=== PATIENT | male | born 1960 | race African-American/Black ===

== ENCOUNTER 2018-03-19 06:10 | Inpatient (IN) ==
[2018-03-19] MEDS ORDERED: Vancomycin Inj 1 GM/200 ML PIGGYBACK IV.SIG ONE (07:41)
[2018-03-19] MEDS ORDERED: Piperacil/Tazo 3.375 GM Premix 50 ML IV.SIG ONE (07:41)
[2018-03-19] MEDS ORDERED: Morphine Inj 4 MG/ML Vial IV.PUSH ONE (07:41)
[2018-03-19] MEDS ORDERED: Sodium Chlor 0.9% Inj 500 ML IV.SIG ONE (07:46)
[2018-03-19 08:38] LABS: Baso # (Auto) 0.1 th/mm3 (0.0-0.2); Baso % (Auto) 0.6 % (0.0-2.0); Eos # (Auto) 0.1 th/mm3 (0.0-0.4); Eos % (Auto) 0.4 % (0.0-4.0); Hematocrit 32.5 % (39.0-51.0); Hemoglobin 10.8 gm/dL (13.0-17.0); Lymph # (Auto) 1.4 th/mm3 (1.0-4.8); Lymph % (Auto) 7.5 % (9.0-44.0); Mean Corpuscular HGB Conc 33.2 % (32.0-36.0); Mean Corpuscular Hemoglobin 30.6 pg (27.0-34.0); Mean Platelet Volume 8.4 fL (7.0-11.0); Mono # (Auto) 1.5 th/mm3 (0.0-0.9); Neut # (Auto) 15.7 th/mm3 (1.8-7.7); Neut % (Auto) 83.5 % (16.0-70.0); Platelet Count 544 th/mm3 (150-450); Red Blood Count 3.53 mil/mm3 (4.50-5.90); Red Cell Distribution Width 14.3 % (11.6-17.2); White Blood Count 18.8 th/mm3 (4.0-11.0)
[2018-03-19 09:07] LABS: Calcium 9.2 mg/dL (8.5-10.1); Carbon Dioxide 29.1 meq/L (21.0-32.0); Potassium 3.4 meq/L (3.5-5.1)
[2018-03-19 09:30] LABS: Lymphocytes 7 % (9-44); Metamyelocytes 1 % (0-1); Monocytes 7 % (0-8); Myelocytes 1 % (0-0); Toxic Granulation 1+
[2018-03-19 09:31] LABS: Platelet Morphology Normal (Normal)
[2018-03-19] MEDS ORDERED: Vancomycin Inj 1,000 MG in Sodium Chlor 0.9% Inj 250 ML IV.SIG ONE (10:00)
--- NOTE | 2018-03-19 10:12 | ED ---
HPI General Chief complaint: Extremity Injury, Lower Stated complaint: Rt leg pain Time Seen by Provider: 03/19/18 07:41 History of Present Illness HPI narrative: This is a 57-year-old male with a history of polysubstance abuse , presents here today with complaint of right lower extremity increased redness and pain. Patient was seen 6 days ago for the same. At that time he had a ultrasound that showed no evidence of new DVT. He also had an x-ray that showed no evidence of osteomyelitis. White count at that time was 25,000. He was given DalVance and told to return if he developed worsening pain or any other reason. Patient reports that the pain has gotten much worse. He also reports the swelling has gotten worse. He denies any fevers, chills. He does also report there is increased drainage from the ulcer. He reports his last tetanus shot was within 5 years. Related Data Home Medications Medication Instructions Recorded Confirmed phenytoin sodium extended 300 mg PO DAILY 03/13/18 03/13/18 [Dilantin Extended] Allergies Allergy/AdvReac Type Severity Reaction Status Date / Time No Known Allergies Allergy Verified 03/13/18 16:17 Review of Systems ROS: all other systems reviewed are negative Constitutional Denies chills and Denies fever(s) Eyes Reports system reviewed and no additional complaints, except as docu ENT Reports system reviewed and no additional complaints, except as docu Cardiovascular Denies chest pain and Denies dyspnea Respiratory Denies chest congestion and Denies cough Gastrointestinal Denies diarrhea, Denies nausea and Denies vomiting Genitourinary Reports system reviewed and no additional complaints, except as docu Musculoskeletal Reports limited range of motion (Secondary to pain.) and Reports other ( Increased redness and swelling of the right lower extremity. Patient also reports drainage from his ulcer.) Integumentary/Breasts Reports non-healing lesions (Right lateral kessler.), Reports skin ulcer (Right lateral kessler that straining.) and Reports other (Increased redness and swelling. ) Neurologic Reports system reviewed and no additional complaints, except as docu Endocrine Denies polydipsia and Denies polyuria FORMERLY [facility], [facility] Medical History Medical History DVT (deep venous thrombosis) (Acute) Seizure (Acute) Surgical History Surgical History No history of previous surgery (Acute) Social History Social History Substance History: Active Abuse Second Hand Smoke Exposure: No Smoking Status: Current every day smoker Tobacco Type: Cigarettes How Often Do You Have a Drink Containing Alcohol: 2 to 4 times a month Recent Travel in [facility] within the Last 8 Weeks: No Recent Out of Country Travel within the Last 8 Weeks: No Substance Abuse Detail Marijuana: Substance Use Status: Active Route Used Substance Abuse: Inhalation Last Used: 03/19/18 Crack/Cocaine: Substance Use Status: Active Route Used Substance Abuse: Inhalation Last Used: 03/19/18 Immunization History Tetanus Immunization: <5 Years Hx Influenza Vaccine This Season: No Exam Narrative Exam Narrative: GENERAL: Well-developed well-nourished male in no acute respiratory distress. SKIN: Focused skin assessment warm/dry. HEAD: Atraumatic. Normocephalic. EYES: No scleral icterus. No injection or drainage. ENT: No nasal bleeding or discharge. Mucous membranes pink and moist. NECK: Trachea midline. Supple. CARDIOVASCULAR: Regular rate and rhythm. No murmur appreciated. RESPIRATORY: No accessory muscle use. Clear to auscultation. Breath sounds equal bilaterally. GASTROINTESTINAL: Abdomen soft, thin, non-tender, nondistended. Hepatic and splenic margins not palpable. MUSCULOSKELETAL: Right lower extremity with erythema and redness and induration up to his knee level. There is a draining ulcer on his right lateral leg. NEUROLOGICAL: Awake and alert. No obvious cranial nerve deficits. Motor grossly within normal limits. Normal speech. Course Initial Documented Vital Signs Temperature 97.5 F L 03/19/18 06:13 Pulse Rate 87 03/19/18 06:13 Respiratory Rate 18 03/19/18 06:13 Blood Pressure 123/56 L 03/19/18 06:13 Pulse Oximetry 99 03/19/18 06:13 Last Documented Vital Signs Temperature 97.5 F L 03/19/18 06:13 Pulse Rate 87 03/19/18 06:13 Respiratory Rate 15 03/19/18 09:41 Blood Pressure 123/56 L 03/19/18 06:13 Pulse Oximetry 99 03/19/18 06:13 Medical Decision Making MDM Narrative Medical decision making narrative: 57-year-old male with a history of polysubstance abuse, presents here with worsening pain, redness, drainage from his right lower extremity ulcer and cellulitis. Patient was here 6 days ago and received a dose of DalVance he presents with worsening redness drainage and pain. The patient has failed outpatient treatment and will be admitted for IV antibiotic therapy. He has been started on vancomycin and Zosyn. Patient's tetanus shot was within the last 5 years. He is Parviz had an ultrasound and x- ray of the lower extremity 6 days ago. Those were negative for acute process. White count is 18,800 which is down from previous however still elevated. Case was discussed with Dr. Roger, [facility], who agrees with the admission. He will be a full admit. Differential Diagnosis Differential Diagnosis: Cellulitis, failed outpatient antibiotics versus metabolic derangement versus polysubstance abuse versus DVT Lab Data Result diagrams: 03/19/18 08:00 03/19/18 08:00 Lab Results 03/19/18 03/19/18 Range/Units 08:00 08:00 WBC 18.8 H (4.0-11.0) th/mm3 RBC 3.53 L (4.50-5.90) mil/mm3 Hgb 10.8 L (13.0-17.0) gm/dL Hct 32.5 L (39.0-51.0) % MCV 92.0 (80.0-100.0) fL MCH 30.6 (27.0-34.0) pg MCHC 33.2 (32.0-36.0) % RDW 14.3 (11.6-17.2) % Plt Count 544 H D (150-450) th/mm3 MPV 8.4 (7.0-11.0) fL Prelim Diff (Auto) Slide review pending Neut % (Auto) 83.5 H (16.0-70.0) % Lymph % (Auto) 7.5 L (9.0-44.0) % [place] % (Auto) 8.0 (0.0-8.0) % Eos % (Auto) 0.4 (0.0-4.0) % Baso % (Auto) 0.6 (0.0-2.0) % Neut # (Auto) 15.7 H (1.8-7.7) th/mm3 Lymph # (Auto) 1.4 (1.0-4.8) th/mm3 [place] # (Auto) 1.5 H (0.0-0.9) th/mm3 Eos # (Auto) 0.1 (0.0-0.4) th/mm3 Baso # (Auto) 0.1 (0.0-0.2) th/mm3 WBC Differential Manual diff final Seg Neuts % (Manual) 77 H (16-70) % Band Neuts % (Manual) 7 H (0-6) % Lymphocytes % (Manual) 7 L (9-44) % Monocytes % (Manual) 7 (0-8) % Metamyelocytes % (Man) 1 (0-1) % Myelocytes % (Man) 1 H (0-0) % Abs Neuts (Manual) 16.2 H (1.8-7.7) th/mm3 Differential Comment . Toxic Granulation 1+ H (None) Platelet Estimate High H (Normal) Platelet Morphology Normal (Normal) Sodium 136 (136-145) meq/L Potassium 3.4 L (3.5-5.1) meq/L Chloride 99 (98-107) meq/L Carbon Dioxide 29.1 (21.0-32.0) meq/L Anion Gap 8 (5-15) meq/L BUN 13 (7-18) mg/dL Creatinine 1.19 (0.60-1.30) mg/dL Estimated GFR 77 L (>89) mL/min Random Glucose 60 L (74-106) mg/dL Calcium 9.2 (8.5-10.1) mg/dL Discharge Plan Discharge Disposition Patient Disposition: 30 Still Patient Discharge Details Diagnosis: Cellulitis of leg, right, Polysubstance (excluding opioids) dependence, Failure of outpatient treatment Physicians Team ED Provider: Salbador Chacon Primary Care Provider: UNKNOWN, Attending Provider: Mandy Roger Status ED Status: Admitted Patient
[2018-03-19] MEDS ORDERED: Naloxone Inj 0.4 MG/ML Vial IV.PUSH PRN (17:28)
[2018-03-19] MEDS ORDERED: Acetaminophen 325 MG Tablet PO PRN (17:28)
[2018-03-19] MEDS ORDERED: Vancomycin Consult Pharmacy 1 EACH OTHER SCH (17:28)
[2018-03-19] MEDS ORDERED: Ketorolac Inj 30 MG/ML (IVP) Vial IV.PUSH PRN (17:28)
[2018-03-19] MEDS ORDERED: Haloperidol Inj 5 MG/ML Ampul IV.PUSH PRN (17:29)
[2018-03-19] MEDS ORDERED: LORazepam 1 MG Tablet PO PRN (17:29)
[2018-03-19] MEDS ORDERED: Heparin - SQ 10,000 UNITS/ML Vial SQ SCH (17:30)
[2018-03-19] MEDS ORDERED: Potassium Chloride Inj 20 MEQ in Sod Chloride 0.9% Inj 1,000 ML IV.CONT SCH (17:30)
[2018-03-19] MEDS ORDERED: Bisacodyl 10 MG Supp RECTAL PRN (17:34)
--- NOTE | 2018-03-19 17:41 | P.HP ---
History of Present Illness Primary Care Physician: UNKNOWN History of Present Illness: This is a 57-year-old male with a history of remote DVT status post Coumadin, seizure disorder on Dilantin and polysubstance abuse. Family history no diabetes. He returned to the emergency department because of right lower extremity pain and swelling. Patient was seen about a week ago because of right foot/ankle pain and swelling for 2 weeks. He was diagnosed with cellulitis and was given Dalvance. X-ray of the foot with no evidence of osteomyelitis and Doppler with no DVT. Patient states a day after he was seen in the ED he developed a blister then later started having purulent drainage. He also reports of intermittent fever and chills. Denies history of MRSA. States he tried to elevate his right lower extremity. 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 In the emergency department, he received IV vancomycin and Zosyn and IV morphine. Inpatient Certification: I certify that the inpatient services were ordered in accordance with Medicare regulations governing the order. This includes certification that hospital inpatient services are reasonable and necessary and in the case of services not specified as inpatient-only under 42 CFR 419.22(n), that they are appropriately provided as inpatient services in accordance to with the 2-midnight benchmark under 43 CFR 412.3(e) Estimated Total Length of Stay (Days): 3 Plans for Post Hospital Care: Not yet determined Review of Systems All other systems reviewed negative except as stated in HPI [facility] - History History Provided By: Patient - Medical / Surgical Hx Neg / Unobtainable Surgical History: No Previous Surgery - Medical History Medical History: Medical History (Last Updated 03/19/18 @ 08:33 by Rosaline Ellsworth) DVT (deep venous thrombosis) Seizure - Surgical History Surgical History: Surgical History (Last Reviewed 03/19/18 @ 08:32 by Rosaline Ellsworth) No history of previous surgery - Tobacco History Second Hand Smoke Exposure: No Tobacco Use In Past 30 Days: Yes Smoking Status: Current every day smoker Tobacco Type: Cigarettes - Alcohol History How Often Do You Have a Drink Containing Alcohol: 2 to 4 times a month - Substance Use History Substance History: Active Abuse - Substance Use Type Marijuana Status: Active Route Used: Inhalation Last Used: 03/19/18 Crack/Cocaine Status: Active Route Used: Inhalation Last Used: 03/19/18 - Travel History Recent Travel in the [facility] Within the Last 8 Weeks: No Recent Travel Out of the Country Within the Last 8 Weeks: No - Immunization History Tetanus Immunization: <5 Years Hx Influenza Vaccine This Season: No Medications and Allergies Active Medications: Active Medications Acetaminophen (Tylenol) 650 mg PO Q6HR PRN PRN Reason: PAIN SCALE 1 TO 2 Al Hydroxide/Mg Hydroxide (Milk Of Magnesia Liq) 30 ml PO Q12H PRN PRN Reason: Mild Constipation Bisacodyl (Dulcolax Supp) 10 mg RECTAL DAILY PRN PRN Reason: SEVERE CONSITIPATION Flumazenil (Romazecon Inj) 0.2 mg IV.PUSH Q1M PRN PRN Reason: OVERSEDATION Folic Acid (Folic Acid) 1 mg PO DAILY [facility] Stop: 03/25/18 08:59 Haloperidol Lactate (Haldol Inj) 1 mg IV.PUSH Q15M PRN PRN Reason: for severe agitation Heparin Sodium (Porcine) (Heparin Inj) 5,000 units SQ Q8H [facility] Potassium Chloride 20 meq/ (Sodium Chloride) 1,010 mls @ 100 mls/hr IV.CONT .Q10H6M [facility] Pharmacy Profile Note (Vancomycin Consult Pharmacy) 0 mls @ 0 mls/hr OTHER UNSCH [facility] Piperacillin/Tazobactam/Dextrose (Zosyn 3.375 Gm Premix) 50 mls @ 100 mls/hr IV.SIG Q6H [facility] Ketorolac Tromethamine (Toradol Inj) 30 mg IV.PUSH Q6H PRN PRN Reason: PAIN 6-10;IF UNABLE TO TAKE PO Stop: 03/24/18 17:27 Ketorolac Tromethamine (Toradol Inj) 15 mg IV.PUSH Q6H PRN PRN Reason: PAIN 3-5; IF UABLE TO TAKE PO Stop: 03/24/18 17:27 Lactulose (Lactulose Liq) 30 ml PO DAILY PRN PRN Reason: SEVERE CONSITIPATION Lorazepam (Ativan) 1 mg PO Q4H PRN PRN Reason: for CIWA 8-10 Lorazepam (Ativan) 2 mg PO Q2H PRN PRN Reason: for CIWA 11-14 Lorazepam (Ativan Inj) 2 mg IV.PUSH Q2H PRN PRN Reason: for CIWA 11-14 Lorazepam (Ativan Inj) 2 mg IV.PUSH Q1H PRN PRN Reason: for CIWA 15-20 Lorazepam (Ativan Inj) 2 mg IV.PUSH Q15M PRN PRN Reason: for CIWA > 20 Lorazepam (Ativan Inj) 1 mg IV.PUSH Q4H PRN PRN Reason: for CIWA 8-10 Morphine Sulfate (Morphine Inj) 2 mg IV.PUSH Q1H PRN PRN Reason: Pain Scale 7-10 (Intractable) Multivitamins/Minerals (Theragran-M) 1 tab PO DAILY [facility] Stop: 03/25/18 08:59 Naloxone HCl (Narcan Inj) 0.4 mg IV.PUSH UNSCH PRN PRN Reason: SEE LABEL COMMENTS Ondansetron HCl (Zofran Inj) 4 mg IV.PUSH Q6H PRN PRN Reason: NAUSEA OR VOMITING Phenytoin Sodium (Dilantin) 300 mg PO HS [facility] Potassium Chloride (K-Dur) 20 meq PO ONCE ONE Stop: 03/19/18 17:30 Senna/Docusate Sodium (Pily-Colace) 1 tab PO BID [facility] Sennosides (Senokot) 17.2 mg PO Q12H PRN PRN Reason: Moderate Constipation Thiamine HCl (Vitamin B1) 100 mg PO DAILY [facility] Allergies Allergy/AdvReac Type Severity Reaction Status Date / Time No Known Allergies Allergy Verified 03/13/18 16:17 Home Medications Medication Instructions Recorded Confirmed Type phenytoin sodium extended 300 mg PO DAILY 03/13/18 03/19/18 History [Dilantin Extended] Exam Vital signs: Vital Signs 03/19/18 06:13 03/19/18 09:41 03/19/18 14:09 Temperature 97.5 F L Pulse Rate 87 78 Respiratory Rate 18 15 16 Blood Pressure 123/56 L 121/62 Pulse Oximetry 99 98 Intake & Output 03/18/18 03/19/18 03/19/18 18:59 06:59 18:59 Weight 70.76 kg Narrative: GENERAL: Well-developed, well-nourished unkempt male SKIN: Warm and dry. HEAD: Atraumatic. Normocephalic. EYES: Pupils equal and round. No scleral icterus. No injection or drainage. ENT: No nasal bleeding or discharge. Mucous membranes pink and moist. NECK: Trachea midline. No JVD. CARDIOVASCULAR: Regular rate and rhythm. RESPIRATORY: No accessory muscle use. Clear to auscultation. Breath sounds equal bilaterally. GASTROINTESTINAL: Abdomen soft, non-tender, nondistended. MUSCULOSKELETAL: Extremities without clubbing or cyanosis. Distal right leg is edematous with open wound medially measuring 0.5 cm x 1 cm. Proximal to that is a healed ulcer NEUROLOGICAL: Awake and alert. No obvious cranial nerve deficits. Motor grossly within normal limits. Five out of 5 muscle strength in the arms and legs. Normal speech. PSYCHIATRIC: Appropriate mood and affect; insight and judgment normal. Results - Labs CBC & Chem 7: 03/19/18 08:00 03/19/18 08:00 Labs: Laboratory Results - last 24 hr 03/19/18 03/19/18 08:00 08:00 WBC 18.8 H RBC 3.53 L Hgb 10.8 L Hct 32.5 L MCV 92.0 MCH 30.6 MCHC 33.2 RDW 14.3 Plt Count 544 H D MPV 8.4 Prelim Diff (Auto) Slide review pending Neut % (Auto) 83.5 H Lymph % (Auto) 7.5 L Posey % (Auto) 8.0 Eos % (Auto) 0.4 Baso % (Auto) 0.6 Neut # (Auto) 15.7 H Lymph # (Auto) 1.4 [place]y # (Auto) 1.5 H Eos # (Auto) 0.1 Baso # (Auto) 0.1 WBC Differential Manual diff final Seg Neuts % (Manual) 77 H Band Neuts % (Manual) 7 H Lymphocytes % (Manual) 7 L Monocytes % (Manual) 7 Metamyelocytes % (Man) 1 Myelocytes % (Man) 1 H Abs Neuts (Manual) 16.2 H Differential Comment . Toxic Granulation 1+ H Platelet Estimate High H Platelet Morphology Normal Sodium 136 Potassium 3.4 L Chloride 99 Carbon Dioxide 29.1 Anion Gap 8 BUN 13 Creatinine 1.19 Estimated GFR 77 L Random Glucose 60 L Calcium 9.2 Caprini VTE Risk Assessment Caprini VTE Risk Assessment: Moderate/High Risk (score >= 2) Caprini Risk Assessment Model: Point Value = 1 Point Value = 2 Point Value = 3 Point Value = 5 Age 41-60 Minor surgery BMI > 25 kg/m2 Swollen legs Varicose veins or History of unexplained or recurrent spontaneous Oral contraceptives or hormone replacement Sepsis (< 1 month) Serious lung disease, including pneumonia (< 1 month) Abnormal pulmonary function Acute myocardial infarction Congestive heart failure (< 1 month) History of inflammatory bowel disease Medical patient at bed rest Age 61-74 Arthroscopic surgery Major open surgery (> 45 min) Laparoscopic surgery (> 45 min) Malignancy Confined to bed (> 72 hours) Immobilizing plaster cast Central venous access Age >= 75 History of VTE Family history of VTE Factor V Leiden Prothrombin [id number] Lupus anticoagulant Anticardiolipin antibodies Elevated serum homocysteine Heparin-induced thrombocytopenia Other congenital or acquired thrombophilia Stroke (< 1 month) Elective arthroplasty Hip, pelvis, or leg fracture Acute spinal cord injury (< 1 month) Prophylaxis Regimen: Total Risk Factor Score Risk Level Prophylaxis Regimen 0-1 Low Early ambulation 2 Moderate Order ONE of the following: *Sequential Compression Device (SCD) *Heparin 5000 units SQ BID 3-4 Higher Order ONE of the following medications: *Heparin 5000 units SQ TID *Enoxaparin/Lovenox 40 mg SQ daily (WT < 150 kg, CrCl > 30 mL/min) *Enoxaparin/Lovenox 30 mg SQ daily (WT < 150 kg, CrCl > 10-29 mL/min) *Enoxaparin/Lovenox 30 mg SQ BID (WT < 150 kg, CrCl > 30 mL/min) AND/OR *Sequential Compression Device (SCD) 5 or more Highest Order ONE of the following medications: *Heparin 5000 units SQ TID (Preferred with Epidurals) *Enoxaparin/Lovenox 40 mg SQ daily (WT < 150 kg, CrCl > 30 mL/min) *Enoxaparin/Lovenox 30 mg SQ daily (WT < 150 kg, CrCl > 10-29 mL/min) *Enoxaparin/Lovenox 30 mg SQ BID (WT < 150 kg, CrCl > 30 mL/min) AND *Sequential Compression Device (SCD) Assessment and Plan - Plan This is a 57-year-old male with a history of remote DVT status post Coumadin, seizure disorder on Dilantin and polysubstance abuse. He returned to the emergency department because of right lower extremity pain and swelling. Patient was seen about a week ago because of right foot/ankle pain and swelling for 2 weeks. He was diagnosed with cellulitis and was given Dalvance. X-ray of the foot with no evidence of osteomyelitis and Doppler with no DVT. Patient states a day after he was seen in the ED he developed a blister then later started having purulent drainage. He also reports of intermittent fever and chills. Denies history of MRSA. Right lower extremity cellulitis rule out abscess. Failed outpatient therapy with Dalvance. Continue IV vancomycin and Zosyn and pain management with Toradol and IV morphine counseled regarding narcotics. Extremity elevation. Wound care. Consult podiatry Hypokalemia. Replace with 20 mEq potassium p.o. 1. Seizure disorder. Continue Dilantin check level in the morning. Seizure precautions alcohol abuse/PSA. [facility] protocol. Counseled. DVT prophylaxis with SCD and subcu heparin Discharge Planning: [facility]
[2018-03-19] MEDS: Phenytoin Sodium 100 MG Capsule PO SCH (21:19)
[2018-03-19] MEDS: Ketorolac Inj 30 MG/ML (IVP) Vial IV.PUSH PRN (21:22)
[2018-03-19] MEDS: Senna/Docusate Sodium 8.6/50 MG Tablet PO SCH (22:36)
[2018-03-19] MEDS: Piperacil/Tazo 3.375 GM Premix 50 ML IV.SIG SCH (23:10)
[2018-03-19] MEDS: Heparin - SQ 10,000 UNITS/ML Vial SQ SCH (23:10)
[2018-03-20] MEDS: Piperacil/Tazo 3.375 GM Premix 50 ML IV.SIG SCH ×4 (03:42→22:45)
[2018-03-20] MEDS: Vancomycin Inj 1,000 MG in Sodium Chlor 0.9% Inj 250 ML IV.SIG SCH ×2 (04:28→23:05)
[2018-03-20] MEDS: Heparin - SQ 10,000 UNITS/ML Vial SQ SCH ×3 (06:48→21:48)
[2018-03-20] MEDS: Ketorolac Inj 30 MG/ML (IVP) Vial IV.PUSH PRN (08:07)
[2018-03-20] MEDS: Folic Acid 1 MG Tablet PO SCH (08:16)
[2018-03-20] MEDS: Senna/Docusate Sodium 8.6/50 MG Tablet PO SCH ×2 (08:16→21:48)
[2018-03-20] MEDS: Multivitamin/Minerals Therapeutic Tablet PO SCH (08:16)
[2018-03-20 09:23] LABS: Baso # (Auto) 0.1 th/mm3 (0.0-0.2); Baso % (Auto) 0.4 % (0.0-2.0); Eos # (Auto) 0.1 th/mm3 (0.0-0.4); Eos % (Auto) 0.7 % (0.0-4.0); Hematocrit 31.6 % (39.0-51.0); Hemoglobin 10.4 gm/dL (13.0-17.0); Lymph # (Auto) 1.6 th/mm3 (1.0-4.8); Lymph % (Auto) 11.2 % (9.0-44.0); Mean Corpuscular HGB Conc 32.8 % (32.0-36.0); Mean Corpuscular Hemoglobin 30.6 pg (27.0-34.0); Mean Corpuscular Volume 93.3 fL (80.0-100.0); Mean Platelet Volume 7.7 fL (7.0-11.0); Mono % (Auto) 7.1 % (0.0-8.0); Neut # (Auto) 11.7 th/mm3 (1.8-7.7); Neut % (Auto) 80.6 % (16.0-70.0); Platelet Count 528 th/mm3 (150-450); Red Blood Count 3.39 mil/mm3 (4.50-5.90); Red Cell Distribution Width 14.9 % (11.6-17.2); White Blood Count 14.5 th/mm3 (4.0-11.0)
[2018-03-20 09:51] LABS: Anion Gap 7 meq/L (5-15); Blood Urea Nitrogen 11 mg/dL (7-18); Calcium 8.3 mg/dL (8.5-10.1); Carbon Dioxide 24.3 meq/L (21.0-32.0); Chloride 106 meq/L (98-107); Glomerular Filtration Rate Greater Than 89 mL/min (>89); Glucose,Random 90 mg/dL (74-106); Magnesium 1.8 mg/dL (1.5-2.5); Phenytoin (Dilantin) 2.7 mcg/mL (10.0-20.0); Phosphorus 2.8 mg/dL (2.5-4.9); Potassium 4.2 meq/L (3.5-5.1); Sodium 137 meq/L (136-145)
--- NOTE | 2018-03-20 11:45 | P.PNIM ---
Subjective Interval history: This is a 57-year-old male with a history of remote DVT status post Coumadin, seizure disorder on Dilantin and polysubstance abuse. Family history no diabetes. He returned to the emergency department because of right lower extremity pain and swelling. Patient was seen about a week ago because of right foot/ankle pain and swelling for 2 weeks. He was diagnosed with cellulitis and was given Dalvance. X-ray of the foot with no evidence of osteomyelitis and Doppler with no DVT. Patient states a day after he was seen in the ED he developed a blister then later started having purulent drainage. He also reports of intermittent fever and chills. Denies history of MRSA. States he tried to elevate his right lower extremity. 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 In the emergency department, he received IV vancomycin and Zosyn and IV morphine. 8-10 RIGHT LOWER EXTREMITY DRESSED HAS NOT SEEN PODIATRY YET DW RN AND PT AND CM AM LABS Physical Exam Vital signs: Vital Signs 03/19/18 14:09 03/19/18 18:28 03/19/18 20:00 Temperature 98.3 F Pulse Rate 78 84 Respiratory Rate 16 20 18 Blood Pressure 121/62 106/63 110/64 Pulse Oximetry 98 97 99 03/19/18 20:50 03/20/18 00:00 03/20/18 04:00 Temperature 97.7 F 97.6 F Pulse Rate 93 H 74 78 Respiratory Rate 18 17 Blood Pressure 94/58 L 100/63 Pulse Oximetry 100 99 03/20/18 08:00 Temperature 97.6 F Pulse Rate 71 Respiratory Rate 16 Blood Pressure 100/69 Pulse Oximetry 98 Intake & Output 03/19/18 03/20/18 03/20/18 18:59 06:59 18:59 Intake Total 800 / 800 350 / 350 1050 / 1050 Balance 800 / 800 350 / 350 1050 / 1050 Weight 70.307 kg Intake: IV 800 / 800 350 / 350 1050 / 1050 NS + KCl 20 mEq Inj 1,000 ML @ 1000 / 1000 100 mls/hr IV.CONT .Q10H [facility] Rx #:[id number] Zosyn 3.375 GM Premix 50 ML @ 100 / 100 50 / 50 100 mls/hr IV.SIG Q6H [facility] Rx#: [id number] NS Inj 500 ML @ Wide Open IV. 500 / 500 SIG BOLUS ONE Rx#:[id number] Vancomycin Inj 1,000 MG In NS 250 / 250 250 / 250 Inj 250 ML @ 250 mls/hr IV.SIG Q18H [facility] Rx#:[id number] Other: Weight On Admission 70.307 kg Narrative: GENERAL: Well-developed, well-nourished unkempt male SKIN: Warm and dry. HEAD: Atraumatic. Normocephalic. EYES: Pupils equal and round. No scleral icterus. No injection or drainage. ENT: No nasal bleeding or discharge. Mucous membranes pink and moist. NECK: Trachea midline. No JVD. CARDIOVASCULAR: Regular rate and rhythm. RESPIRATORY: No accessory muscle use. Clear to auscultation. Breath sounds equal bilaterally. GASTROINTESTINAL: Abdomen soft, non-tender, nondistended. MUSCULOSKELETAL: Extremities without clubbing or cyanosis. Distal right leg is edematous with open wound medially measuring 0.5 cm x 1 cm. Proximal to that is a healed ulcer NEUROLOGICAL: Awake and alert. No obvious cranial nerve deficits. Motor grossly within normal limits. Five out of 5 muscle strength in the arms and legs. Normal speech. PSYCHIATRIC: Appropriate mood and affect; insight and judgment normal. Results - Labs CBC & Chem 7: 03/20/18 09:01 03/20/18 09:01 Laboratory Results - last 24 hr 03/20/18 03/20/18 09:01 09:01 WBC 14.5 H RBC 3.39 L Hgb 10.4 L Hct 31.6 L MCV 93.3 MCH 30.6 MCHC 32.8 RDW 14.9 Plt Count 528 H MPV 7.7 Neut % (Auto) 80.6 H Lymph % (Auto) 11.2 Jackson % (Auto) 7.1 Eos % (Auto) 0.7 Baso % (Auto) 0.4 Neut # (Auto) 11.7 H Lymph # (Auto) 1.6 Jackson # (Auto) 1.0 H Eos # (Auto) 0.1 Baso # (Auto) 0.1 WBC Differential . Differential Comment Auto diff final Sodium 137 Potassium 4.2 D Chloride 106 Carbon Dioxide 24.3 Anion Gap 7 BUN 11 Creatinine 0.97 Estimated GFR Greater than 89 Random Glucose 90 Calcium 8.3 L D Phosphorus 2.8 Magnesium 1.8 Phenytoin 2.7 L Microbiology 03/19/18 08:05 Blood - Peripheral Aerobic Blood Culture - Preliminary No growth in 1 day 03/19/18 08:05 Blood - Peripheral Anaerobic Blood Culture - Preliminary No growth in 1 day 03/19/18 08:00 Blood - Peripheral Aerobic Blood Culture - Preliminary No growth in 1 day 03/19/18 08:00 Blood - Peripheral Anaerobic Blood Culture - Preliminary No growth in 1 day 03/19/18 08:00 Wound - Leg Gram Stain - Final Assessment and Plan - Plan This is a 57-year-old male with a history of remote DVT status post Coumadin, seizure disorder on Dilantin and polysubstance abuse. He returned to the emergency department because of right lower extremity pain and swelling. Patient was seen about a week ago because of right foot/ankle pain and swelling for 2 weeks. He was diagnosed with cellulitis and was given Dalvance. X-ray of the foot with no evidence of osteomyelitis and Doppler with no DVT. Patient states a day after he was seen in the ED he developed a blister then later started having purulent drainage. He also reports of intermittent fever and chills. Denies history of MRSA. Right lower extremity cellulitis rule out abscess. Failed outpatient therapy with Dalvance. Continue IV vancomycin and Zosyn and pain management with Toradol and IV morphine counseled regarding narcotics. Extremity elevation. Wound care. Consult podiatry Hypokalemia. Replace with 20 mEq potassium p.o. 1. Seizure disorder. Continue Dilantin check level in the morning. Seizure precautions alcohol abuse/PSA. CIWA protocol. Counseled. DVT prophylaxis with SCD and subcu heparin AWAIT PODIATRY CONSULT AND INPUT CONTINUE CURRENT ANTIBIOTICS WITH VANCO AND ZOSYN AM LABS Code Status: FULL CODE Discussed Condition With: RN AND CM AND PT Discharge Planning: PENDING IMPROVEMENT OF RIGHT LE
[2018-03-20] MEDS: Morphine Inj 4 MG/ML Vial IV.PUSH PRN ×3 (16:07→21:47)
[2018-03-20 18:52] LABS: Hepatitis A IgM Antibody Nonreactive (Nonreactive); Hepatitits B Surface Antigen Nonreactive (Nonreactive)
[2018-03-20] MEDS ORDERED: Gadobutrol PF 7.5 MMOL/7.5 ML Vial (for RAD) IV.SIG ONE (20:19)
--- NOTE | 2018-03-20 21:11 | MR ---
EXAM DATE: 03/20/2018 8:30 PM EDT AGE/SEX: 57 years / Male INDICATIONS: Abscess. Right ankle pain. CLINICAL DATA: This is the patient's initial encounter. Patient reports that signs and symptoms have been present for 1 week and indicates a pain score of 7/10. MEDICAL/SURGICAL HISTORY: None. . Rt wrist sx. COMPARISON: [facility], FOOT COMPLETE RIGHT 3V, 03/13/2018. . TECHNIQUE: Multiplanar, multisequence MRI examination was performed with contrast and after the intr avenous administration of 7 ml Gadavist (gadobutrol) contrast as a single exam dose. FINDINGS: Broad area of swollen, thickening and indurated skin and subcutaneous tissues seen medially of the an kle and lower leg. There is no organized or drainable fluid present. Deep soft tissues are mildly buffy matous. Ligaments and tendons are intact. Mid and distal Achilles mildly thickened. No fracture, subluxation, joint effusion or synovitis. There is no evidence of osteomyelitis. CONCLUSION: 1. Broad area of cellulitis without abscess or osteomyelitis. 2. Mild Achilles tendinosis. No tear. Electronically signed by: Danny Black MD 03/20/2018 9:10 PM EDT
--- NOTE | 2018-03-20 22:59 | MB ---
cc: William Bowles DPM DATE: 03/20/2018 REASON FOR CONSULTATION: Right lower extremity cellulitis, possible abscess. HISTORY OF PRESENT ILLNESS: This is a 57-year-old male who noticed an increase of pain and swelling his right lower extremity. He apparently developed some swelling and some pain. He was seen at the ED; however, he returned because it was increasing. The patient states about a week ago, he was diagnosed with cellulitis. X-rays confirmed no obvious osteomyelitis and Doppler showed no DVT. The blister started to have purulent drainage. I am currently seeing the patient at bedside. He denies improvement of the symptoms; however, he has not significantly worsened. PAST MEDICAL HISTORY: Positive for DVT, seizure. 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 He admits to a history of smoking. He does admit to a history of crack cocaine inhalation. He does not admit to any injections, specifically of his ankle. ALLERGIES: NO KNOWN DRUG ALLERGIES. INPATIENT MEDICATIONS: He is receiving Zosyn and mupirocin cream. Please see complete medication list in the chart. PHYSICAL EXAMINATION: VITAL SIGNS: Temperature 97.5, pulse rate 84, respiratory rate 16, blood pressure 107/55. The patient is saturating 97% on room air. GENERAL: This is an alert and oriented male seen at bedside exhibiting nonlabored respirations. EXTREMITIES: Upon examining the right lower extremity, there is noted to be an expansile mixed fibrotic and very painful irregular surface wound draining mixed serous purulent drainage expansile of the distal medial calf, ankle area with superficial bulla. It is tender to touch. There is no obvious odor. There is no exposed deep fascia, muscle or bone. Upon palpating the soft tissue periphery, there is no obvious soft tissue emphysema. There is tenderness. There is swelling noted. Distal pedal pulses appear to be palpable. Sensation intact. No crepitus upon range of motion of digits, forefoot, hindfoot or ankle. LABORATORY DATA: White blood cells 14.5, trending down from 18.8, hemoglobin and hematocrit 10 and 31, platelet counts 528. Neutrophils were noted to be 80.6. Chem-7: Sodium 137, potassium 4.2, chloride 106, CO2 of 24.3, BUN 11, creatinine 0.97, estimated GFR greater than 89. Ankle MRI recently performed, broad area of cellulitis without abscess or osteomyelitis. Mild acute Achilles tendinitis, no tear. There appears to be a broad area of swollen, thickened and indurated skin and subcutaneous tissues medially at the ankle. There is no organized or drainable fluid present. MICROBIOLOGY FINDINGS: There is yeast and staphylococcus species. ID to follow. ASSESSMENT AND PLAN: Right lower extremity cellulitis with superficial ulcer. No obvious deep abscess or osteomyelitis. My recommendation is to continue local wound care and IV antibiotics. I will evaluate the patient within 1-2 days. There may be a possibility of needing debridement. I will see how the patient does over the weekend. BASIM Arnold/severiano , 10:17 PM , 10:24 PM
[2018-03-20] MEDS ORDERED: Temazepam 15 MG Capsule PO ONE (23:35)
[2018-03-20] MEDS: Phenytoin Sodium 100 MG Capsule PO SCH (23:46)
[2018-03-21] MEDS: Piperacil/Tazo 3.375 GM Premix 50 ML IV.SIG SCH ×4 (03:30→22:02)
[2018-03-21] MEDS: Heparin - SQ 10,000 UNITS/ML Vial SQ SCH ×3 (04:59→22:02)
[2018-03-21] MEDS: Folic Acid 1 MG Tablet PO SCH (09:14)
[2018-03-21] MEDS: Multivitamin/Minerals Therapeutic Tablet PO SCH (09:14)
[2018-03-21] MEDS: Senna/Docusate Sodium 8.6/50 MG Tablet PO SCH ×2 (09:14→22:02)
--- NOTE | 2018-03-21 10:56 | P.PNIM ---
Subjective Interval history: Follow-up for left lower extremity cellulitis Pain is uncontrolled, 05/20. Afebrile. No nausea or vomiting. Discussed with podiatry, concern for sickle cell disease. Pain is limited to the left lower extremity. No chest pain, shortness of breath, or extremity pain other than the left lower extremities. Physical Exam Vital signs: Vital Signs 03/20/18 12:00 03/20/18 16:00 03/20/18 20:00 Temperature 97.4 F L 98.1 F 97.5 F L Pulse Rate 72 81 84 Respiratory Rate 16 16 16 Blood Pressure 101/60 111/67 107/55 L Pulse Oximetry 98 100 97 03/20/18 23:04 03/20/18 23:38 03/21/18 00:00 Temperature 98.5 F Pulse Rate 78 82 82 Respiratory Rate 21 Blood Pressure 102/60 Pulse Oximetry 100 03/21/18 00:30 03/21/18 02:47 03/21/18 04:00 Temperature 97.6 F Pulse Rate 76 Respiratory Rate 20 18 21 Blood Pressure 117/66 Pulse Oximetry 97 03/21/18 05:48 03/21/18 08:00 Temperature 99.6 F Pulse Rate 71 Respiratory Rate 20 24 Blood Pressure 125/79 Pulse Oximetry 98 Intake & Output 03/20/18 03/21/18 03/21/18 18:59 06:59 18:59 Intake Total 1050 / 1050 2009 Output Total 800 / 800 Balance 1050 / 1050 1210 / 1210 Weight 72.1 kg Intake: IV 1050 / 1050 1050 / 1050 NS + KCl 20 mEq Inj 1,000 ML @ 1000 / 1000 1000 / 1000 100 mls/hr IV.CONT .Q10H [facility] Rx #:[id number] Zosyn 3.375 GM Premix 50 ML @ 50 / 50 50 / 50 100 mls/hr IV.SIG Q6H [facility] Rx#: [id number] Oral 960 / 960 Output: Urine 800 / 800 Narrative: GENERAL: Well-developed, well-nourished unkempt male SKIN: Warm and dry. CARDIOVASCULAR: Regular rate and rhythm. RESPIRATORY: No accessory muscle use. Clear to auscultation. Breath sounds equal bilaterally. GASTROINTESTINAL: Abdomen soft, non-tender, nondistended. MUSCULOSKELETAL: Extremities without clubbing or cyanosis. Distal right leg is edematous with open wound medially measuring 0.5 cm x 1 cm. Proximal to that is a healed ulcer. Presently, dressings were just changed. Positive for erythema and tenderness. NEUROLOGICAL: Awake and alert, oriented 3. No obvious cranial nerve deficits. Motor grossly within normal limits. Five out of 5 muscle strength in the arms and legs. Normal speech. Results - Labs CBC & Chem 7: 03/20/18 09:01 03/20/18 09:01 Laboratory Results - last 24 hr 03/20/18 16:08 Hepatitis A IgM Ab Nonreactive Hep Bs Antigen Nonreactive Hep B Core IgM Ab Nonreactive Hep C IgG Ab Nonreactive Microbiology 03/19/18 08:00 Wound - Leg Gram Stain - Final 03/19/18 08:00 Wound - Leg Wound Culture - Preliminary Yeast - ID to follow Beta Strep not A,B or D 03/19/18 08:05 Blood - Peripheral Aerobic Blood Culture - Preliminary No growth in 1 day 03/19/18 08:05 Blood - Peripheral Anaerobic Blood Culture - Preliminary No growth in 1 day 03/19/18 08:00 Blood - Peripheral Aerobic Blood Culture - Preliminary No growth in 1 day 03/19/18 08:00 Blood - Peripheral Anaerobic Blood Culture - Preliminary No growth in 1 day - Imaging Impressions Ankle MRI 03/20/18 00:00 CONCLUSION: 1. Broad area of cellulitis without abscess or osteomyelitis. 2. Mild Achilles tendinosis. No tear. Assessment and Plan - Plan This is a 57-year-old male with a history of remote DVT status post Coumadin, seizure disorder on Dilantin and polysubstance abuse. He returned to the emergency department because of right lower extremity pain and swelling. Patient was seen about a week ago because of right foot/ankle pain and swelling for 2 weeks. He was diagnosed with cellulitis and was given Dalvance. X-ray of the foot with no evidence of osteomyelitis and Doppler with no DVT. Patient states a day after he was seen in the ED he developed a blister then later started having purulent drainage. He also reports of intermittent fever and chills. Denies history of MRSA. Right lower extremity cellulitis rule out abscess- Failed outpatient therapy with Dalvance. On IV vancomycin and Zosyn and pain management with Toradol and IV morphine, start Percocet. Continue extremity elevation. Wound care. Podiatry consulted, discussed with Dr. Bowles, for debridement tomorrow. MRI of the foot did not show any osteomyelitis but with extensive cellulitis, for debridement tomorrow. -Wound culture growing beta Streptococcus and yeast, load and start fluconazole , consult infectious disease. Rule out sickle cell disease -suspicious given history of DVT, severe pain, and left leg ulcer. No history of sickle cell disease in the family, localized pain in the left lower extremities. Patient also has anemia. However pain is significant, check LDH. Check hemoglobin electrophoresis. Start IVF. Hypokalemia-resolved Seizure disorder - Continue Dilantin, subtherapeutic level, will low Dilantin today. alcohol abuse/PSA. [facility] protocol. Counseled. DVT prophylaxis with SCD and subcu heparin
[2018-03-21] MEDS ORDERED: Acetaminophen 325 MG Tablet PO PRN (11:43)
[2018-03-21] MEDS ORDERED: Naloxone Inj 0.4 MG/ML Vial IV.PUSH PRN (11:43)
[2018-03-21] MEDS: oxyCODONE/Acetaminophen 10/325 Tablet PO PRN ×2 (12:26→19:26)
--- NOTE | 2018-03-21 12:34 | P.PNPOD ---
Subjective Interval history: Severe right ankle pain remains Physical Exam Vital signs: Vital Signs 03/20/18 16:00 03/20/18 20:00 03/20/18 23:04 Temperature 98.1 F 97.5 F L 98.5 F Pulse Rate 81 84 78 Respiratory Rate 16 16 21 Blood Pressure 111/67 107/55 L 102/60 Pulse Oximetry 100 97 100 03/20/18 23:38 03/21/18 00:00 03/21/18 00:30 Temperature Pulse Rate 82 82 Respiratory Rate 20 Blood Pressure Pulse Oximetry 03/21/18 02:47 03/21/18 04:00 03/21/18 05:48 Temperature 97.6 F Pulse Rate 76 Respiratory Rate 18 21 20 Blood Pressure 117/66 Pulse Oximetry 97 03/21/18 08:00 03/21/18 12:00 Temperature 99.6 F 98.5 F Pulse Rate 71 82 Respiratory Rate 24 23 Blood Pressure 125/79 134/67 Pulse Oximetry 98 98 Intake & Output 03/20/18 03/21/18 03/21/18 18:59 06:59 18:59 Intake Total 1050 / 1050 2009 Output Total 800 / 800 Balance 1050 / 1050 1210 / 1210 Weight 72.1 kg Intake: IV 1050 / 1050 1050 / 1050 NS + KCl 20 mEq Inj 1,000 ML @ 1000 / 1000 1000 / 1000 100 mls/hr IV.CONT .Q10H [facility] Rx #:[id number] Zosyn 3.375 GM Premix 50 ML @ 50 / 50 50 / 50 100 mls/hr IV.SIG Q6H [facility] Rx#: [id number] Oral 960 / 960 Output: Urine 800 / 800 - Constitutional no acute distress - Neurological Alert and oriented x3 - Routine Extremities Exam Comments: Expansile ulceration 10 cm 15 cm of the right medial calf fibrotic tissue pain purulent drainage sloughing of skin, posterior calf compartment appears soft no crepitus within the soft tissue, patient is capable of some range of motion of the digits pedal pulses palpable distal sensation fully intact Medications and Allergies Active Medications: Active Medications Acetaminophen (Tylenol) 650 mg PO Q6H PRN PRN Reason: PAIN SCALE 1 TO 2 Al Hydroxide/Mg Hydroxide (Milk Of Magnesia Liq) 30 ml PO Q12H PRN PRN Reason: Mild Constipation Bisacodyl (Dulcolax Supp) 10 mg RECTAL DAILY PRN PRN Reason: SEVERE CONSITIPATION Fluconazole (Diflucan) 100 mg PO DAILY [facility] Flumazenil (Romazecon Inj) 0.2 mg IV.PUSH Q1M PRN PRN Reason: OVERSEDATION Folic Acid (Folic Acid) 1 mg PO DAILY [facility] Stop: 03/25/18 08:59 Last Admin: 03/21/18 09:14 Dose: 1 mg Haloperidol Lactate (Haldol Inj) 1 mg IV.PUSH Q15M PRN PRN Reason: for severe agitation Heparin Sodium (Porcine) (Heparin Inj) 5,000 units SQ Q8H [facility] Last Admin: 03/21/18 04:59 Dose: 5,000 units Pharmacy Profile Note (Vancomycin Consult Pharmacy) 0 mls @ 0 mls/hr OTHER UNSCH [facility] Piperacillin/Tazobactam/Dextrose (Zosyn 3.375 Gm Premix) 50 mls @ 100 mls/hr IV.SIG Q6H [facility] Last Admin: 03/21/18 09:13 Dose: Not Given Vancomycin HCl 1,000 mg/ (Sodium Chloride) 250 mls @ 250 mls/hr IV.SIG Q18H [facility] Last Admin: 03/20/18 23:05 Dose: Not Given Fluconazole (Diflucan 200 Mg Premix Bag) 100 mls @ 100 mls/hr IV.SIG ONCE ONE Stop: 03/21/18 12:56 Sodium Chloride (Ns Inj) 1,000 mls @ 84 mls/hr IV.CONT .[id number] [facility] Phenytoin Sodium 700 mg/ (Sodium Chloride) 114 mls @ 240 mls/hr IV.SIG ONCE ONE Stop: 03/21/18 12:34 Ketorolac Tromethamine (Toradol Inj) 30 mg IV.PUSH Q6H PRN PRN Reason: PAIN 6-10;IF UNABLE TO TAKE PO Stop: 03/24/18 17:27 Last Admin: 03/20/18 08:07 Dose: 30 mg Ketorolac Tromethamine (Toradol Inj) 15 mg IV.PUSH Q6H PRN PRN Reason: PAIN 3-5; IF UABLE TO TAKE PO Stop: 03/24/18 17:27 Lactulose (Lactulose Liq) 30 ml PO DAILY PRN PRN Reason: SEVERE CONSITIPATION Lorazepam (Ativan) 1 mg PO Q4H PRN PRN Reason: for CIWA 8-10 Lorazepam (Ativan) 2 mg PO Q2H PRN PRN Reason: for CIWA 11-14 Lorazepam (Ativan Inj) 2 mg IV.PUSH Q2H PRN PRN Reason: for CIWA 11-14 Lorazepam (Ativan Inj) 2 mg IV.PUSH Q1H PRN PRN Reason: for CIWA 15-20 Lorazepam (Ativan Inj) 2 mg IV.PUSH Q15M PRN PRN Reason: for CIWA > 20 Lorazepam (Ativan Inj) 1 mg IV.PUSH Q4H PRN PRN Reason: for CIWA 8-10 Miscellaneous Information ([facility] Ordered Lab Info) 0 each OTHER ONCE ONE Stop: 03/21/18 15:46 Morphine Sulfate (Morphine Inj) 2 mg IV.PUSH Q1H PRN PRN Reason: Pain Scale 7-10 (Intractable) Last Admin: 03/20/18 21:47 Dose: 2 mg Multivitamins/Minerals (Theragran-M) 1 tab PO DAILY [facility] Stop: 03/25/18 08:59 Last Admin: 03/21/18 09:14 Dose: 1 tab Mupirocin (Bactroban 2% Oint) 1 applicatio TOPICAL BID [facility] Last Admin: 03/21/18 09:14 Dose: 1 applicatio Naloxone HCl (Narcan Inj) 0.4 mg IV.PUSH UNSCH PRN PRN Reason: SEE LABEL COMMENTS Ondansetron HCl (Zofran Inj) 4 mg IV.PUSH Q6H PRN PRN Reason: NAUSEA OR VOMITING Oxycodone/Acetaminophen (Percocet 10/325 Mg) 1 tab PO Q6H PRN PRN Reason: PAIN SCALE 6 TO 10 Oxycodone/Acetaminophen (Percocet 5/325 Mg) 1 tab PO Q6H PRN PRN Reason: PAIN SCALE 3 TO 5 Phenytoin Sodium (Dilantin) 300 mg PO HS [facility] Last Admin: 03/20/18 23:46 Dose: 300 mg Senna/Docusate Sodium (Pily-Colace) 1 tab PO BID [facility] Last Admin: 03/21/18 09:14 Dose: 1 tab Sennosides (Senokot) 17.2 mg PO Q12H PRN PRN Reason: Moderate Constipation Thiamine HCl (Vitamin B1) 100 mg PO DAILY [facility] Last Admin: 03/21/18 09:14 Dose: 100 mg Allergies Allergy/AdvReac Type Severity Reaction Status Date / Time No Known Allergies Allergy Verified 03/13/18 16:17 Home Medications Medication Instructions Recorded Confirmed Type phenytoin sodium extended 300 mg PO DAILY 03/13/18 03/19/18 History [Dilantin Extended] Results - Labs CBC & Chem 7: 03/20/18 09:01 03/20/18 09:01 Laboratory Results - last 24 hr 03/20/18 16:08 Hepatitis A IgM Ab Nonreactive Hep Bs Antigen Nonreactive Hep B Core IgM Ab Nonreactive Hep C IgG Ab Nonreactive Microbiology 03/19/18 08:05 Blood - Peripheral Aerobic Blood Culture - Preliminary No growth in 2 days 03/19/18 08:05 Blood - Peripheral Anaerobic Blood Culture - Preliminary No growth in 2 days 03/19/18 08:00 Blood - Peripheral Aerobic Blood Culture - Preliminary No growth in 2 days 03/19/18 08:00 Blood - Peripheral Anaerobic Blood Culture - Preliminary No growth in 2 days 03/19/18 08:00 Wound - Leg Gram Stain - Final 03/19/18 08:00 Wound - Leg Wound Culture - Preliminary Yeast - ID to follow Beta Strep not A,B or D - Imaging Impressions Ankle MRI 03/20/18 00:00 CONCLUSION: 1. Broad area of cellulitis without abscess or osteomyelitis. 2. Mild Achilles tendinosis. No tear. Assessment and Plan - Assessment (1) Chronic ulcer of right ankle with fat layer exposed Code(s): L97.312 - Non-pressure chronic ulcer of right ankle with fat layer exposed Status: Acute (2) Cellulitis of right lower extremity Code(s): L03.115 - Cellulitis of right lower limb Status: Acute - Plan Patient has not improved much recommend operative debridement with possible wound VAC tomorrow. Will obtain cultures and tissue specimen, n.p.o. after midnight surgery tomorrow morning Discussed with medicine the severity of the pain and the possibility of possible sickle cell disease clinically correlates, will leave for medicine to evaluate
[2018-03-21 13:51] LABS: Anion Gap 6 meq/L (5-15); Aspartate Aminotransferase 25 U/L (15-37); Blood Urea Nitrogen 12 mg/dL (7-18); Calcium 8.7 mg/dL (8.5-10.1); Carbon Dioxide 24.9 meq/L (21.0-32.0); Chloride 107 meq/L (98-107); Glomerular Filtration Rate 82 mL/min (>89); Glucose,Random 119 mg/dL (74-106); Magnesium 1.7 mg/dL (1.5-2.5); Potassium 4.3 meq/L (3.5-5.1); Sodium 138 meq/L (136-145)
[2018-03-21 13:52] LABS: Alanine Aminotransferase 26 U/L (12-78); Phosphorus 2.8 mg/dL (2.5-4.9)
[2018-03-21] MEDS ORDERED: SODIUM CHLOR 0.9% IV.SIG ONE (14:00)
[2018-03-21] MEDS ORDERED: PHENYTOIN IV.SIG ONE (14:00)
[2018-03-21 14:01] LABS: Alkaline Phosphatase 70 U/L (45-117); Free T4 (Free Thyroxine) 1.06 ng/dL (0.76-1.46)
[2018-03-21] MEDS: Sod Chloride 0.9% Inj 1,000 ML IV.CONT SCH (15:25)
[2018-03-21] MEDS: Morphine Inj 4 MG/ML Vial IV.PUSH PRN ×2 (15:32→18:23)
[2018-03-21] MEDS ORDERED: Pharmacy Ordered Lab Info OTHER ONE (15:45)
[2018-03-21] MEDS: Vancomycin Inj 1,250 MG in Sodium Chlor 0.9% Inj 250 ML IV.SIG SCH (18:24)
[2018-03-21 19:03] LABS: Baso # (Auto) 0.1 th/mm3 (0.0-0.2); Baso % (Auto) 0.8 % (0.0-2.0); Eos # (Auto) 0.1 th/mm3 (0.0-0.4); Hematocrit 30.6 % (39.0-51.0); Hemoglobin 10.2 gm/dL (13.0-17.0); Lymph # (Auto) 2.5 th/mm3 (1.0-4.8); Lymph % (Auto) 16.6 % (9.0-44.0); Mean Corpuscular HGB Conc 33.4 % (32.0-36.0); Mean Corpuscular Hemoglobin 30.6 pg (27.0-34.0); Mean Corpuscular Volume 91.8 fL (80.0-100.0); Mono # (Auto) 1.2 th/mm3 (0.0-0.9); Mono % (Auto) 8.1 % (0.0-8.0); Neut # (Auto) 10.9 th/mm3 (1.8-7.7); Neut % (Auto) 73.5 % (16.0-70.0); Platelet Count 557 th/mm3 (150-450); Red Blood Count 3.33 mil/mm3 (4.50-5.90); Red Cell Distribution Width 14.4 % (11.6-17.2); White Blood Count 14.8 th/mm3 (4.0-11.0)
[2018-03-21] MEDS: Phenytoin Sodium 100 MG Capsule PO SCH (22:02)
[2018-03-22] MEDS: oxyCODONE/Acetaminophen 10/325 Tablet PO PRN ×4 (02:25→19:31)
[2018-03-22] MEDS: Piperacil/Tazo 3.375 GM Premix 50 ML IV.SIG SCH ×4 (02:31→23:02)
[2018-03-22] MEDS: Sod Chloride 0.9% Inj 1,000 ML IV.CONT SCH ×2 (05:47→14:08)
[2018-03-22] MEDS: Heparin - SQ 10,000 UNITS/ML Vial SQ SCH ×3 (06:01→23:04)
[2018-03-22] MEDS ORDERED: Sugammadex Inj 200 MG/2 ML Vial IV.PUSH ONE (07:56)
[2018-03-22] MEDS ORDERED: Dexmedetomidine Inj 200 MCG/2 ML Vial ONE (07:57)
[2018-03-22 08:13] LABS: Baso # (Auto) 0.1 th/mm3 (0.0-0.2); Baso % (Auto) 1.3 % (0.0-2.0); Eos # (Auto) 0.2 th/mm3 (0.0-0.4); Eos % (Auto) 1.4 % (0.0-4.0); Hematocrit 31.9 % (39.0-51.0); Hemoglobin 10.4 gm/dL (13.0-17.0); Lymph # (Auto) 2.3 th/mm3 (1.0-4.8); Lymph % (Auto) 20.3 % (9.0-44.0); Mean Corpuscular HGB Conc 32.5 % (32.0-36.0); Mean Corpuscular Hemoglobin 30.3 pg (27.0-34.0); Mean Corpuscular Volume 93.3 fL (80.0-100.0); Mean Platelet Volume 7.4 fL (7.0-11.0); Mono % (Auto) 8.2 % (0.0-8.0); Neut % (Auto) 68.8 % (16.0-70.0); Platelet Count 555 th/mm3 (150-450); Red Blood Count 3.42 mil/mm3 (4.50-5.90); White Blood Count 11.6 th/mm3 (4.0-11.0)
[2018-03-22] MEDS: Folic Acid 1 MG Tablet PO SCH (08:14)
[2018-03-22] MEDS: Senna/Docusate Sodium 8.6/50 MG Tablet PO SCH ×2 (08:14→23:03)
[2018-03-22] MEDS: Multivitamin/Minerals Therapeutic Tablet PO SCH (08:15)
[2018-03-22 08:31] LABS: Albumin 1.9 g/dL (3.4-5.0); Anion Gap 7 meq/L (5-15); Aspartate Aminotransferase 21 U/L (15-37); Blood Urea Nitrogen 11 mg/dL (7-18); Calcium 8.4 mg/dL (8.5-10.1); Carbon Dioxide 27.5 meq/L (21.0-32.0); Chloride 106 meq/L (98-107); Glomerular Filtration Rate 77 mL/min (>89); Glucose,Random 87 mg/dL (74-106); Potassium 4.7 meq/L (3.5-5.1); Sodium 140 meq/L (136-145)
[2018-03-22 08:36] LABS: Alanine Aminotransferase 26 U/L (12-78); Alkaline Phosphatase 58 U/L (45-117); Lactate Dehydrogenase 116 U/L (87-241); Phenytoin (Dilantin) 1.7 mcg/mL (10.0-20.0); Total Protein 6.4 g/dL (6.4-8.2)
[2018-03-22] MEDS ORDERED: Fluconazole 100 MG Tablet PO SCH (09:00)
--- NOTE | 2018-03-22 09:25 | P.PNIM ---
Subjective Interval history: Pt seen and examined for RLE cellulitis. He is evaluated shortly after I&D with podiatry. Reports for the most part pain has improved since the surgery. Denies fever or chills. No CP or shortness of breath. D/w patient regarding work-up for sickle cell. Denies family history of sickle cell. Denies history of pain crises. Physical Exam Vital signs: Vital Signs 03/21/18 12:00 03/21/18 16:00 03/21/18 20:00 Temperature 98.5 F 98.5 F 98.1 F Pulse Rate 82 82 77 Respiratory Rate 23 22 18 Blood Pressure 134/67 115/61 130/61 Pulse Oximetry 98 97 96 03/21/18 23:52 03/22/18 00:00 Temperature 98.2 F Pulse Rate 78 74 Respiratory Rate 18 Blood Pressure 128/62 Pulse Oximetry 96 Intake & Output 03/21/18 03/22/18 03/22/18 18:59 06:59 18:59 Intake Total 1200 / 1200 1150 / 1150 Balance 1200 / 1200 1150 / 1150 Intake: IV 1150 / 1150 NS Inj 1,000 ML @ 84 mls/hr IV. 1000 / 1000 CONT .[id number] [facility] Rx#:[id number] Zosyn 3.375 GM Premix 50 ML @ 150 / 150 100 mls/hr IV.SIG Q6H [facility] Rx#: [id number] Oral 1200 / 1200 Other: # Voids 1,225 Date of Last Bowel Movement 03/21/18 # Bowel Movements 0 Narrative: GENERAL: WN, WD AA resting in bed in NAD. SKIN: Warm and dry. HEENT: AT/NC. Pupils equal and round. Arcus senilis bilaterally. HEART: RRR no m/r/g. LUNGS: CTAB without wheezes or crackles. ABDOMEN: +BS, soft, NT, ND. EXTREMITIES: No LE edema. RLE with wound vac and dressing. NEURO: Awake and alert. Nonfocal. PSYCH: Appropriate mood and affect. Results - Labs CBC & Chem 7: 03/22/18 07:45 03/22/18 07:45 Laboratory Results - last 24 hr 03/21/18 03/21/18 03/21/18 13:08 18:00 18:00 WBC 14.8 H RBC 3.33 L Hgb 10.2 L Hct 30.6 L MCV 91.8 MCH 30.6 MCHC 33.4 RDW 14.4 Plt Count 557 H MPV 8.0 Neut % (Auto) 73.5 H Lymph % (Auto) 16.6 Slope % (Auto) 8.1 H Eos % (Auto) 1.0 Baso % (Auto) 0.8 Neut # (Auto) 10.9 H Lymph # (Auto) 2.5 Slope # (Auto) 1.2 H Eos # (Auto) 0.1 Baso # (Auto) 0.1 WBC Differential . Differential Comment Auto diff final PT 10.0 INR 1.0 Sodium 138 Potassium 4.3 Chloride 107 Carbon Dioxide 24.9 Anion Gap 6 BUN 12 Creatinine 1.12 Estimated GFR 82 L Random Glucose 119 H Calcium 8.7 Phosphorus 2.8 Magnesium 1.7 Total Bilirubin Less than 0.1 L AST 25 ALT 26 Alkaline Phosphatase 70 Lactate Dehydrogenase Total Protein 7.0 Albumin 2.0 L TSH 3.770 H Free T4 1.06 Phenytoin 03/22/18 03/22/18 07:45 07:45 WBC 11.6 H RBC 3.42 L Hgb 10.4 L Hct 31.9 L MCV 93.3 MCH 30.3 MCHC 32.5 RDW 15.0 Plt Count 555 H MPV 7.4 Neut % (Auto) 68.8 Lymph % (Auto) 20.3 Slope % (Auto) 8.2 H Eos % (Auto) 1.4 Baso % (Auto) 1.3 Neut # (Auto) 8.0 H Lymph # (Auto) 2.3 Slope # (Auto) 1.0 H Eos # (Auto) 0.2 Baso # (Auto) 0.1 WBC Differential . Differential Comment Auto diff final PT INR Sodium 140 Potassium 4.7 Chloride 106 Carbon Dioxide 27.5 Anion Gap 7 BUN 11 Creatinine 1.18 Estimated GFR 77 L Random Glucose 87 Calcium 8.4 L Phosphorus Magnesium Total Bilirubin 0.1 L AST 21 ALT 26 Alkaline Phosphatase 58 Lactate Dehydrogenase 116 Total Protein 6.4 D Albumin 1.9 L TSH Free T4 Phenytoin 1.7 L Microbiology 03/19/18 08:00 Wound - Leg Gram Stain - Final 03/19/18 08:00 Wound - Leg Wound Culture - Final Sandy parapsilosis Beta Strep not A,B or D 03/19/18 08:05 Blood - Peripheral Aerobic Blood Culture - Preliminary No growth in 2 days 03/19/18 08:05 Blood - Peripheral Anaerobic Blood Culture - Preliminary No growth in 2 days 03/19/18 08:00 Blood - Peripheral Aerobic Blood Culture - Preliminary No growth in 2 days 03/19/18 08:00 Blood - Peripheral Anaerobic Blood Culture - Preliminary No growth in 2 days - Procedures 03/22: Right distal leg incision and drainage, debridement, and application of wound vac with podiatry Assessment and Plan - Assessment (1) Cellulitis of right lower extremity Code(s): L03.115 - Cellulitis of right lower limb Status: Acute - Plan 57 year old male with history of remote DVT, seizure disorder, and polysubstance abuse admitted 03/19 for worsening RLE cellulitis after failing outpatient treatment. He had been seen in the ER approximately a week prior and discharged with Ignacio. He states shortly after being seen in the ED he developed a blister that later began to have purulent drainage. 1. RLE cellulitis with superficial ulcer - WBC 18.8 on admission with left shift and bandemia otherwise did not meet septic criteria - MRI showing broad area of cellulitis without abscess or osteo - Podiatry consulted and given severe R ankle pain it was decided to take him to the OR today for debridement - Blood cultures negative - Wound culture growing Sandy parapsilosis and beta strep no A, B, or D - ID consulted, will await reccs - Continue IV vanc and Zosyn - Diflucan added yesterday - Given significant pain, podiatric recommends eval for sickle cell. Hb electrophoresis pending 2. Seizure disorder - Subtherapeutic level - Increase Dilantin to 400 mg 3. EtOH abuse - No signs of withdrawal - [facility] protocol - Rally pack 4. 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 Will need clearance from podiatry and ID prior to discharge
--- NOTE | 2018-03-22 10:16 | P.BOP ---
- Preoperative Diagnosis (1) Chronic ulcer of right ankle with fat layer exposed (2) Cellulitis of right lower extremity - Postoperative Diagnosis (1) Chronic ulcer of right ankle with fat layer exposed (2) Cellulitis of right lower extremity Date of procedure: 03/22/18 Procedure: Right lower extremity incision drainage expansile debridement of wound superficial abscess with application of wound VAC Anesthesia: MAGALY Surgeon: William Michel DPM Estimated blood loss (mL): 20 (mL) Tourniquet time (min): 0 Pathology: other Condition: stable Disposition: floor
--- NOTE | 2018-03-22 11:28 | MP ---
cc: William Bowles DPM DATE OF OPERATION: 03/22/2018 PREOPERATIVE DIAGNOSES: Infection ulceration, cellulitis right lower extremity. POSTOPERATIVE DIAGNOSES: Infection ulceration, cellulitis right lower extremity. PROCEDURES PERFORMED: Right distal leg incision and drainage, expansile debridement, superficial I and D with application of wound VAC. ANESTHESIA: General. DRAINS: Wound VAC. ESTIMATED BLOOD LOSS: Less than 20 mL. COMPLICATIONS: None. SPECIMENS: Skin ulcer margin for pathological analysis, tissue culture sent for microbial analysis. DISPOSITION: Returned to floor. Will need repeat incision and drainage and debridement early next week. Continue IV antibiotics. TOURNIQUET: None. INDICATIONS FOR PROCEDURE: This is a 57-year-old male with worsening infection of the right lower extremity. MRI negative for deep abscess; however, clinical improvement was minimal. Pain was quite impressive. We opted to move forward with expansile incision and drainage and debridement. PROCEDURE IN DETAIL: Under mild sedation, the patient was brought in the operating room, placed on the operating table in supine position. Following the induction of general anesthesia, the right lower extremity was scrubbed, prepped, and draped in the usual aseptic fashion. The foot was elevated and examined. There was noted to be an expansile sloughing area of the distal medial leg measuring approximately 6 x 8 cm. Upon pressure to the skin periphery, there were multiple microabscesses and significant purulent drainage with liquefaction necrosis of the adipose down to the deep fascia. The medial saphenous vein was identified and remained intact. Sharp and blunt dissections were carried down to the fascial layer of the anterior leg and the medial and mid posterior leg. The infection appeared to stay superficial to the aponeurosis of the muscle compartments of the leg. Utilizing curette and rongeur, all nonviable tissue was removed down to viable bleeding tissue. The patient actually had good perfusion. The wound was then flushed with copious amounts of normal saline. A wound VAC was then applied under adequate seal and suction. Deep cultures were taken, as well as skin was taken for pathological analysis. The patient recovered in PACU. The patient will need repeat surgery. This is likely a patient who will need prolonged wound care and multiple returns to the operating room to trade out the wound VAC, given the sensitivity of this area and likely inability to do this bedside. We will continue to follow along. BASIM Arnold , 10:15 AM , 10:20 AM
[2018-03-22] MEDS ORDERED: Phenylephrine/NS 1000 MCG/10ML Syringe IV.PUSH ONE (12:00)
[2018-03-22] MEDS ORDERED: Lidocaine PF 1% Inj 5 ML Syringe INFILTRATN ONE (12:00)
[2018-03-22] MEDS ORDERED: fentaNYL Citrate Inj 100 MCG/2 ML Ampul ONE (12:20)
[2018-03-22 12:40] LABS: Hemoglobin A1c 6.2 % (4.3-6.0)
[2018-03-22 12:51] LABS: Reticulocyte Percent 0.8 % (0.4-3.0)
--- NOTE | 2018-03-22 13:02 | P.CONID ---
History of Present Illness Service: ID Consult date: 03/22/18 Requesting Physician: William Michel Reason for Consult: RLE infection Primary Care Provider: UNKNOWN Family Provider: Gisella Colvin MD History of Present Illness: 57 yo male who denies any medical problems presents with 1 weekpain and swelling of his R lower leg that started like a bug bite Alos endorses fever On presentation afebrile, but with WBC of 18 K MRI showed area of cellulitis without abscess or osteomyelitis. Pt underwent debridement: There was noted to be an expansile sloughing area of the distal medial leg measuring approximately 6 x 8 cm. Upon pressure to the skin periphery, there were multiple microabscesses and significant purulent drainage with liquefaction necrosis of the adipose down to the deep fascia. He has VAC He continues to have pain WBC going down Op clx positive for C. parapsilosa and strep Review of Systems All other systems reviewed negative except as stated in HPI PMFSH - History History Provided By: Patient - Medical History Medical History: Medical History (Last Reviewed 03/22/18 @ 17:49 by Yvonne Rios MD) DVT (deep venous thrombosis) Seizure - Surgical History Surgical History: Surgical History (Last Reviewed 03/22/18 @ 17:49 by Yvonne Rios MD) No history of previous surgery - Family History Family History: Family History (Last Reviewed 05/20/18 @ 11:37 by Yvonne Rios MD) Other Family history of diabetes mellitus Family history of hypertension - Social History I have reviewed the patient's Social History: Yes - Tobacco History Second Hand Smoke Exposure: No Tobacco Use In Past 30 Days: Yes Smoking Status: Current every day smoker Tobacco Type: Cigarettes - Alcohol History How Often Do You Have a Drink Containing Alcohol: 2 to 4 times a month - Substance Use History Substance History: Active Abuse - Substance Use Type Marijuana Status: Active Route Used: Inhalation Last Used: 03/19/18 Reason for Use: Get High Crack/Cocaine Status: Active Route Used: Inhalation Last Used: 03/19/18 Reason for Use: Get High - Travel History Recent Travel in the [place] Within the Last 8 Weeks: No Recent Travel Out of the Country Within the Last 8 Weeks: No - Immunization History Tetanus Immunization: <5 Years Hx Influenza Vaccine This Season: No Medications and Allergies Active Medications: Active Medications Acetaminophen (Tylenol) 650 mg PO Q6H PRN PRN Reason: PAIN SCALE 1 TO 2 Al Hydroxide/Mg Hydroxide (Milk Of Magnesia Liq) 30 ml PO Q12H PRN PRN Reason: Mild Constipation Bisacodyl (Dulcolax Supp) 10 mg RECTAL DAILY PRN PRN Reason: SEVERE CONSITIPATION Fluconazole (Diflucan) 100 mg PO DAILY [facility] Last Admin: 03/22/18 08:12 Dose: 100 mg Flumazenil (Romazecon Inj) 0.2 mg IV.PUSH Q1M PRN PRN Reason: OVERSEDATION Folic Acid (Folic Acid) 1 mg PO DAILY [facility] Stop: 03/25/18 08:59 Last Admin: 03/22/18 08:14 Dose: 1 mg Haloperidol Lactate (Haldol Inj) 1 mg IV.PUSH Q15M PRN PRN Reason: for severe agitation Heparin Sodium (Porcine) (Heparin Inj) 5,000 units SQ Q8H [facility] Last Admin: 03/22/18 06:01 Dose: Not Given Pharmacy Profile Note (Vancomycin Consult Pharmacy) 0 mls @ 0 mls/hr OTHER [facility] Piperacillin/Tazobactam/Dextrose (Zosyn 3.375 Gm Premix) 50 mls @ 100 mls/hr IV.SIG Q6H [facility] Last Infusion: 03/22/18 10:49 Dose: Infused Sodium Chloride (Ns Inj) 1,000 mls @ 84 mls/hr IV.CONT .[id number] [facility] Last Infusion: 03/22/18 08:21 Dose: 100 mls/hr Vancomycin HCl 1,250 mg/ (Sodium Chloride) 250 mls @ 250 mls/hr IV.SIG Q24H [facility] Last Admin: 03/21/18 18:24 Dose: 250 mls/hr Ketorolac Tromethamine (Toradol Inj) 30 mg IV.PUSH Q6H PRN PRN Reason: PAIN 6-10;IF UNABLE TO TAKE PO Stop: 03/24/18 17:27 Last Admin: 03/20/18 08:07 Dose: 30 mg Ketorolac Tromethamine (Toradol Inj) 15 mg IV.PUSH Q6H PRN PRN Reason: PAIN 3-5; IF UABLE TO TAKE PO Stop: 03/24/18 17:27 Lactulose (Lactulose Liq) 30 ml PO DAILY PRN PRN Reason: SEVERE CONSITIPATION Lorazepam (Ativan) 1 mg PO Q4H PRN PRN Reason: for CIWA 8-10 Lorazepam (Ativan) 2 mg PO Q2H PRN PRN Reason: for CIWA 11-14 Lorazepam (Ativan Inj) 2 mg IV.PUSH Q2H PRN PRN Reason: for CIWA 11-14 Lorazepam (Ativan Inj) 2 mg IV.PUSH Q1H PRN PRN Reason: for CIWA 15-20 Lorazepam (Ativan Inj) 2 mg IV.PUSH Q15M PRN PRN Reason: for CIWA > 20 Lorazepam (Ativan Inj) 1 mg IV.PUSH Q4H PRN PRN Reason: for CIWA 8-10 Miscellaneous Information [place] [place] Info[place] 0 each OTHER ONCE ONE Stop: 03/23/18 17:46 Miscellaneous Information [place] 1 each OTHER UNSCH PRN PRN Reason: SEE LABEL COMMENTS Stop: 03/23/18 10:43 Morphine Sulfate (Morphine Inj) 2 mg IV.PUSH Q1H PRN PRN Reason: Pain Scale 7-10 (Intractable) Last Admin: 03/21/18 18:23 Dose: 2 mg Multivitamins/Minerals (Theragran-M) 1 tab PO DAILY [facility] Stop: 03/25/18 08:59 Last Admin: 03/22/18 08:15 Dose: 1 tab Mupirocin (Bactroban 2% Oint) 1 applicatio TOPICAL BID [facility] Last Admin: 03/22/18 08:16 Dose: Not Given Naloxone HCl (Narcan Inj) 0.4 mg IV.PUSH UNSCH PRN PRN Reason: SEE LABEL COMMENTS Ondansetron HCl (Zofran Inj) 4 mg IV.PUSH Q6H PRN PRN Reason: NAUSEA OR VOMITING Oxycodone/Acetaminophen (Percocet 10/325 Mg) 1 tab PO Q6H PRN PRN Reason: PAIN SCALE 6 TO 10 Last Admin: 03/22/18 08:17 Dose: 1 tab Oxycodone/Acetaminophen (Percocet 5/325 Mg) 1 tab PO Q6H PRN PRN Reason: PAIN SCALE 3 TO 5 Phenytoin Sodium (Dilantin) 300 mg PO [facility] Last Admin: 03/21/18 22:02 Dose: 300 mg Senna/Docusate Sodium (Pily-Colace) 1 tab PO BID [facility] Last Admin: 03/22/18 08:14 Dose: Not Given Sennosides (Senokot) 17.2 mg PO Q12H PRN PRN Reason: Moderate Constipation Thiamine HCl (Vitamin B1) 100 mg PO DAILY [facility] Last Admin: 03/22/18 08:12 Dose: 100 mg Allergies Allergy/AdvReac Type Severity Reaction Status Date / Time No Known Allergies Allergy Verified 03/13/18 16:17 Exam Vital signs: Vital Signs 03/21/18 16:00 03/21/18 20:00 03/21/18 23:52 Temperature 98.5 F 98.1 F Pulse Rate 82 77 78 Respiratory Rate 22 18 Blood Pressure 115/61 130/61 Pulse Oximetry 97 96 03/22/18 00:00 03/22/18 08:00 03/22/18 10:15 Temperature 98.2 F 98.5 F 98.3 F Pulse Rate 74 67 73 Respiratory Rate 18 22 20 Blood Pressure 128/62 122/78 144/101 H Pulse Oximetry 96 99 98 03/22/18 10:30 03/22/18 12:00 03/22/18 12:22 Temperature 97.1 F L 98 F Pulse Rate 72 72 61 Respiratory Rate 23 23 Blood Pressure 154/87 H 148/87 H Pulse Oximetry 98 97 Intake & Output 03/21/18 03/22/18 03/22/18 18:59 06:59 18:59 Intake Total 1200 / 1200 1150 / 1150 750 / 750 Output Total 250 / 250 Balance 1200 / 1200 1150 / 1150 500 / 500 Intake: IV 1150 / 1150 50 / 50 NS Inj 1,000 ML @ 84 mls/hr IV. 1000 / 1000 CONT .[id number] [facility] Rx#:[id number] Zosyn 3.375 GM Premix 50 ML @ 150 / 150 50 / 50 100 mls/hr IV.SIG Q6H [facility] Rx#: [id number] Oral 1200 / 1200 Anesthesia Amount 700 / 700 Output: Urine 200 / 200 Estimated Blood Loss 50 / 50 Other: Mode Setting Right Lower Kemp Continuous # Voids 1,225 Date of Last Bowel Movement 03/21/18 # Bowel Movements 0 - Constitutional no acute distress, thin - Routine HEENT Exam Head: Present: normocephalic, atraumatic Eye: Present: EOMI, PERRL ENT: Present: mucous membranes moist, oropharynx clear - Routine Neck Exam Present: supple, full ROM - Routine Respiratory Exam Present: CTA bilaterally Comments: good effort - Routine Cardiovascular Exam Present: RRR, S1, S2 Comments: no murmrus, rubs gallops - Routine Abdominal Exam Present: soft, normoactive bowel sounds Comments: not tedenr not distended, no organomegaly or masses - Routine Extremities Exam Comments: no cyanosis, clubbing or edema STATUS LOCALIS: LLE with VACin place, + induration + palpable cords - Routine Neurological Exam Present: alert, oriented X3, CN II-XII intact, moving all extremities, vision grossly intact, hearing grossly intact, normal speech - Routine Psychiatric Exam Present: normal affect, cooperative Results - Labs CBC & Chem 7: 04/15/18 07:54 04/15/18 07:54 Labs: Laboratory Results - last 24 hr 03/21/18 03/21/18 03/21/18 13:08 18:00 18:00 WBC 14.8 H RBC 3.33 L Hgb 10.2 L Hct 30.6 L MCV 91.8 MCH 30.6 MCHC 33.4 RDW 14.4 Plt Count 557 H MPV 8.0 Neut % (Auto) 73.5 H Lymph % (Auto) 16.6 [place] % (Auto) 8.1 H Eos % (Auto) 1.0 Baso % (Auto) 0.8 Neut # (Auto) 10.9 H Lymph # (Auto) 2.5 [place] # (Auto) 1.2 H Eos # (Auto) 0.1 Baso # (Auto) 0.1 WBC Differential . Differential Comment Auto diff final Retic Count Absolute Retic PT 10.0 INR 1.0 Sodium 138 Potassium 4.3 Chloride 107 Carbon Dioxide 24.9 Anion Gap 6 BUN 12 Creatinine 1.12 Estimated GFR 82 L Random Glucose 119 H Calcium 8.7 Phosphorus 2.8 Magnesium 1.7 Total Bilirubin Less than 0.1 L AST 25 ALT 26 Alkaline Phosphatase 70 Lactate Dehydrogenase Total Protein 7.0 Albumin 2.0 L TSH 3.770 H Free T4 1.06 Phenytoin 03/22/18 03/22/18 03/22/18 07:45 07:45 12:05 WBC 11.6 H RBC 3.42 L Hgb 10.4 L Hct 31.9 L MCV 93.3 MCH 30.3 MCHC 32.5 RDW 15.0 Plt Count 555 H MPV 7.4 Neut % (Auto) 68.8 Lymph % (Auto) 20.3 [place] % (Auto) 8.2 H Eos % (Auto) 1.4 Baso % (Auto) 1.3 Neut # (Auto) 8.0 H Lymph # (Auto) 2.3 [place] # (Auto) 1.0 H Eos # (Auto) 0.2 Baso # (Auto) 0.1 WBC Differential . Differential Comment Auto diff final Retic Count 0.8 Absolute Retic 30.3 PT INR Sodium 140 Potassium 4.7 Chloride 106 Carbon Dioxide 27.5 Anion Gap 7 BUN 11 Creatinine 1.18 Estimated GFR 77 L Random Glucose 87 Calcium 8.4 L Phosphorus Magnesium Total Bilirubin 0.1 L AST 21 ALT 26 Alkaline Phosphatase 58 Lactate Dehydrogenase 116 Total Protein 6.4 D Albumin 1.9 L TSH Free T4 Phenytoin 1.7 L - Imaging Ankle MRI 03/20/18 00:00 CONCLUSION: 1. Broad area of cellulitis without abscess or osteomyelitis. 2. Mild Achilles tendinosis. No tear. Assessment and Plan - Plan Necrotizing infection, SSTI (skin and soft tissue infection) of RLE, lower leg cellulitis RLE Microabscess C.parapsilosa and strep cont zosyn and vancomycin for now Increase fluconazol dose to 400 IV US
[2018-03-22 13:03] LABS: % Iron Saturation 34.2 % (20-50); Iron 77 mcg/dL (65-175); Total Iron Binding Capacity 225 mcg/dL (250-450)
[2018-03-22 13:30] LABS: Ferritin 405 ng/mL (26-388); Vitamin B12 390 pg/mL (193-986)
--- NOTE | 2018-03-22 13:45 | ECG ---
Date Performed: 03/22/2018 Time Performed: 09:09:55 PTAGE: 57 years EKG: SINUS BRADYCARDIA BORDERLINE ECG PREVIOUS TRACING : 02/16/2016 11.53 DOCTOR: Raoul Hughes Interpretating Date/Time 03/22/2018 13:43:18
[2018-03-22] MEDS: Vancomycin Inj 1,250 MG in Sodium Chlor 0.9% Inj 250 ML IV.SIG SCH (18:40)
[2018-03-22] MEDS ORDERED: Morphine Inj 4 MG/ML Vial ONE (20:07)
--- NOTE | 2018-03-22 20:13 | US ---
EXAM DATE: 03/22/2018 7:49 PM EDT AGE/SEX: 57 years / Male INDICATIONS: Palpable area above recent port incision. CLINICAL DATA: This is the patient's initial encounter. Patient reports that signs and symptoms have been present for 1 day and indicates a pain score of 10/10. MEDICAL/SURGICAL HISTORY: Seizures. Right leg DVT. Cellulitis. . Right leg incision and drain age VAC. COMPARISON: [facility] [place], US VENOUS DOPPLER LEG RIGHT, 03/13/2018. . FINDINGS: In the area of clinical soft tissue swelling, in the distal lower leg, there is prominent superficial soft tissue edema. No organized fluid collections. CONCLUSION: Ill-defined superficial soft tissue edema of the right lower leg. Electronically signed by: Koko Rodriguez MD 03/22/2018 8:12 PM EDT
[2018-03-22] MEDS: Phenytoin Sodium 100 MG Capsule PO SCH (23:01)
[2018-03-23] MEDS: Sod Chloride 0.9% Inj 1,000 ML IV.CONT SCH ×2 (00:25→17:05)
[2018-03-23] MEDS: oxyCODONE/Acetaminophen 10/325 Tablet PO PRN ×4 (01:42→23:22)
[2018-03-23] MEDS: Piperacil/Tazo 3.375 GM Premix 50 ML IV.SIG SCH ×4 (01:48→23:22)
[2018-03-23] MEDS: Heparin - SQ 10,000 UNITS/ML Vial SQ SCH ×3 (05:18→21:18)
[2018-03-23] MEDS: Folic Acid 1 MG Tablet PO SCH (08:09)
[2018-03-23] MEDS: Senna/Docusate Sodium 8.6/50 MG Tablet PO SCH ×2 (08:09→21:18)
[2018-03-23] MEDS: Multivitamin/Minerals Therapeutic Tablet PO SCH (08:09)
--- NOTE | 2018-03-23 11:40 | P.PNIM ---
Subjective Interval history: Pt seen and examined for f/u RLE necrotizing cellulitis s/p debridement POD1. Pain is much improved since prior to surgery. Controlled with pain meds. No other symptoms. Denies CP or SOB. Physical Exam Vital signs: Vital Signs 03/22/18 12:00 03/22/18 12:22 03/22/18 16:00 Temperature 98 F 97.8 F Pulse Rate 72 61 70 Respiratory Rate 23 22 Blood Pressure 148/87 H 130/85 Pulse Oximetry 97 97 03/22/18 20:00 03/23/18 00:00 03/23/18 04:00 Temperature 98.8 F 97.4 F L 97.3 F L Pulse Rate 73 98 H 62 Respiratory Rate 18 18 18 Blood Pressure 116/55 L 104/56 L 116/57 L Pulse Oximetry 95 97 97 03/23/18 08:00 Temperature 97.2 F L Pulse Rate 80 Respiratory Rate 21 Blood Pressure 112/64 Pulse Oximetry 95 Intake & Output 03/22/18 03/23/18 03/23/18 18:59 06:59 18:59 Intake Total 2070 / 2070 1710 / 1710 500 / 500 Output Total 250 / 250 950 / 950 Balance 1820 / 1820 760 / 760 500 / 500 Intake: IV 350 / 350 1350 / 1350 500 / 500 NS Inj 1,000 ML @ 84 mls/hr IV. 1000 / 1000 500 / 500 CONT .[id number] [facility] Rx#:[id number] Zosyn 3.375 GM Premix 50 ML @ 100 / 100 100 / 100 100 mls/hr IV.SIG Q6H [facility] Rx#: [id number] Vancomycin Inj 1,250 MG In NS 250 / 250 250 / 250 Inj 250 ML @ 250 mls/hr IV.SIG Q24H [facility] Rx#:[id number] Oral 1020 / 1020 360 / 360 Anesthesia Amount 700 / 700 Output: Urine 200 / 200 950 / 950 Estimated Blood Loss 50 / 50 Other: Mode Setting Right Lower [place] Continuous # Voids 700 # Bowel Movements 0 Narrative: GENERAL: WN, WD AA resting in bed in NAD. SKIN: Warm and dry. HEENT: AT/NC. Pupils equal and round. Arcus senilis bilaterally. HEART: RRR no m/r/g. LUNGS: CTAB without wheezes or crackles. ABDOMEN: +BS, soft, NT, ND. EXTREMITIES: No LE edema. RLE with wound vac and dressing. NEURO: Awake and alert. Nonfocal. PSYCH: Appropriate mood and affect. Results - Labs CBC & Chem 7: 03/22/18 07:45 03/22/18 07:45 Laboratory Results - last 24 hr 03/21/18 03/22/18 03/22/18 18:00 12:05 12:05 Retic Count 0.8 Absolute Retic 30.3 Hemoglobin A1c 6.2 H Iron 77 TIBC 225 L % Saturation 34.2 Ferritin 405 H Vitamin B12 390 Folate Greater than 20.0 H Microbiology 03/19/18 08:05 Blood - Peripheral Aerobic Blood Culture - Preliminary No growth in 4 days 03/19/18 08:05 Blood - Peripheral Anaerobic Blood Culture - Preliminary No growth in 4 days 03/19/18 08:00 Blood - Peripheral Aerobic Blood Culture - Preliminary No growth in 4 days 03/19/18 08:00 Blood - Peripheral Anaerobic Blood Culture - Preliminary No growth in 4 days 03/22/18 09:46 Tissue - Ankle Fungal Smear - Final No fungal elements seen 03/22/18 09:46 Tissue - Ankle Gram Stain - Final - Imaging Impressions Lower Extremity Ultrasound 03/22/18 00:00 CONCLUSION: Ill-defined superficial soft tissue edema of the right lower leg. - Procedures 03/22: Right distal leg incision and drainage, debridement, and application of wound vac with podiatry Assessment and Plan - Assessment (1) Cellulitis of right lower extremity Code(s): L03.115 - Cellulitis of right lower limb Status: Acute - Plan 57 year old male with history of remote DVT, seizure disorder, and polysubstance abuse admitted 03/19 for worsening RLE cellulitis after failing outpatient treatment. He had been seen in the ER approximately a week prior and discharged with Ignacio. He states shortly after being seen in the ED he developed a blister that later began to have purulent drainage. 1. RLE cellulitis with superficial ulcer - WBC 18.8 on admission with left shift and bandemia otherwise did not meet septic criteria - MRI showing broad area of cellulitis without abscess or osteo - Podiatry consulted and given severe R ankle pain it was decided to take him to the OR for debridement (03/22) - Blood cultures negative - Wound culture growing Sandy parapsilosis and beta strep no A, B, or D - ID consulted, continue IV vanco and Zosyn. Increased Diflucan 2. Seizure disorder - Subtherapeutic level on presentation - Increased Dilantin to 400 mg - Check level tomorrow 3. EtOH abuse - No signs of withdrawal - [facility] protocol - Rally pack 4. Anemia - In February 2016, Hb around 12-13 range - Hb around 10 this admission, likely secondary to acute infection - Normocytic - Because of director of radiology's concern for sickle cell given extreme ankle pain, Hb electrophoresis ordered and pending - LDH, retic count, B12, and folate WNL - Iron studies suggestive of acute inflammatory process with normal iron and elevated ferritin DVT prophylaxis: resume Heparin this evening Discussed Condition With: Patient Discharge Planning: Wound vac applied today. Will need clearance from podiatry and ID prior to discharge
[2018-03-23] MEDS ORDERED: Pharmacy Ordered Lab Info OTHER ONE (17:45)
[2018-03-23] MEDS: Vancomycin Inj 1,250 MG in Sodium Chlor 0.9% Inj 250 ML IV.SIG SCH (17:59)
--- NOTE | 2018-03-23 20:20 | P.PNPOD ---
Subjective Interval history: s/p right leg I&D with wound VAC placement by on 03/22. Pt states the pain has decreased since pre op, but he continues to have discomfort. He denies any n/v/f/h/c/sob. Physical Exam Vital signs: Vital Signs 03/23/18 00:00 03/23/18 04:00 03/23/18 08:00 Temperature 97.4 F L 97.3 F L 97.2 F L Pulse Rate 98 H 62 80 Respiratory Rate 18 18 21 Blood Pressure 104/56 L 116/57 L 112/64 Pulse Oximetry 97 97 95 03/23/18 11:50 03/23/18 16:06 Temperature 97.3 F L Pulse Rate 66 56 L Respiratory Rate 21 Blood Pressure 115/61 Pulse Oximetry 96 Intake & Output 03/23/18 03/23/18 03/24/18 06:59 18:59 06:59 Intake Total 1710 / 1710 1050 / 1050 Output Total 950 / 950 Balance 760 / 760 1050 / 1050 Intake: IV 1350 / 1350 1050 / 1050 NS Inj 1,000 ML @ 84 mls/hr IV. 1000 / 1000 1000 / 1000 CONT .[id number] [facility] Rx#:[id number] Zosyn 3.375 GM Premix 50 ML @ 100 / 100 50 / 50 100 mls/hr IV.SIG Q6H [facility] Rx#: [id number] Vancomycin Inj 1,250 MG In NS 250 / 250 Inj 250 ML @ 250 mls/hr IV.SIG Q24H [facility] Rx#:[id number] Oral 360 / 360 Output: Urine 950 / 950 Other: Mode Setting Right Lower [place] Continuous # Voids 3 Narrative: Wound VAC remains intact to RLE with ~20mL of sanginous drainage, CFT < 3 secs, gross sensation intact, calf is supple and non tender to compression Medications and Allergies Active Medications: Active Medications Acetaminophen (Tylenol) 650 mg PO Q6H PRN PRN Reason: PAIN SCALE 1 TO 2 Al Hydroxide/Mg Hydroxide (Milk Of Magnesia Liq) 30 ml PO Q12H PRN PRN Reason: Mild Constipation Bisacodyl (Dulcolax Supp) 10 mg RECTAL DAILY PRN PRN Reason: SEVERE CONSITIPATION Flumazenil (Romazecon Inj) 0.2 mg IV.PUSH Q1M PRN PRN Reason: OVERSEDATION Folic Acid (Folic Acid) 1 mg PO DAILY [facility] Stop: 03/25/18 08:59 Last Admin: 03/23/18 08:09 Dose: 1 mg Haloperidol Lactate (Haldol Inj) 1 mg IV.PUSH Q15M PRN PRN Reason: for severe agitation Heparin Sodium (Porcine) (Heparin Inj) 5,000 units SQ Q8H [facility] Last Admin: 03/23/18 17:06 Dose: Not Given Pharmacy Profile Note (Vancomycin Consult Pharmacy) 0 mls @ 0 mls/hr OTHER UNSCH [facility] Piperacillin/Tazobactam/Dextrose (Zosyn 3.375 Gm Premix) 50 mls @ 100 mls/hr IV.SIG Q6H [facility] Last Infusion: 03/23/18 18:37 Dose: 100 mls/hr Sodium Chloride (Ns Inj) 1,000 mls @ 84 mls/hr IV.CONT .[id number] [facility] Last Admin: 03/23/18 17:05 Dose: 100 mls/hr Vancomycin HCl 1,250 mg/ (Sodium Chloride) 250 mls @ 250 mls/hr IV.SIG Q24H [facility] Last Admin: 03/23/18 17:59 Dose: 250 mls/hr Fluconazole (Diflucan 400 Mg Premix Bag) 200 mls @ 100 mls/hr IV.SIG Q24H [facility] Last Infusion: 03/23/18 18:32 Dose: 0 mls/hr Ketorolac Tromethamine (Toradol Inj) 30 mg IV.PUSH Q6H PRN PRN Reason: PAIN 6-10;IF UNABLE TO TAKE PO Stop: 03/24/18 17:27 Last Admin: 03/20/18 08:07 Dose: 30 mg Ketorolac Tromethamine (Toradol Inj) 15 mg IV.PUSH Q6H PRN PRN Reason: PAIN 3-5; IF UABLE TO TAKE PO Stop: 03/24/18 17:27 Lactulose (Lactulose Liq) 30 ml PO DAILY PRN PRN Reason: SEVERE CONSITIPATION Lorazepam (Ativan) 1 mg PO Q4H PRN PRN Reason: for CIWA 8-10 Lorazepam (Ativan) 2 mg PO Q2H PRN PRN Reason: for CIWA 11-14 Lorazepam (Ativan Inj) 2 mg IV.PUSH Q2H PRN PRN Reason: for CIWA 11-14 Lorazepam (Ativan Inj) 2 mg IV.PUSH Q1H PRN PRN Reason: for CIWA 15-20 Lorazepam (Ativan Inj) 2 mg IV.PUSH Q15M PRN PRN Reason: for CIWA > 20 Lorazepam (Ativan Inj) 1 mg IV.PUSH Q4H PRN PRN Reason: for CIWA 8-10 Morphine Sulfate (Morphine Inj) 2 mg IV.PUSH Q1H PRN PRN Reason: Pain Scale 7-10 (Intractable) Last Admin: 03/21/18 18:23 Dose: 2 mg Multivitamins/Minerals (Theragran-M) 1 tab PO DAILY [facility] Stop: 03/25/18 08:59 Last Admin: 03/23/18 08:09 Dose: 1 tab Mupirocin (Bactroban 2% Oint) 1 applicatio TOPICAL BID [facility] Last Admin: 03/23/18 08:14 Dose: Not Given Naloxone HCl (Narcan Inj) 0.4 mg IV.PUSH UNSCH PRN PRN Reason: SEE LABEL COMMENTS Ondansetron HCl (Zofran Inj) 4 mg IV.PUSH Q6H PRN PRN Reason: NAUSEA OR VOMITING Oxycodone/Acetaminophen (Percocet 10/325 Mg) 1 tab PO Q6H PRN PRN Reason: PAIN SCALE 6 TO 10 Last Admin: 03/23/18 17:11 Dose: 1 tab Oxycodone/Acetaminophen (Percocet 5/325 Mg) 1 tab PO Q6H PRN PRN Reason: PAIN SCALE 3 TO 5 Phenytoin Sodium (Dilantin) 400 mg PO [facility] Last Admin: 03/22/18 23:01 Dose: 400 mg Senna/Docusate Sodium (Pily-Colace) 1 tab PO BID [facility] Last Admin: 03/23/18 08:09 Dose: 1 tab Sennosides (Senokot) 17.2 mg PO Q12H PRN PRN Reason: Moderate Constipation Thiamine HCl (Vitamin B1) 100 mg PO DAILY [facility] Last Admin: 03/23/18 08:09 Dose: 100 mg Allergies Allergy/AdvReac Type Severity Reaction Status Date / Time No Known Allergies Allergy Verified 03/13/18 16:17 Home Medications Medication Instructions Recorded Confirmed Type phenytoin sodium extended 300 mg PO DAILY 03/13/18 03/19/18 History [Dilantin Extended] Results - Labs CBC & Chem 7: 03/22/18 07:45 03/22/18 07:45 Microbiology 03/22/18 09:46 Tissue - Ankle Gram Stain - Final 03/22/18 09:46 Tissue - Ankle Wound Culture - Preliminary No growth in 24 hours 03/19/18 08:05 Blood - Peripheral Aerobic Blood Culture - Preliminary No growth in 4 days 03/19/18 08:05 Blood - Peripheral Anaerobic Blood Culture - Preliminary No growth in 4 days 03/19/18 08:00 Blood - Peripheral Aerobic Blood Culture - Preliminary No growth in 4 days 03/19/18 08:00 Blood - Peripheral Anaerobic Blood Culture - Preliminary No growth in 4 days 03/22/18 09:46 Tissue - Ankle Fungal Smear - Final No fungal elements seen - Imaging Impressions Lower Extremity Ultrasound 03/22/18 00:00 CONCLUSION: Ill-defined superficial soft tissue edema of the right lower leg. 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
[2018-03-23] MEDS: Phenytoin Sodium 100 MG Capsule PO SCH (21:17)
[2018-03-24] MEDS: Sod Chloride 0.9% Inj 1,000 ML IV.CONT SCH (03:13)
[2018-03-24] MEDS: Piperacil/Tazo 3.375 GM Premix 50 ML IV.SIG SCH ×4 (03:13→19:53)
[2018-03-24] MEDS: oxyCODONE/Acetaminophen 10/325 Tablet PO PRN ×2 (05:25→12:33)
[2018-03-24] MEDS: Heparin - SQ 10,000 UNITS/ML Vial SQ SCH ×2 (05:26→13:30)
[2018-03-24 07:37] LABS: Hematocrit 31.8 % (39.0-51.0); Hemoglobin 10.5 gm/dL (13.0-17.0); Mean Corpuscular HGB Conc 33.1 % (32.0-36.0); Mean Corpuscular Volume 93.6 fL (80.0-100.0); Mean Platelet Volume 7.7 fL (7.0-11.0); Platelet Count 603 th/mm3 (150-450); Red Blood Count 3.39 mil/mm3 (4.50-5.90); Red Cell Distribution Width 14.8 % (11.6-17.2); White Blood Count 7.8 th/mm3 (4.0-11.0)
[2018-03-24 08:05] LABS: Calcium 9.1 mg/dL (8.5-10.1); Carbon Dioxide 30.8 meq/L (21.0-32.0); Potassium 4.6 meq/L (3.5-5.1)
[2018-03-24 08:06] LABS: Phenytoin (Dilantin) 8.5 mcg/mL (10.0-20.0); Vancomycin,Random 5.8 Comment
[2018-03-24] MEDS: Multivitamin/Minerals Therapeutic Tablet PO SCH (09:25)
[2018-03-24] MEDS: Folic Acid 1 MG Tablet PO SCH (09:25)
[2018-03-24] MEDS: Senna/Docusate Sodium 8.6/50 MG Tablet PO SCH ×2 (09:25→20:00)
--- NOTE | 2018-03-24 09:30 | P.PNIM ---
Subjective Interval history: Ready for surgery with no complaints. Reports that he wished the procedure was earlier in the morning as he feels hungry at this time. He understands the importance of being NPO. Physical Exam Vital signs: Vital Signs 03/23/18 11:50 03/23/18 16:06 03/23/18 20:00 Temperature 97.3 F L 97.8 F Pulse Rate 66 56 L 67 Respiratory Rate 21 18 Blood Pressure 115/61 112/69 Pulse Oximetry 96 98 03/23/18 23:29 03/23/18 23:52 03/24/18 03:22 Temperature 97.5 F L 97.6 F Pulse Rate 66 59 L 59 L Respiratory Rate 16 18 Blood Pressure 126/70 114/71 Pulse Oximetry 96 96 Intake & Output 03/23/18 03/24/18 03/24/18 18:59 06:59 18:59 Intake Total 1050 / 1050 1250 / 1250 Output Total 1800 / 1800 Balance 1050 / 1050 -550 / -550 Weight 69.9 kg Intake: IV 1050 / 1050 1250 / 1250 NS Inj 1,000 ML @ 84 mls/hr IV. 1000 / 1000 1000 / 1000 CONT .[id number] [facility] Rx#:[id number] Diflucan 400 mg Premix Bag 200 200 / 200 ML @ 100 mls/hr IV.SIG Q24H [facility] Rx#:[id number] Zosyn 3.375 GM Premix 50 ML @ 50 / 50 50 / 50 100 mls/hr IV.SIG Q6H [facility] Rx#: [id number] Output: Urine 1800 / 1800 Other: Mode Setting Right Lower [place] Continuous Continuous # Voids 3 Narrative: GENERAL: WN, WD AA M resting in bed in NAD. SKIN: Warm and dry. HEART: RRR no m/r/g. LUNGS: CTAB without wheezes or crackles. ABDOMEN: +BS, soft, NT, ND. EXTREMITIES: No LE edema. RLE with wound vac and dressing. NEURO: Awake and alert. Nonfocal. PSYCH: Appropriate mood and affect. Results - Labs CBC & Chem 7: 03/24/18 06:17 03/24/18 06:17 Laboratory Results - last 24 hr 03/24/18 03/24/18 06:17 06:17 WBC 7.8 RBC 3.39 L Hgb 10.5 L Hct 31.8 L MCV 93.6 MCH 31.0 MCHC 33.1 RDW 14.8 Plt Count 603 H MPV 7.7 Sodium 141 Potassium 4.6 Chloride 105 Carbon Dioxide 30.8 Anion Gap 5 BUN 16 Creatinine 1.14 Estimated GFR 81 L Random Glucose 81 Calcium 9.1 Random Vancomycin 5.8 Phenytoin 8.5 L Microbiology 03/22/18 09:46 Tissue - Ankle Gram Stain - Final 03/22/18 09:46 Tissue - Ankle Wound Culture - Preliminary No growth in 24 hours 03/19/18 08:05 Blood - Peripheral Aerobic Blood Culture - Preliminary No growth in 4 days 03/19/18 08:05 Blood - Peripheral Anaerobic Blood Culture - Preliminary No growth in 4 days 03/19/18 08:00 Blood - Peripheral Aerobic Blood Culture - Preliminary No growth in 4 days 03/19/18 08:00 Blood - Peripheral Anaerobic Blood Culture - Preliminary No growth in 4 days 03/22/18 09:46 Tissue - Ankle Fungal Smear - Final No fungal elements seen - Procedures 03/22: Right distal leg incision and drainage, debridement, and application of wound vac with podiatry Assessment and Plan - Assessment (1) Cellulitis of right lower extremity Code(s): L03.115 - Cellulitis of right lower limb Status: Acute - Plan 57 year old male with history of remote DVT, seizure disorder, and polysubstance abuse admitted 03/19 for worsening RLE cellulitis after failing outpatient treatment. He had been seen in the ER approximately a week prior and discharged with [facility]. He states shortly after being seen in the ED he developed a blister that later began to have purulent drainage. 1. RLE cellulitis with superficial ulcer - WBC 18.8 on admission with left shift and bandemia otherwise did not meet septic criteria - MRI showing broad area of cellulitis without abscess or osteo - Podiatry consulted and given severe R ankle pain it was decided to take him to the OR for debridement (03/22) - Blood cultures negative - Wound culture growing Sandy parapsilosis and beta strep no A, B, or D - ID consulted, continue IV vanco and Zosyn. Increased Diflucan Wound vac applied. For further surgical debridement today with Podiatry, Dr. Capellan. 2. Seizure disorder - Subtherapeutic level on presentation - Increased Dilantin to 400 mg , level at 8.5 today/ 3. EtOH abuse - No signs of withdrawal - [place] protocol - Rally pack 4. Anemia - In February 2016, Hb around 12-13 range - Hb around 10 this admission, likely secondary to acute infection - Normocytic - Because of fountain pen turner's concern for sickle cell given extreme ankle pain, Hb electrophoresis ordered and pending - LDH, retic count, B12, and folate WNL - Iron studies suggestive of acute inflammatory process with normal iron and elevated ferritin DVT prophylaxis: resume Heparin this evening Discharge Planning: Will need clearance from podiatry and ID prior to discharge
[2018-03-24] MEDS ORDERED: Metoprolol Tartrate 25 MG Tablet PO SCH (11:00)
[2018-03-24] MEDS ORDERED: Chlorhexidine Gluconate 2% 1 Pack (2 Cloths) TOPICAL SCH (11:00)
[2018-03-24] MEDS ORDERED: Sodium Chlor 0.9% Inj 500 ML IV.SIG SCH (11:00)
[2018-03-24] MEDS ORDERED: Lidocaine PF 1% Inj 5 ML Syringe INFILTRATN ONE (12:00)
[2018-03-24] MEDS: Vancomycin Inj 1,250 MG in Sodium Chlor 0.9% Inj 250 ML IV.SIG SCH (12:37)
[2018-03-24] MEDS ORDERED: Bupivacaine PF 0.25% Inj 30 ML Vial ONE (17:21)
[2018-03-24] MEDS ORDERED: Neomycin/Polymyxin G.U. Irrigant 1 ML Ampul ONE (17:26)
[2018-03-24] MEDS ORDERED: fentaNYL Citrate Inj 100 MCG/2 ML Ampul ONE (19:16)
[2018-03-24] MEDS ORDERED: *morphine SULFATE 4 MG/ML PERIprocedure ONLY ONE (19:16)
[2018-03-24] MEDS: Phenytoin Sodium 100 MG Capsule PO SCH (20:00)
--- NOTE | 2018-03-24 20:59 | MP ---
cc: Elyse Capellan DPM DATE OF OPERATION: 03/24/2018 SURGEON: Elyse Capellan MD PLANT UTILITY PERSON: None. PREOPERATIVE DIAGNOSIS: Right ankle ulceration. POSTOPERATIVE DIAGNOSIS: Right ankle ulceration. PROCEDURE PERFORMED: 1. Right ankle ulceration debridement. 2. Right wound VAC application. PATHOLOGY SENT: None. ANESTHESIA: General. HEMOSTASIS: Anatomical dissection. ESTIMATED BLOOD LOSS: 10 mL MATERIALS USED: Include a KCI black wound VAC. INJECTABLES: None. COMPLICATIONS: None. INDICATIONS: Mr. Rodriguez is a 57-year-old male patient well known to my group. He is status post incision and drainage with wound debridement and wound VAC application by Dr. Bowles. Dr. Bowles felt that there was residual necrotic tissue within the wound that needed to be further debrided and therefore the patient was scheduled today for this. The consent was signed. The procedure was explained. No guarantees were given. PROCEDURE: Under mild sedation, the patient was brought to the operating room, placed on the operating table in supine position. Following IV sedation, the wound VAC was removed and pneumatic ankle tourniquet was applied to the right ankle. The foot was then scrubbed, prepped and draped in the usual aseptic manner. Attention was directed to the right lateral ankle ulceration which measured approximately 8 x 7 x 0.5 cm at its deepest area. There was a mix of fibroglandular and necrotic wound tissue and VersaJet was used to plane smooth and remove as much fibrotic tissue as possible. There was a small amount of what appeared to be tendon that had come very close to the tibial bone and therefore was left intact. Otherwise, all tissue was granular. The wound bed was healthy and bleeding well. There were no signs of purulence or infection. The area was cleaned extremely well and the wound VAC was replaced at 125 mmHg. The patient tolerated the procedure and the anesthesia well. He will recover in the PACU for a period of time before being discharged home with written and oral postoperative instructions. BASIM Sanchez/ct/ll , 07:20 PM , 07:26 PM
[2018-03-25] MEDS: Piperacil/Tazo 3.375 GM Premix 50 ML IV.SIG SCH ×4 (02:05→22:00)
[2018-03-25] MEDS: oxyCODONE/Acetaminophen 10/325 Tablet PO PRN ×4 (02:05→22:01)
[2018-03-25] MEDS: Heparin - SQ 10,000 UNITS/ML Vial SQ SCH ×3 (02:50→13:49)
[2018-03-25] MEDS: Vancomycin Inj 1,250 MG in Sodium Chlor 0.9% Inj 250 ML IV.SIG SCH ×2 (04:36→12:06)
[2018-03-25] MEDS: Senna/Docusate Sodium 8.6/50 MG Tablet PO SCH ×2 (08:37→22:01)
--- NOTE | 2018-03-25 10:10 | P.PNIM ---
Subjective Interval history: No complaints overnight. Doing okay. Waiting for breakfast. Physical Exam Vital signs: Vital Signs 03/24/18 12:00 03/24/18 12:47 03/24/18 16:00 Temperature 97.3 F L 97.4 F L Pulse Rate 60 63 57 L Respiratory Rate 16 16 Blood Pressure 120/66 114/73 Pulse Oximetry 97 99 03/24/18 18:55 03/24/18 19:08 03/24/18 19:15 Temperature 97.3 F L Pulse Rate 54 L 65 67 Respiratory Rate 16 17 Blood Pressure 139/70 169/79 H Pulse Oximetry 97 96 03/24/18 19:30 03/24/18 20:00 03/25/18 00:00 Temperature 97.3 F L 97.8 F Pulse Rate 65 56 L 81 Respiratory Rate 18 18 15 Blood Pressure 149/78 H 141/89 H 109/66 Pulse Oximetry 95 98 95 03/25/18 04:00 03/25/18 08:00 Temperature 97.5 F L 97.5 F L Pulse Rate 71 59 L Respiratory Rate 16 18 Blood Pressure 113/65 120/59 L Pulse Oximetry 95 97 Intake & Output 03/24/18 03/25/18 03/25/18 18:59 06:59 18:59 Intake Total 1562.5 / 1562.5 2592.5 / 2592.5 50 / 50 Output Total 825 / 825 3160 / 3160 600 / 600 Balance 737.5 / 737.5 -567.5 / -567.5 -550 / -550 Intake: IV 1562.5 / 1562.5 812.5 / 812.5 50 / 50 NS Inj 1,000 ML @ 84 mls/hr IV. 1000 / 1000 CONT .[id number] [facility] Rx#:[id number] Diflucan 400 mg Premix Bag 200 200 / 200 200 / 200 ML @ 100 mls/hr IV.SIG Q24H [facility] Rx#:[id number] Zosyn 3.375 GM Premix 50 ML @ 100 / 100 100 / 100 50 / 50 100 mls/hr IV.SIG Q6H [facility] Rx#: [id number] Vancomycin Inj 1,250 MG In NS 262.5 / 262.5 262.5 / 262.5 Inj 250 ML @ 250 mls/hr IV.SIG Q12H [facility] Rx#:[id number] Oral 1080 / 1080 Anesthesia Amount 700 / 700 Output: Urine 825 / 825 3150 / 3150 600 / 600 Estimated Blood Loss Other: Mode Setting Right Lower [place] Continuous Continuous Continuous # Voids 1 # Bowel Movements 0 Narrative: GENERAL: WN, WD AA M resting in bed in NAD. SKIN: Warm and dry. HEART: Regular rate and rhythm LUNGS: CTAB without wheezes or crackles. ABDOMEN: +BS, soft, NT, ND. EXTREMITIES: No LE edema. RLE with wound vac and dressing. NEURO: Awake and alert. Nonfocal. PSYCH: Appropriate mood and affect. Results - Labs CBC & Chem 7: 03/24/18 06:17 03/24/18 06:17 Microbiology 03/22/18 09:46 Tissue - Ankle Gram Stain - Final 03/22/18 09:46 Tissue - Ankle Wound Culture - Preliminary Yeast - ID to follow 03/22/18 09:46 Tissue - Ankle Acid Fast Bacilli Smear - Final No acid fast bacilli seen 03/19/18 08:05 Blood - Peripheral Aerobic Blood Culture - Final No growth in 5 days 03/19/18 08:05 Blood - Peripheral Anaerobic Blood Culture - Final No growth in 5 days 03/19/18 08:00 Blood - Peripheral Aerobic Blood Culture - Final No growth in 5 days 03/19/18 08:00 Blood - Peripheral Anaerobic Blood Culture - Final No growth in 5 days - Procedures 03/22: Right distal leg incision and drainage, debridement, and application of wound vac with podiatry Assessment and Plan - Assessment (1) Cellulitis of right lower extremity Code(s): L03.115 - Cellulitis of right lower limb Status: Acute - Plan 57 year old male with history of remote DVT, seizure disorder, and polysubstance abuse admitted 03/19 for worsening RLE cellulitis after failing outpatient treatment. He had been seen in the ER approximately a week prior and discharged with [facility]. He states shortly after being seen in the ED he developed a blister that later began to have purulent drainage. 1. RLE cellulitis with superficial ulcer - WBC 18.8 on admission with left shift and bandemia otherwise did not meet septic criteria - MRI showing broad area of cellulitis without abscess or osteo - Podiatry consulted and given severe R ankle pain it was decided to take him to the OR for debridement (03/22) - Blood cultures negative - Wound culture growing Sandy parapsilosis and beta strep no A, B, or D - ID consulted, continue IV vanco and Zosyn. Increased Diflucan Wound vac applied. Status post further surgical debridement today with Podiatry , Dr. Capellan yesterday (03/24). 2. Seizure disorder - Subtherapeutic level on presentation - Increased Dilantin to 400 mg , level at 8.5 yesterday, repeat in 1-2 days 3. EtOH abuse - No signs of withdrawal - [facility] protocol - Rally pack 4. Anemia - In February 2016, Hb around 12-13 range - Hb around 10 this admission, likely secondary to acute infection - Normocytic - Because of industrial hygiene engineer's concern for sickle cell given extreme ankle pain, Hb electrophoresis ordered and pending - LDH, retic count, B12, and folate WNL - Iron studies suggestive of acute inflammatory process with normal iron and elevated ferritin DVT prophylaxis: resume Heparin Discharge Planning: Will need clearance from podiatry and ID prior to discharge
--- NOTE | 2018-03-25 20:56 | P.PNPOD ---
Subjective Interval history: s/p right ankle wound debridement x 2. Pt states the right ankle pain has decreased since his last sx. He denies any n/v/f/h/c/sob. Physical Exam Vital signs: Vital Signs 03/25/18 00:00 03/25/18 04:00 03/25/18 08:00 Temperature 97.8 F 97.5 F L 97.5 F L Pulse Rate 81 71 59 L Respiratory Rate 15 16 18 Blood Pressure 109/66 113/65 120/59 L Pulse Oximetry 95 95 97 03/25/18 12:00 03/25/18 16:00 03/25/18 20:00 Temperature 97.3 F L 97.7 F 97.6 F Pulse Rate 62 60 60 Respiratory Rate 18 18 Blood Pressure 106/60 94/59 L 136/75 Pulse Oximetry 97 99 98 Intake & Output 03/25/18 03/25/18 03/26/18 06:59 18:59 06:59 Intake Total 2592.5 / 2592.5 362.5 / 362.5 1500 / 1500 Output Total 3160 / 3160 1700 / 1700 Balance -567.5 / -567.5 -1337.5 / -1337.5 1500 / 1500 Intake: IV 812.5 / 812.5 362.5 / 362.5 Diflucan 400 mg Premix Bag 200 200 / 200 ML @ 100 mls/hr IV.SIG Q24H [facility] Rx#:[id number] Zosyn 3.375 GM Premix 50 ML @ 100 / 100 100 / 100 100 mls/hr IV.SIG Q6H [facility] Rx#: [id number] Vancomycin Inj 1,250 MG In NS 262.5 / 262.5 262.5 / 262.5 Inj 250 ML @ 250 mls/hr IV.SIG Q12H [facility] Rx#:[id number] Oral 1080 / 1080 1500 / 1500 Anesthesia Amount 700 / 700 Output: Urine 3150 / 3150 1700 / 1700 Estimated Blood Loss 10 / 10 Other: Mode Setting Right Lower [place] Continuous Continuous # Voids 1 # Bowel Movements 0 0 Narrative: Wound VAC intact with minimal sanginous drainage. CFT < 3 secs, gross sensation intact, AROM to digits WNL, calf is supple and non tender to compression. Medications and Allergies Active Medications: Active Medications Acetaminophen (Tylenol) 650 mg PO Q6H PRN PRN Reason: PAIN SCALE 1 TO 2 Al Hydroxide/Mg Hydroxide (Milk Of Magnesia Liq) 30 ml PO Q12H PRN PRN Reason: Mild Constipation Last Admin: 03/25/18 08:37 Dose: 30 ml Bisacodyl (Dulcolax Supp) 10 mg RECTAL DAILY PRN PRN Reason: SEVERE CONSITIPATION Chlorhexidine Gluconate (Chlorhexidine 2% Cloth) 3 pack [employer] [facility] Stop: 03/27/18 10:50 Flumazenil (Romazecon Inj) 0.2 mg IV.PUSH Q1M PRN PRN Reason: OVERSEDATION Haloperidol Lactate (Haldol Inj) 1 mg IV.PUSH Q15M PRN PRN Reason: for severe agitation Heparin Sodium (Porcine) (Heparin Inj) 5,000 units SQ Q8H [facility] Last Admin: 03/25/18 13:49 Dose: Not Given Pharmacy Profile Note (Vancomycin Consult Pharmacy) 0 mls @ 0 mls/hr OTHER UNSCH [facility] Piperacillin/Tazobactam/Dextrose (Zosyn 3.375 Gm Premix) 50 mls @ 100 mls/hr IV.SIG Q6H [facility] Last Infusion: 03/25/18 16:16 Dose: Infused Fluconazole (Diflucan 400 Mg Premix Bag) 200 mls @ 100 mls/hr IV.SIG Q24H [facility] Last Infusion: 03/25/18 05:51 Dose: Infused Vancomycin HCl 1,250 mg/ (Sodium Chloride) 262.5 mls @ 250 mls/hr IV.SIG Q12H [facility] Last Infusion: 03/25/18 13:54 Dose: Infused Lactated Ringer's (Lr 1000 Ml Inj) 1,000 mls @ 30 mls/hr IV.SIG .Q24H [facility] Stop: 03/27/18 10:50 Last Admin: 03/25/18 10:46 Dose: Not Given Sodium Chloride (Ns Inj) 500 mls @ 30 mls/hr IV.SIG .Q10H [facility] Stop: 03/27/18 10:50 Lactulose (Lactulose Liq) 30 ml PO DAILY PRN PRN Reason: SEVERE CONSITIPATION Lorazepam (Ativan) 1 mg PO Q4H PRN PRN Reason: for CIWA 8-10 Lorazepam (Ativan) 2 mg PO Q2H PRN PRN Reason: for CIWA 11-14 Lorazepam (Ativan Inj) 2 mg IV.PUSH Q2H PRN PRN Reason: for CIWA 11-14 Lorazepam (Ativan Inj) 2 mg IV.PUSH Q1H PRN PRN Reason: for CIWA 15-20 Lorazepam (Ativan Inj) 2 mg IV.PUSH Q15M PRN PRN Reason: for CIWA > 20 Lorazepam (Ativan Inj) 1 mg IV.PUSH Q4H PRN PRN Reason: for CIWA 8-10 Metoprolol Tartrate (Lopressor) 25 mg PO [employer] [facility] Stop: 03/27/18 10:50 Miscellaneous Information ([facility] Ordered Lab Info) 0 each OTHER ONCE ONE Stop: 03/26/18 11:46 Morphine Sulfate (Morphine Inj) 2 mg IV.PUSH Q1H PRN PRN Reason: Pain Scale 7-10 (Intractable) Last Admin: 03/21/18 18:23 Dose: 2 mg Mupirocin (Bactroban 2% Oint) 1 applicatio TOPICAL BID [facility] Last Admin: 03/25/18 08:38 Dose: 1 applicatio Naloxone HCl (Narcan Inj) 0.4 mg IV.PUSH UNSCH PRN PRN Reason: SEE LABEL COMMENTS Ondansetron HCl (Zofran Inj) 4 mg IV.PUSH Q6H PRN PRN Reason: NAUSEA OR VOMITING Oxycodone/Acetaminophen (Percocet 10/325 Mg) 1 tab PO Q6H PRN PRN Reason: PAIN SCALE 6 TO 10 Last Admin: 03/25/18 15:55 Dose: 1 tab Oxycodone/Acetaminophen (Percocet 5/325 Mg) 1 tab PO Q6H PRN PRN Reason: PAIN SCALE 3 TO 5 Phenytoin Sodium (Dilantin) 400 mg PO [facility] Last Admin: 03/24/18 20:00 Dose: 400 mg Povidone Iodine (Betadine 5% Antisepsis Kit) 1 applicatio EACH [employer] REGULATOR INSPECTOR [facility] Stop: 03/27/18 10:50 Senna/Docusate Sodium (Pily-Colace) 1 tab PO BID [facility] Last Admin: 03/25/18 08:37 Dose: 1 tab Sennosides (Senokot) 17.2 mg PO Q12H PRN PRN Reason: Moderate Constipation Thiamine HCl (Vitamin B1) 100 mg PO DAILY [facility] Last Admin: 03/25/18 08:37 Dose: 100 mg Allergies Allergy/AdvReac Type Severity Reaction Status Date / Time No Known Allergies Allergy Verified 03/13/18 16:17 Home Medications Medication Instructions Recorded Confirmed Type phenytoin sodium extended 300 mg PO DAILY 03/13/18 03/19/18 History [Dilantin Extended] Results - Labs CBC & Chem 7: 03/24/18 06:17 03/24/18 06:17 Laboratory Results - last 24 hr 03/21/18 18:00 Hgb ELP Interp Adult normal hgb Microbiology 03/22/18 09:46 Tissue - Ankle Gram Stain - Final 03/22/18 09:46 Tissue - Ankle Wound Culture - Final Sandy parapsilosis - Procedures 03/22: Right distal leg incision and drainage, debridement, and application of wound vac with podiatry Assessment and Plan - Assessment (1) Chronic ulcer of right ankle with fat layer exposed Code(s): L97.312 - Non-pressure chronic ulcer of right ankle with fat layer exposed Status: Acute (2) Cellulitis of right lower extremity Code(s): L03.115 - Cellulitis of right lower limb Status: Acute - Plan - to OR tomorrow for repeat wound graft application with - NPO after midnight - cont iv abx - will likely d/c Friday or Friday without wound VAC
[2018-03-25] MEDS: Phenytoin Sodium 100 MG Capsule PO SCH (22:00)
[2018-03-26] MEDS: Heparin - SQ 10,000 UNITS/ML Vial SQ SCH ×5 (00:04→21:54)
[2018-03-26] MEDS: Vancomycin Inj 1,250 MG in Sodium Chlor 0.9% Inj 250 ML IV.SIG SCH ×2 (02:25→12:31)
[2018-03-26] MEDS: Piperacil/Tazo 3.375 GM Premix 50 ML IV.SIG SCH ×4 (04:09→22:44)
[2018-03-26] MEDS: oxyCODONE/Acetaminophen 10/325 Tablet PO PRN ×3 (06:15→18:22)
[2018-03-26] MEDS: Senna/Docusate Sodium 8.6/50 MG Tablet PO SCH ×2 (09:15→21:28)
--- NOTE | 2018-03-26 10:38 | P.PNIM ---
Subjective Interval history: Reports pain controlled. ready for surgery, would like to take to a social staff worker. Physical Exam Vital signs: Vital Signs 03/25/18 12:00 03/25/18 16:00 03/25/18 20:00 Temperature 97.3 F L 97.7 F 97.6 F Pulse Rate 62 60 60 Respiratory Rate 18 18 18 Blood Pressure 106/60 94/59 L 136/75 Pulse Oximetry 97 99 98 03/26/18 00:00 03/26/18 04:00 03/26/18 08:00 Temperature 97.7 F 97.4 F L 97.4 F L Pulse Rate 65 61 60 Respiratory Rate 18 18 20 Blood Pressure 109/66 122/70 124/65 Pulse Oximetry 96 98 97 03/26/18 09:10 Temperature Pulse Rate Respiratory Rate 20 Blood Pressure Pulse Oximetry Intake & Output 03/25/18 03/26/18 03/26/18 18:59 06:59 18:59 Intake Total 362.5 / 362.5 2112.5 / 2112.5 Output Total 1700 / 1700 2049 Balance -1337.5 / -1337.5 62.5 / 62.5 Weight 65.8 kg Intake: IV 362.5 / 362.5 612.5 / 612.5 Diflucan 400 mg Premix Bag 200 200 / 200 ML @ 100 mls/hr IV.SIG Q24H [facility] Rx#:[id number] Zosyn 3.375 GM Premix 50 ML @ 100 / 100 150 / 150 100 mls/hr IV.SIG Q6H [facility] Rx#: [id number] Vancomycin Inj 1,250 MG In NS 262.5 / 262.5 262.5 / 262.5 Inj 250 ML @ 250 mls/hr IV.SIG Q12H [facility] Rx#:[id number] Oral 1500 / 1500 Output: Urine 1700 / 1700 2049 Other: Mode Setting Right Lower Kemp Continuous Continuous Continuous Date of Last Bowel Movement 03/21/18 # Bowel Movements 0 Narrative: GENERAL: WN, WD AA M resting in bed in NAD. SKIN: Warm and dry. HEART: Regular rate and rhythm LUNGS: CTAB without wheezes or crackles. EXTREMITIES: No LE edema. RLE with wound vac and dressing. NEURO: Awake and alert. Nonfocal. PSYCH: Appropriate mood and affect. Results - Labs CBC & Chem 7: 03/24/18 06:17 03/26/18 05:31 Laboratory Results - last 24 hr 03/26/18 05:31 Creatinine 1.14 Estimated GFR 81 L Microbiology 03/22/18 09:46 Tissue - Ankle Gram Stain - Final 03/22/18 09:46 Tissue - Ankle Wound Culture - Final Sandy parapsilosis - Procedures 03/22: Right distal leg incision and drainage, debridement, and application of wound vac with podiatry Assessment and Plan - Assessment (1) Cellulitis of right lower extremity Code(s): L03.115 - Cellulitis of right lower limb Status: Acute - Plan 57 year old male with history of remote DVT, seizure disorder, and polysubstance abuse admitted 03/19 for worsening RLE cellulitis after failing outpatient treatment. He had been seen in the ER approximately a week prior and discharged with Ignacio. He states shortly after being seen in the ED he developed a blister that later began to have purulent drainage. 1. RLE cellulitis with superficial ulcer - WBC 18.8 on admission with left shift and bandemia otherwise did not meet septic criteria - MRI showing broad area of cellulitis without abscess or osteo - Podiatry consulted and given severe R ankle pain it was decided to take him to the OR for debridement (03/22) - Blood cultures negative - Wound culture growing Sandy parapsilosis and beta strep no A, B, or D - ID consulted, continue IV vanco and Zosyn. Diflucan Wound vac applied. Status post further surgical debridement with Podiatry, Dr. Capellan (03/24). for skin graft application today with Podiatry today. 2. Seizure disorder - Subtherapeutic level on presentation - Increased Dilantin to 400 mg , level at 8.5 yesterday, repeat in am 3. EtOH abuse - No signs of withdrawal - CIWA protocol - Rally pack 4. Anemia - In February 2016, Hb around 12-13 range - Hb around 10 this admission, likely secondary to acute infection - Normocytic - Because of health service worker's concern for sickle cell given extreme ankle pain, Hb electrophoresis ordered and shows normal Hb. - LDH, retic count, B12, and folate WNL - Iron studies suggestive of acute inflammatory process with normal iron and elevated ferritin DVT prophylaxis: resume Heparin Discharge Planning: Will need clearance from podiatry and ID prior to discharge
[2018-03-26] MEDS ORDERED: Pharmacy Ordered Lab Info OTHER ONE (11:45)
[2018-03-26] MEDS ORDERED: Phenylephrine/NS 1000 MCG/10ML Syringe IV.PUSH ONE (12:00)
[2018-03-26] MEDS ORDERED: Glycopyrrolate Inj 1 MG/5 ML Syringe IV.PUSH ONE (12:00)
[2018-03-26] MEDS ORDERED: Lidocaine PF 1% Inj 5 ML Syringe INFILTRATN ONE (12:00)
--- NOTE | 2018-03-26 13:34 | P.PNPOD ---
Subjective Interval history: Patient seen bedside in preop. States he does not know how this ulcer occurred on his medial ankle. Patient denies any nausea vomiting fevers or chills. Physical Exam Vital signs: Vital Signs 03/25/18 16:00 03/25/18 20:00 03/26/18 00:00 Temperature 97.7 F 97.6 F 97.7 F Pulse Rate 60 60 65 Respiratory Rate 18 18 18 Blood Pressure 94/59 L 136/75 109/66 Pulse Oximetry 99 98 96 03/26/18 04:00 03/26/18 08:00 03/26/18 09:10 Temperature 97.4 F L 97.4 F L Pulse Rate 61 60 Respiratory Rate 18 20 20 Blood Pressure 122/70 124/65 Pulse Oximetry 98 97 Intake & Output 03/25/18 03/26/18 03/26/18 18:59 06:59 18:59 Intake Total 362.5 / 362.5 3112.5 / 3112.5 Output Total 1700 / 1700 2049 Balance -1337.5 / -1337.5 1062.5 / 1062.5 Weight 65.8 kg Intake: IV 362.5 / 362.5 1612.5 / 1612.5 Diflucan 400 mg Premix Bag 200 200 / 200 ML @ 100 mls/hr IV.SIG Q24H [facility] Rx#:[id number] LR 1000 mL Inj 1,000 ML @ 30 1000 / 1000 mls/hr IV.SIG .Q24H [facility] Rx#: [id number] Zosyn 3.375 GM Premix 50 ML @ 100 / 100 150 / 150 100 mls/hr IV.SIG Q6H [facility] Rx#: [id number] Vancomycin Inj 1,250 MG In NS 262.5 / 262.5 262.5 / 262.5 Inj 250 ML @ 250 mls/hr IV.SIG Q12H [facility] Rx#:[id number] Oral 1500 / 1500 Output: Urine 1700 / 1700 2049 Other: Mode Setting Right Lower Kemp Continuous Continuous Continuous Date of Last Bowel Movement 03/21/18 # Bowel Movements 0 Narrative: Right lower extremity with dressing intact and wound VAC functioning at 125 mm per mercury. Capillary refill time intact to digits 1 through 5 right lower extremity. Medications and Allergies Active Medications: Active Medications Acetaminophen (Tylenol) 650 mg PO Q6H PRN PRN Reason: PAIN SCALE 1 TO 2 Al Hydroxide/Mg Hydroxide (Milk Of Magnesia Liq) 30 ml PO Q12H PRN PRN Reason: Mild Constipation Last Admin: 03/25/18 08:37 Dose: 30 ml Bisacodyl (Dulcolax Supp) 10 mg RECTAL DAILY PRN PRN Reason: SEVERE CONSITIPATION Chlorhexidine Gluconate (Chlorhexidine 2% Cloth) 3 pack [employer] [facility] Stop: 03/27/18 10:50 Flumazenil (Romazecon Inj) 0.2 mg IV.PUSH Q1M PRN PRN Reason: OVERSEDATION Haloperidol Lactate (Haldol Inj) 1 mg IV.PUSH Q15M PRN PRN Reason: for severe agitation Heparin Sodium (Porcine) (Heparin Inj) 5,000 units SQ Q8H [facility] Last Admin: 03/26/18 13:04 Dose: Not Given Pharmacy Profile Note (Vancomycin Consult Pharmacy) 0 mls @ 0 mls/hr OTHER UNSCH [facility] Piperacillin/Tazobactam/Dextrose (Zosyn 3.375 Gm Premix) 50 mls @ 100 mls/hr IV.SIG Q6H [facility] Last Admin: 03/26/18 09:16 Dose: 100 mls/hr Fluconazole (Diflucan 400 Mg Premix Bag) 200 mls @ 100 mls/hr IV.SIG Q24H [facility] Last Infusion: 03/26/18 04:06 Dose: Infused Vancomycin HCl 1,250 mg/ (Sodium Chloride) 262.5 mls @ 250 mls/hr IV.SIG Q12H [facility] Last Admin: 03/26/18 12:31 Dose: 150 mls/hr Lactated Ringer's (Lr 1000 Ml Inj) 1,000 mls @ 30 mls/hr IV.SIG .Q24H [facility] Stop: 03/27/18 10:50 Last Admin: 03/26/18 12:19 Dose: 30 mls/hr Sodium Chloride (Ns Inj) 500 mls @ 30 mls/hr IV.SIG .Q10H [facility] Stop: 03/27/18 10:50 Lactulose (Lactulose Liq) 30 ml PO DAILY PRN PRN Reason: SEVERE CONSITIPATION Lorazepam (Ativan) 1 mg PO Q4H PRN PRN Reason: for CIWA 8-10 Lorazepam (Ativan) 2 mg PO Q2H PRN PRN Reason: for CIWA 11-14 Lorazepam (Ativan Inj) 2 mg IV.PUSH Q2H PRN PRN Reason: for CIWA 11-14 Lorazepam (Ativan Inj) 2 mg IV.PUSH Q1H PRN PRN Reason: for CIWA 15-20 Lorazepam (Ativan Inj) 2 mg IV.PUSH Q15M PRN PRN Reason: for CIWA > 20 Lorazepam (Ativan Inj) 1 mg IV.PUSH Q4H PRN PRN Reason: for CIWA 8-10 Metoprolol Tartrate (Lopressor) 25 mg PO [employer] [facility] Stop: 03/27/18 10:50 Morphine Sulfate (Morphine Inj) 2 mg IV.PUSH Q1H PRN PRN Reason: Pain Scale 7-10 (Intractable) Last Admin: 03/21/18 18:23 Dose: 2 mg Mupirocin (Bactroban 2% Oint) 1 applicatio TOPICAL BID [facility] Last Admin: 03/26/18 09:17 Dose: Not Given Naloxone HCl (Narcan Inj) 0.4 mg IV.PUSH UNSCH PRN PRN Reason: SEE LABEL COMMENTS Ondansetron HCl (Zofran Inj) 4 mg IV.PUSH Q6H PRN PRN Reason: NAUSEA OR VOMITING Oxycodone/Acetaminophen (Percocet 10/325 Mg) 1 tab PO Q6H PRN PRN Reason: PAIN SCALE 6 TO 10 Last Admin: 03/26/18 12:18 Dose: 1 tab Oxycodone/Acetaminophen (Percocet 5/325 Mg) 1 tab PO Q6H PRN PRN Reason: PAIN SCALE 3 TO 5 Phenytoin Sodium (Dilantin) 400 mg PO [facility] Last Admin: 03/25/18 22:00 Dose: 400 mg Povidone Iodine (Betadine 5% Antisepsis Kit) 1 applicatio EACH [employer] [facility] Stop: 03/27/18 10:50 Senna/Docusate Sodium (Pily-Colace) 1 tab PO BID [facility] Last Admin: 03/26/18 09:15 Dose: 1 tab Sennosides (Senokot) 17.2 mg PO Q12H PRN PRN Reason: Moderate Constipation Thiamine HCl (Vitamin B1) 100 mg PO DAILY [facility] Last Admin: 03/26/18 09:16 Dose: 100 mg Allergies Allergy/AdvReac Type Severity Reaction Status Date / Time No Known Allergies Allergy Verified 03/13/18 16:17 Home Medications Medication Instructions Recorded Confirmed Type phenytoin sodium extended 300 mg PO DAILY 03/13/18 03/19/18 History [Dilantin Extended] Results - Labs CBC & Chem 7: 03/24/18 06:17 03/26/18 05:31 Laboratory Results - last 24 hr 03/26/18 03/26/18 05:31 11:50 Creatinine 1.14 Estimated GFR 81 L Vancomycin Trough 21.0 H Microbiology 03/22/18 09:46 Tissue - Ankle Gram Stain - Final 03/22/18 09:46 Tissue - Ankle Wound Culture - Final Sandy parapsilosis - Procedures 03/22: Right distal leg incision and drainage, debridement, and application of wound vac with podiatry Assessment and Plan - Assessment (1) Chronic ulcer of right ankle with fat layer exposed Code(s): L97.312 - Non-pressure chronic ulcer of right ankle with fat layer exposed Status: Acute (2) Cellulitis of right lower extremity Code(s): L03.115 - Cellulitis of right lower limb Status: Acute - Plan 57-year-old male with right medial ankle ulceration Patient to OR today for right ankle ulceration graft placement with debridement and irrigation and possible wound VAC placement Patient agrees with procedure understands all risks, benefits, complications, and alternatives associated Consent signed and obtained Right lower extremity marked Patient has limited resources as he is homeless therefore graft will aid in healing however would recommend possible rehab for patient as anticipate use of wound VAC the next 4-6 weeks
[2018-03-26] MEDS: Bupivacaine PF 0.25% Inj 30 ML Vial ONE ×2 (15:11→15:53)
[2018-03-26] MEDS ORDERED: Misc Info for Pharmacy OTHER STA (15:40)
--- NOTE | 2018-03-26 15:40 | P.PCN ---
Date of procedure: 03/26/18 Pre-op diagnosis: Right medial ankle ulcer Post-op diagnosis: same Procedure: Right medial ankle ulceration with graft placement, debridement and irrigation with wound vac placement Anesthesia: MAGALY Surgeon: Nereyda Dasilva Estimated blood loss (mL): 2 Pathology: none sent Condition: stable Disposition: PACU (To PACU with VSS and NVS intact)
[2018-03-26] MEDS ORDERED: fentaNYL Citrate Inj 100 MCG/2 ML Ampul ONE (15:49)
--- NOTE | 2018-03-26 15:58 | P.PNID ---
Subjective Remarks: cont to experience LLE pain no fever undergoing debridements and VAC changes in OR Antibiotics: vanco Zosyn fluconazol Allergies/Adverse Reactions: Allergies No Known Allergies Allergy (Verified 03/13/18 16:17) Objective Vital Signs 03/25/18 16:00 03/25/18 20:00 03/26/18 00:00 Temperature 97.7 F 97.6 F 97.7 F Pulse Rate 60 60 65 Respiratory Rate 18 18 18 Blood Pressure 94/59 L 136/75 109/66 Pulse Oximetry 99 98 96 03/26/18 04:00 03/26/18 08:00 03/26/18 09:10 Temperature 97.4 F L 97.4 F L Pulse Rate 61 60 Respiratory Rate 18 20 20 Blood Pressure 122/70 124/65 Pulse Oximetry 98 97 03/26/18 12:00 Temperature 97.5 F L Pulse Rate 63 Respiratory Rate 20 Blood Pressure 129/82 Pulse Oximetry 98 Intake & Output 03/25/18 03/26/18 03/26/18 18:59 06:59 18:59 Intake Total 362.5 / 362.5 3112.5 / 3112.5 Output Total 1700 / 1700 2049 / 2049 225 / 225 Balance -1337.5 / -1337.5 1062.5 / 1062.5 -225 / -225 Weight 65.8 kg Intake: IV 362.5 / 362.5 1612.5 / 1612.5 Diflucan 400 mg Premix Bag 200 200 / 200 ML @ 100 mls/hr IV.SIG Q24H [facility] Rx#:[id number] LR 1000 mL Inj 1,000 ML @ 30 1000 / 1000 mls/hr IV.SIG .Q24H [facility] Rx#: [id number] Zosyn 3.375 GM Premix 50 ML @ 100 / 100 150 / 150 100 mls/hr IV.SIG Q6H [facility] Rx#: [id number] Vancomycin Inj 1,250 MG In NS 262.5 / 262.5 262.5 / 262.5 Inj 250 ML @ 250 mls/hr IV.SIG Q12H [facility] Rx#:[id number] Oral 1500 / 1500 Output: Urine 1700 / 1700 2049 / 2049 225 / 225 Other: Mode Setting Right Lower Kemp Continuous Continuous Continuous # Voids 1 Date of Last Bowel Movement 03/21/18 # Bowel Movements 0 03/22/18 09:46 Tissue - Ankle Gram Stain - Final 03/22/18 09:46 Tissue - Ankle Wound Culture - Final Sandy parapsilosis 03/22/18 09:46 Tissue - Ankle Acid Fast Bacilli Smear - Final No acid fast bacilli seen 03/22/18 09:46 Tissue - Ankle Mycobacterial Culture - Pending 03/19/18 08:05 Blood - Peripheral Aerobic Blood Culture - Final No growth in 5 days 03/19/18 08:05 Blood - Peripheral Anaerobic Blood Culture - Final No growth in 5 days 03/19/18 08:00 Blood - Peripheral Aerobic Blood Culture - Final No growth in 5 days 03/19/18 08:00 Blood - Peripheral Anaerobic Blood Culture - Final No growth in 5 days Lab - Hematology Results 03/21/18 18:00 Hgb ELP Interp Adult normal hgb Lab - Chemistry Results 03/26/18 05:31 Creatinine 1.14 Estimated GFR 81 L Imaging: ITS Impressions Ankle MRI 03/20/18 00:00 CONCLUSION: 1. Broad area of cellulitis without abscess or osteomyelitis. 2. Mild Achilles tendinosis. No tear. Lower Extremity Ultrasound 03/22/18 00:00 CONCLUSION: Ill-defined superficial soft tissue edema of the right lower leg. Physical Exam: GENERAL: NAD SKIN: Warm and dry. CARDIOVASCULAR: Regular rate and rhythm. RESPIRATORY: No accessory muscle use. Clear to auscultation. Breath sounds equal bilaterally. GASTROINTESTINAL: Abdomen soft, non-tender, nondistended. Hepatic and splenic margins not palpable. MUSCULOSKELETAL: Extremities without clubbing, cyanosis, or edema. No obvious deformities. STATUS LOCALIS: VAC in place with serosang dc tender induration proximally to the VAC NEUROLOGICAL: Awake and alert. PSYCHIATRIC: calm , cooperatiev Assessment and Plan - Plan Necrotizing infection of RLE, lower leg Microabscess C.parapsilosa and strep cont zosyn and dc vancomycin cont fluconazol 400 IV
--- NOTE | 2018-03-26 16:57 | MR ---
cc: Nereyda Dasilva DPM DATE: 03/26/2018 SURGEON: Nereyda Dasilva DPM [employer]KER: None. PREOPERATIVE DIAGNOSIS: Right medial ankle/leg ulceration. POSTOPERATIVE DIAGNOSIS: Right medial ankle/leg ulceration. PROCEDURE PERFORMED: Right medial ankle ulceration debridement and irrigation with graft placement and wound VAC placement. ANESTHESIA: General with local infiltrate of 0.5% Marcaine plain infiltrated about the wound in V block fashion, 10 mL total. HEMOSTASIS: None. ESTIMATED BLOOD LOSS: 10 mL MATERIALS: 3-0 chromic gut 6 x 3 Neox Cord graft. INJECTABLES: 0.5% Marcaine plain, infiltrated about the wound in V block fashion, 10 mL total. COMPLICATIONS: None. INDICATIONS: The patient is a 57-year-old male who presented to the ED with right lower extremity pain and swelling x 2 weeks. Patient noted to have a blister which had purulent drainage. He was taken to the OR by Dr. Bowles on 03/21/2018 for debridement and irrigation with wound VAC placement. Repeat debridement and irrigation was performed by Dr. Elyse Capellan on 03/23/2018 with wound VAC placement. The patient was taken back to the OR today for graft placement to assist in granulation and epithelization. The patient understands the risks and benefits, complications associated with the procedure, and like to move forward with surgical intervention. DESCRIPTION OF PROCEDURE: The patient was brought to the operating room and remained on bed General anesthesia was then induced. The right lower extremity was prepped and draped in the usual sterile fashion. Attention was directed to the right medial ankle/leg ankle ulceration measuring 6.0 cm x 6.0 cm with 0.4 cm depth. At this time 10 cc of 1% Marcaine plain was infiltrated about the ulcer in V block fashion. Ulcer was debrided, utilizing a Versajet as well as sharp debridement with 15 blade. Bleeding borders were noted. All necrotic fibrotic tissue was excised. Full-thickness excisional debridement was performed to subcutaneous tissue and muscle. Following debridement, Neox Cord 6 x 3 graft was fenestrated and applied to site utilizing 3-0 chromic gut. Wound VAC was then placed to the right medial ankle/leg. The patient was then dressed with cast padding, 4 x 4's, Adaptic, and MARIBEL. Wound VAC was noted to be functioning at 125 mmHg on continuos suction. The patient tolerated procedure and anesthesia well. He will be transferred from the OR to PACU with vital signs stable and neurovascular status intact. He will remain in house and we will manage the wound with wound vac until appropriate discharge can we arranged as patient is homeless and is at high risk for limb loss. BASIM Delgado , 03:47 PM , 03:57 PM SOL
[2018-03-26] MEDS: Phenytoin Sodium 100 MG Capsule PO SCH (21:27)
[2018-03-27] MEDS: oxyCODONE/Acetaminophen 10/325 Tablet PO PRN ×4 (00:31→18:03)
[2018-03-27] MEDS: Piperacil/Tazo 3.375 GM Premix 50 ML IV.SIG SCH ×4 (01:12→20:00)
[2018-03-27] MEDS: Heparin - SQ 10,000 UNITS/ML Vial SQ SCH ×3 (05:12→22:30)
[2018-03-27] MEDS ORDERED: Vancomycin Inj 1,250 MG in Sodium Chlor 0.9% Inj 250 ML IV.SIG SCH (08:00)
[2018-03-27] MEDS: Senna/Docusate Sodium 8.6/50 MG Tablet PO SCH ×2 (09:37→23:16)
--- NOTE | 2018-03-27 12:09 | P.PNIM ---
Subjective Interval history: Doing okay Physical Exam Vital signs: Vital Signs 03/26/18 15:42 03/26/18 16:00 03/26/18 16:15 Temperature 98.0 F 97.3 F L 98.0 F Pulse Rate 76 55 L 69 Respiratory Rate 17 18 18 Blood Pressure 105/60 129/82 126/69 Pulse Oximetry 100 97 99 03/26/18 20:00 03/26/18 23:37 03/26/18 23:39 Temperature 97.7 F 98.5 F 98.5 F Pulse Rate 65 66 66 Respiratory Rate 18 20 20 Blood Pressure 101/61 108/56 L 108/56 L Pulse Oximetry 96 95 03/27/18 02:50 03/27/18 04:30 03/27/18 07:11 Temperature 98.3 F Pulse Rate 65 Respiratory Rate 18 20 20 Blood Pressure 120/69 Pulse Oximetry 95 03/27/18 08:00 Temperature 97.5 F L Pulse Rate 58 L Respiratory Rate 18 Blood Pressure 109/66 Pulse Oximetry 96 Intake & Output 03/26/18 03/27/18 03/27/18 18:59 06:59 18:59 Intake Total 680 / 680 512.5 / 512.5 Output Total 1375 / 1375 2900 / 2900 Balance -695 / -695 -2387.5 / -2387.5 Weight 68.3 kg Intake: IV 100 / 100 512.5 / 512.5 Diflucan 400 mg Premix Bag 200 200 / 200 ML @ 100 mls/hr IV.SIG Q24H [facility] Rx#:[id number] Zosyn 3.375 GM Premix 50 ML @ 100 / 100 50 / 50 100 mls/hr IV.SIG Q6H [facility] Rx#: [id number] Vancomycin Inj 1,250 MG In NS 262.5 / 262.5 Inj 250 ML @ 250 mls/hr IV.SIG Q12H [facility] Rx#:[id number] Oral 280 / 280 Anesthesia Amount 300 / 300 Output: Urine 1325 / 1325 2900 / 2900 Estimated Blood Loss 50 / 50 Other: Mode Setting Right Lower Kemp Continuous Continuous Continuous # Voids 1 Date of Last Bowel Movement 03/21/18 03/21/18 03/21/18 # Bowel Movements 0 0 Narrative: GENERAL: WN, WD AA M resting in bed in NAD. SKIN: Warm and dry. HEART: Regular rate and rhythm LUNGS: CTAB without wheezes or crackles. EXTREMITIES: No LE edema. RLE with wound vac and dressing. NEURO: Awake and alert. Nonfocal. PSYCH: Appropriate mood and affect. Results - Labs CBC & Chem 7: 03/24/18 06:17 03/26/18 05:31 Laboratory Results - last 24 hr 03/26/18 11:50 Vancomycin Trough 21.0 H - Procedures 03/22: Right distal leg incision and drainage, debridement, and application of wound vac with podiatry Assessment and Plan - Assessment (1) Cellulitis of right lower extremity Code(s): L03.115 - Cellulitis of right lower limb Status: Acute - Plan 57 year old male with history of remote DVT, seizure disorder, and polysubstance abuse admitted 03/19 for worsening RLE cellulitis after failing outpatient treatment. He had been seen in the ER approximately a week prior and discharged with Ignacio. He states shortly after being seen in the ED he developed a blister that later began to have purulent drainage. 1. RLE cellulitis with superficial ulcer - WBC 18.8 on admission with left shift and bandemia otherwise did not meet septic criteria - MRI showing broad area of cellulitis without abscess or osteo - Podiatry consulted and given severe R ankle pain it was decided to take him to the OR for debridement (03/22) - Blood cultures negative - Wound culture growing Sandy parapsilosis and beta strep no A, B, or D - ID consulted, continue IV Zosyn. Janeth, Dr. Rios discontinued vancomycin on 03/26 Wound vac applied. Status post further surgical debridement with Podiatry, Dr. Capellan (03/24). Status post skin graft application 03/26continue postoperative care. 2. Seizure disorder - Subtherapeutic level on presentation - Increased Dilantin to 400 mg , level at 8.5 previously, repeat in am 3. EtOH abuse - No signs of withdrawal - CIWA protocol - Rally pack 4. Anemia - In February 2016, Hb around 12-13 range - Hb around 10 this admission, likely secondary to acute infection - Normocytic - Because of life skills consultant's concern for sickle cell given extreme ankle pain, Hb electrophoresis ordered and shows normal Hb. - LDH, retic count, B12, and folate WNL - Iron studies suggestive of acute inflammatory process with normal iron and elevated ferritin DVT prophylaxis: resume Heparin Discharge Planning: Will need clearance from podiatry and ID prior to discharge
--- NOTE | 2018-03-27 19:19 | P.PNPOD ---
Subjective Interval history: Patient seen bedside. Denies any N,V,F,Ch. Denies calf pain. States he no longer has to leave the hospital secondary to an appointment as he is willing to move his appointment. Physical Exam Vital signs: Vital Signs 03/26/18 20:00 03/26/18 23:37 03/26/18 23:39 Temperature 97.7 F 98.5 F 98.5 F Pulse Rate 65 66 66 Respiratory Rate 18 20 20 Blood Pressure 101/61 108/56 L 108/56 L Pulse Oximetry 96 95 03/27/18 02:50 03/27/18 04:30 03/27/18 07:11 Temperature 98.3 F Pulse Rate 65 Respiratory Rate 18 20 20 Blood Pressure 120/69 Pulse Oximetry 95 03/27/18 08:00 03/27/18 12:00 03/27/18 16:00 Temperature 97.5 F L 98.6 F 97.5 F L Pulse Rate 58 L 91 H 74 Respiratory Rate 18 16 15 Blood Pressure 109/66 114/59 L 107/63 Pulse Oximetry 96 97 97 Intake & Output 03/27/18 03/27/18 03/28/18 06:59 18:59 06:59 Intake Total 512.5 / 512.5 50 / 50 Output Total 2900 / 2900 Balance -2387.5 / -2387.5 50 / 50 Weight 68.3 kg Intake: IV 512.5 / 512.5 50 / 50 Diflucan 400 mg Premix Bag 200 200 / 200 ML @ 100 mls/hr IV.SIG Q24H [facility] Rx#:[id number] Zosyn 3.375 GM Premix 50 ML @ 50 / 50 50 / 50 100 mls/hr IV.SIG Q6H [facility] Rx#: [id number] Vancomycin Inj 1,250 MG In NS 262.5 / 262.5 Inj 250 ML @ 250 mls/hr IV.SIG Q12H [facility] Rx#:[id number] Output: Urine 2900 / 2900 Other: Mode Setting Right Lower [place] Continuous Continuous Date of Last Bowel Movement 03/21/18 03/21/18 # Bowel Movements 0 Narrative: Dressing intact to right LE. Wound vac functioning at 125mmHg. SCREENING UNIT REGISTERED NURSE under 5 secs to digits x5. No pain in calf to right LE. Medications and Allergies Active Medications: Active Medications Acetaminophen (Tylenol) 650 mg PO Q6H PRN PRN Reason: PAIN SCALE 1 TO 2 Al Hydroxide/Mg Hydroxide (Milk Of Magnesia Liq) 30 ml PO Q12H PRN PRN Reason: Mild Constipation Last Admin: 03/27/18 09:37 Dose: 30 ml Bisacodyl (Dulcolax Supp) 10 mg RECTAL DAILY PRN PRN Reason: SEVERE CONSITIPATION Flumazenil (Romazecon Inj) 0.2 mg IV.PUSH Q1M PRN PRN Reason: OVERSEDATION Haloperidol Lactate (Haldol Inj) 1 mg IV.PUSH Q15M PRN PRN Reason: for severe agitation Heparin Sodium (Porcine) (Heparin Inj) 5,000 units SQ Q8H [facility] Last Admin: 03/27/18 14:56 Dose: Not Given Piperacillin/Tazobactam/Dextrose (Zosyn 3.375 Gm Premix) 50 mls @ 100 mls/hr IV.SIG Q6H [facility] Last Admin: 03/27/18 14:56 Dose: 100 mls/hr Fluconazole (Diflucan 400 Mg Premix Bag) 200 mls @ 100 mls/hr IV.SIG Q24H [facility] Last Infusion: 03/26/18 23:30 Dose: Infused Lactulose (Lactulose Liq) 30 ml PO DAILY PRN PRN Reason: SEVERE CONSITIPATION Last Admin: 03/27/18 06:19 Dose: 30 ml Lorazepam (Ativan) 1 mg PO Q4H PRN PRN Reason: for CIWA 8-10 Lorazepam (Ativan) 2 mg PO Q2H PRN PRN Reason: for CIWA 11-14 Lorazepam (Ativan Inj) 2 mg IV.PUSH Q2H PRN PRN Reason: for CIWA 11-14 Lorazepam (Ativan Inj) 2 mg IV.PUSH Q1H PRN PRN Reason: for CIWA 15-20 Lorazepam (Ativan Inj) 2 mg IV.PUSH Q15M PRN PRN Reason: for CIWA > 20 Lorazepam (Ativan Inj) 1 mg IV.PUSH Q4H PRN PRN Reason: for CIWA 8-10 Morphine Sulfate (Morphine Inj) 2 mg IV.PUSH Q1H PRN PRN Reason: Pain Scale 7-10 (Intractable) Last Admin: 03/21/18 18:23 Dose: 2 mg Mupirocin (Bactroban 2% Oint) 1 applicatio TOPICAL BID [facility] Last Admin: 03/27/18 09:37 Dose: Not Given Naloxone HCl (Narcan Inj) 0.4 mg IV.PUSH UNSCH PRN PRN Reason: SEE LABEL COMMENTS Ondansetron HCl (Zofran Inj) 4 mg IV.PUSH Q6H PRN PRN Reason: NAUSEA OR VOMITING Oxycodone/Acetaminophen (Percocet 10/325 Mg) 1 tab PO Q6H PRN PRN Reason: PAIN SCALE 6 TO 10 Last Admin: 03/27/18 18:03 Dose: 1 tab Oxycodone/Acetaminophen (Percocet 5/325 Mg) 1 tab PO Q6H PRN PRN Reason: PAIN SCALE 3 TO 5 Phenytoin Sodium (Dilantin) 400 mg PO HS [facility] Last Admin: 03/26/18 21:27 Dose: 400 mg Senna/Docusate Sodium (Pily-Colace) 1 tab PO BID [facility] Last Admin: 03/27/18 09:37 Dose: 1 tab Sennosides (Senokot) 17.2 mg PO Q12H PRN PRN Reason: Moderate Constipation Thiamine HCl (Vitamin B1) 100 mg PO DAILY [facility] Last Admin: 03/27/18 09:37 Dose: 100 mg Allergies Allergy/AdvReac Type Severity Reaction Status Date / Time No Known Allergies Allergy Verified 03/13/18 16:17 Home Medications Medication Instructions Recorded Confirmed Type phenytoin sodium extended 300 mg PO DAILY 03/13/18 03/19/18 History [Dilantin Extended] Results - Labs CBC & Chem 7: 03/24/18 06:17 03/26/18 05:31 Laboratory Results - last 24 hr 03/27/18 13:22 Phenytoin 12.2 - Procedures 03/22: Right distal leg incision and drainage, debridement, and application of wound vac with podiatry Assessment and Plan - Assessment (1) Chronic ulcer of right ankle with fat layer exposed Code(s): L97.312 - Non-pressure chronic ulcer of right ankle with fat layer exposed Status: Acute (2) Cellulitis of right lower extremity Code(s): L03.115 - Cellulitis of right lower limb Status: Acute - Plan 57-year-old male with right medial ankle ulceration Will evaluate wound on Friday and take down wound vac Please have wound vac supplies bedside with suture removal kit Patient has limited resources as he is homeless therefore graft will aid in healing however would recommend possible rehab for patient as anticipate use of wound VAC the next 4-6 weeks
[2018-03-27] MEDS: Phenytoin Sodium 100 MG Capsule PO SCH (23:17)
[2018-03-28] MEDS: oxyCODONE/Acetaminophen 10/325 Tablet PO PRN ×4 (00:25→22:33)
[2018-03-28] MEDS: Piperacil/Tazo 3.375 GM Premix 50 ML IV.SIG SCH ×4 (03:52→20:00)
[2018-03-28] MEDS: Heparin - SQ 10,000 UNITS/ML Vial SQ SCH ×3 (05:34→22:33)
[2018-03-28] MEDS: Senna/Docusate Sodium 8.6/50 MG Tablet PO SCH (08:29)
--- NOTE | 2018-03-28 09:20 | P.PNIM ---
Subjective Interval history: Still worry about rescheduling his appointment next week. Otherwise no other complaints at this time. Physical Exam Vital signs: Vital Signs 03/27/18 12:00 03/27/18 16:00 03/27/18 20:00 Temperature 98.6 F 97.5 F L 97.7 F Pulse Rate 91 H 74 79 Respiratory Rate 16 15 18 Blood Pressure 114/59 L 107/63 120/72 Pulse Oximetry 97 97 96 03/28/18 00:00 03/28/18 04:00 Temperature 97.9 F 97.9 F Pulse Rate 78 67 Respiratory Rate 18 18 Blood Pressure 105/59 L 101/66 Pulse Oximetry 95 96 Intake & Output 03/27/18 03/28/18 03/28/18 18:59 06:59 18:59 Intake Total 100 / 100 1780 / 1780 Output Total 3150 / 3150 Balance 100 / 100 -1370 / -1370 Weight 68.3 kg Intake: IV 100 / 100 1300 / 1300 Diflucan 400 mg Premix Bag 200 200 / 200 ML @ 100 mls/hr IV.SIG Q24H [facility] Rx#:[id number] Zosyn 3.375 GM Premix 50 ML @ 100 / 100 100 / 100 100 mls/hr IV.SIG Q6H [facility] Rx#: [id number] Oral 480 / 480 Output: Urine 3150 / 3150 Other: Mode Setting Right Lower [place] Continuous Continuous Continuous Date of Last Bowel Movement 03/21/18 03/27/18 # Bowel Movements 1 Narrative: GENERAL: WN, WD AA M resting in bed in NAD. SKIN: Warm and dry. HEART: Regular rate and rhythm LUNGS: CTAB without wheezes or crackles. EXTREMITIES: No LE edema. RLE with wound vac and dressing. NEURO: Awake and alert. Nonfocal. PSYCH: Appropriate mood and affect. Results - Labs CBC & Chem 7: 03/24/18 06:17 03/26/18 05:31 Laboratory Results - last 24 hr 03/27/18 13:22 Phenytoin 12.2 - Procedures 03/22: Right distal leg incision and drainage, debridement, and application of wound vac with podiatry Assessment and Plan - Assessment (1) Cellulitis of right lower extremity Code(s): L03.115 - Cellulitis of right lower limb Status: Acute - Plan 57 year old male with history of remote DVT, seizure disorder, and polysubstance abuse admitted 03/19 for worsening RLE cellulitis after failing outpatient treatment. He had been seen in the ER approximately a week prior and discharged with [facility]. He states shortly after being seen in the ED he developed a blister that later began to have purulent drainage. 1. RLE cellulitis with superficial ulcer - WBC 18.8 on admission with left shift and bandemia otherwise did not meet septic criteria - MRI showing broad area of cellulitis without abscess or osteo - Podiatry consulted and given severe R ankle pain it was decided to take him to the OR for debridement (03/22) - Blood cultures negative - Wound culture growing Sandy parapsilosis and beta strep no A, B, or D - ID consulted, continue IV Zosyn. Janeth, Dr. Rios discontinued vancomycin on 03/26 Wound vac applied. Status post further surgical debridement with Podiatry, Dr. Capellan (03/24). Status post skin graft application 03/[address] Dawson postoperative care. Wound will be reevaluated on Friday. Likely will need 4 to 6 week of wound vac. 2. Seizure disorder - Subtherapeutic level on presentation - Increased Dilantin to 400 mg , level at 8.5 previously, repeat level 12.2 3. EtOH abuse - No signs of withdrawal - [facility] protocol - Rally pack 4. Anemia - In February 2016, Hb around 12-13 range - Hb around 10 this admission, likely secondary to acute infection - Normocytic - Because of business intelligence reporting analyst's concern for sickle cell given extreme ankle pain, Hb electrophoresis ordered and shows normal Hb. - LDH, retic count, B12, and folate WNL - Iron studies suggestive of acute inflammatory process with normal iron and elevated ferritin DVT prophylaxis: resume Heparin Discharge Planning: Will need clearance from podiatry and ID prior to discharge
[2018-03-28] MEDS ORDERED: Pharmacy Ordered Lab Info OTHER ONE (19:45)
[2018-03-28] MEDS: Phenytoin Sodium 100 MG Capsule PO SCH (22:33)
[2018-03-29] MEDS: Senna/Docusate Sodium 8.6/50 MG Tablet PO SCH ×3 (02:23→22:18)
[2018-03-29] MEDS: Piperacil/Tazo 3.375 GM Premix 50 ML IV.SIG SCH ×2 (02:24→09:18)
[2018-03-29] MEDS: oxyCODONE/Acetaminophen 10/325 Tablet PO PRN ×3 (04:35→18:42)
[2018-03-29] MEDS: Heparin - SQ 10,000 UNITS/ML Vial SQ SCH ×3 (05:55→22:17)
--- NOTE | 2018-03-29 10:42 | P.PNIM ---
Subjective Interval history: Does not want any further IV sticks. Peripheral IV fell out yesterday and declined in midline. Unhappy he has to be here for 4 more weeks for the wound VAC. Physical Exam Vital signs: Vital Signs 03/28/18 12:00 03/28/18 16:00 03/28/18 20:00 Temperature 97.8 F 97.7 F 97.7 F Pulse Rate 81 77 84 Respiratory Rate 20 20 18 Blood Pressure 107/58 L 114/67 109/62 Pulse Oximetry 96 95 97 03/29/18 00:00 03/29/18 04:00 03/29/18 08:00 Temperature 97.6 F 97.9 F 97.8 F Pulse Rate 78 70 70 Respiratory Rate 18 18 16 Blood Pressure 108/60 107/68 113/77 Pulse Oximetry 98 97 97 Intake & Output 03/28/18 03/29/18 03/29/18 18:59 06:59 18:59 Intake Total 45 / 45 Output Total 1200 / 1200 1999 Balance -1155 / -1155 -1999 Weight 62.7 kg Intake: IV 45 / 45 Zosyn 3.375 GM Premix 50 ML @ 45 / 45 100 mls/hr IV.SIG Q6H [facility] Rx#: [id number] Output: Urine 1200 / 1200 1999 Other: Mode Setting Right Lower [place] Continuous Continuous Continuous Date of Last Bowel Movement 03/27/18 Narrative: GENERAL: WN, WD AA M resting in bed in NAD. SKIN: Warm and dry. HEART: Regular rate and rhythm LUNGS: CTAB without wheezes or crackles. EXTREMITIES: No LE edema. RLE with wound vac and dressing. NEURO: Awake and alert. Nonfocal. PSYCH: Appropriate mood and affect. Results - Labs CBC & Chem 7: 03/24/18 06:17 03/28/18 13:09 Laboratory Results - last 24 hr 03/28/18 13:09 Creatinine 1.20 Estimated GFR 76 L - Procedures 03/22: Right distal leg incision and drainage, debridement, and application of wound vac with podiatry Assessment and Plan - Assessment (1) Cellulitis of right lower extremity Code(s): L03.115 - Cellulitis of right lower limb Status: Acute - Plan 57 year old male with history of remote DVT, seizure disorder, and polysubstance abuse admitted 03/19 for worsening RLE cellulitis after failing outpatient treatment. He had been seen in the ER approximately a week prior and discharged with Ignacio. He states shortly after being seen in the ED he developed a blister that later began to have purulent drainage. 1. RLE cellulitis with superficial ulcer - WBC 18.8 on admission with left shift and bandemia otherwise did not meet septic criteria - MRI showing broad area of cellulitis without abscess or osteo - Podiatry consulted and given severe R ankle pain it was decided to take him to the OR for debridement (03/22) - Blood cultures negative - Wound culture growing Sandy parapsilosis and beta strep no A, B, or D - ID consulted, was on IV Zosyn and will switch to p.o. Augmentin due to patient not wanting a IV peripheral site. Switch to oral Diflucan, Dr. Rios discontinued vancomycin on 03/26 Wound vac applied. Status post further surgical debridement with Podiatry, Dr. Capellan (03/24). Status post skin graft application 03/[address] Dawson postoperative care. Wound will be reevaluated on today Friday. Likely will need 4 to 6 week of wound vac. Await final recommendations per podiatry 2. Seizure disorder - Subtherapeutic level on presentation - Increased Dilantin to 400 mg , level at 8.5 previously, repeat level 12.2 3. EtOH abuse - No signs of withdrawal - [facility] protocol - Rally pack 4. 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 - LDH, retic count, B12, and folate WNL - Iron studies suggestive of acute inflammatory process with normal iron and elevated ferritin DVT prophylaxis: resume Heparin Discharge Planning: Will need clearance from podiatry and ID prior to discharge, likely will need 4 weeks of wound VAC and await final recommendations from podiatry. Patient lives out of his car and has no payor source.
[2018-03-29] MEDS: Amoxicillin/Clavulanate 875/125 MG Tablet PO SCH ×2 (13:30→22:17)
--- NOTE | 2018-03-29 19:09 | P.PNPOD ---
Subjective Interval history: Patient seen bedside. No concerns or complaints at this time. States right lower extremity is painful. Does relate pain control with Percocet. Physical Exam Vital signs: Vital Signs 03/28/18 20:00 03/29/18 00:00 03/29/18 04:00 Temperature 97.7 F 97.6 F 97.9 F Pulse Rate 84 78 70 Respiratory Rate 18 18 18 Blood Pressure 109/62 108/60 107/68 Pulse Oximetry 97 98 97 03/29/18 08:00 03/29/18 12:00 03/29/18 16:00 Temperature 97.8 F 97.5 F L 97.6 F Pulse Rate 70 88 86 Respiratory Rate 16 16 16 Blood Pressure 113/77 110/70 108/81 Pulse Oximetry 97 97 Intake & Output 03/29/18 03/29/18 03/30/18 06:59 18:59 06:59 Intake Total 720 / 720 Output Total 2000 / 1999 1100 / 1100 Balance -2000 / -2000 -380 / -380 Weight 62.7 kg Intake: Oral 720 / 720 Output: Urine 1999 1100 / 1100 Other: Mode Setting Right Lower [place] Continuous Continuous Date of Last Bowel Movement 03/27/18 # Bowel Movements 0 Narrative: Upon removal of wound VAC ulceration noted measuring approximately 6 cm x 6 cm by 0.3 cm depth with graft present to wound site. Granular base noted with rolled epithelialized borders. 15 cc of drainage noted to wound VAC canister. Wound VAC was on and functioning at 125 mm per mercury continuously prior to removal. Medications and Allergies Active Medications: Active Medications Acetaminophen (Tylenol) 650 mg PO Q6H PRN PRN Reason: PAIN SCALE 1 TO 2 Al Hydroxide/Mg Hydroxide (Milk Of Magnaayush Liq) 30 ml PO Q12H PRN PRN Reason: Mild Constipation Last Admin: 03/27/18 09:37 Dose: 30 ml Amoxicillin/Clavulanate Potassium (Augmentin 875/125 Mg) 1 tab PO Q12HR [facility] Stop: 04/04/18 09:00 Last Admin: 03/29/18 13:30 Dose: 1 tab Bisacodyl (Dulcolax Supp) 10 mg RECTAL DAILY PRN PRN Reason: SEVERE CONSITIPATION Fluconazole (Diflucan) 200 mg PO DAILY [facility] Stop: 04/04/18 08:00 Last Admin: 03/29/18 13:30 Dose: 200 mg Flumazenil (Romazecon Inj) 0.2 mg IV.PUSH Q1M PRN PRN Reason: OVERSEDATION Haloperidol Lactate (Haldol Inj) 1 mg IV.PUSH Q15M PRN PRN Reason: for severe agitation Heparin Sodium (Porcine) (Heparin Inj) 5,000 units SQ Q8H [facility] Last Admin: 03/29/18 13:31 Dose: Not Given Lactulose (Lactulose Liq) 30 ml PO DAILY PRN PRN Reason: SEVERE CONSITIPATION Last Admin: 03/27/18 06:19 Dose: 30 ml Lorazepam (Ativan) 1 mg PO Q4H PRN PRN Reason: for CIWA 8-10 Lorazepam (Ativan) 2 mg PO Q2H PRN PRN Reason: for CIWA 11-14 Lorazepam (Ativan Inj) 2 mg IV.PUSH Q2H PRN PRN Reason: for CIWA 11-14 Lorazepam (Ativan Inj) 2 mg IV.PUSH Q1H PRN PRN Reason: for CIWA 15-20 Lorazepam (Ativan Inj) 2 mg IV.PUSH Q15M PRN PRN Reason: for CIWA > 20 Lorazepam (Ativan Inj) 1 mg IV.PUSH Q4H PRN PRN Reason: for CIWA 8-10 Morphine Sulfate (Morphine Inj) 2 mg IV.PUSH Q1H PRN PRN Reason: Pain Scale 7-10 (Intractable) Last Admin: 03/21/18 18:23 Dose: 2 mg Mupirocin (Bactroban 2% Oint) 1 applicatio TOPICAL BID [facility] Last Admin: 03/29/18 09:18 Dose: Not Given Naloxone HCl (Narcan Inj) 0.4 mg IV.PUSH UNSCH PRN PRN Reason: SEE LABEL COMMENTS Ondansetron HCl (Zofran Inj) 4 mg IV.PUSH Q6H PRN PRN Reason: NAUSEA OR VOMITING Oxycodone/Acetaminophen (Percocet 10/325 Mg) 1 tab PO Q6H PRN PRN Reason: PAIN SCALE 6 TO 10 Last Admin: 03/29/18 18:42 Dose: 1 tab Oxycodone/Acetaminophen (Percocet 5/325 Mg) 1 tab PO Q6H PRN PRN Reason: PAIN SCALE 3 TO 5 Phenytoin Sodium (Dilantin) 400 mg PO HS [facility] Last Admin: 03/28/18 22:33 Dose: 400 mg Senna/Docusate Sodium (Pily-Colace) 1 tab PO BID [facility] Last Admin: 03/29/18 09:18 Dose: Not Given Sennosides (Senokot) 17.2 mg PO Q12H PRN PRN Reason: Moderate Constipation Thiamine HCl (Vitamin B1) 100 mg PO DAILY [facility] Last Admin: 03/29/18 09:19 Dose: 100 mg Allergies Allergy/AdvReac Type Severity Reaction Status Date / Time No Known Allergies Allergy Verified 03/13/18 16:17 Home Medications Medication Instructions Recorded Confirmed Type phenytoin sodium extended 300 mg PO DAILY 03/13/18 03/19/18 History [Dilantin Extended] Results - Labs CBC & Chem 7: 03/24/18 06:17 03/28/18 13:09 Microbiology 03/22/18 09:46 Tissue - Ankle Acid Fast Bacilli Smear - Final No acid fast bacilli seen 03/22/18 09:46 Tissue - Ankle Mycobacterial Culture - Preliminary No growth in 1 week 03/22/18 09:46 Tissue - Ankle Fungal Smear - Final No fungal elements seen 03/22/18 09:46 Tissue - Ankle Fungal Culture - Preliminary No growth in 1 week - Procedures 03/22: Right distal leg incision and drainage, debridement, and application of wound vac with podiatry Assessment and Plan - Assessment (1) Chronic ulcer of right ankle with fat layer exposed Code(s): L97.312 - Non-pressure chronic ulcer of right ankle with fat layer exposed Status: Acute (2) Cellulitis of right lower extremity Code(s): L03.115 - Cellulitis of right lower limb Status: Acute - Plan 57-year-old male with right medial ankle ulceration Wound VAC removed to right lower extremity and replaced with Adaptic black foam Wound care nurses to apply wound VAC and change every 48 hours Patient has limited resources as he is homeless therefore graft will aid in healing however would recommend possible rehab for patient as anticipate use of wound VAC the next 4-6 weeks Appreciate hospitalist note the patient is not happy about staying in house secondary to wound however patient would benefit from continued wound VAC use as there is depth noted Will reevaluate wound in 3-5 days We will continue to follow patient while in-house and monitor progress OR pathology reviewed -no abnormal findings to ulcer biopsy
[2018-03-29] MEDS: Phenytoin Sodium 100 MG Capsule PO SCH (22:17)
[2018-03-30] MEDS: Heparin - SQ 10,000 UNITS/ML Vial SQ SCH ×3 (05:14→21:27)
[2018-03-30] MEDS: oxyCODONE/Acetaminophen 10/325 Tablet PO PRN ×4 (05:14→23:21)
[2018-03-30] MEDS: Senna/Docusate Sodium 8.6/50 MG Tablet PO SCH ×2 (10:28→21:25)
[2018-03-30] MEDS: Amoxicillin/Clavulanate 875/125 MG Tablet PO SCH ×2 (10:31→21:25)
--- NOTE | 2018-03-30 11:44 | P.PNIM ---
Subjective Interval history: PATIENT CURRENTLY HAS NO IV ACCESS ID STATES CAN GO TO ORAL ANTIBIOTICS WILL SEE WHAT THEY COME UP WITH DW RN AND PT AND CM Physical Exam Vital signs: Vital Signs 03/29/18 12:00 03/29/18 16:00 03/29/18 20:00 Temperature 97.5 F L 97.6 F 97.8 F Pulse Rate 88 86 91 H Respiratory Rate 16 16 18 Blood Pressure 110/70 108/81 121/61 Pulse Oximetry 97 95 03/30/18 00:00 03/30/18 04:00 03/30/18 08:00 Temperature 97.6 F 97.8 F 97.5 F L Pulse Rate 82 80 75 Respiratory Rate 17 18 16 Blood Pressure 96/54 L 114/64 111/68 Pulse Oximetry 96 97 96 Intake & Output 03/29/18 03/30/18 03/30/18 18:59 06:59 18:59 Intake Total 720 / 720 Output Total 1100 / 1100 300 / 300 Balance -380 / -380 -300 / -300 Weight 63.9 kg Intake: Oral 720 / 720 Output: Urine 1100 / 1100 300 / 300 Other: Mode Setting Right Lower [place] Continuous Continuous Continuous # Bowel Movements 0 Narrative: GENERAL: WN, WD AA M resting in bed in NAD. SKIN: Warm and dry. HEART: Regular rate and rhythm LUNGS: CTAB without wheezes or crackles. EXTREMITIES: No LE edema. RLE with wound vac and dressing. WOUND VAC ON RIGHT LE NEURO: Awake and alert. Nonfocal. PSYCH: Appropriate mood and affect. INSIGHT AND JUDGEMENT ARE LIMITED Results - Labs CBC & Chem 7: 03/24/18 06:17 03/30/18 05:19 Laboratory Results - last 24 hr 03/30/18 05:19 Creatinine 1.27 Estimated GFR 71 L Microbiology 03/22/18 09:46 Tissue - Ankle Acid Fast Bacilli Smear - Final No acid fast bacilli seen 03/22/18 09:46 Tissue - Ankle Mycobacterial Culture - Preliminary No growth in 1 week 03/22/18 09:46 Tissue - Ankle Fungal Smear - Final No fungal elements seen 03/22/18 09:46 Tissue - Ankle Fungal Culture - Preliminary No growth in 1 week - Imaging Ankle MRI 03/20/18 00:00 CONCLUSION: 1. Broad area of cellulitis without abscess or osteomyelitis. 2. Mild Achilles tendinosis. No tear. Lower Extremity Ultrasound 03/22/18 00:00 CONCLUSION: Ill-defined superficial soft tissue edema of the right lower leg. - Procedures 03/22: Right distal leg incision and drainage, debridement, and application of wound vac with podiatry Assessment and Plan - Assessment (1) Cellulitis of right lower extremity Code(s): L03.115 - Cellulitis of right lower limb Status: Acute - Plan 57 year old male with history of remote DVT, seizure disorder, and polysubstance abuse admitted 03/19 for worsening RLE cellulitis after failing outpatient treatment. He had been seen in the ER approximately a week prior and discharged with Ignacio. He states shortly after being seen in the ED he developed a blister that later began to have purulent drainage. 1. RLE cellulitis with superficial ulcer - WBC 18.8 on admission with left shift and bandemia otherwise did not meet septic criteria - MRI showing broad area of cellulitis without abscess or osteo - Podiatry consulted and given severe R ankle pain it was decided to take him to the OR for debridement (03/22) - Blood cultures negative - Wound culture growing Sandy parapsilosis and beta strep no A, B, or D - ID consulted, continue IV Zosyn. Janeth, Dr. Rios discontinued vancomycin on 03/26 Wound vac applied. Status post further surgical debridement with Podiatry, Dr. Capellan (03/24). Status post skin graft application 03/26continue postoperative care. WILL NEED WOUND VAC AND ANTIBIOTICS 2. Seizure disorder - Subtherapeutic level on presentation - Increased Dilantin to 400 mg , level at 8.5 previously, repeat in am 3. EtOH abuse - No signs of withdrawal - [facility] protocol - Rally pack 4. 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 - LDH, retic count, B12, and folate WNL - Iron studies suggestive of acute inflammatory process with normal iron and elevated ferritin DVT prophylaxis: resume Heparin Discharge Planning: Will need clearance from podiatry and ID prior to discharge Code Status: FULL CODE Discussed Condition With: RN AND PT AND CM Discharge Planning: PENDING IMPROVEMENT OF RIGHT LE
--- NOTE | 2018-03-30 16:01 | P.PNID ---
Subjective Remarks: cont to experience LLE pain no fever pt apparently was refusing IV line and there fore switched to oral abx Antibiotics: am/clav fluconazol Allergies/Adverse Reactions: Allergies No Known Allergies Allergy (Verified 03/13/18 16:17) Objective Vital Signs 03/29/18 20:00 03/30/18 00:00 03/30/18 04:00 Temperature 97.8 F 97.6 F 97.8 F Pulse Rate 91 H 82 80 Respiratory Rate 18 17 18 Blood Pressure 121/61 96/54 L 114/64 Pulse Oximetry 95 96 97 03/30/18 08:00 03/30/18 12:00 Temperature 97.5 F L 98 F Pulse Rate 75 84 Respiratory Rate 16 16 Blood Pressure 111/68 96/60 L Pulse Oximetry 96 96 Intake & Output 03/29/18 03/30/18 03/30/18 18:59 06:59 18:59 Intake Total 720 / 720 Output Total 1100 / 1100 300 / 300 Balance -380 / -380 -300 / -300 Weight 63.9 kg Intake: Oral 720 / 720 Output: Urine 1100 / 1100 300 / 300 Other: Mode Setting Right Lower Kemp Continuous Continuous Continuous # Bowel Movements 0 03/22/18 09:46 Tissue - Ankle Acid Fast Bacilli Smear - Final No acid fast bacilli seen 03/22/18 09:46 Tissue - Ankle Mycobacterial Culture - Preliminary No growth in 1 week 03/22/18 09:46 Tissue - Ankle Fungal Smear - Final No fungal elements seen 03/22/18 09:46 Tissue - Ankle Fungal Culture - Preliminary No growth in 1 week Lab - Chemistry Results 03/30/18 05:19 Creatinine 1.27 Estimated GFR 71 L Imaging: ITS Impressions Ankle MRI 03/20/18 00:00 CONCLUSION: 1. Broad area of cellulitis without abscess or osteomyelitis. 2. Mild Achilles tendinosis. No tear. Lower Extremity Ultrasound 03/22/18 00:00 CONCLUSION: Ill-defined superficial soft tissue edema of the right lower leg. Physical Exam: GENERAL: NAD SKIN: Warm and dry. CARDIOVASCULAR: Regular rate and rhythm. RESPIRATORY: No accessory muscle use. Clear to auscultation. Breath sounds equal bilaterally. GASTROINTESTINAL: Abdomen soft, non-tender, nondistended. Hepatic and splenic margins not palpable. MUSCULOSKELETAL: Extremities without clubbing, cyanosis, or edema. No obvious deformities. STATUS LOCALIS: VAC in place with serosang dc tender induration proximally to the VAC, seems less prominent NEUROLOGICAL: Awake and alert. PSYCHIATRIC: calm , cooperatiev Assessment and Plan - Plan Necrotizing infection of RLE, lower leg Microabscess C.parapsilosa and strep If agreable to IV line will switch bnack to Amp/s cont fluconazol 400 po janeth RN
[2018-03-30] MEDS: Phenytoin Sodium 100 MG Capsule PO SCH (21:25)
[2018-03-31] MEDS: Heparin - SQ 10,000 UNITS/ML Vial SQ SCH ×3 (05:29→22:35)
[2018-03-31] MEDS: oxyCODONE/Acetaminophen 10/325 Tablet PO PRN ×4 (05:29→22:32)
[2018-03-31] MEDS: Amoxicillin/Clavulanate 875/125 MG Tablet PO SCH ×2 (10:59→22:31)
[2018-03-31] MEDS: Senna/Docusate Sodium 8.6/50 MG Tablet PO SCH ×2 (10:59→22:31)
--- NOTE | 2018-03-31 16:17 | P.PNIM ---
Subjective Interval history: PATIENT CURRENTLY HAS NO IV ACCESS ID STATES CAN GO TO ORAL ANTIBIOTICS WILL SEE WHAT THEY COME UP WITH MEIR RN AND PT AND CM ON AUGMENTIN AND DIFLUCAN PER ID AT THIS TIME 03-31 CONTINUE WOUND CARE AND ANTIBIOTICS PER ID REFUSING IV MEDICATIONS AT THIS TIME THEREFORE CONTINUE ORAL EXPLAINED THAT IV WOULD BE BETTER HE SAID "NO" AM LABS Physical Exam Vital signs: Vital Signs 03/30/18 18:09 03/30/18 20:00 03/31/18 07:26 Temperature 98.0 F 97.4 F L Pulse Rate 88 80 Respiratory Rate 18 18 Blood Pressure 121/71 112/67 Pulse Oximetry 97 03/31/18 08:00 03/31/18 12:00 Temperature 97.9 F 97.5 F L Pulse Rate 72 86 Respiratory Rate 16 12 Blood Pressure 119/58 L 113/72 Pulse Oximetry 96 97 Intake & Output 03/30/18 03/31/18 03/31/18 18:59 06:59 18:59 Intake Total 1000 / 1000 Output Total 1330 / 1330 1300 / 1300 Balance -1330 / -1330 -300 / -300 Intake: Oral 1000 / 1000 Output: Urine 1330 / 1330 1300 / 1300 Other: Mode Setting Right Lower Kemp Continuous Continuous Continuous # Voids 1 Date of Last Bowel Movement 03/30/18 03/30/18 # Bowel Movements 1 Narrative: GENERAL: WN, WD AA M resting in bed in NAD. SKIN: Warm and dry. HEART: Regular rate and rhythm LUNGS: CTAB without wheezes or crackles. EXTREMITIES: No LE edema. RLE with wound vac and dressing. WOUND VAC ON RIGHT LE NEURO: Awake and alert. Nonfocal. PSYCH: Appropriate mood and affect. INSIGHT AND JUDGEMENT ARE LIMITED Results - Labs CBC & Chem 7: 03/24/18 06:17 03/30/18 05:19 - Procedures 03/22: Right distal leg incision and drainage, debridement, and application of wound vac with podiatry Assessment and Plan - Assessment (1) Cellulitis of right lower extremity Code(s): L03.115 - Cellulitis of right lower limb Status: Acute - Plan 57 year old male with history of remote DVT, seizure disorder, and polysubstance abuse admitted 03/19 for worsening RLE cellulitis after failing outpatient treatment. He had been seen in the ER approximately a week prior and discharged with Ignacio. He states shortly after being seen in the ED he developed a blister that later began to have purulent drainage. 1. RLE cellulitis with superficial ulcer - WBC 18.8 on admission with left shift and bandemia otherwise did not meet septic criteria - MRI showing broad area of cellulitis without abscess or osteo - Podiatry consulted and given severe R ankle pain it was decided to take him to the OR for debridement (03/22) - Blood cultures negative - Wound culture growing Sandy parapsilosis and beta strep no A, B, or D - ID consulted, continue IV Zosyn. Janeth, Dr. Rios discontinued vancomycin on 03/26 Wound vac applied. Status post further surgical debridement with Podiatry, Dr. Capellan (03/24). Status post skin graft application 03/26continue postoperative care. WILL NEED WOUND VAC AND ANTIBIOTICS ON PO ANTIBIOTICS - REFUSING TO HAVE AN IV AND THEREFORE IV ANTIBIOTICS 2. Seizure disorder - Subtherapeutic level on presentation - Increased Dilantin to 400 mg , level at 8.5 previously, repeat in am 3. EtOH abuse - No signs of withdrawal - CIWA protocol - Rally pack 4. 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 - LDH, retic count, B12, and folate WNL - Iron studies suggestive of acute inflammatory process with normal iron and elevated ferritin DVT prophylaxis: resume Heparin Discharge Planning: Will need clearance from podiatry and ID prior to discharge Code Status: FULL CODE Discussed Condition With: RN AND PT AND CM Discharge Planning: PENDING IMPROVEMENT OF RIGHT LE
--- NOTE | 2018-03-31 18:25 | P.PNWCN ---
Wound Care Nurse Consult Description: Received consult from Doctor Dasilva for R medial ankle/ leg graft wound VAC management. Communicated with: Doctor Dasilva and RN Suni tenafly Recommendation: Please change wound VAC dressing every 48 hours covering graft in wound bed with adaptic (oil emulsion gauze) before applying black granufoam. VAC setting should be 125 mm/Hg low continuous suction. Wound/Pressure Injury - Wound R lower leg Wound Assessment: Ongoing Wound Type: Abscess (No open surgical wound with graft) Is This a Chronic Wound: No Requested from Provider a Wound Care Consult: Yes (Wound care saw patinet today) Length: 9.6 (cm) Width: 6 (cm) Depth: 0.5 (~0.5cm) Wound Bed Appearance: Red, White Surrounding Tissue Temperature: Cool Drainage Description: Serosanguinous Drainage Amount: Minimal Drainage Odor: No Odor Dressing Status: Changed Cleansing Solution: Saline Primary Dressing: oil emulsion gauze and then negative pressure wound dressing Cover Dressing: rolled gauze and MARIBEL wrap Tape Type: Paper Wound Dressing Change Date: 03/31/18 Wound Margin Description: Open and steep Wound Vac - Wound Vac R lower leg Pressure Setting (mmHg): 125 Mode Setting: Continuous Drainage Description: Serosanguinous Foam type: Black - Additional Information Patient seen on for wound VAC dressing change to R medial ankle. Patient was laying in bed for wound VAC dressing change. Removed dressing in place including one piece of granufoam, and oil emulsion gauze. Wound was cleansed with normal saline and patted dry. Applied oil emulsion gauze to wound bed covering graft. Wound was then window paned with VAC drape. Applied one piece of black granufoam over oil emulsion gauze and secured with VAC drape. Cut half dollar sized hole in VAC drape and applied Sensi trac pad in place. Wound VAC is suctioning without leaks at 125 mm/Hg low continuous suction. Patient tolerated procedure well.
[2018-03-31] MEDS: Phenytoin Sodium 100 MG Capsule PO SCH (22:31)
[2018-04-01] MEDS: oxyCODONE/Acetaminophen 10/325 Tablet PO PRN ×3 (05:10→20:58)
[2018-04-01] MEDS: Heparin - SQ 10,000 UNITS/ML Vial SQ SCH ×3 (05:10→20:59)
[2018-04-01 06:06] LABS: Baso # (Auto) 0.1 th/mm3 (0.0-0.2); Baso % (Auto) 1.2 % (0.0-2.0); Eos # (Auto) 0.2 th/mm3 (0.0-0.4); Eos % (Auto) 4.1 % (0.0-4.0); Hematocrit 36.7 % (39.0-51.0); Hemoglobin 12.3 gm/dL (13.0-17.0); Lymph % (Auto) 35.5 % (9.0-44.0); Mean Corpuscular HGB Conc 33.5 % (32.0-36.0); Mean Corpuscular Hemoglobin 30.9 pg (27.0-34.0); Mean Corpuscular Volume 92.1 fL (80.0-100.0); Mean Platelet Volume 7.6 fL (7.0-11.0); Mono # (Auto) 0.7 th/mm3 (0.0-0.9); Mono % (Auto) 12.1 % (0.0-8.0); Neut # (Auto) 2.7 th/mm3 (1.8-7.7); Neut % (Auto) 47.1 % (16.0-70.0); Platelet Count 449 th/mm3 (150-450); Red Blood Count 3.98 mil/mm3 (4.50-5.90); Red Cell Distribution Width 15.1 % (11.6-17.2); White Blood Count 5.8 th/mm3 (4.0-11.0)
[2018-04-01 06:28] LABS: Anion Gap 10 meq/L (5-15); Aspartate Aminotransferase 56 U/L (15-37); Blood Urea Nitrogen 28 mg/dL (7-18); Calcium 9.6 mg/dL (8.5-10.1); Carbon Dioxide 27.2 meq/L (21.0-32.0); Chloride 99 meq/L (98-107); Glomerular Filtration Rate 69 mL/min (>89); Glucose,Random 94 mg/dL (74-106); Magnesium 1.8 mg/dL (1.5-2.5); Potassium 5.1 meq/L (3.5-5.1); Sodium 136 meq/L (136-145)
[2018-04-01 06:30] LABS: Alanine Aminotransferase 115 U/L (12-78); Phosphorus 5.4 mg/dL (2.5-4.9)
[2018-04-01 06:32] LABS: Alkaline Phosphatase 85 U/L (45-117); Total Protein 8.2 g/dL (6.4-8.2)
[2018-04-01] MEDS: Senna/Docusate Sodium 8.6/50 MG Tablet PO SCH ×2 (10:14→20:59)
[2018-04-01] MEDS: Amoxicillin/Clavulanate 875/125 MG Tablet PO SCH ×2 (10:14→20:59)
--- NOTE | 2018-04-01 10:44 | P.PNIM ---
Subjective Interval history: PATIENT CURRENTLY HAS NO IV ACCESS ID STATES CAN GO TO ORAL ANTIBIOTICS WILL SEE WHAT THEY COME UP WITH MEIR RN AND PT AND CM ON AUGMENTIN AND DIFLUCAN PER ID AT THIS TIME 03-31 CONTINUE WOUND CARE AND ANTIBIOTICS PER ID REFUSING IV MEDICATIONS AT THIS TIME THEREFORE CONTINUE ORAL EXPLAINED THAT IV WOULD BE BETTER HE SAID "NO" AM LABS 04-01 FOLLOW UP RIGHT FOOT WOUNDS CONTINUE PO ANTIBIOTICS AND WOUND VAC REFUSING IV ANTIBIOTICS MEIR RN AND PT AND PODIATRY SEEN BY WOUND CARE Physical Exam Vital signs: Vital Signs 03/31/18 12:00 03/31/18 17:55 03/31/18 19:00 Temperature 97.5 F L 98.4 F 98.2 F Pulse Rate 86 82 73 Respiratory Rate 07 28 18 Blood Pressure 113/72 108/67 110/68 Pulse Oximetry 97 95 97 03/31/18 20:00 04/01/18 04:00 04/01/18 08:00 Temperature 98.4 F 98.3 F 97.8 F Pulse Rate 75 67 71 Respiratory Rate 16 Blood Pressure 107/65 138/78 109/71 Pulse Oximetry 97 99 100 Intake & Output 03/31/18 04/01/18 04/01/18 18:59 06:59 18:59 Intake Total 1080 / 1080 1020 / 1020 Output Total 950 / 950 Balance 1080 / 1080 70 / 70 Weight 63.9 kg Intake: Oral 1080 / 1080 1020 / 1020 Output: Urine 950 / 950 Other: Mode Setting R lower leg Continuous Right Lower Kemp Continuous Continuous Date of Last Bowel Movement 03/30/18 Narrative: GENERAL: WN, WD AA M resting in bed in NAD. SKIN: Warm and dry. HEART: Regular rate and rhythm LUNGS: CTAB without wheezes or crackles. EXTREMITIES: No LE edema. RLE with wound vac and dressing. WOUND VAC ON RIGHT LE NEURO: Awake and alert. Nonfocal. PSYCH: Appropriate mood and affect. INSIGHT AND JUDGEMENT ARE LIMITED Results - Labs CBC & Chem 7: 04/01/18 05:17 04/01/18 05:17 Laboratory Results - last 24 hr 04/01/18 04/01/18 05:17 05:17 WBC 5.8 RBC 3.98 L Hgb 12.3 L Hct 36.7 L MCV 92.1 MCH 30.9 MCHC 33.5 RDW 15.1 Plt Count 449 MPV 7.6 Neut % (Auto) 47.1 Lymph % (Auto) 35.5 [place] % (Auto) 12.1 H Eos % (Auto) 4.1 H Baso % (Auto) 1.2 Neut # (Auto) 2.7 Lymph # (Auto) 2.0 [place] # (Auto) 0.7 Eos # (Auto) 0.2 Baso # (Auto) 0.1 WBC Differential . Differential Comment Auto diff final Sodium 136 Potassium 5.1 Chloride 99 Carbon Dioxide 27.2 Anion Gap 10 BUN 28 H Creatinine 1.31 H Estimated GFR 69 L Random Glucose 94 Calcium 9.6 Phosphorus 5.4 H Magnesium 1.8 Total Bilirubin Less than 0.1 L AST 56 H ALT 115 H Alkaline Phosphatase 85 Total Protein 8.2 Albumin 3.0 L - Procedures 03/22: Right distal leg incision and drainage, debridement, and application of wound vac with podiatry Assessment and Plan - Assessment (1) Cellulitis of right lower extremity Code(s): L03.115 - Cellulitis of right lower limb Status: Acute - Plan 57 year old male with history of remote DVT, seizure disorder, and polysubstance abuse admitted 03/19 for worsening RLE cellulitis after failing outpatient treatment. He had been seen in the ER approximately a week prior and discharged with Ignacio. He states shortly after being seen in the ED he developed a blister that later began to have purulent drainage. 1. RLE cellulitis with superficial ulcer - WBC 18.8 on admission with left shift and bandemia otherwise did not meet septic criteria - MRI showing broad area of cellulitis without abscess or osteo - Podiatry consulted and given severe R ankle pain it was decided to take him to the OR for debridement (03/22) - Blood cultures negative - Wound culture growing Sandy parapsilosis and beta strep no A, B, or D - ID consulted, continue IV Zosyn. Janeth, Dr. Rios discontinued vancomycin on 03/26 Wound vac applied. Status post further surgical debridement with Podiatry, Dr. Capellan (03/24). Status post skin graft application 03/26continue postoperative care. WILL NEED WOUND VAC AND ANTIBIOTICS ON PO ANTIBIOTICS - REFUSING TO HAVE AN IV AND THEREFORE IV ANTIBIOTICS 2. Seizure disorder - Subtherapeutic level on presentation - Increased Dilantin to 400 mg , level at 8.5 previously, repeat in am 3. EtOH abuse - No signs of withdrawal - CIWA protocol - Rally pack 4. Anemia - In February 2016, Hb around 12-13 range - Hb around 10 this admission, likely secondary to acute infection - Normocytic - Because of transport analyst's concern for sickle cell given extreme ankle pain, Hb electrophoresis ordered and shows normal Hb. - LDH, retic count, B12, and folate WNL - Iron studies suggestive of acute inflammatory process with normal iron and elevated ferritin RENAL INSUFFICIENCY- ENCOURAGE PO FLUID INTAKE DVT prophylaxis: resume Heparin Discharge Planning: Will need clearance from podiatry and ID prior to discharge CONTINUE PO MEDS FOR EVERYTHING SINCE NO IV AT PATIENT'S CHOICE Code Status: FULL CODE Discussed Condition With: RN AND PT AND CM Discharge Planning: PENDING IMPROVEMENT OF RIGHT LE
[2018-04-01] MEDS: Phenytoin Sodium 100 MG Capsule PO SCH (20:59)
[2018-04-02] MEDS: Heparin - SQ 10,000 UNITS/ML Vial SQ SCH ×3 (05:56→23:23)
[2018-04-02] MEDS: Senna/Docusate Sodium 8.6/50 MG Tablet PO SCH ×2 (09:06→23:21)
[2018-04-02] MEDS: oxyCODONE/Acetaminophen 10/325 Tablet PO PRN ×2 (09:06→23:22)
[2018-04-02] MEDS: Amoxicillin/Clavulanate 875/125 MG Tablet PO SCH ×2 (09:06→23:21)
--- NOTE | 2018-04-02 09:50 | P.PNIM ---
Subjective Interval history: PATIENT CURRENTLY HAS NO IV ACCESS ID STATES CAN GO TO ORAL ANTIBIOTICS WILL SEE WHAT THEY COME UP WITH MEIR RN AND PT AND CM ON AUGMENTIN AND DIFLUCAN PER ID AT THIS TIME 03-31 CONTINUE WOUND CARE AND ANTIBIOTICS PER ID REFUSING IV MEDICATIONS AT THIS TIME THEREFORE CONTINUE ORAL EXPLAINED THAT IV WOULD BE BETTER HE SAID "NO" AM LABS 04-01 FOLLOW UP RIGHT FOOT WOUNDS CONTINUE PO ANTIBIOTICS AND WOUND VAC REFUSING IV ANTIBIOTICS MEIR RN AND PT AND PODIATRY SEEN BY WOUND CARE 04-02 MEIR RN AND PT CONTINUE PO ANTIBIOTICS AND WOUND VAC SEEN BY WOUND CARE Physical Exam Vital signs: Vital Signs 04/01/18 12:00 04/01/18 16:00 04/01/18 19:50 Temperature 98.3 F 98.5 F 98.4 F Pulse Rate 79 83 86 Respiratory Rate 12 14 18 Blood Pressure 116/73 108/70 112/71 Pulse Oximetry 96 95 96 04/01/18 23:55 04/02/18 00:20 04/02/18 03:45 Temperature 98 F 97.7 F Pulse Rate 73 67 Respiratory Rate 18 Blood Pressure 99/63 L 101/69 Pulse Oximetry 97 98 Intake & Output 04/01/18 04/02/18 04/02/18 18:59 06:59 18:59 Intake Total 600 / 600 Output Total 400 / 400 1150 / 1150 Balance -400 / -400 -550 / -550 Weight 64 kg Intake: Oral 600 / 600 Output: Urine 400 / 400 1150 / 1150 Other: Mode Setting Right Lower Kemp Continuous Continuous Date of Last Bowel Movement 03/30/18 04/01/18 # Bowel Movements 0 Narrative: GENERAL: WN, WD AA M resting in bed in NAD. SKIN: Warm and dry. HEART: Regular rate and rhythm LUNGS: CTAB without wheezes or crackles. EXTREMITIES: No LE edema. RLE with wound vac and dressing. WOUND VAC ON RIGHT LE NEURO: Awake and alert. Nonfocal. PSYCH: Appropriate mood and affect. INSIGHT AND JUDGEMENT ARE LIMITED Results - Labs CBC & Chem 7: 04/01/18 05:17 04/01/18 05:17 - Procedures 03/22: Right distal leg incision and drainage, debridement, and application of wound vac with podiatry Assessment and Plan - Assessment (1) Cellulitis of right lower extremity Code(s): L03.115 - Cellulitis of right lower limb Status: Acute - Plan 57 year old male with history of remote DVT, seizure disorder, and polysubstance abuse admitted 03/19 for worsening RLE cellulitis after failing outpatient treatment. He had been seen in the ER approximately a week prior and discharged with Ignacio. He states shortly after being seen in the ED he developed a blister that later began to have purulent drainage. 1. RLE cellulitis with superficial ulcer - WBC 18.8 on admission with left shift and bandemia otherwise did not meet septic criteria - MRI showing broad area of cellulitis without abscess or osteo - Podiatry consulted and given severe R ankle pain it was decided to take him to the OR for debridement (03/22) - Blood cultures negative - Wound culture growing Sandy parapsilosis and beta strep no A, B, or D - ID consulted, continue IV Zosyn. Janeth, Dr. Rios discontinued vancomycin on 03/26 Wound vac applied. Status post further surgical debridement with Podiatry, Dr. Capellan (03/24). Status post skin graft application 03/26continue postoperative care. WILL NEED WOUND VAC AND ANTIBIOTICS ON PO ANTIBIOTICS - REFUSING TO HAVE AN IV AND THEREFORE IV ANTIBIOTICS 2. Seizure disorder - Subtherapeutic level on presentation - Increased Dilantin to 400 mg , level at 8.5 previously, repeat in am 3. EtOH abuse - No signs of withdrawal - [place] protocol - Rally pack 4. 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 - LDH, retic count, B12, and folate WNL - Iron studies suggestive of acute inflammatory process with normal iron and elevated ferritin RENAL INSUFFICIENCY- ENCOURAGE PO FLUID INTAKE DVT prophylaxis: resume Heparin Discharge Planning: Will need clearance from podiatry and ID prior to discharge CONTINUE PO MEDS FOR EVERYTHING SINCE NO IV AT PATIENT'S CHOICE Code Status: FULL CODE Discussed Condition With: RN AND PT AND CM Discharge Planning: PENDING IMPROVEMENT OF RIGHT LE
[2018-04-02] MEDS: Phenytoin Sodium 100 MG Capsule PO SCH (23:21)
[2018-04-03] MEDS: Heparin - SQ 10,000 UNITS/ML Vial SQ SCH ×3 (05:32→22:04)
[2018-04-03] MEDS: oxyCODONE/Acetaminophen 10/325 Tablet PO PRN ×3 (08:12→22:02)
[2018-04-03] MEDS: Amoxicillin/Clavulanate 875/125 MG Tablet PO SCH ×2 (08:13→22:02)
[2018-04-03] MEDS: Senna/Docusate Sodium 8.6/50 MG Tablet PO SCH ×2 (08:13→22:02)
--- NOTE | 2018-04-03 12:20 | P.PNIM ---
Subjective Interval history: PATIENT CURRENTLY HAS NO IV ACCESS ID STATES CAN GO TO ORAL ANTIBIOTICS WILL SEE WHAT THEY COME UP WITH MEIR RN AND PT AND CM ON AUGMENTIN AND DIFLUCAN PER ID AT THIS TIME 03-31 CONTINUE WOUND CARE AND ANTIBIOTICS PER ID REFUSING IV MEDICATIONS AT THIS TIME THEREFORE CONTINUE ORAL EXPLAINED THAT IV WOULD BE BETTER HE SAID "NO" AM LABS 04-01 FOLLOW UP RIGHT FOOT WOUNDS CONTINUE PO ANTIBIOTICS AND WOUND VAC REFUSING IV ANTIBIOTICS DW RN AND PT AND PODIATRY SEEN BY WOUND CARE 04-02 MEIR RN AND PT CONTINUE PO ANTIBIOTICS AND WOUND VAC SEEN BY WOUND CARE 04-03 CONTINUE WOUND VAC AND PO ANTIBIOTICS MEIR PT AND RN Physical Exam Vital signs: Vital Signs 04/02/18 12:23 04/02/18 16:00 04/02/18 19:37 Temperature 97.9 F 97.4 F L Pulse Rate 185 H 91 H Respiratory Rate 20 20 20 Blood Pressure 98/59 L 111/71 Pulse Oximetry 96 96 04/03/18 00:00 04/03/18 02:25 04/03/18 04:00 Temperature 98.4 F 98.6 F Pulse Rate 86 73 Respiratory Rate 16 18 18 Blood Pressure 107/62 111/59 L Pulse Oximetry 94 L 96 04/03/18 08:00 Temperature 97.3 F L Pulse Rate 83 Respiratory Rate 16 Blood Pressure 117/75 Pulse Oximetry 95 Intake & Output 04/02/18 04/03/18 04/03/18 18:59 06:59 18:59 Output Total 1150 / 1150 750 / 750 450 / 450 Balance -1150 / -1150 -750 / -750 -450 / -450 Weight 63 kg Output: Urine 1150 / 1150 750 / 750 450 / 450 Other: Mode Setting R lower leg Continuous Continuous Right Lower Kemp Continuous Continuous Narrative: GENERAL: WN, WD AA M resting in bed in NAD. SKIN: Warm and dry. HEART: Regular rate and rhythm LUNGS: CTAB without wheezes or crackles. EXTREMITIES: No LE edema. RLE with wound vac and dressing. WOUND VAC ON RIGHT LE NEURO: Awake and alert. Nonfocal. PSYCH: Appropriate mood and affect. INSIGHT AND JUDGEMENT ARE LIMITED Results - Labs CBC & Chem 7: 04/01/18 05:17 04/03/18 07:11 Laboratory Results - last 24 hr 04/03/18 07:11 Creatinine 1.20 Estimated GFR 76 L - Procedures 03/22: Right distal leg incision and drainage, debridement, and application of wound vac with podiatry Assessment and Plan - Assessment (1) Cellulitis of right lower extremity Code(s): L03.115 - Cellulitis of right lower limb Status: Acute - Plan 57 year old male with history of remote DVT, seizure disorder, and polysubstance abuse admitted 03/19 for worsening RLE cellulitis after failing outpatient treatment. He had been seen in the ER approximately a week prior and discharged with Ignacio. He states shortly after being seen in the ED he developed a blister that later began to have purulent drainage. 1. RLE cellulitis with superficial ulcer - WBC 18.8 on admission with left shift and bandemia otherwise did not meet septic criteria - MRI showing broad area of cellulitis without abscess or osteo - Podiatry consulted and given severe R ankle pain it was decided to take him to the OR for debridement (03/22) - Blood cultures negative - Wound culture growing Sandy parapsilosis and beta strep no A, B, or D - ID consulted, continue IV Zosyn. Janeth, Dr. Rios discontinued vancomycin on 03/26 Wound vac applied. Status post further surgical debridement with Podiatry, Dr. Capellan (03/24). Status post skin graft application 03/26continue postoperative care. WILL NEED WOUND VAC AND ANTIBIOTICS ON PO ANTIBIOTICS - REFUSING TO HAVE AN IV AND THEREFORE IV ANTIBIOTICS 2. Seizure disorder - Subtherapeutic level on presentation - Increased Dilantin to 400 mg , level at 8.5 previously, 3. EtOH abuse - No signs of withdrawal - [place] protocol - Rally pack 4. 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 - LDH, retic count, B12, and folate WNL - Iron studies suggestive of acute inflammatory process with normal iron and elevated ferritin RENAL INSUFFICIENCY- ENCOURAGE PO FLUID INTAKE DVT prophylaxis: resume Heparin Discharge Planning: Will need clearance from podiatry and ID prior to discharge CONTINUE PO MEDS FOR EVERYTHING SINCE NO IV AT PATIENT'S CHOICE Code Status: FULL CODE Discussed Condition With: RN AND PT AND CM Discharge Planning: PENDING IMPROVEMENT OF RIGHT LE
--- NOTE | 2018-04-03 17:40 | P.PNWCN ---
Wound Care Nurse Consult Description: Received consult from Doctor Dasilva for R medial ankle/ leg graft wound VAC management. Communicated with: LAURA Martin mchenry Recommendation: Please reinforce wound VAC dressing over weekend PRN and call podiatry Doctor marcial or injection molding process technician if dislodged or leaking. Doctor Dasilva will see patient on Friday and change wound VAC dressing with wound care. Wound/Pressure Injury - Patient Status Premedicated for Pain Prior to Dressing Change: Yes - Wound Right Lower Kemp Tape Type: Paper R lower leg Wound Assessment: Ongoing Wound Type: Traumatic Wound Is This a Chronic Wound: No Requested from Provider a Wound Care Consult: Yes Wound Bed Appearance: Red, White Surrounding Tissue Temperature: Cool Drainage Description: Serosanguinous Drainage Amount: Minimal Drainage Odor: No Odor Dressing Status: Changed Cleansing Solution: Saline Primary Dressing: oil emulsion gauze and then negative pressure wound dressing Cover Dressing: rolled gauze and MARIBEL wrap Tape Type: Paper Wound Dressing Change Date: 03/31/18 Wound Margin Description: Open and steep Wound Vac - Wound Vac R lower leg Pressure Setting (mmHg): 125 Mode Setting: Continuous Drainage Description: Sanguinous Foam type: Black - Additional Information Patient seen on for wound VAC dressing change to R medial ankle. Patient was laying in bed for wound VAC dressing change. Removed dressing in place including one piece of granufoam, and oil emulsion gauze. Wound was cleansed with normal saline and patted dry. Applied oil emulsion gauze to wound bed covering graft. Wound was then window paned with VAC drape. Applied one piece of black granufoam over oil emulsion gauze and secured with VAC drape. Cut half dollar sized hole in VAC drape and applied Sensi trac pad in place. Wound VAC is suctioning without leaks at 125 mm/Hg low continuous suction. Patient tolerated procedure well.
[2018-04-03] MEDS: Phenytoin Sodium 100 MG Capsule PO SCH (22:01)
[2018-04-04] MEDS: oxyCODONE/Acetaminophen 10/325 Tablet PO PRN ×3 (05:13→22:26)
[2018-04-04] MEDS: Heparin - SQ 10,000 UNITS/ML Vial SQ SCH ×3 (05:15→22:27)
[2018-04-04] MEDS: Senna/Docusate Sodium 8.6/50 MG Tablet PO SCH ×2 (09:21→22:26)
[2018-04-04] MEDS: Amoxicillin/Clavulanate 875/125 MG Tablet PO SCH (09:21)
--- NOTE | 2018-04-04 13:27 | P.PNIM ---
Subjective Interval history: PATIENT CURRENTLY HAS NO IV ACCESS ID STATES CAN GO TO ORAL ANTIBIOTICS WILL SEE WHAT THEY COME UP WITH MEIR RN AND PT AND CM ON AUGMENTIN AND DIFLUCAN PER ID AT THIS TIME 03-31 CONTINUE WOUND CARE AND ANTIBIOTICS PER ID REFUSING IV MEDICATIONS AT THIS TIME THEREFORE CONTINUE ORAL EXPLAINED THAT IV WOULD BE BETTER HE SAID "NO" AM LABS 04-01 FOLLOW UP RIGHT FOOT WOUNDS CONTINUE PO ANTIBIOTICS AND WOUND VAC REFUSING IV ANTIBIOTICS DW RN AND PT AND PODIATRY SEEN BY WOUND CARE 04-02 MEIR RN AND PT CONTINUE PO ANTIBIOTICS AND WOUND VAC SEEN BY WOUND CARE 04-03 CONTINUE WOUND VAC AND PO ANTIBIOTICS DW PT AND RN 04-04 PATIENT DID NOT GO AMA AFTER ALL MEIR RN AND PT AND CM CONTINUES ON PO ANTIBIOTICS REFUSES IV HAS WOUND VAC IN PLACE ON RIGHT FOOT Physical Exam Vital signs: Vital Signs 04/03/18 16:00 04/03/18 20:00 04/04/18 00:00 Temperature 97.9 F 97.6 F 97.8 F Pulse Rate 86 87 90 Respiratory Rate 16 18 18 Blood Pressure 105/64 117/65 107/63 Pulse Oximetry 96 96 97 04/04/18 04:00 04/04/18 08:00 Temperature 97.6 F 98.0 F Pulse Rate 76 92 H Respiratory Rate 20 18 Blood Pressure 110/58 L 98/65 L Pulse Oximetry 95 97 Intake & Output 04/03/18 04/04/18 04/04/18 18:59 06:59 18:59 Intake Total 480 / 480 Output Total 450 / 450 700 / 700 Balance -450 / -450 -220 / -220 Weight 63.1 kg Intake: Oral 480 / 480 Output: Urine 450 / 450 700 / 700 Other: Mode Setting R lower leg Continuous Continuous Continuous # Voids 2 Date of Last Bowel Movement 04/02/18 04/03/18 Narrative: GENERAL: WN, WD AA M resting in bed in NAD. SKIN: Warm and dry. HEART: Regular rate and rhythm LUNGS: CTAB without wheezes or crackles. EXTREMITIES: No LE edema. RLE with wound vac and dressing. WOUND VAC ON RIGHT LE NEURO: Awake and alert. Nonfocal. PSYCH: Appropriate mood and affect. INSIGHT AND JUDGEMENT ARE LIMITED Results - Labs CBC & Chem 7: 04/01/18 05:17 04/03/18 07:11 - Procedures 03/22: Right distal leg incision and drainage, debridement, and application of wound vac with podiatry Assessment and Plan - Assessment (1) Cellulitis of right lower extremity Code(s): L03.115 - Cellulitis of right lower limb Status: Acute - Plan 57 year old male with history of remote DVT, seizure disorder, and polysubstance abuse admitted 03/19 for worsening RLE cellulitis after failing outpatient treatment. He had been seen in the ER approximately a week prior and discharged with Ignacio. He states shortly after being seen in the ED he developed a blister that later began to have purulent drainage. 1. RLE cellulitis with superficial ulcer - WBC 18.8 on admission with left shift and bandemia otherwise did not meet septic criteria - MRI showing broad area of cellulitis without abscess or osteo - Podiatry consulted and given severe R ankle pain it was decided to take him to the OR for debridement (03/22) - Blood cultures negative - Wound culture growing Sandy parapsilosis and beta strep no A, B, or D - ID consulted, continue IV Zosyn. Carmenluclita, Dr. Rios discontinued vancomycin on 03/26 Wound vac applied. Status post further surgical debridement with Podiatry, Dr. Capellan (03/24). Status post skin graft application 03/26continue postoperative care. WILL NEED WOUND VAC AND ANTIBIOTICS ON PO ANTIBIOTICS - REFUSING TO HAVE AN IV AND THEREFORE IV ANTIBIOTICS 2. Seizure disorder - Subtherapeutic level on presentation - Increased Dilantin to 400 mg , level at 8.5 previously, 3. EtOH abuse - No signs of withdrawal - WA protocol - Rally pack 4. 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 - LDH, retic count, B12, and folate WNL - Iron studies suggestive of acute inflammatory process with normal iron and elevated ferritin RENAL INSUFFICIENCY- ENCOURAGE PO FLUID INTAKE DVT prophylaxis: resume Heparin Discharge Planning: Will need clearance from podiatry and ID prior to discharge CONTINUE PO MEDS FOR EVERYTHING SINCE NO IV AT PATIENT'S CHOICE ON AUGMENTIN PO AND DIFLUCAN PO Code Status: FULL CODE Discussed Condition With: RN AND PT AND CM Discharge Planning: PENDING IMPROVEMENT OF RIGHT LE
--- NOTE | 2018-04-04 14:17 | P.PNPOD ---
Physical Exam Vital signs: Vital Signs 04/03/18 16:00 04/03/18 20:00 04/04/18 00:00 Temperature 97.9 F 97.6 F 97.8 F Pulse Rate 86 87 90 Respiratory Rate 16 18 18 Blood Pressure 105/64 117/65 107/63 Pulse Oximetry 96 96 97 04/04/18 04:00 04/04/18 08:00 Temperature 97.6 F 98.0 F Pulse Rate 76 92 H Respiratory Rate 20 18 Blood Pressure 110/58 L 98/65 L Pulse Oximetry 95 97 Intake & Output 04/03/18 04/04/18 04/04/18 18:59 06:59 18:59 Intake Total 480 / 480 Output Total 450 / 450 700 / 700 Balance -450 / -450 -220 / -220 Weight 63.1 kg Intake: Oral 480 / 480 Output: Urine 450 / 450 700 / 700 Other: Mode Setting R lower leg Continuous Continuous Continuous # Voids 2 Date of Last Bowel Movement 04/02/18 04/03/18 Narrative: Vac was just placed on last evening and is to be changed again Friday, Not removed today. Minimal to no drainage in vac canister. Pain is reducing to the area, per patient. Wound VAC was intact and functioning properly today. Medications and Allergies Active Medications: Active Medications Acetaminophen (Tylenol) 650 mg PO Q6H PRN PRN Reason: PAIN SCALE 1 TO 2 Al Hydroxide/Mg Hydroxide (Milk Of Magnesia Liq) 30 ml PO Q12H PRN PRN Reason: Mild Constipation Last Admin: 03/27/18 09:37 Dose: 30 ml Bisacodyl (Dulcolax Supp) 10 mg RECTAL DAILY PRN PRN Reason: SEVERE CONSITIPATION Flumazenil (Romazecon Inj) 0.2 mg IV.PUSH Q1M PRN PRN Reason: OVERSEDATION Haloperidol Lactate (Haldol Inj) 1 mg IV.PUSH Q15M PRN PRN Reason: for severe agitation Heparin Sodium (Porcine) (Heparin Inj) 5,000 units SQ Q8H DAGOBERTO Last Admin: 04/04/18 05:15 Dose: Not Given Lactulose (Lactulose Liq) 30 ml PO DAILY PRN PRN Reason: SEVERE CONSITIPATION Last Admin: 03/27/18 06:19 Dose: 30 ml Lorazepam (Ativan) 1 mg PO Q4H PRN PRN Reason: for CIWA 8-10 Lorazepam (Ativan) 2 mg PO Q2H PRN PRN Reason: for CIWA 11-14 Lorazepam (Ativan Inj) 2 mg IV.PUSH Q2H PRN PRN Reason: for CIWA 11-14 Lorazepam (Ativan Inj) 2 mg IV.PUSH Q1H PRN PRN Reason: for CIWA 15-20 Lorazepam (Ativan Inj) 2 mg IV.PUSH Q15M PRN PRN Reason: for CIWA > 20 Lorazepam (Ativan Inj) 1 mg IV.PUSH Q4H PRN PRN Reason: for CIWA 8-10 Morphine Sulfate (Morphine Inj) 2 mg IV.PUSH Q1H PRN PRN Reason: Pain Scale 7-10 (Intractable) Last Admin: 03/21/18 18:23 Dose: 2 mg Mupirocin (Bactroban 2% Oint) 1 applicatio TOPICAL BID [facility] Last Admin: 04/04/18 09:21 Dose: 1 applicatio Naloxone HCl (Narcan Inj) 0.4 mg IV.PUSH UNSCH PRN PRN Reason: SEE LABEL COMMENTS Ondansetron HCl (Zofran Inj) 4 mg IV.PUSH Q6H PRN PRN Reason: NAUSEA OR VOMITING Oxycodone/Acetaminophen (Percocet 10/325 Mg) 1 tab PO Q6H PRN PRN Reason: PAIN SCALE 6 TO 10 Last Admin: 04/04/18 11:36 Dose: 1 tab Oxycodone/Acetaminophen (Percocet 5/325 Mg) 1 tab PO Q6H PRN PRN Reason: PAIN SCALE 3 TO 5 Phenytoin Sodium (Dilantin) 400 mg PO [facility] Last Admin: 04/03/18 22:01 Dose: 400 mg Senna/Docusate Sodium (Pily-Colace) 1 tab PO BID [facility] Last Admin: 04/04/18 09:21 Dose: 1 tab Sennosides (Senokot) 17.2 mg PO Q12H PRN PRN Reason: Moderate Constipation Thiamine HCl (Vitamin B1) 100 mg PO DAILY [facility] Last Admin: 04/04/18 09:22 Dose: 100 mg Allergies Allergy/AdvReac Type Severity Reaction Status Date / Time No Known Allergies Allergy Verified 03/13/18 16:17 Home Medications Medication Instructions Recorded Confirmed Type phenytoin sodium extended 300 mg PO DAILY 08/03/18 08/09/18 History [Dilantin Extended] Results - Labs CBC & Chem 7: 04/01/18 05:17 04/03/18 07:11 - Procedures 03/22: Right distal leg incision and drainage, debridement, and application of wound vac with podiatry Assessment and Plan - Assessment (1) Chronic ulcer of 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 Continue wound vac Patient will be assessed weekly with help from wound care. Appreciate wound care assistance with patient and updates on wound progress
[2018-04-04] MEDS: Phenytoin Sodium 100 MG Capsule PO SCH (22:26)
[2018-04-05] MEDS: oxyCODONE/Acetaminophen 10/325 Tablet PO PRN ×3 (05:04→22:08)
[2018-04-05] MEDS: Heparin - SQ 10,000 UNITS/ML Vial SQ SCH ×3 (07:25→22:13)
[2018-04-05] MEDS: Senna/Docusate Sodium 8.6/50 MG Tablet PO SCH ×2 (08:24→22:09)
[2018-04-05] MEDS: Amoxicillin/Clavulanate 875/125 MG Tablet PO SCH ×2 (11:42→22:09)
--- NOTE | 2018-04-05 15:53 | P.PNIM ---
Subjective Interval history: Pt seen and examined. AFVSS. No complaints except reports he is sleepy. No CP or SOB. Pain is controlled. Physical Exam Vital signs: Vital Signs 04/04/18 16:00 04/05/18 00:30 04/05/18 03:20 Temperature 98.4 F 98 F 97 F L Pulse Rate 90 80 68 Respiratory Rate 18 17 16 Blood Pressure 104/69 108/60 105/65 Pulse Oximetry 96 97 99 Intake & Output 04/04/18 04/05/18 04/05/18 18:59 06:59 18:59 Intake Total 720 / 720 1050 / 1050 Output Total 350 / 350 1000 / 1000 Balance 370 / 370 50 / 50 Weight 63.1 kg Intake: Oral 720 / 720 1050 / 1050 Output: Urine 350 / 350 1000 / 1000 Other: Mode Setting R lower leg Continuous Continuous Continuous Date of Last Bowel Movement 04/03/18 04/04/18 # Bowel Movements 1 0 Narrative: GENERAL: WN, WD AA M resting in bed in NAD. SKIN: Warm and dry. HEART: RRR. LUNGS: CTAB without wheezes or crackles. EXTREMITIES: No LE edema. RLE with wound vac and dressing. NEURO: Awake and alert. Nonfocal. PSYCH: Limited insight and judgdment. Results - Labs CBC & Chem 7: 04/01/18 05:17 04/03/18 07:11 Microbiology 03/22/18 09:46 Tissue - Ankle Acid Fast Bacilli Smear - Final No acid fast bacilli seen 03/22/18 09:46 Tissue - Ankle Mycobacterial Culture - Preliminary No growth in 2 weeks 03/22/18 09:46 Tissue - Ankle Fungal Smear - Final No fungal elements seen 03/22/18 09:46 Tissue - Ankle Fungal Culture - Preliminary No growth in 2 weeks - Procedures 03/22: Right distal leg incision and drainage, debridement, and application of wound vac with podiatry Assessment and Plan - Assessment (1) Cellulitis of right lower extremity Code(s): L03.115 - Cellulitis of right lower limb Status: Acute - Plan 57 year old male with history of remote DVT, seizure disorder, and polysubstance abuse admitted 03/19 for worsening RLE cellulitis after failing outpatient treatment. He had been seen in the ER approximately a week prior and discharged with Ignacio. He states shortly after being seen in the ED he developed a blister that later began to have purulent drainage. 1. RLE cellulitis with superficial ulcer - WBC 18.8 on admission with left shift and bandemia otherwise did not meet septic criteria - MRI showing broad area of cellulitis without abscess or osteo - Podiatry consulted and given severe R ankle pain it was decided to take him to the OR for debridement (03/22) - Blood cultures negative - Wound culture growing Sandy parapsilosis and beta strep no A, B, or D - ID following - Patient refusing IV antibiotics so on Diflucan and Augmentin - Continue wound vac, change Q48H - Wound care following - Percocet PRN 2. Seizure disorder - Continue Dilantin - Level therapeutic 3. EtOH abuse - No signs of withdrawal 4. Anemia - In February 2016, Hb around 12-13 range - Hb around 10 this admission, likely secondary to acute infection - Normocytic - Hb electrophoresis normal - LDH, retic count, B12, and folate WNL - Iron studies suggestive of acute inflammatory process with normal iron and elevated ferritin 5. Transaminitis - Acute elevation of LFTs noted on 04/01 and hasn't been repeated - Check tomorrow - If continues to be elevated will look at possible offending agents - Hepatitis panel negative DVT prophylaxis: Heparin ordered but patient refusing Discharge Planning: Patent homeless and currently needs ongoing wound vac.
[2018-04-05] MEDS: Phenytoin Sodium 100 MG Capsule PO SCH (22:08)
[2018-04-06] MEDS: oxyCODONE/Acetaminophen 10/325 Tablet PO PRN ×3 (04:58→21:32)
[2018-04-06] MEDS: Heparin - SQ 10,000 UNITS/ML Vial SQ SCH ×3 (06:00→21:32)
[2018-04-06] MEDS: Amoxicillin/Clavulanate 875/125 MG Tablet PO SCH ×2 (08:28→21:32)
[2018-04-06] MEDS: Senna/Docusate Sodium 8.6/50 MG Tablet PO SCH ×2 (08:31→21:32)
--- NOTE | 2018-04-06 12:25 | P.PNIM ---
Subjective Interval history: Pt seen and examined. AFVSS. To have wound vac and dressing change today. Denies any complaints. Pain is controlled. Continues to refuse IV. Only taking PO meds. Physical Exam Vital signs: Vital Signs 04/05/18 16:00 04/06/18 00:00 04/06/18 06:30 Temperature 97.8 F 98 F 98 F Pulse Rate 81 68 59 L Respiratory Rate 18 18 16 Blood Pressure 97/59 L 101/60 99/69 L Pulse Oximetry 98 98 100 04/06/18 07:00 04/06/18 08:00 Temperature 97.4 F L Pulse Rate 66 Respiratory Rate 12 14 Blood Pressure 100/58 L Pulse Oximetry 98 Intake & Output 04/05/18 04/06/18 04/06/18 18:59 06:59 18:59 Intake Total 960 / 960 1300 / 1300 240 / 240 Output Total 700 / 700 1400 / 1400 Balance 260 / 260 -100 / -100 240 / 240 Weight 63 kg Intake: Oral 960 / 960 1300 / 1300 240 / 240 Output: Urine 700 / 700 1400 / 1400 Other: Mode Setting R lower leg Continuous Continuous Continuous Date of Last Bowel Movement 04/04/18 04/05/18 # Bowel Movements 0 Narrative: GENERAL: WN, WD AA M resting in bed in NAD. SKIN: Warm and dry. HEART: RRR. LUNGS: CTAB without wheezes or crackles. EXTREMITIES: No LE edema. RLE with wound vac and dressing. Wiggles toes. Sensation intact. NEURO: Awake and alert. Nonfocal. PSYCH: Limited insight and judgement. Results - Labs CBC & Chem 7: 04/01/18 05:17 04/03/18 07:11 Microbiology 03/22/18 09:46 Tissue - Ankle Acid Fast Bacilli Smear - Final No acid fast bacilli seen 03/22/18 09:46 Tissue - Ankle Mycobacterial Culture - Preliminary No growth in 2 weeks 03/22/18 09:46 Tissue - Ankle Fungal Smear - Final No fungal elements seen 03/22/18 09:46 Tissue - Ankle Fungal Culture - Preliminary No growth in 2 weeks - Procedures 03/22: Right distal leg incision and drainage, debridement, and application of wound vac with podiatry Assessment and Plan - Assessment (1) Cellulitis of right lower extremity Code(s): L03.115 - Cellulitis of right lower limb Status: Acute - Plan 57 year old male with history of remote DVT, seizure disorder, and polysubstance abuse admitted 03/19 for worsening RLE cellulitis after failing outpatient treatment. He had been seen in the ER approximately a week prior and discharged with Ignacio. He states shortly after being seen in the ED he developed a blister that later began to have purulent drainage. 1. RLE cellulitis with superficial ulcer - WBC 18.8 on admission with left shift and bandemia otherwise did not meet septic criteria - MRI showing broad area of cellulitis without abscess or osteo - Podiatry consulted and given severe R ankle pain it was decided to take him to the OR for debridement (03/22) - Blood cultures negative - Wound culture growing Sandy parapsilosis and beta strep no A, B, or D - ID following - Patient refusing IV antibiotics so on Diflucan and Augmentin - Continue wound vac, change Q48H; due today - Wound care following - Percocet PRN 2. Seizure disorder - Continue Dilantin - Level therapeutic 3. EtOH abuse - No signs of withdrawal 4. Anemia - In February 2016, Hb around 12-13 range - Hb around 10 this admission, likely secondary to acute infection - Normocytic - Hb electrophoresis normal - LDH, retic count, B12, and folate WNL - Iron studies suggestive of acute inflammatory process with normal iron and elevated ferritin 5. Transaminitis - Acute elevation of LFTs noted on 04/01 and hasn't been repeated - Awaiting AM labs to be drawn - If continues to be elevated will look at possible offending agents - Hepatitis panel negative DVT prophylaxis: Heparin ordered but patient refusing Discharge Planning: Patent homeless and currently needs ongoing wound vac.
--- NOTE | 2018-04-06 15:14 | P.PNWCN ---
Wound Care Nurse Consult Description: Wound VAc management per Doctor Dasilva Recommendation: Wound VAC dressing will be changed on Friday by wound care nurse. Wound Vac - Wound Vac R lower leg Pressure Setting (mmHg): 125 Mode Setting: Continuous Drainage Description: Serosanguinous Foam type: Black - Additional Information Patinet not seen today.Spoke with Doctor Dasilva today regarding wound VAC dressing change. Doctor Dasilva saw patient and changed wound VAC dressing today. airport guide to change dressing this Friday
--- NOTE | 2018-04-06 16:26 | P.PNPOD ---
Subjective Interval history: Patient seen bedside. Denies any nausea vomiting fevers or chills. States he is getting bored in the hospital however he is willing to stay however long it takes to heel ulcer and be safely discharged. Physical Exam Vital signs: Vital Signs 04/06/18 00:00 04/06/18 06:30 04/06/18 07:00 Temperature 98 F 98 F Pulse Rate 68 59 L Respiratory Rate 18 16 12 Blood Pressure 101/60 99/69 L Pulse Oximetry 98 100 04/06/18 08:00 04/06/18 12:00 Temperature 97.4 F L 97.7 F Pulse Rate 66 83 Respiratory Rate 14 20 Blood Pressure 100/58 L 118/73 Pulse Oximetry 98 96 Intake & Output 04/05/18 04/06/18 04/06/18 18:59 06:59 18:59 Intake Total 960 / 960 1300 / 1300 240 / 240 Output Total 700 / 700 1400 / 1400 Balance 260 / 260 -100 / -100 240 / 240 Weight 63 kg Intake: Oral 960 / 960 1300 / 1300 240 / 240 Output: Urine 700 / 700 1400 / 1400 Other: Mode Setting R lower leg Continuous Continuous Continuous Date of Last Bowel Movement 04/04/18 04/05/18 # Bowel Movements 0 Narrative: Upon removal of wound VAC ulceration noted measuring 5 cm x 4.9 cm x 0.2 cm with graft present to wound site. Ulceration at last measurement was approximately 6 cm x 6 cm by 0.3 cm depth with graft present to wound site. Granular base noted with rolled epithelialized borders. 5 cc of drainage noted to wound VAC canister. Wound VAC was on and functioning at 125 mm per mercury continuously prior to removal. Improvement noted to ulcer size in depth. Medications and Allergies Active Medications: Active Medications Acetaminophen (Tylenol) 650 mg PO Q6H PRN PRN Reason: PAIN SCALE 1 TO 2 Al Hydroxide/Mg Hydroxide (Milk Of Magnesia Liq) 30 ml PO Q12H PRN PRN Reason: Mild Constipation Last Admin: 03/27/18 09:37 Dose: 30 ml Amoxicillin/Clavulanate Potassium (Augmentin 875/125 Mg) 1 tab PO Q12HR DAGOBERTO Last Admin: 04/06/18 08:28 Dose: 1 tab Bisacodyl (Dulcolax Supp) 10 mg RECTAL DAILY PRN PRN Reason: SEVERE CONSITIPATION Fluconazole (Diflucan) 200 mg PO DAILY [facility] Last Admin: 04/06/18 08:28 Dose: 200 mg Flumazenil (Romazecon Inj) 0.2 mg IV.PUSH Q1M PRN PRN Reason: OVERSEDATION Haloperidol Lactate (Haldol Inj) 1 mg IV.PUSH Q15M PRN PRN Reason: for severe agitation Heparin Sodium (Porcine) (Heparin Inj) 5,000 units SQ Q8H [facility] Last Admin: 04/06/18 13:04 Dose: Not Given Lactulose (Lactulose Liq) 30 ml PO DAILY PRN PRN Reason: SEVERE CONSITIPATION Last Admin: 03/27/18 06:19 Dose: 30 ml Lorazepam (Ativan) 1 mg PO Q4H PRN PRN Reason: for CIWA 8-10 Lorazepam (Ativan) 2 mg PO Q2H PRN PRN Reason: for CIWA 11-14 Lorazepam (Ativan Inj) 2 mg IV.PUSH Q2H PRN PRN Reason: for CIWA 11-14 Lorazepam (Ativan Inj) 2 mg IV.PUSH Q1H PRN PRN Reason: for CIWA 15-20 Lorazepam (Ativan Inj) 2 mg IV.PUSH Q15M PRN PRN Reason: for CIWA > 20 Lorazepam (Ativan Inj) 1 mg IV.PUSH Q4H PRN PRN Reason: for CIWA 8-10 Morphine Sulfate (Morphine Inj) 2 mg IV.PUSH Q1H PRN PRN Reason: Pain Scale 7-10 (Intractable) Last Admin: 03/21/18 18:23 Dose: 2 mg Mupirocin (Bactroban 2% Oint) 1 applicatio TOPICAL BID [facility] Last Admin: 04/06/18 08:29 Dose: 1 applicatio Naloxone HCl (Narcan Inj) 0.4 mg IV.PUSH UNSCH PRN PRN Reason: SEE LABEL COMMENTS Ondansetron HCl (Zofran Inj) 4 mg IV.PUSH Q6H PRN PRN Reason: NAUSEA OR VOMITING Oxycodone/Acetaminophen (Percocet 10/325 Mg) 1 tab PO Q6H PRN PRN Reason: PAIN SCALE 6 TO 10 Last Admin: 04/06/18 11:22 Dose: 1 tab Oxycodone/Acetaminophen (Percocet 5/325 Mg) 1 tab PO Q6H PRN PRN Reason: PAIN SCALE 3 TO 5 Phenytoin Sodium (Dilantin) 400 mg PO HS [facility] Last Admin: 04/05/18 22:08 Dose: 400 mg Senna/Docusate Sodium (Pily-Colace) 1 tab PO BID [facility] Last Admin: 04/06/18 08:31 Dose: 1 tab Sennosides (Senokot) 17.2 mg PO Q12H PRN PRN Reason: Moderate Constipation Thiamine HCl (Vitamin B1) 100 mg PO DAILY [facility] Last Admin: 04/06/18 08:28 Dose: 100 mg Allergies Allergy/AdvReac Type Severity Reaction Status Date / Time No Known Allergies Allergy Verified 03/13/18 16:17 Home Medications Medication Instructions Recorded Confirmed Type phenytoin sodium extended 300 mg PO DAILY 03/13/18 03/19/18 History [Dilantin Extended] Results - Labs CBC & Chem 7: 04/01/18 05:17 04/03/18 07:11 Microbiology 03/22/18 09:46 Tissue - Ankle Acid Fast Bacilli Smear - Final No acid fast bacilli seen 03/22/18 09:46 Tissue - Ankle Mycobacterial Culture - Preliminary No growth in 2 weeks 03/22/18 09:46 Tissue - Ankle Fungal Smear - Final No fungal elements seen 03/22/18 09:46 Tissue - Ankle Fungal Culture - Preliminary No growth in 2 weeks - Procedures 03/22: Right distal leg incision and drainage, debridement, and application of wound vac with podiatry Assessment and Plan - Assessment (1) Chronic ulcer of right ankle with fat layer exposed Code(s): L97.312 - Non-pressure chronic ulcer of right ankle with fat layer exposed Status: Acute (2) Cellulitis of right lower extremity Code(s): L03.115 - Cellulitis of right lower limb Status: Acute - Plan 57-year-old male with right medial ankle ulceration Wound VAC removed to right lower extremity and replaced with Adaptic and black foam Wound care nurses to apply wound VAC and change every 48 hours, spoke with wound care nurse and she will change wound VAC on Friday Patient has limited resources as he is homeless therefore graft will aid in healing however would recommend possible rehab for patient as anticipate use of wound VAC the next 4 weeks, will reevaluate once again in 1 week and monitor progress. There has been improvement in wound size and depth. We will continue to follow patient while in-house and monitor progress
[2018-04-06 21:00] LABS: Baso # (Auto) 0.1 th/mm3 (0.0-0.2); Baso % (Auto) 0.9 % (0.0-2.0); Eos # (Auto) 0.3 th/mm3 (0.0-0.4); Eos % (Auto) 4.6 % (0.0-4.0); Hematocrit 34.6 % (39.0-51.0); Hemoglobin 11.3 gm/dL (13.0-17.0); Lymph # (Auto) 2.1 th/mm3 (1.0-4.8); Lymph % (Auto) 31.7 % (9.0-44.0); Mean Corpuscular HGB Conc 32.7 % (32.0-36.0); Mean Corpuscular Hemoglobin 30.5 pg (27.0-34.0); Mean Corpuscular Volume 93.4 fL (80.0-100.0); Mean Platelet Volume 8.1 fL (7.0-11.0); Mono # (Auto) 0.6 th/mm3 (0.0-0.9); Mono % (Auto) 8.7 % (0.0-8.0); Neut # (Auto) 3.6 th/mm3 (1.8-7.7); Neut % (Auto) 54.1 % (16.0-70.0); Platelet Count 235 th/mm3 (150-450); Red Cell Distribution Width 14.5 % (11.6-17.2); White Blood Count 6.7 th/mm3 (4.0-11.0)
[2018-04-06] MEDS: Phenytoin Sodium 100 MG Capsule PO SCH (21:32)
[2018-04-06 21:36] LABS: Alanine Aminotransferase 99 U/L (12-78)
[2018-04-06 21:39] LABS: Alkaline Phosphatase 98 U/L (45-117); Total Protein 7.7 g/dL (6.4-8.2)
[2018-04-06 21:42] LABS: Albumin 2.6 g/dL (3.4-5.0); Anion Gap 9 meq/L (5-15); Aspartate Aminotransferase 77 U/L (15-37); Blood Urea Nitrogen 20 mg/dL (7-18); Calcium 8.7 mg/dL (8.5-10.1); Carbon Dioxide 28.4 meq/L (21.0-32.0); Chloride 102 meq/L (98-107); Glomerular Filtration Rate 84 mL/min (>89); Glucose,Random 92 mg/dL (74-106); Sodium 139 meq/L (136-145)
[2018-04-06 21:43] LABS: Potassium 5.3 meq/L (3.5-5.1)
[2018-04-07] MEDS: oxyCODONE/Acetaminophen 10/325 Tablet PO PRN ×2 (05:24→20:12)
[2018-04-07] MEDS: Heparin - SQ 10,000 UNITS/ML Vial SQ SCH ×3 (06:00→23:21)
[2018-04-07] MEDS: Senna/Docusate Sodium 8.6/50 MG Tablet PO SCH ×2 (08:02→20:05)
[2018-04-07] MEDS: Amoxicillin/Clavulanate 875/125 MG Tablet PO SCH ×2 (08:02→20:05)
--- NOTE | 2018-04-07 11:14 | P.PNIM ---
Subjective Interval history: Pt seen and examined. AFVSS. Only complaint is he feels like he is getting less food on his tray. Otherwise no issues. Pain controlled. Wound vac changed yesterday. LFTs noted to be elevated which is acute during this admission. Denies any abdominal pain, N/V. Physical Exam Vital signs: Vital Signs 04/06/18 12:00 04/06/18 16:00 04/06/18 18:53 Temperature 97.7 F 98.5 F Pulse Rate 83 80 Respiratory Rate 20 20 12 Blood Pressure 118/73 101/59 L Pulse Oximetry 96 96 04/06/18 20:00 04/07/18 00:00 04/07/18 04:00 Temperature 97.8 F 98.1 F 97.9 F Pulse Rate 87 78 74 Respiratory Rate 16 16 18 Blood Pressure 108/64 114/69 107/68 Pulse Oximetry 100 97 98 04/07/18 07:01 04/07/18 08:00 Temperature 97.5 F L Pulse Rate 71 Respiratory Rate 12 20 Blood Pressure 112/69 Pulse Oximetry 96 Intake & Output 04/06/18 04/07/18 04/07/18 18:59 06:59 18:59 Intake Total 240 / 240 Output Total 800 / 800 400 / 400 Balance 240 / 240 -800 / -800 -400 / -400 Weight 64.6 kg Intake: Oral 240 / 240 Output: Urine 800 / 800 400 / 400 Other: Mode Setting R lower leg Continuous Continuous Continuous Date of Last Bowel Movement 04/05/18 04/06/18 04/06/18 Narrative: GENERAL: WN, WD AA M resting in bed in NAD. SKIN: Warm and dry. HEART: RRR. LUNGS: CTAB without wheezes or crackles. EXTREMITIES: No LE edema. RLE with wound vac and dressing. Wiggles toes. Sensation intact. NEURO: Awake and alert. Nonfocal. PSYCH: Limited insight and judgement. Results - Labs CBC & Chem 7: 04/06/18 20:38 04/06/18 20:38 Laboratory Results - last 24 hr 04/06/18 04/06/18 20:38 20:38 WBC 6.7 RBC 3.70 L Hgb 11.3 L Hct 34.6 L MCV 93.4 MCH 30.5 MCHC 32.7 RDW 14.5 Plt Count 235 D MPV 8.1 Neut % (Auto) 54.1 Lymph % (Auto) 31.7 [place] % (Auto) 8.7 H Eos % (Auto) 4.6 H Baso % (Auto) 0.9 Neut # (Auto) 3.6 Lymph # (Auto) 2.1 [place] # (Auto) 0.6 Eos # (Auto) 0.3 Baso # (Auto) 0.1 WBC Differential . Differential Comment Auto diff final Sodium 139 Potassium 5.3 H Chloride 102 Carbon Dioxide 28.4 Anion Gap 9 BUN 20 H Creatinine 1.10 Estimated GFR 84 L Random Glucose 92 Calcium 8.7 Total Bilirubin 0.2 AST 77 H ALT 99 H Alkaline Phosphatase 98 Total Protein 7.7 Albumin 2.6 L - Procedures 03/22: Right distal leg incision and drainage, debridement, and application of wound vac with podiatry Assessment and Plan - Assessment (1) Cellulitis of right lower extremity Code(s): L03.115 - Cellulitis of right lower limb Status: Acute - Plan 57 year old male with history of remote DVT, seizure disorder, and polysubstance abuse admitted 03/19 for worsening RLE cellulitis after failing outpatient treatment. He had been seen in the ER approximately a week prior and discharged with [facility]. He states shortly after being seen in the ED he developed a blister that later began to have purulent drainage. 04/07: Addressed elevated LFTs by discontinuing Diflucan. Continue to monitor CMP. 1. RLE cellulitis with superficial ulcer - WBC 18.8 on admission with left shift and bandemia otherwise did not meet septic criteria - MRI showing broad area of cellulitis without abscess or osteo - Podiatry consulted and given severe R ankle pain it was decided to take him to the OR for debridement and wound vac placement (03/22) - Blood cultures negative - Wound culture growing Sandy parapsilosis and beta strep no A, B, or D - ID following - Patient refusing IV antibiotics so Augmentin (Diflucan discontinued today due to elevated LFTs) - Continue wound vac, change Q48H - Wound care following - Percocet PRN 2. Seizure disorder - Continue Dilantin - Level therapeutic 3. EtOH abuse - No signs of withdrawal 4. Anemia - In February 2016, Hb around 12-13 range - Hb around 10 this admission, likely secondary to acute infection - Normocytic - Hb electrophoresis normal - LDH, retic count, B12, and folate WNL - Iron studies suggestive of acute inflammatory process with normal iron and elevated ferritin 5. Transaminitis - Acute elevation of LFTs noted on 04/01, repeated on 04/06 and continues to be elevated with AST 77 and ALT 99 - Does not appear to be obstructive pattern given normal bilirubin and alkaline phosphatase - Hepatitis panel negative - Discontinue Diflucan as this can be associated with acute hepatic injury - Continue to follow - Avoid hepatotoxic agents DVT prophylaxis: Heparin ordered but patient refusing Discharge Planning: [place] homeless and currently needs ongoing wound vac. Discussed possibility of getting patient to a hotel and having him either come to the ER for wound vac changes or having HHC. To be further discussed in MDR.
[2018-04-07] MEDS: Phenytoin Sodium 100 MG Capsule PO SCH (20:05)
[2018-04-08] MEDS: Heparin - SQ 10,000 UNITS/ML Vial SQ SCH ×3 (05:15→21:32)
[2018-04-08] MEDS: oxyCODONE/Acetaminophen 10/325 Tablet PO PRN ×2 (10:37→21:30)
[2018-04-08] MEDS: Amoxicillin/Clavulanate 875/125 MG Tablet PO SCH ×2 (10:38→21:30)
[2018-04-08] MEDS: Senna/Docusate Sodium 8.6/50 MG Tablet PO SCH ×2 (10:39→21:30)
[2018-04-08 11:23] LABS: Hematocrit 35.3 % (39.0-51.0); Hemoglobin 11.6 gm/dL (13.0-17.0); Mean Corpuscular HGB Conc 32.8 % (32.0-36.0); Mean Corpuscular Hemoglobin 30.6 pg (27.0-34.0); Mean Corpuscular Volume 93.3 fL (80.0-100.0); Mean Platelet Volume 8.8 fL (7.0-11.0); Platelet Count 261 th/mm3 (150-450); Red Blood Count 3.79 mil/mm3 (4.50-5.90); Red Cell Distribution Width 14.7 % (11.6-17.2); White Blood Count 6.1 th/mm3 (4.0-11.0)
--- NOTE | 2018-04-08 11:42 | P.PNIM ---
Subjective Interval history: Patient reports he is feeling okay. No new issues. Afebrile. Physical Exam Vital signs: Vital Signs 04/07/18 12:00 04/07/18 16:00 04/07/18 17:05 Temperature 98.8 F 97.6 F Pulse Rate 83 92 H Respiratory Rate 20 20 12 Blood Pressure 112/68 114/62 Pulse Oximetry 97 97 04/07/18 20:00 04/08/18 00:00 04/08/18 01:36 Temperature 97.8 F 98 F Pulse Rate 89 73 Respiratory Rate 16 18 18 Blood Pressure 110/69 110/59 L Pulse Oximetry 100 96 04/08/18 04:00 04/08/18 05:19 04/08/18 08:00 Temperature 98.6 F 97.2 F L Pulse Rate 79 84 Respiratory Rate 18 18 16 Blood Pressure 101/63 110/58 L Pulse Oximetry 100 97 Intake & Output 04/07/18 04/08/18 04/08/18 18:59 06:59 18:59 Output Total 700 / 700 1100 / 1100 Balance -700 / -700 -1100 / -1100 Weight 65.9 kg Output: Urine 700 / 700 1100 / 1100 Other: Mode Setting R lower leg Continuous Continuous Date of Last Bowel Movement 04/06/18 04/06/18 Narrative: GENERAL: WN, WD AA M resting in bed in NAD. HEART: RRR. LUNGS: CTAB without wheezes or crackles. EXTREMITIES: No LE edema. RLE with wound vac and dressing. Wiggles toes. Sensation intact. NEURO: Awake and alert. Nonfocal. PSYCH: Limited insight and judgement. Results - Labs CBC & Chem 7: 04/08/18 10:37 04/08/18 10:37 Laboratory Results - last 24 hr 04/08/18 10:37 WBC 6.1 RBC 3.79 L Hgb 11.6 L Hct 35.3 L MCV 93.3 MCH 30.6 MCHC 32.8 RDW 14.7 Plt Count 261 MPV 8.8 - Procedures 03/22: Right distal leg incision and drainage, debridement, and application of wound vac with podiatry Assessment and Plan - Assessment (1) Cellulitis of right lower extremity Code(s): L03.115 - Cellulitis of right lower limb Status: Acute - Plan 57 year old male with history of remote DVT, seizure disorder, and polysubstance abuse admitted 03/19 for worsening RLE cellulitis after failing outpatient treatment. He had been seen in the ER approximately a week prior and discharged with [facility]. He states shortly after being seen in the ED he developed a blister that later began to have purulent drainage. 1. RLE cellulitis with superficial ulcer - WBC 18.8 on admission with left shift and bandemia otherwise did not meet septic criteria - MRI showing broad area of cellulitis without abscess or osteo - Podiatry consulted and given severe R ankle pain it was decided to take him to the OR for debridement and wound vac placement (03/22) - Blood cultures negative - Wound culture growing Sandy parapsilosis and beta strep no A, B, or D - ID following - Patient refusing IV antibiotics so he is on Augmentin - Continue wound vac, change Q48H - Wound care following - Percocet PRN. Discussed weaning off pain medication with the patient. 2. Seizure disorder - Continue Dilantin - Level therapeutic 3. EtOH abuse - No signs of withdrawal 4. Anemia - In February 2016, Hb around 12-13 range - Hb around 10 this admission, likely secondary to acute infection - Normocytic - Hb electrophoresis normal - LDH, retic count, B12, and folate WNL - Iron studies suggestive of acute inflammatory process with normal iron and elevated ferritin 5. Transaminitis - Acute elevation of LFTs noted on 04/01, repeated on 04/06 and continues to be elevated with AST 77 and ALT 99 - Does not appear to be obstructive pattern given normal bilirubin and alkaline phosphatase - Hepatitis panel negative -Diflucan previously discontinued as this can be associated with acute hepatic injury - Continue to follow - Avoid hepatotoxic agents DVT prophylaxis: Heparin ordered but patient refusing. He is aware of risk of DVT. Discharge Planning: [place] homeless and currently needs ongoing wound vac. One consideration would be to get him into a motel and arrange home health for wound VAC change. He will need to return for podiatry visits as scheduled.
[2018-04-08 11:58] LABS: Anion Gap 11 meq/L (5-15); Blood Urea Nitrogen 17 mg/dL (7-18); Calcium 9.3 mg/dL (8.5-10.1); Carbon Dioxide 26.2 meq/L (21.0-32.0); Chloride 102 meq/L (98-107); Glomerular Filtration Rate Greater Than 89 mL/min (>89); Glucose,Random 89 mg/dL (74-106); Sodium 139 meq/L (136-145)
[2018-04-08] MEDS: Phenytoin Sodium 100 MG Capsule PO SCH (21:30)
[2018-04-09] MEDS: Heparin - SQ 10,000 UNITS/ML Vial SQ SCH ×3 (05:17→21:12)
[2018-04-09] MEDS: oxyCODONE/Acetaminophen 10/325 Tablet PO PRN ×3 (05:40→23:52)
[2018-04-09 05:51] LABS: Alanine Aminotransferase 113 U/L (12-78); Anion Gap 7 meq/L (5-15); Aspartate Aminotransferase 56 U/L (15-37); Blood Urea Nitrogen 21 mg/dL (7-18); Calcium 9.3 mg/dL (8.5-10.1); Carbon Dioxide 28.2 meq/L (21.0-32.0); Chloride 104 meq/L (98-107); Glomerular Filtration Rate 89 mL/min (>89); Glucose,Random 93 mg/dL (74-106); Potassium 4.3 meq/L (3.5-5.1); Sodium 139 meq/L (136-145)
[2018-04-09 05:54] LABS: Alkaline Phosphatase 104 U/L (45-117); Total Protein 7.7 g/dL (6.4-8.2)
[2018-04-09] MEDS: Senna/Docusate Sodium 8.6/50 MG Tablet PO SCH ×2 (09:47→20:50)
[2018-04-09] MEDS: Amoxicillin/Clavulanate 875/125 MG Tablet PO SCH ×2 (09:47→20:50)
--- NOTE | 2018-04-09 09:59 | P.PNWCN ---
Wound Care Nurse Consult Description: Wound VAc management per Doctor Vidya Communicated with: late entry from 04/08/2018: LAURA Yusuf Wound/Pressure Injury - Wound R lower leg Wound Assessment: Ongoing Wound Type: Abscess (Now open surgical wound with graft healing by secondary intention) Length: 9 (cm) Width: 5.2 (cm) Depth: 0.2 (~0.2cm) Wound Bed Appearance: Red, White Wound Bed Appearance: Wound presents with ~50% white tissue and ~50% red granulation tissue Surrounding Tissue Temperature: Warm Drainage Description: Serosanguinous Drainage Amount: Scant Drainage Odor: No Odor Dressing Status: Changed Wound Packing Type: Woundvac Sponge Primary Dressing: Negative Pressure Wound Dressing Wound Dressing Change Date: 04/08/18 Wound Margin Description: Well defined and steep. - Additional Information Late entry from 04/08/2018: Wound VAC dressing was changed to graft site and R lower leg. Measurements and description noted above. Wound Vac - Wound Vac R lower leg Pressure Setting (mmHg): 125 Mode Setting: Continuous Drainage Description: Serosanguinous Foam type: Black
--- NOTE | 2018-04-09 16:36 | P.PNIM ---
Subjective Interval history: Patient reports he is feeling okay. No new changes. Physical Exam Vital signs: Vital Signs 04/08/18 20:00 04/09/18 00:00 04/09/18 04:00 Temperature 98 F 98 F 98.1 F Pulse Rate 82 82 77 Respiratory Rate 18 18 18 Blood Pressure 104/56 L 104/56 L 118/62 Pulse Oximetry 97 97 100 04/09/18 08:00 04/09/18 12:00 Temperature 97.9 F 97.8 F Pulse Rate 70 83 Respiratory Rate 19 18 Blood Pressure 110/59 L 97/63 L Pulse Oximetry 95 96 Intake & Output 04/08/18 04/09/18 04/09/18 18:59 06:59 18:59 Output Total 480 / 480 750 / 750 Balance -480 / -480 -750 / -750 Weight 65.8 kg Output: Urine 480 / 480 750 / 750 Other: Mode Setting R lower leg Continuous Continuous Continuous Date of Last Bowel Movement 04/06/18 04/08/18 # Bowel Movements 0 Narrative: GENERAL: Patient is in no acute distress. HEART: RRR. LUNGS: CTAB without wheezes or crackles. EXTREMITIES: No LE edema. RLE with wound vac and dressing. Wiggles toes. Sensation intact. NEURO: Awake and alert. Nonfocal. Results - Labs CBC & Chem 7: 04/08/18 10:37 04/09/18 05:00 Laboratory Results - last 24 hr 04/09/18 05:00 Sodium 139 Potassium 4.3 Chloride 104 Carbon Dioxide 28.2 Anion Gap 7 BUN 21 H Creatinine 1.05 Estimated GFR 89 Random Glucose 93 Calcium 9.3 Total Bilirubin 0.1 L AST 56 H ALT 113 H Alkaline Phosphatase 104 Total Protein 7.7 Albumin 3.0 L - Procedures 03/22: Right distal leg incision and drainage, debridement, and application of wound vac with podiatry Assessment and Plan - Assessment (1) Cellulitis of right lower extremity Code(s): L03.115 - Cellulitis of right lower limb Status: Acute - Plan 57 year old male with history of remote DVT, seizure disorder, and polysubstance abuse admitted 03/19 for worsening RLE cellulitis after failing outpatient treatment. He had been seen in the ER approximately a week prior and discharged with [facility]. He states shortly after being seen in the ED he developed a blister that later began to have purulent drainage. 1. RLE cellulitis with superficial ulcer - WBC 18.8 on admission with left shift and bandemia otherwise did not meet septic criteria - MRI showing broad area of cellulitis without abscess or osteo - Podiatry consulted and given severe R ankle pain it was decided to take him to the OR for debridement and wound vac placement (03/22) - Blood cultures negative - Wound culture growing Sandy parapsilosis and beta strep no A, B, or D - ID following - Patient refusing IV antibiotics so he is on Augmentin - Continue wound vac, change Q48H. Podiatry following - Wound care following - Percocet PRN. Discussed weaning off pain medication with the patient. 2. Seizure disorder - Continue Dilantin - Level therapeutic 3. EtOH abuse - No signs of withdrawal 4. Anemia - In February 2016, Hb around 12-13 range - Hb around 10 this admission, likely secondary to acute infection - Normocytic - Hb electrophoresis normal - LDH, retic count, B12, and folate WNL - Iron studies suggestive of acute inflammatory process with normal iron and elevated ferritin 5. Transaminitis - Acute elevation of LFTs noted on 04/01, repeated on 04/06 and continues to be elevated with AST 77 and ALT 99 - Does not appear to be obstructive pattern given normal bilirubin and alkaline phosphatase - Hepatitis panel negative -Diflucan previously discontinued as this can be associated with acute hepatic injury - Continue to follow - Avoid hepatotoxic agents DVT prophylaxis: Heparin ordered but patient refusing. He is aware of risk of DVT. Discharge Planning: [place] homeless and currently needs ongoing wound vac. One consideration would be to get him into a motel and arrange home health for wound VAC change. He will need to return for podiatry visits as scheduled.
[2018-04-09] MEDS: Phenytoin Sodium 100 MG Capsule PO SCH (20:50)
[2018-04-10] MEDS: oxyCODONE/Acetaminophen 10/325 Tablet PO PRN ×4 (06:27→23:04)
[2018-04-10] MEDS: Heparin - SQ 10,000 UNITS/ML Vial SQ SCH ×3 (06:27→23:04)
[2018-04-10] MEDS: Senna/Docusate Sodium 8.6/50 MG Tablet PO SCH ×2 (10:53→20:34)
[2018-04-10] MEDS: Amoxicillin/Clavulanate 875/125 MG Tablet PO SCH ×2 (10:53→20:33)
--- NOTE | 2018-04-10 11:26 | P.PNWCN ---
Wound Care Nurse Consult Description: Wound VAc management per Doctor Dasilva Communicated with: LAURA randall, call placed to Doctor Capellan for orders,Doctor Capellan did not call back. Called Doctor Dasilva who has been seeing patient.Notified Doctor Dasilva of wound VAC dressing hold and reasons for hold.Doctor Dasilva to place wound care orders for nursing staff. Recommendation: Leave dressing in place dated 04/10/2018 until wound care orders are written by Podiatry Doctor Dasilva Wound/Pressure Injury - Wound R lower leg Wound Assessment: Ongoing Wound Type: Abscess (Now surgical wound with neox graft in place) Is This a Chronic Wound: No Requested from Provider a Wound Care Consult: Yes Length: 8.7 (cm) Width: 4.9 (cm) Depth: 0.2 (~0.2cm) Wound Bed Appearance: Red, White Wound Bed Appearance: Wound presents with ~50% white tissue and ~50% red granulation tissue Surrounding Tissue Appearance: [place] Surrounding Tissue Temperature: Warm Drainage Description: Serosanguinous Drainage Amount: Scant Drainage Odor: No Odor Dressing Status: Changed Cleansing Solution: Saline Primary Dressing: oil emulsion gauze Cover Dressing: allevyn gentle border foam dressing Wound Dressing Change Date: 04/10/18 Wound Margin Description: Well defined and steep. - Additional Information Patient seen for wound VAC dressing change. Removed wound VAC dressing today, patient now has a shallow wound that has very little drainage with small areas of hypergranulation tissue forming at edges. Call placed to Doctor Capellan for possible orders to D/c wound VAC dressing.Doctor did not call back, Called Doctor Dasilva, podiatry, who has been seeing patient and placed neox graft to R lower leg. Doctor Dasilva will write wound care orders for the nursing staff on floor. Doctor Capellan will see the patient on Friday. Shaving cream was applied to R leg and R foot to soften scaly skin and left in place for 10 minutes before rinsing with warm water avoiding wound.Wound was cleansed with normal saline. Applied oil emulsion gauze just covering wound bed and Neox graft.Applied skin barrier film.to periwound. Applied Allevyn adhesive foam dressing. Further secured dressing with Rolled gauze, and MARIBEL wrap.Signed and dated dressing. Wound Vac - Wound Vac R lower leg Wound Vac Discontinue Date: 04/10/18 Wound Vac Discontinue Time: 11:00 Wound Vac DC'd by: Wound care (Raven Gutierrez RN, WCC, OMS)
--- NOTE | 2018-04-10 15:57 | P.PNIM ---
Subjective Interval history: Patient reports he is feeling okay. No new issues. Discussed with ham doctor. Physical Exam Vital signs: Vital Signs 04/09/18 16:00 04/09/18 20:00 04/10/18 00:00 Temperature 97.7 F 97.8 F 98.0 F Pulse Rate 85 79 81 Respiratory Rate 18 18 20 Blood Pressure 99/63 L 115/68 123/69 Pulse Oximetry 96 97 97 04/10/18 04:00 04/10/18 08:00 04/10/18 12:00 Temperature 97.7 F 97.7 F 97.9 F Pulse Rate 86 71 83 Respiratory Rate 18 17 18 Blood Pressure 107/55 L 101/59 L 112/55 L Pulse Oximetry 97 95 96 Intake & Output 04/09/18 04/10/18 04/10/18 18:59 06:59 18:59 Intake Total 480 / 480 Output Total 1999 Balance -1520 / -1520 Intake: Oral 480 / 480 Output: Urine 1999 Wound Vac Amount 0 / 0 R lower leg 0 / 0 Other: Mode Setting R lower leg Continuous Continuous Continuous Right Lower [place] Continuous Date of Last Bowel Movement 04/08/18 04/09/18 04/09/18 Narrative: GENERAL: Patient is in no acute distress. HEART: RRR. LUNGS: CTAB without wheezes or crackles. EXTREMITIES: No LE edema. Right lower leg wound appeared clean, shallow. Wiggles toes. Sensation intact. NEURO: Awake and alert. Nonfocal. Results - Labs CBC & Chem 7: 04/08/18 10:37 04/09/18 05:00 - Procedures 03/22: Right distal leg incision and drainage, debridement, and application of wound vac with podiatry Assessment and Plan - Assessment (1) Cellulitis of right lower extremity Code(s): L03.115 - Cellulitis of right lower limb Status: Acute - Plan 57 year old male with history of remote DVT, seizure disorder, and polysubstance abuse admitted 03/19 for worsening RLE cellulitis after failing outpatient treatment. He had been seen in the ER approximately a week prior and discharged with [facility]. He states shortly after being seen in the ED he developed a blister that later began to have purulent drainage. 1. RLE cellulitis with superficial ulcer - WBC 18.8 on admission with left shift and bandemia otherwise did not meet septic criteria - MRI showing broad area of cellulitis without abscess or osteo - Podiatry consulted and given severe R ankle pain it was decided to take him to the OR for debridement and wound vac placement (03/22) - Blood cultures negative - Wound culture growing Sandy parapsilosis and beta strep no A, B, or D - ID following - Patient refusing IV antibiotics so he is on Augmentin -Wound VAC discontinued today. Podiatry to follow up on the wound for further recommendations. - Wound care following - Percocet PRN. Discussed weaning off pain medication with the patient. 2. Seizure disorder - Continue Dilantin - Level therapeutic 3. EtOH abuse - No signs of withdrawal 4. Anemia - In February 2016, Hb around 12-13 range - Hb around 10 this admission, likely secondary to acute infection - Normocytic - Hb electrophoresis normal - LDH, retic count, B12, and folate WNL - Iron studies suggestive of acute inflammatory process with normal iron and elevated ferritin 5. Transaminitis - Acute elevation of LFTs noted on 04/01, repeated on 04/06 and continues to be elevated with AST 77 and ALT 99 - Does not appear to be obstructive pattern given normal bilirubin and alkaline phosphatase - Hepatitis panel negative -Diflucan previously discontinued as this can be associated with acute hepatic injury - Continue to follow - Avoid hepatotoxic agents DVT prophylaxis: Heparin ordered but patient refusing. He is aware of risk of DVT. Discharge Planning: [place] homeless and has been requiring wound VAC. This was discontinued today per podiatry. Podiatry will follow up for further recommendation. Can be discharged back to the community once cleared by podiatry.
[2018-04-10] MEDS: Phenytoin Sodium 100 MG Capsule PO SCH (20:33)
[2018-04-11] MEDS: Heparin - SQ 10,000 UNITS/ML Vial SQ SCH ×3 (06:44→21:37)
[2018-04-11] MEDS: oxyCODONE/Acetaminophen 10/325 Tablet PO PRN ×3 (06:45→23:58)
[2018-04-11] MEDS: Senna/Docusate Sodium 8.6/50 MG Tablet PO SCH ×2 (09:53→21:36)
[2018-04-11] MEDS: Amoxicillin/Clavulanate 875/125 MG Tablet PO SCH ×2 (09:53→21:36)
--- NOTE | 2018-04-11 10:24 | P.PN ---
Subjective Interval history: Patient seen and examined this morning, their vitals are stable and the patient is afebrile. Denies CP or SOB. States foot is getting better, can move it more. States he can live with his sister, wants to know if he can go home. Physical Exam Vital signs: Vital Signs 04/10/18 12:00 04/10/18 16:00 04/10/18 20:00 Temperature 97.9 F 98.2 F 98 F Pulse Rate 83 86 80 Respiratory Rate 18 18 16 Blood Pressure 112/55 L 110/64 110/69 Pulse Oximetry 96 96 96 04/11/18 00:00 04/11/18 00:07 04/11/18 04:00 Temperature 98 F 97.9 F Pulse Rate 82 84 Respiratory Rate 17 18 17 Blood Pressure 111/65 115/68 Pulse Oximetry 96 96 04/11/18 08:00 Temperature 97.1 F L Pulse Rate 78 Respiratory Rate 19 Blood Pressure 102/64 Pulse Oximetry 96 Intake & Output 04/10/18 04/11/18 04/11/18 18:59 06:59 18:59 Intake Total 720 / 720 800 / 800 Output Total 1500 / 1500 Balance 720 / 720 -700 / -700 Weight 65.8 kg Intake: Oral 720 / 720 800 / 800 Output: Urine 1500 / 1500 Other: Mode Setting R lower leg Continuous Right Lower [place] Continuous # Voids 3 Date of Last Bowel Movement 04/09/18 04/10/18 04/10/18 Narrative: GENERAL: Patient is in no acute distress. HEART: RRR. LUNGS: CTAB without wheezes or crackles. EXTREMITIES: No LE edema. Right lower leg wound appeared clean, shallow. Skin is very dry. Wiggles toes. Sensation intact. NEURO: Awake and alert. Nonfocal. Results - Labs CBC & Chem 7: 04/08/18 10:37 04/09/18 05:00 - Imaging ITS Impressions Ankle MRI 03/20/18 00:00 CONCLUSION: 1. Broad area of cellulitis without abscess or osteomyelitis. 2. Mild Achilles tendinosis. No tear. Lower Extremity Ultrasound 03/22/18 00:00 CONCLUSION: Ill-defined superficial soft tissue edema of the right lower leg. - Procedures 03/22: Right distal leg incision and drainage, debridement, and application of wound vac with podiatry Assessment and Plan - Assessment (1) Cellulitis of right lower extremity Code(s): L03.115 - Cellulitis of right lower limb Status: Acute - Plan 57 year old male with history of remote DVT, seizure disorder, and polysubstance abuse admitted 03/19 for worsening RLE cellulitis after failing outpatient treatment. He had been seen in the ER approximately a week prior and discharged with [facility]. He states shortly after being seen in the ED he developed a blister that later began to have purulent drainage. 1. RLE cellulitis with superficial ulcer - WBC 18.8 on admission with left shift and bandemia otherwise did not meet septic criteria - MRI showing broad area of cellulitis without abscess or osteo - Podiatry consulted and given severe R ankle pain it was decided to take him to the OR for debridement and wound vac placement (03/22) - Blood cultures negative - Wound culture growing Sandy parapsilosis and beta strep no A, B, or D - ID following - Patient refusing IV antibiotics so he is on Augmentin -Wound VAC discontinued. Podiatry to follow up on the wound for further recommendations.. To be reevaluated in 1 week to monitor progress. Patient has limited resources for graft with aid in healing. - Wound care following - Percocet PRN. Discussed weaning off pain medication with the patient. 2. Seizure disorder - Continue Dilantin - Level therapeutic 3. EtOH abuse - No signs of withdrawal 4. Anemia - In February 2016, Hb around 12-13 range - Currently stable - Hb electrophoresis normal - LDH, retic count, B12, and folate WNL - Iron studies suggestive of acute inflammatory process with normal iron and elevated ferritin 5. Transaminitis - Acute elevation of LFTs noted on 04/01, repeated on 04/06 and continues to be elevated with AST 77 and ALT 99 - Does not appear to be obstructive pattern given normal bilirubin and alkaline phosphatase - Hepatitis panel negative -Diflucan previously discontinued as this can be associated with acute hepatic injury - Continue to follow - Avoid hepatotoxic agents DVT prophylaxis: Heparin ordered but patient refusing. He is aware of risk of DVT. Discharge Planning: [place] homeless and has been requiring wound VAC. This was discontinued today per podiatry. Podiatry will follow up for further recommendation. Can be discharged back to the community once cleared by podiatry.Case management looking into putting patient in a hotel for the 4-6 weeks that he requires abx.
--- NOTE | 2018-04-11 16:46 | P.PNID ---
Subjective Remarks: LLE pain is better no fever pt apparently was refusing IV line and there fore switched to oral abx Antibiotics: am/clav fluconazol: stopped by primary team on 04/05 Allergies/Adverse Reactions: Allergies No Known Allergies Allergy (Verified 03/13/18 16:17) Objective Vital Signs 04/10/18 20:00 04/11/18 00:00 04/11/18 00:07 Temperature 98 F 98 F Pulse Rate 80 82 Respiratory Rate 16 17 18 Blood Pressure 110/69 111/65 Pulse Oximetry 96 96 04/11/18 04:00 04/11/18 08:00 04/11/18 12:00 Temperature 97.9 F 97.1 F L 97.9 F Pulse Rate 84 78 77 Respiratory Rate 17 19 17 Blood Pressure 115/68 102/64 113/64 Pulse Oximetry 96 96 96 Intake & Output 04/10/18 04/11/18 04/11/18 18:59 06:59 18:59 Intake Total 720 / 720 800 / 800 Output Total 1500 / 1500 Balance 720 / 720 -700 / -700 Weight 65.8 kg Intake: Oral 720 / 720 800 / 800 Output: Urine 1500 / 1500 Other: Mode Setting R lower leg Continuous Right Lower Kemp Continuous # Voids 3 Date of Last Bowel Movement 04/09/18 04/10/18 04/10/18 Imaging: ITS Impressions Ankle MRI 03/20/18 00:00 CONCLUSION: 1. Broad area of cellulitis without abscess or osteomyelitis. 2. Mild Achilles tendinosis. No tear. Lower Extremity Ultrasound 03/22/18 00:00 CONCLUSION: Ill-defined superficial soft tissue edema of the right lower leg. Physical Exam: GENERAL: NAD SKIN: Warm and dry. no rash RESPIRATORY: breathing unlaboured GASTROINTESTINAL: Abdomen soft, non-tender, nondistended. MUSCULOSKELETAL: Extremities without clubbing, cyanosis, or edema. No obvious deformities. STATUS LOCALIS: resolution of induration noted dressing in place, intact NEUROLOGICAL: Awake and alert. PSYCHIATRIC: calm , cooperatiev Assessment and Plan - Plan Necrotizing infection of RLE, lower leg Microabscess C.parapsilosa and strep cont Am/clav and fluconazol - fluconazol was restarted will janeth tree surgeon janeth SANCHEZ
[2018-04-11] MEDS: Phenytoin Sodium 100 MG Capsule PO SCH (21:36)
[2018-04-12] MEDS: Heparin - SQ 10,000 UNITS/ML Vial SQ SCH ×3 (05:10→21:27)
[2018-04-12] MEDS: oxyCODONE/Acetaminophen 10/325 Tablet PO PRN (06:16)
[2018-04-12] MEDS: Senna/Docusate Sodium 8.6/50 MG Tablet PO SCH ×2 (08:23→20:26)
[2018-04-12] MEDS: Amoxicillin/Clavulanate 875/125 MG Tablet PO SCH ×2 (08:23→20:26)
--- NOTE | 2018-04-12 09:32 | P.PN ---
Subjective Interval history: Patient seen and examined this morning, their vitals are stable and the patient is afebrile. No overnight events. No complaints or concerns. Physical Exam Vital signs: Vital Signs 04/11/18 12:00 04/11/18 16:00 04/11/18 20:00 Temperature 97.9 F 97.5 F L 98.3 F Pulse Rate 77 85 79 Respiratory Rate 17 19 18 Blood Pressure 113/64 110/67 105/67 Pulse Oximetry 96 97 96 04/12/18 00:00 04/12/18 00:39 04/12/18 04:00 Temperature 97.9 F 97.8 F Pulse Rate 79 81 Respiratory Rate 18 18 18 Blood Pressure 102/68 106/62 Pulse Oximetry 96 100 04/12/18 04:08 Temperature Pulse Rate Respiratory Rate 20 Blood Pressure Pulse Oximetry Intake & Output 04/11/18 04/12/18 04/12/18 18:59 06:59 18:59 Intake Total 975 / 975 Output Total 1250 / 1250 1300 / 1300 Balance -275 / -275 -1300 / -1300 Weight 71.7 kg Intake: Oral 975 / 975 Output: Urine 1200 / 1200 1300 / 1300 Estimated Blood Loss 50 / 50 Other: Date of Last Bowel Movement 04/10/18 04/11/18 # Bowel Movements 1 Narrative: GENERAL: Patient is in no acute distress. HEART: RRR. LUNGS: CTAB without wheezes or crackles. EXTREMITIES: No LE edema. Right lower leg wound appeared clean, shallow. Skin is very dry. Wiggles toes. Sensation intact. NEURO: Awake and alert. Nonfocal. Results - Labs CBC & Chem 7: 04/08/18 10:37 04/09/18 05:00 - Procedures 03/22: Right distal leg incision and drainage, debridement, and application of wound vac with podiatry Assessment and Plan - Assessment (1) Cellulitis of right lower extremity Code(s): L03.115 - Cellulitis of right lower limb Status: Acute - Plan 57 year old male with history of remote DVT, seizure disorder, and polysubstance abuse admitted 03/19 for worsening RLE cellulitis after failing outpatient treatment. He had been seen in the ER approximately a week prior and discharged with [facility]. He states shortly after being seen in the ED he developed a blister that later began to have purulent drainage. 1. RLE cellulitis with superficial ulcer - WBC 18.8 on admission with left shift and bandemia otherwise did not meet septic criteria - MRI showing broad area of cellulitis without abscess or osteo - Podiatry consulted and given severe R ankle pain it was decided to take him to the OR for debridement and wound vac placement (03/22) - Blood cultures negative - Wound culture growing Sandy parapsilosis and beta strep no A, B, or D - ID following: cont Augmentin and fluconazole - Patient refusing IV antibiotics so he is on Augmentin -Wound VAC discontinued. Podiatry to follow up on the wound for further recommendations. To be reevaluated on Friday. Patient has limited resources, graft with aid in healing per them. - Wound care following - Percocet PRN. --> titrated from 10 mg to 7.5 mg on 04/12 2. Seizure disorder - Continue Dilantin - Level therapeutic 3. EtOH abuse - No signs of withdrawal 4. Anemia - In February 2016, Hb around 12-13 range - Currently stable - Hb electrophoresis normal - LDH, retic count, B12, and folate WNL - Iron studies suggestive of acute inflammatory process with normal iron and elevated ferritin 5. Transaminitis - Acute elevation of LFTs noted on 04/01, repeated on 04/06 and continues to be elevated with AST 77 and ALT 99 - Does not appear to be obstructive pattern given normal bilirubin and alkaline phosphatase - Hepatitis panel negative -Diflucan previously discontinued as this can be associated with acute hepatic injury - Continue to follow - Avoid hepatotoxic agents DVT prophylaxis: Heparin ordered but patient refusing. He is aware of risk of DVT. Discharge Planning: Wound vac has been dc by podiatry. Podiatry to evaluated on Friday. Further d.c reccs to be made at that time.
[2018-04-12] MEDS: Phenytoin Sodium 100 MG Capsule PO SCH (20:26)
[2018-04-13] MEDS: Heparin - SQ 10,000 UNITS/ML Vial SQ SCH ×3 (05:54→21:11)
--- NOTE | 2018-04-13 08:35 | P.PN ---
Subjective Interval history: Patient seen and examined this morning, their vitals are stable and the patient is afebrile. He is upset about his food. States he has not given enough food. States he wants whole milk and not reduce fat milk. Wants to know when he can go home. Denies Fevers or chills. Physical Exam Vital signs: Vital Signs 04/12/18 12:00 04/12/18 16:00 04/12/18 20:00 Temperature 98.4 F 97.5 F L 97.6 F Pulse Rate 80 73 78 Respiratory Rate 20 20 18 Blood Pressure 103/59 L 115/59 L 100/61 Pulse Oximetry 96 99 97 04/13/18 00:00 04/13/18 04:00 04/13/18 04:32 Temperature 98.3 F 98.2 F Pulse Rate 82 70 Respiratory Rate 18 18 18 Blood Pressure 101/58 L 101/63 Pulse Oximetry 97 98 Intake & Output 04/12/18 04/13/18 04/13/18 18:59 06:59 18:59 Intake Total 400 / 400 Output Total 1100 / 1100 850 / 850 Balance -1100 / -1100 -450 / -450 Weight 69.3 kg Intake: Oral 400 / 400 Output: Urine 1100 / 1100 850 / 850 Other: Post Void Residual 600 Date of Last Bowel Movement 04/12/18 Narrative: GENERAL: Patient is in no acute distress. HEART: RRR. LUNGS: CTAB without wheezes or crackles. EXTREMITIES: No LE edema. Right lower leg wound appeared clean, shallow. Skin is very dry. Wiggles toes. Sensation intact. NEURO: Awake and alert. Nonfocal. Results - Labs CBC & Chem 7: 04/08/18 10:37 04/09/18 05:00 Microbiology 03/22/18 09:46 Tissue - Ankle Acid Fast Bacilli Smear - Final No acid fast bacilli seen 03/22/18 09:46 Tissue - Ankle Mycobacterial Culture - Preliminary No growth in 3 weeks 03/22/18 09:46 Tissue - Ankle Fungal Smear - Final No fungal elements seen 03/22/18 09:46 Tissue - Ankle Fungal Culture - Preliminary No growth in 3 weeks - Procedures 03/22: Right distal leg incision and drainage, debridement, and application of wound vac with podiatry Assessment and Plan - Assessment (1) Cellulitis of right lower extremity Code(s): L03.115 - Cellulitis of right lower limb Status: Acute - Plan 57 year old male with history of remote DVT, seizure disorder, and polysubstance abuse admitted 03/19 for worsening RLE cellulitis after failing outpatient treatment. He had been seen in the ER approximately a week prior and discharged with [facility]. He states shortly after being seen in the ED he developed a blister that later began to have purulent drainage. Patient was taken to OR for debridement with wound vac placement. Wound vac has since been discontinued, and patient is on PO abx. Podiatry to re-evaluate on Friday to determine further management. 1. RLE cellulitis with superficial ulcer - WBC 18.8 on admission with left shift and bandemia otherwise did not meet septic criteria - MRI showing broad area of cellulitis without abscess or osteo - Podiatry consulted and given severe R ankle pain it was decided to take him to the OR for debridement and wound vac placement (03/22). Wound vac has been discontinued - Blood cultures negative - Wound culture growing Sandy parapsilosis and beta strep no A, B, or D - ID following: cont Augmentin and fluconazole - Podiatry to follow up on the wound for further recommendations. To be reevaluated on Friday. Patient has limited resources, graft with aid in healing per them. - Percocet PRN. --> titrated from 10 mg to 7.5 mg on 04/12 2. Seizure disorder - Continue Dilantin - Level therapeutic 3. EtOH abuse - No signs of withdrawal 4. Anemia - In February 2016, Hb around 12-13 range - Currently stable - Hb electrophoresis normal - LDH, retic count, B12, and folate WNL - Iron studies suggestive of acute inflammatory process with normal iron and elevated ferritin 5. Transaminitis - Acute elevation of LFTs noted on 04/01, repeated on 04/06 and continues to be elevated with AST 77 and ALT 99 - Does not appear to be obstructive pattern given normal bilirubin and alkaline phosphatase - Hepatitis panel negative -Diflucan previously discontinued as this can be associated with acute hepatic injury - Continue to follow - Avoid hepatotoxic agents DVT prophylaxis: Heparin ordered but patient refusing. He is aware of risk of DVT. Discharge Planning: Wound vac has been dc by podiatry. Podiatry to evaluated on Friday. Further d.c reccs to be made at that time.
[2018-04-13] MEDS: Amoxicillin/Clavulanate 875/125 MG Tablet PO SCH ×2 (09:20→21:11)
[2018-04-13] MEDS: Senna/Docusate Sodium 8.6/50 MG Tablet PO SCH ×2 (09:21→21:11)
--- NOTE | 2018-04-13 18:35 | P.PNPOD ---
Subjective Interval history: Patient seen at bedside in NAD. s/p Right calf wound debridement and graft application. Physical Exam Vital signs: Vital Signs 04/12/18 20:00 04/13/18 00:00 04/13/18 04:00 Temperature 97.6 F 98.3 F 98.2 F Pulse Rate 78 82 70 Respiratory Rate 18 18 18 Blood Pressure 100/61 101/58 L 101/63 Pulse Oximetry 97 97 98 04/13/18 04:32 04/13/18 08:00 04/13/18 12:00 Temperature 97.8 F 97.5 F L Pulse Rate 68 73 Respiratory Rate 18 16 16 Blood Pressure 106/64 110/62 Pulse Oximetry 99 98 04/13/18 16:00 Temperature 97.9 F Pulse Rate 84 Respiratory Rate 16 Blood Pressure 109/62 Pulse Oximetry 98 Intake & Output 04/12/18 04/13/18 04/13/18 18:59 06:59 18:59 Intake Total 400 / 400 1280 / 1280 Output Total 1100 / 1100 850 / 850 725 / 725 Balance -1100 / -1100 -450 / -450 555 / 555 Weight 69.3 kg Intake: Oral 400 / 400 1280 / 1280 Output: Urine 1100 / 1100 850 / 850 725 / 725 Other: Post Void Residual 600 # Voids 4 Date of Last Bowel Movement 04/12/18 04/13/18 # Bowel Movements 1 Narrative: RLE VAC is off. Wound is fibrogranualr, 9 L and 5 W 0.1 D. No active drainage. No purulence and no soi. NVS unchanged. Medications and Allergies Active Medications: Active Medications Acetaminophen (Tylenol) 650 mg PO Q6H PRN PRN Reason: PAIN SCALE 1 TO 2 Al Hydroxide/Mg Hydroxide (Milk Of Magnesia Liq) 30 ml PO Q12H PRN PRN Reason: Mild Constipation Last Admin: 03/27/18 09:37 Dose: 30 ml Amoxicillin/Clavulanate Potassium (Augmentin 875/125 Mg) 1 tab PO Q12HR [facility] Last Admin: 04/13/18 09:20 Dose: 1 tab Bisacodyl (Dulcolax Supp) 10 mg RECTAL DAILY PRN PRN Reason: SEVERE CONSITIPATION Fluconazole (Diflucan) 400 mg PO DAILY DAGOB[facility]O Last Admin: 04/13/18 09:21 Dose: 400 mg Flumazenil (Romazecon Inj) 0.2 mg IV.PUSH Q1M PRN PRN Reason: OVERSEDATION Haloperidol Lactate (Haldol Inj) 1 mg IV.PUSH Q15M PRN PRN Reason: for severe agitation Heparin Sodium (Porcine) (Heparin Inj) 5,000 units SQ Q8H [facility] Last Admin: 04/13/18 13:05 Dose: Not Given Lactulose (Lactulose Liq) 30 ml PO DAILY PRN PRN Reason: SEVERE CONSITIPATION Last Admin: 03/27/18 06:19 Dose: 30 ml Lorazepam (Ativan) 1 mg PO Q4H PRN PRN Reason: for CIWA 8-10 Lorazepam (Ativan) 2 mg PO Q2H PRN PRN Reason: for CIWA 11-14 Lorazepam (Ativan Inj) 2 mg IV.PUSH Q2H PRN PRN Reason: for CIWA 11-14 Lorazepam (Ativan Inj) 2 mg IV.PUSH Q1H PRN PRN Reason: for CIWA 15-20 Lorazepam (Ativan Inj) 2 mg IV.PUSH Q15M PRN PRN Reason: for CIWA > 20 Lorazepam (Ativan Inj) 1 mg IV.PUSH Q4H PRN PRN Reason: for CIWA 8-10 Mupirocin (Bactroban 2% Oint) 1 applicatio TOPICAL BID [facility] Last Admin: 04/13/18 09:21 Dose: Not Given Naloxone HCl (Narcan Inj) 0.4 mg IV.PUSH UNSCH PRN PRN Reason: SEE LABEL COMMENTS Ondansetron HCl (Zofran Inj) 4 mg IV.PUSH Q6H PRN PRN Reason: NAUSEA OR VOMITING Oxycodone/Acetaminophen (Percocet 7.5/325 Mg) 1 tab PO Q6H PRN PRN Reason: PAIN SCALE 7 TO 10 SEVERE Last Admin: 04/13/18 16:37 Dose: 1 tab Phenytoin Sodium (Dilantin) 400 mg PO HS [facility] Last Admin: 04/12/18 20:26 Dose: 400 mg Senna/Docusate Sodium (Pily-Colace) 1 tab PO BID [facility] Last Admin: 04/13/18 09:21 Dose: 1 tab Sennosides (Senokot) 17.2 mg PO Q12H PRN PRN Reason: Moderate Constipation Thiamine HCl (Vitamin B1) 100 mg PO DAILY DAGOBERTO Last Admin: 04/13/18 09:21 Dose: 100 mg Allergies Allergy/AdvReac Type Severity Reaction Status Date / Time No Known Allergies Allergy Verified 03/13/18 16:17 Home Medications Medication Instructions Recorded Confirmed Type phenytoin sodium extended 300 mg PO DAILY 03/13/18 03/19/18 History [Dilantin Extended] Results - Labs CBC & Chem 7: 04/08/18 10:37 04/09/18 05:00 - Procedures 03/22: Right distal leg incision and drainage, debridement, and application of wound vac with podiatry Assessment and Plan - Assessment (1) 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 Patient will need wound dressing changes qod with bari moody and RUBIN. ABX per ID Discussed with Care team on 04/13/18
[2018-04-13] MEDS: Phenytoin Sodium 100 MG Capsule PO SCH (21:11)
[2018-04-14] MEDS: Heparin - SQ 10,000 UNITS/ML Vial SQ SCH ×3 (06:16→22:28)
[2018-04-14] MEDS: Amoxicillin/Clavulanate 875/125 MG Tablet PO SCH ×2 (08:07→20:39)
[2018-04-14] MEDS: Senna/Docusate Sodium 8.6/50 MG Tablet PO SCH ×2 (08:07→20:39)
--- NOTE | 2018-04-14 11:38 | P.PNIM ---
Subjective Interval history: Mr. Rodriguez was afebrile with stable VS overnight. No chest pain, shortness of breath, or urine/bowel changes. Patient denies IVDU but drinks daily. Patient requests instructions on dressing changes. Patient states that he has not recently seen PCP and needs f/u for more Dilantin for seizure prevention. Physical Exam Vital signs: Vital Signs 04/13/18 12:00 04/13/18 16:00 04/13/18 20:00 Temperature 97.5 F L 97.9 F 98.2 F Pulse Rate 73 84 79 Respiratory Rate 16 16 16 Blood Pressure 110/62 109/62 107/64 Pulse Oximetry 98 98 99 04/14/18 01:15 04/14/18 06:30 04/14/18 08:00 Temperature 97.7 F 98 F 97.4 F L Pulse Rate 68 60 64 Respiratory Rate 17 16 20 Blood Pressure 110/68 99/65 L 113/69 Pulse Oximetry 99 100 97 Intake & Output 04/13/18 04/14/18 04/14/18 18:59 06:59 18:59 Intake Total 1280 / 1280 1950 / 1950 Output Total 725 / 725 3300 / 3300 Balance 555 / 555 -1350 / -1350 Weight 69.5 kg Intake: Oral 1280 / 1280 1950 / 1950 Output: Urine 725 / 725 3300 / 3300 Other: # Voids 4 Date of Last Bowel Movement 04/13/18 04/12/18 04/13/18 # Bowel Movements 1 1 Narrative: GENERAL: Patient is in no acute distress. HEENT: EOM grossly I. Normal mucous membranes HEART: RRR. LUNGS: CTAB without wheezes or crackles. Abdomen: soft, nontender, nondistended Skin/EXTREMITIES: No LE edema. Right lower leg wound dressed; dressing left in place. NEURO: Awake and alert. Grossly normal CN. grossly normal peripheral motor and sensory function Results - Labs CBC & Chem 7: 04/08/18 10:37 04/09/18 05:00 - Procedures 03/22: Right distal leg incision and drainage, debridement, and application of wound vac with podiatry Assessment and Plan - Assessment (1) Cellulitis of right lower extremity Code(s): L03.115 - Cellulitis of right lower limb Status: Acute (2) Seizure disorder Code(s): G40.909 - Epilepsy, unspecified, not intractable, without status epilepticus Status: Acute (3) Polysubstance (excluding opioids) dependence Code(s): F19.20 - Other psychoactive substance dependence, uncomplicated Status: Acute - Plan 57 year old male with history of remote DVT, seizure disorder, and polysubstance abuse admitted 03/19 for worsening RLE cellulitis after failing outpatient treatment. He had been seen in the ER approximately a week prior and discharged with Ign[facility]. He states shortly after being seen in the ED he developed a blister that later began to have purulent drainage. Patient was taken to OR for debridement with wound vac placement. Wound vac has since been discontinued, and patient is on PO abx. Cleared by Podiatry for discharge 1. RLE cellulitis with superficial ulcer Impression: Leukocytosis on admission but not septic. Necrotizing with microabscess MRI showing broad area of cellulitis without abscess or osteo Podiatry consulted and given severe R ankle pain it was decided to take him to the OR for debridement and wound vac placement (03/22). Wound vac has been discontinued Blood cultures negative - Wound cultures -Sandy parapsilosis -Beta strep not A, B, or D -Management per Podiatry -Antibiotics per ID -OK to DC. -wound dressing changes qod with adaptic, santyl and DSD. -ID consulted -Continue Augmentin and Fluconazole since refused IV antibiotics -Case management regarding dressings and follow-up - Percocet PRN. --> titrated from 10 mg to 7.5 mg on 04/12 2. Seizure disorder - Continue Dilantin - Level therapeutic 3. EtOH abuse - No signs of withdrawal -CIWA ordered 4. Anemia - In February 2016, Hb around 12-13 range - Currently stable - Hb electrophoresis normal - LDH, retic count, B12, and folate WNL - Iron studies suggestive of acute inflammatory process with normal iron and elevated ferritin 5. Transaminitis Impression: Acute elevation of LFTs noted on 04/01, repeated on 04/06 and continues to be elevated with AST 77 and ALT 99. Does not appear to be obstructive pattern given normal bilirubin and alkaline phosphatase Hepatitis panel negative -suspect secondary to alcohol abuse DVT prophylaxis: Heparin ordered but patient refusing. He is aware of risk of DVT. OK to DC. Patient will need wound dressing changes qod with adaptic, santyl and DSD. ABX per ID Discussed with Care team on 04/13/18 Code Status: Full code Discharge Planning: Cleared by Podiatry. Will plan to discuss with ID. Case management for dressing supplies, follow-up, assistance with medications if needed
[2018-04-14 13:38] LABS: Baso % (Auto) 0.8 % (0.0-2.0); Eos # (Auto) 0.4 th/mm3 (0.0-0.4); Eos % (Auto) 6.4 % (0.0-4.0); Hemoglobin 11.3 gm/dL (13.0-17.0); Lymph # (Auto) 2.2 th/mm3 (1.0-4.8); Mean Corpuscular HGB Conc 33.1 % (32.0-36.0); Mean Corpuscular Hemoglobin 30.6 pg (27.0-34.0); Mean Corpuscular Volume 92.6 fL (80.0-100.0); Mean Platelet Volume 7.7 fL (7.0-11.0); Mono # (Auto) 0.7 th/mm3 (0.0-0.9); Mono % (Auto) 11.2 % (0.0-8.0); Neut # (Auto) 2.6 th/mm3 (1.8-7.7); Neut % (Auto) 43.6 % (16.0-70.0); Platelet Count 294 th/mm3 (150-450); Red Blood Count 3.68 mil/mm3 (4.50-5.90); Red Cell Distribution Width 14.9 % (11.6-17.2); White Blood Count 5.9 th/mm3 (4.0-11.0)
[2018-04-14 14:01] LABS: Alanine Aminotransferase 118 U/L (12-78); Albumin 2.9 g/dL (3.4-5.0); Anion Gap 10 meq/L (5-15); Aspartate Aminotransferase 45 U/L (15-37); Blood Urea Nitrogen 17 mg/dL (7-18); Carbon Dioxide 28.4 meq/L (21.0-32.0); Chloride 103 meq/L (98-107); Glomerular Filtration Rate Greater Than 89 mL/min (>89); Glucose,Random 92 mg/dL (74-106); Potassium 4.1 meq/L (3.5-5.1); Sodium 141 meq/L (136-145)
[2018-04-14 14:03] LABS: Alkaline Phosphatase 87 U/L (45-117); Total Protein 7.5 g/dL (6.4-8.2)
[2018-04-14 19:15] VITALS: RESP 18
[2018-04-14] MEDS: Phenytoin Sodium 100 MG Capsule PO SCH (20:39)
[2018-04-15] MEDS: Heparin - SQ 10,000 UNITS/ML Vial SQ SCH ×2 (05:55→13:41)
[2018-04-15 08:16] LABS: Baso % (Auto) 0.7 % (0.0-2.0); Eos # (Auto) 0.4 th/mm3 (0.0-0.4); Eos % (Auto) 7.1 % (0.0-4.0); Hematocrit 35.3 % (39.0-51.0); Hemoglobin 11.7 gm/dL (13.0-17.0); Lymph # (Auto) 2.2 th/mm3 (1.0-4.8); Lymph % (Auto) 39.3 % (9.0-44.0); Mean Corpuscular HGB Conc 33.1 % (32.0-36.0); Mean Corpuscular Hemoglobin 30.5 pg (27.0-34.0); Mean Corpuscular Volume 92.3 fL (80.0-100.0); Mean Platelet Volume 7.7 fL (7.0-11.0); Mono # (Auto) 0.6 th/mm3 (0.0-0.9); Mono % (Auto) 10.8 % (0.0-8.0); Neut # (Auto) 2.4 th/mm3 (1.8-7.7); Neut % (Auto) 42.1 % (16.0-70.0); Platelet Count 303 th/mm3 (150-450); Red Blood Count 3.83 mil/mm3 (4.50-5.90); Red Cell Distribution Width 14.8 % (11.6-17.2); White Blood Count 5.7 th/mm3 (4.0-11.0)
[2018-04-15 08:47] LABS: Alanine Aminotransferase 124 U/L (12-78); Anion Gap 6 meq/L (5-15); Aspartate Aminotransferase 54 U/L (15-37); Blood Urea Nitrogen 17 mg/dL (7-18); Calcium 9.7 mg/dL (8.5-10.1); Carbon Dioxide 29.7 meq/L (21.0-32.0); Chloride 103 meq/L (98-107); Glomerular Filtration Rate Greater Than 89 mL/min (>89); Glucose,Random 92 mg/dL (74-106); Potassium 4.7 meq/L (3.5-5.1); Sodium 139 meq/L (136-145)
[2018-04-15 08:49] LABS: Alkaline Phosphatase 87 U/L (45-117); Total Protein 7.6 g/dL (6.4-8.2)
[2018-04-15] MEDS: Senna/Docusate Sodium 8.6/50 MG Tablet PO SCH (09:13)
[2018-04-15] MEDS: Amoxicillin/Clavulanate 875/125 MG Tablet PO SCH (09:13)
--- NOTE | 2018-04-15 16:47 | P.PNIM ---
Subjective Interval history: Mr. Rodriguez was afebrile with stable vital signs overnight. Patient reports that he is doing ok at this time and would like to be discharged when possible. He states that he is able to follow-up with Dr. Vela next week. Patient does not report chest pain, shortness of breath, abnormal bowel movements, or abnormal urination. Physical Exam Vital signs: Vital Signs 04/14/18 19:15 04/14/18 20:50 04/15/18 00:00 Temperature 97.8 F 97.8 F Pulse Rate 70 72 Respiratory Rate 18 16 18 Blood Pressure 101/63 104/71 Pulse Oximetry 96 97 04/15/18 05:00 04/15/18 07:10 04/15/18 08:00 Temperature 97.7 F 97.4 F L Pulse Rate 80 76 Respiratory Rate 18 18 Blood Pressure 103/60 101/62 Pulse Oximetry 100 Intake & Output 04/14/18 04/15/18 04/15/18 18:59 06:59 18:59 Intake Total 2200 / 2200 Output Total 200 / 200 2300 / 2300 Balance -200 / -200 -100 / -100 Weight 69.1 kg Intake: Oral 2200 / 2200 Output: Urine 200 / 200 2300 / 2300 Other: # Voids 5 Date of Last Bowel Movement 04/13/18 04/14/18 04/15/18 # Bowel Movements 1 Narrative: GENERAL: Patient is in no acute distress. HEENT: EOM grossly I. Normal mucous membranes CV: RRR. Normal RLE DP LUNGS: CTAB without wheezes or crackles. Abdomen: soft, nontender, nondistended Skin/EXTREMITIES: No LE edema. Right lower leg wound examined- red/white in appearance with some granulation and some whitish tissue necrotic. Some mild discharge that was opaque when bandage removed. Pain to palpation distally NEURO: Awake and alert. Grossly normal CN. grossly normal peripheral motor and sensory function Results - Labs CBC & Chem 7: 04/15/18 07:54 04/15/18 07:54 Laboratory Results - last 24 hr 04/15/18 04/15/18 07:54 07:54 WBC 5.7 RBC 3.83 L Hgb 11.7 L Hct 35.3 L MCV 92.3 MCH 30.5 MCHC 33.1 RDW 14.8 Plt Count 303 MPV 7.7 Neut % (Auto) 42.1 Lymph % (Auto) 39.3 Owsley % (Auto) 10.8 H Eos % (Auto) 7.1 H Baso % (Auto) 0.7 Neut # (Auto) 2.4 Lymph # (Auto) 2.2 [place]wsley # (Auto) 0.6 Eos # (Auto) 0.4 Baso # (Auto) 0.0 WBC Differential . Differential Comment Auto diff final Sodium 139 Potassium 4.7 Chloride 103 Carbon Dioxide 29.7 Anion Gap 6 BUN 17 Creatinine 1.01 Estimated GFR Greater than 89 Random Glucose 92 Calcium 9.7 Total Bilirubin 0.1 L AST 54 H ALT 124 H Alkaline Phosphatase 87 Total Protein 7.6 Albumin 3.0 L - Procedures 03/22: Right distal leg incision and drainage, debridement, and application of wound vac with podiatry Assessment and Plan - Assessment (1) Cellulitis of right lower extremity Code(s): L03.115 - Cellulitis of right lower limb Status: Acute (2) Seizure disorder Code(s): G40.909 - Epilepsy, unspecified, not intractable, without status epilepticus Status: Acute (3) Polysubstance (excluding opioids) dependence Code(s): F19.20 - Other psychoactive substance dependence, uncomplicated Status: Acute - Plan 57 year old male with history of remote DVT, seizure disorder, and polysubstance abuse admitted 03/19 for worsening RLE cellulitis after failing outpatient treatment. He had been seen in the ER approximately a week prior and discharged with [facility]. He states shortly after being seen in the ED he developed a blister that later began to have purulent drainage. Patient was taken to OR for debridement with wound vac placement. Wound vac has since been discontinued, and patient is on PO abx. Cleared by Podiatry for discharge 1. RLE cellulitis with superficial ulcer Impression: Leukocytosis on admission but not septic. Necrotizing with microabscess MRI showing broad area of cellulitis without abscess or osteo Podiatry consulted and given severe R ankle pain it was decided to take him to the OR for debridement and wound vac placement (03/22). Wound vac has been discontinued Blood cultures negative - Wound cultures -Sandy parapsilosis -Beta strep not A, B, or D -Management per Podiatry -Antibiotics per ID -OK to DC. -wound dressing changes qod with bari moody and RUBIN. -ID consulted -Continue treatment as outpatient -Augmentin x1 week -Follow-up with Podiatry in 1 week; plan for repeat culture/biopsy of leading edge based on clinical improvement -Case management regarding dressings and follow-up - Percocet PRN. --> titrated from 10 mg to 7.5 mg on 04/12; will give x3 days on discharge 2. Seizure disorder - Continue Dilantin - Level therapeutic 3. EtOH abuse - No signs of withdrawal -CIWA ordered 4. Anemia - In February 2016, Hb around 12-13 range - Currently stable - Hb electrophoresis normal - LDH, retic count, B12, and folate WNL - Iron studies suggestive of acute inflammatory process with normal iron and elevated ferritin 5. Transaminitis Impression: Acute elevation of LFTs noted on 04/01, repeated on 04/06 and continues to be elevated with AST 77 and ALT 99. Does not appear to be obstructive pattern given normal bilirubin and alkaline phosphatase Hepatitis panel negative -suspect secondary to alcohol abuse DVT prophylaxis: Heparin ordered but patient refusing. He is aware of risk of DVT. Code Status: Full code Discharge Planning: Discharge today and follow-up with Podiatry and wound care
--- NOTE | 2018-04-15 17:29 | P.PNID ---
Subjective Remarks: LLE pain is better, but still hurts with weight bearing no fever Antibiotics: am/clav fluconazol: stopped by primary team on 04/05 Allergies/Adverse Reactions: Allergies No Known Allergies Allergy (Verified 03/13/18 16:17) Objective Vital Signs 04/14/18 19:15 04/14/18 20:50 04/15/18 00:00 Temperature 97.8 F 97.8 F Pulse Rate 70 72 Respiratory Rate 18 16 18 Blood Pressure 101/63 104/71 Pulse Oximetry 96 97 04/15/18 05:00 04/15/18 07:10 04/15/18 08:00 Temperature 97.7 F 97.4 F L Pulse Rate 80 76 Respiratory Rate 18 18 Blood Pressure 103/60 101/62 Pulse Oximetry 100 Intake & Output 04/14/18 04/15/18 04/15/18 18:59 06:59 18:59 Intake Total 2200 / 2200 Output Total 200 / 200 2300 / 2300 Balance -200 / -200 -100 / -100 Weight 69.1 kg Intake: Oral 2200 / 2200 Output: Urine 200 / 200 2300 / 2300 Other: # Voids 5 Date of Last Bowel Movement 04/13/18 04/14/18 04/15/18 # Bowel Movements 1 03/22/18 09:46 Tissue - Ankle Acid Fast Bacilli Smear - Final No acid fast bacilli seen 03/22/18 09:46 Tissue - Ankle Mycobacterial Culture - Preliminary No growth in 3 weeks 03/22/18 09:46 Tissue - Ankle Fungal Smear - Final No fungal elements seen 03/22/18 09:46 Tissue - Ankle Fungal Culture - Preliminary No growth in 3 weeks Lab - Hematology Results 04/14/18 04/15/18 13:20 07:54 WBC 5.9 5.7 RBC 3.68 L 3.83 L Hgb 11.3 L 11.7 L Hct 34.0 L 35.3 L MCV 92.6 92.3 MCH 30.6 30.5 MCHC 33.1 33.1 RDW 14.9 14.8 Plt Count 294 303 MPV 7.7 7.7 Neut % (Auto) 43.6 42.1 Lymph % (Auto) 38.0 39.3 [place] % (Auto) 11.2 H 10.8 H Eos % (Auto) 6.4 H 7.1 H Baso % (Auto) 0.8 0.7 Neut # (Auto) 2.6 2.4 Lymph # (Auto) 2.2 2.2 [place] # (Auto) 0.7 0.6 Eos # (Auto) 0.4 0.4 Baso # (Auto) 0.0 0.0 WBC Differential . . Differential Comment Auto diff final Auto diff final Lab - Chemistry Results 04/14/18 04/15/18 13:20 07:54 Sodium 141 139 Potassium 4.1 4.7 Chloride 103 103 Carbon Dioxide 28.4 29.7 Anion Gap 10 6 BUN 17 17 Creatinine 0.94 1.01 Estimated GFR Greater than 89 Greater than 89 Random Glucose 92 92 Calcium 9.0 9.7 Total Bilirubin 0.1 L 0.1 L AST 45 H 54 H ALT 118 H 124 H Alkaline Phosphatase 87 87 Total Protein 7.5 7.6 Albumin 2.9 L 3.0 L Imaging: ITS Impressions Ankle MRI 03/20/18 00:00 CONCLUSION: 1. Broad area of cellulitis without abscess or osteomyelitis. 2. Mild Achilles tendinosis. No tear. Lower Extremity Ultrasound 03/22/18 00:00 CONCLUSION: Ill-defined superficial soft tissue edema of the right lower leg. Physical Exam: GENERAL: NAD SKIN: Warm and dry. no rash RESPIRATORY: breathing unlaboured MUSCULOSKELETAL: Extremities without clubbing, cyanosis, or edema. No obvious deformities. STATUS LOCALIS: resolution of induration noted R lower leg wound with 50% cabrera necrotic eschar centrally and is nicely granulating periferally Excellend R DP pulse, 2/2 NEUROLOGICAL: Awake and alert. 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
[2018-04-15 21:19] VITALS: BP 105/70; PULSE 84; TEMP 97.6; O2SAT 97
[2018-04-16] MEDS: Amoxicillin/Clavulanate 875/125 MG Tablet PO SCH (07:02)
[2018-04-16] MEDS: Phenytoin Sodium 100 MG Capsule PO SCH (07:03)
[2018-04-16] MEDS: Senna/Docusate Sodium 8.6/50 MG Tablet PO SCH (07:03)
--- NOTE | 2018-05-12 15:50 | P.DS ---
Date of admission: 03/19/18 09:49 Primary care physician: UNKNOWN Attending physician on discharge: Ady Crews Anticipated date of discharge: 04/15/18 Brief History from admission: This is a 57-year-old male with a history of remote DVT status post Coumadin, seizure disorder on Dilantin and polysubstance abuse. Family history no diabetes. He returned to the emergency department because of right lower extremity pain and swelling. Patient was seen about a week ago because of right foot/ankle pain and swelling for 2 weeks. He was diagnosed with cellulitis and was given Dalvance. X-ray of the foot with no evidence of osteomyelitis and Doppler with no DVT. Patient states a day after he was seen in the ED he developed a blister then later started having purulent drainage. He also reports of intermittent fever and chills. Denies history of MRSA. States he tried to elevate his right lower extremity. 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 In the emergency department, he received IV vancomycin and Zosyn and IV morphine. Patient update on day of discharge: Mr. Rodriguez was afebrile with stable vital signs overnight. Patient reports that he is doing ok at this time and would like to be discharged when possible. He states that he is able to follow-up with Dr. Vela next week. Patient does not report chest pain, shortness of breath, abnormal bowel movements, or abnormal urination. DS: Diagnosis - Discharge Diagnosis (1) Cellulitis of right lower extremity Status: Acute (2) Seizure disorder Status: Acute (3) Polysubstance (excluding opioids) dependence Status: Acute DS: Medications - Discharge Medications Prescriptions: mupirocin 1 applicatio TOPICAL BID #1 tube oxycodone-acetaminophen 1 tab PO Q6H PRN #12 tab PRN Reason: Acute Pain phenytoin sodium extended 400 mg PO HS #120 cap DS: Summary Hospital Course: Mr. Rodriguez is a 57-year-old male with PMH remote DVT, seizure disorder, and polysubstance abuse who presented to [place] ED 03/19/2018 due to failed outpatient therapy of right lower extremity cellulitis/ulceration. Per EMR, patient previously diagnosed with cellulitis and prescribed Dalvance; he subsequently began having purulent discharge from RLE wound. On admission, patient was found to have leukocytosis but not meet septic criteria. He was empirically given Vancomycin/Zosyn in ED. Patient underwent MRI of RLE demonstrating cellulitis without abscess or osteomyelitis. Wound cultures obtained demonstrating terrance parapsilosis and Beta hemolytic strep not A/B/D. Infectious disease and podiatry were consulted. Patient underwent debridement and wound vac placement 03/22. Patient initially treated with Vancomycin and Zosyn; after cultures, patient was transitioned to Zosyn and Fluconazole. Patient was treated with wound care during hospitalization. Regarding patient's seizure disorder was treated with Dilantin. Patient was also found to have transaminitis during hospitalization which was stable; hepatitis panel was negative and it was suspected secondary to alcohol abuse. patient was deemed stable for discharge 04/15 with planned follow-up with Podiatry in 1 week as an outpatient with planned repeat culture/monitoring of wound; patient discharged on Augmentin x1 week per infectious disease. - Time Spent with Patient Total time spent providing and/or coordinating discharge services: Less than 30 minutes - Quality: VTE Deep Vein Thrombosis/Pulmonary Embolism Present on Admission: Yes Exam Vital signs: Initial Documented Vital Signs Temperature 97.5 F L 03/19/18 06:13 Pulse Rate 87 03/19/18 06:13 Respiratory Rate 18 03/19/18 06:13 Blood Pressure 123/56 L 03/19/18 06:13 Pulse Oximetry 99 03/19/18 06:13 Last Documented Vital Signs Temperature 97.6 F 04/15/18 20:00 Pulse Rate 84 04/15/18 20:00 Respiratory Rate 18 04/15/18 20:00 Blood Pressure 105/70 04/15/18 20:00 Pulse Oximetry 97 04/15/18 20:00 Narrative: GENERAL: Patient is in no acute distress. HEENT: EOM grossly I. Normal mucous membranes CV: RRR. Normal RLE DP LUNGS: CTAB without wheezes or crackles. Abdomen: soft, nontender, nondistended Skin/EXTREMITIES: No LE edema. Right lower leg wound examined- red/white in appearance with some granulation and some whitish tissue necrotic. Some mild discharge that was opaque when bandage removed. Pain to palpation distally NEURO: Awake and alert. Grossly normal CN. grossly normal peripheral motor and sensory function Results Procedures completed during hospitalization: 03/22: Right distal leg incision and drainage, debridement, and application of wound vac with podiatry - Impressions ITS Impressions Ankle MRI 03/20/18 00:00 CONCLUSION: 1. Broad area of cellulitis without abscess or osteomyelitis. 2. Mild Achilles tendinosis. No tear. Lower Extremity Ultrasound 03/22/18 00:00 CONCLUSION: Ill-defined superficial soft tissue edema of the right lower leg. Discharge Plan - Discharge Disposition Patient Disposition: 01 Discharge Home - Discharge Condition Condition: Stable - Discharge Order Discharge Orders: Discharge Order (Routine); Ordered 04/15/18 Ordered By: Ady Crews - Discharge Details Anticipated Discharge Date: 04/11/18 - Physicians Team Primary Care Provider: UNKNOWN, Attending Provider: Ady Crews Other Providers: William Michel DPM ; Yvonne Rios MD
== END 2018-04-15 21:03 | disposition home or self-care (01) ==
LOC: NEPC 06:10 → NEDA 09:49 → NEPHCDU 17:04 → H7ONC 03-20 18:39 → N05 03-20 22:46
PROVIDERS: ADMIT Family Medicine; ATTEND Family Medicine

== ENCOUNTER 2018-05-15 06:30 | Inpatient (IN) ==
--- NOTE | 2018-05-15 06:59 | ED ---
HPI General Chief complaint: Seizure Stated complaint: Seizure/Evac Time Seen by Provider: 05/15/18 06:42 Source: EMS and old records reviewed Mode of arrival: EMS Limitations: altered mental status History of Present Illness HPI narrative: no distress, protecting his airway, withdraws to painful stimuli , appears postictal. He is unable to provide any history. Further history was obtained by chart review.57-year-old male with history of seizure disorder brought in by EMS for evaluation of recurrent seizures. According to EMS the patient is homeless, however he was at a residence where he was reportedly drinking alcohol throughout the night. He had 2 seizures witnessed by other residents at the home, and upon arrival paramedics noted him to be altered/ postictal. They then witnessed a generalized seizure and administered 2 mg of Versed. Upon arrival to the emergency department the patient is altered, unable to provide any history. According to the patient's old records, the patient has history of seizure disorder and is supposed to be on Dilantin. He also has history of substance abuse and alcohol abuse. He was admitted to our hospital on 03/19/18 for a wound to his right lower extremity that was treated with debridement and wound VAC as well as antibiotics and antifungal agents. Right lower extremity venous duplex was negative for DVT, an MRI of the right lower extremity showed extensive area of cellulitis, no osteomyelitis. He was discharged on 04/15/18. Related Data Previous Rx's Medication Instructions Recorded phenytoin sodium extended 400 mg PO HS #120 cap 04/15/18 ciprofloxacin HCl [Cipro] 500 mg PO Q12H 10 Days #20 tab 05/18/18 Allergies Allergy/AdvReac Type Severity Reaction Status Date / Time No Known Allergies Allergy Verified 03/13/18 16:17 Review of Systems ROS Unobtainable ROS Unobtainable: unobtainable due to mental status PMFSH Family History Family History Other Family history of diabetes mellitus Family history of hypertension Social History Social History Substance History: Active Abuse Second Hand Smoke Exposure: Yes Smoking Status: Current every day smoker Tobacco Type: Cigarettes How Often Do You Have a Drink Containing Alcohol: 4 or more times a week Hx Recent Travel: No Recent Travel in [facility] within the Last 8 Weeks: No Recent Out of Country Travel within the Last 8 Weeks: No Immunization History Tetanus Immunization: Unsure Hx Influenza Vaccine This Season: No Exam Narrative Exam Narrative: GENERAL: Well-developed, thin, depressed mental status/post ictal, disheveled, foul-smelling wound to right lower extremity, protecting airway, withdraws to painful stimuli. SKIN: Right lower extremity with moderate edema with an open wound to the right distal/medial leg approximately 7 cm x 5 cm that is very foul-smelling, healthy- appearing granulating tissue, no purulent drainage, mild surrounding warmth, no erythema, surrounding skin is dry and scaly. HEAD: Atraumatic. Normocephalic. EYES: Pupils equal and round. No injection or drainage. ENT: No nasal bleeding or discharge. Mucous membranes pink and dry. NECK: Trachea midline. No JVD. No nuchal rigidity. CARDIOVASCULAR: Regular rate and rhythm. Bilateral dorsalis pedis and distal radial pulses are brisk and equal. RESPIRATORY: No accessory muscle use. Clear to auscultation. Breath sounds equal bilaterally. GASTROINTESTINAL: Abdomen soft, non-tender, nondistended. MUSCULOSKELETAL: Moderate edema to the right lower extremity with skin exam as above. All compartments in the right lower extremity are supple. Bilateral dorsalis pedis pulses are brisk and equal. NEUROLOGICAL: Drowsy/postictal, withdraws to painful stimuli, moves all extremities to painful stimuli. Gag reflex intact. PSYCHIATRIC: Unable to obtain. Course Reevaluation(s) Reevaluation #1: Patient is combative with staff no allowing to start an IV. I was able to talk to him and he appears to be following commands and then fell asleep immediately. Time: 07:00 Reevaluation #2: Patient is awake and alert. Requesting a urinal to urinate. Hemodynamically stable. Informed that he will be admitted. Time: 09:27 Initial Documented Vital Signs Temperature 97.7 F 05/15/18 06:34 Pulse Rate 95 H 05/15/18 06:34 Respiratory Rate 20 05/15/18 06:34 Blood Pressure 171/89 H 05/15/18 06:34 Pulse Oximetry 97 05/15/18 06:34 Last Documented Vital Signs Temperature 98.2 F 05/18/18 16:00 Pulse Rate 70 05/18/18 16:00 Respiratory Rate 18 05/18/18 16:00 Blood Pressure 104/54 L 05/18/18 16:00 Pulse Oximetry 98 05/18/18 16:00 Critical Care Time Critical Care Time: Yes Total Critical Care Time: 45 Attestation: Aggregate critical care time was 45 minutes. Time to perform other separately billable procedures was not included in the critical care time. My time did not include minutes spent treating any other patients simultaneously or on activities that did not directly contribute to the patient's treatment. The services I provided to this patient were to treat and/or prevent clinically significant deterioration that could result in: permanent disability and or I provided critical care services requiring my management, as noted below: Chart data review, documentation time, medication orders and management, vital sign assessments/reviewing monitor data, ordering and reviewing lab tests, ordering and interpreting/reviewing x-rays and diagnostic studies, care of the patient and discussion of the patient with the admitting physicians. Sign Out Sign Out Data: Patient Sign Out occurred on 05/15/18 at 07:20. Patient's care was discussed, and care was transferred from Dale Fry MD to Stalin Ponce DO. Sign Out Comment: Follow-up with labs, imaging studies, and disposition. Last updated by Dale Fry MD at 05/15/18 06:59 Medical Decision Making MDM Narrative Medical decision making narrative: At approximately 7:00 AM at the end of my shift the patient was signed out to oncoming provider Dr. Ponce will follow up with labs, imaging studies, and disposition. Patient acutely ill does not appear that he is taking care of himself is noncompliant with treatment as an outpatient. He does have a leukocytosis with a lactic acid of 14.9 which is possibly multifactorial since his ammonia level is 69 he is got a creatinine of 1.85. Chest x-ray with equivocal findings. No discernible consolidation seen. He did receive bank and Zosyn for his right leg wound. There was no crepitus and imaging was negative for osteomyelitis. He did receive Lactulose PO. He had an initial seizure while here in the ED for which he received IV Ativan 1 mg with cessation of his tonic-clonic seizure. Will admit to stepdown unit for close monitoring and reevaluation of his abnormal labs. Of note that the patient had a TSH of 5740 was appears that he has thyroid disease not taking medications. Chronic ulcer was cultured blood cultures were obtained as well and he was started on broad-spectrum antibiotics. UA is pending at time of disposition. Medical Screen Exam Complete: Yes Emergency Medical Condition: Yes Differential Diagnosis Differential Diagnosis: Breakthrough seizures, status epilepticus, postictal state, intracranial abnormality, metabolic abnormality, chronic right lower extremity ulcer, cellulitis, medication noncompliance, hyperammonemia, polysubstance abuse Lab Data Result diagrams: 05/16/18 08:51 05/17/18 08:45 Lab Results 05/15/18 05/15/18 05/15/18 Range/Units 07:10 07:10 07:10 WBC 12.3 H (4.0-11.0) th/mm3 RBC 3.96 L (4.50-5.90) mil/mm3 Hgb 12.5 L (13.0-17.0) gm/dL Hct 38.6 L (39.0-51.0) % MCV 97.6 (80.0-100.0) fL MCH 31.6 (27.0-34.0) pg MCHC 32.4 (32.0-36.0) % RDW 16.1 (11.6-17.2) % Plt Count 304 (150-450) th/mm3 MPV 8.3 (7.0-11.0) fL Neut % (Auto) 60.0 (16.0-70.0) % Lymph % (Auto) 27.1 (9.0-44.0) % [place] % (Auto) 10.4 H (0.0-8.0) % Eos % (Auto) 1.9 (0.0-4.0) % Baso % (Auto) 0.6 (0.0-2.0) % Neut # (Auto) 7.4 (1.8-7.7) th/mm3 Lymph # (Auto) 3.3 (1.0-4.8) th/mm3 [place] # (Auto) 1.3 H (0.0-0.9) th/mm3 Eos # (Auto) 0.2 (0.0-0.4) th/mm3 Baso # (Auto) 0.1 (0.0-0.2) th/mm3 WBC Differential . Differential Comment Auto diff final PT 10.5 (9.8-11.6) sec INR 1.0 Ratio APTT 22.4 L (24.3-30.1) sec Sodium 142 (136-145) meq/L Potassium 4.2 (3.5-5.1) meq/L Chloride 109 H (98-107) meq/L Carbon Dioxide 8.2 L (21.0-32.0) meq/L Anion Gap 25 H (5-15) meq/L BUN 19 H (7-18) mg/dL Creatinine 1.85 H (0.60-1.30) mg/dL Estimated GFR 46 L (>89) mL/min POC Glucose (68-110) mg/dl Random Glucose 117 H (74-106) mg/dL Hemoglobin A1c (4.3-6.0) % Lactic Acid (0.4-2.0) mmol/L Calcium 8.8 (8.5-10.1) mg/dL Phosphorus (2.5-4.9) mg/dL Magnesium (1.5-2.5) mg/dL Total Bilirubin 0.2 (0.2-1.0) mg/dL Direct Bilirubin (0.0-0.2) mg/dL Indirect Bilirubin (0.0-0.8) mg/dL AST 25 (15-37) U/L ALT 20 (12-78) U/L Alkaline Phosphatase 100 (45-117) U/L Ammonia (11-32) mcmol/L Total Creatine Kinase (39-308) U/L CK-MB (CK-2) (0.5-3.6) ng/mL CK-MB (CK-2) % (0.0-4.0) % Troponin I (0.02-0.05) ng/mL Total Protein 8.6 H (6.4-8.2) g/dL Albumin 3.9 (3.4-5.0) g/dL TSH 5.740 H (0.358-3.740) uIU/mL Free T4 (0.76-1.46) ng/dL Total T3 (60-181) ng/dL Urine Color (Yellw/Straw) Urine Clarity (Clear) Urine pH (5.0-8.5) Ur Specific [place] (1.002-1.035) Urine Protein (Neg-Trace) mg/dL Urine Glucose (UA) (Negative) mg/dL Urine Ketones (Negative) mg/dL Urine Occult Blood (Negative) Urine Nitrate (Negative) Urine Bilirubin (Negative) Urine Urobilinogen (Less than 2) mg/dL Ur Leukocyte Esterase (Negative) Urine RBC (0-3) /hpf Triple Phos Crystals (None) /hpf Hyaline Casts (0-3) /lpf Micro UA Comment Ur Microscopic Review Urine Culture Comments Urine Opiates Screen (Neg) Ur Barbiturates Screen (Neg) Phenytoin 3.6 L (10.0-20.0) mcg/mL Ur Amphetamines Screen (Neg) U Benzodiazepines Scrn (Neg) Urine Cocaine Screen (Neg) U Cannabinoids Screen (Neg) Serum Alcohol Less than 3 (0-5) mg/dL 05/15/18 05/15/18 05/15/18 Range/Units 07:10 07:12 07:12 WBC (4.0-11.0) th/mm3 RBC (4.50-5.90) mil/mm3 Hgb (13.0-17.0) gm/dL Hct (39.0-51.0) % MCV (80.0-100.0) fL MCH (27.0-34.0) pg MCHC (32.0-36.0) % RDW (11.6-17.2) % Plt Count (150-450) th/mm3 MPV (7.0-11.0) fL Neut % (Auto) (16.0-70.0) % Lymph % (Auto) (9.0-44.0) % [place] % (Auto) (0.0-8.0) % Eos % (Auto) (0.0-4.0) % Baso % (Auto) (0.0-2.0) % Neut # (Auto) (1.8-7.7) th/mm3 Lymph # (Auto) (1.0-4.8) th/mm3 [place] # (Auto) (0.0-0.9) th/mm3 Eos # (Auto) (0.0-0.4) th/mm3 Baso # (Auto) (0.0-0.2) th/mm3 WBC Differential Differential Comment PT (9.8-11.6) sec INR Ratio APTT (24.3-30.1) sec Sodium (136-145) meq/L Potassium (3.5-5.1) meq/L Chloride (98-107) meq/L Carbon Dioxide (21.0-32.0) meq/L Anion Gap (5-15) meq/L BUN (7-18) mg/dL Creatinine (0.60-1.30) mg/dL Estimated GFR (>89) mL/min POC Glucose (68-110) mg/dl Random Glucose (74-106) mg/dL Hemoglobin A1c 5.1 (4.3-6.0) % Lactic Acid 14.9 H* (0.4-2.0) mmol/L Calcium (8.5-10.1) mg/dL Phosphorus (2.5-4.9) mg/dL Magnesium (1.5-2.5) mg/dL Total Bilirubin (0.2-1.0) mg/dL Direct Bilirubin (0.0-0.2) mg/dL Indirect Bilirubin (0.0-0.8) mg/dL AST (15-37) U/L ALT (12-78) U/L Alkaline Phosphatase (45-117) U/L Ammonia 69 H (11-32) mcmol/L Total Creatine Kinase (39-308) U/L CK-MB (CK-2) (0.5-3.6) ng/mL CK-MB (CK-2) % (0.0-4.0) % Troponin I (0.02-0.05) ng/mL Total Protein (6.4-8.2) g/dL Albumin (3.4-5.0) g/dL TSH (0.358-3.740) uIU/mL Free T4 (0.76-1.46) ng/dL Total T3 (60-181) ng/dL Urine Color (Yellw/Straw) Urine Clarity (Clear) Urine pH (5.0-8.5) Ur Specific [place] (1.002-1.035) Urine Protein (Neg-Trace) mg/dL Urine Glucose (UA) (Negative) mg/dL Urine Ketones (Negative) mg/dL Urine Occult Blood (Negative) Urine Nitrate (Negative) Urine Bilirubin (Negative) Urine Urobilinogen (Less than 2) mg/dL Ur Leukocyte Esterase (Negative) Urine RBC (0-3) /hpf Triple Phos Crystals (None) /hpf Hyaline Casts (0-3) /lpf Micro UA Comment Ur Microscopic Review Urine Culture Comments Urine Opiates Screen (Neg) Ur Barbiturates Screen (Neg) Phenytoin (10.0-20.0) mcg/mL Ur Amphetamines Screen (Neg) U Benzodiazepines Scrn (Neg) Urine Cocaine Screen (Neg) U Cannabinoids Screen (Neg) Serum Alcohol (0-5) mg/dL 05/15/18 05/15/18 05/15/18 Range/Units 09:45 09:45 12:41 WBC (4.0-11.0) th/mm3 RBC (4.50-5.90) mil/mm3 Hgb (13.0-17.0) gm/dL Hct (39.0-51.0) % MCV (80.0-100.0) fL MCH (27.0-34.0) pg MCHC (32.0-36.0) % RDW (11.6-17.2) % Plt Count (150-450) th/mm3 MPV (7.0-11.0) fL Neut % (Auto) (16.0-70.0) % Lymph % (Auto) (9.0-44.0) % [place] % (Auto) (0.0-8.0) % Eos % (Auto) (0.0-4.0) % Baso % (Auto) (0.0-2.0) % Neut # (Auto) (1.8-7.7) th/mm3 Lymph # (Auto) (1.0-4.8) th/mm3 [place] # (Auto) (0.0-0.9) th/mm3 Eos # (Auto) (0.0-0.4) th/mm3 Baso # (Auto) (0.0-0.2) th/mm3 WBC Differential Differential Comment PT (9.8-11.6) sec INR Ratio APTT (24.3-30.1) sec Sodium (136-145) meq/L Potassium (3.5-5.1) meq/L Chloride (98-107) meq/L Carbon Dioxide (21.0-32.0) meq/L Anion Gap (5-15) meq/L BUN (7-18) mg/dL Creatinine (0.60-1.30) mg/dL Estimated GFR (>89) mL/min POC Glucose (68-110) mg/dl Random Glucose (74-106) mg/dL Hemoglobin A1c (4.3-6.0) % Lactic Acid (0.4-2.0) mmol/L Calcium (8.5-10.1) mg/dL Phosphorus 2.4 L (2.5-4.9) mg/dL Magnesium 2.1 (1.5-2.5) mg/dL Total Bilirubin (0.2-1.0) mg/dL Direct Bilirubin (0.0-0.2) mg/dL Indirect Bilirubin (0.0-0.8) mg/dL AST (15-37) U/L ALT (12-78) U/L Alkaline Phosphatase (45-117) U/L Ammonia (11-32) mcmol/L Total Creatine Kinase 384 H (39-308) U/L CK-MB (CK-2) 3.2 (0.5-3.6) ng/mL CK-MB (CK-2) % 0.8 (0.0-4.0) % Troponin I Less than 0.02 L (0.02-0.05) ng/mL Total Protein (6.4-8.2) g/dL Albumin (3.4-5.0) g/dL TSH (0.358-3.740) uIU/mL Free T4 (0.76-1.46) ng/dL Total T3 (60-181) ng/dL Urine Color Straw (Yellw/Straw) Urine Clarity Hazy H (Clear) Urine pH 5.0 (5.0-8.5) Ur Specific [place] 1.012 (1.002-1.035) Urine Protein 30 H (Neg-Trace) mg/dL Urine Glucose (UA) Negative (Negative) mg/dL Urine Ketones Negative (Negative) mg/dL Urine Occult Blood Moderate H (Negative) Urine Nitrate Negative (Negative) Urine Bilirubin Negative (Negative) Urine Urobilinogen Less than 2 (Less than 2) mg/dL Ur Leukocyte Esterase Negative (Negative) Urine RBC Less than 1 (0-3) /hpf Triple Phos Crystals Rare H (None) /hpf Hyaline Casts 3 (0-3) /lpf Micro UA Comment Culture not ind Ur Microscopic Review Not Reportable Urine Culture Comments Culture not ind Urine Opiates Screen Neg (Neg) Ur Barbiturates Screen Neg (Neg) Phenytoin (10.0-20.0) mcg/mL Ur Amphetamines Screen Neg (Neg) U Benzodiazepines Scrn Pos H (Neg) Urine Cocaine Screen Pos H (Neg) U Cannabinoids Screen Pos H (Neg) Serum Alcohol (0-5) mg/dL 05/15/18 05/15/18 05/15/18 Range/Units 12:41 12:41 13:41 WBC (4.0-11.0) th/mm3 RBC (4.50-5.90) mil/mm3 Hgb (13.0-17.0) gm/dL Hct (39.0-51.0) % MCV (80.0-100.0) fL MCH (27.0-34.0) pg MCHC (32.0-36.0) % RDW (11.6-17.2) % Plt Count (150-450) th/mm3 MPV (7.0-11.0) fL Neut % (Auto) (16.0-70.0) % Lymph % (Auto) (9.0-44.0) % [place] % (Auto) (0.0-8.0) % Eos % (Auto) (0.0-4.0) % Baso % (Auto) (0.0-2.0) % Neut # (Auto) (1.8-7.7) th/mm3 Lymph # (Auto) (1.0-4.8) th/mm3 [place] # (Auto) (0.0-0.9) th/mm3 Eos # (Auto) (0.0-0.4) th/mm3 Baso # (Auto) (0.0-0.2) th/mm3 WBC Differential Differential Comment PT (9.8-11.6) sec INR Ratio APTT (24.3-30.1) sec Sodium (136-145) meq/L Potassium (3.5-5.1) meq/L Chloride (98-107) meq/L Carbon Dioxide (21.0-32.0) meq/L Anion Gap (5-15) meq/L BUN (7-18) mg/dL Creatinine (0.60-1.30) mg/dL Estimated GFR (>89) mL/min POC Glucose 90 (68-110) mg/dl Random Glucose (74-106) mg/dL Hemoglobin A1c (4.3-6.0) % Lactic Acid 2.9 H (0.4-2.0) mmol/L Calcium (8.5-10.1) mg/dL Phosphorus Cancelled (2.5-4.9) mg/dL Magnesium Cancelled (1.5-2.5) mg/dL Total Bilirubin (0.2-1.0) mg/dL Direct Bilirubin (0.0-0.2) mg/dL Indirect Bilirubin (0.0-0.8) mg/dL AST (15-37) U/L ALT (12-78) U/L Alkaline Phosphatase (45-117) U/L Ammonia (11-32) mcmol/L Total Creatine Kinase (39-308) U/L CK-MB (CK-2) (0.5-3.6) ng/mL CK-MB (CK-2) % (0.0-4.0) % Troponin I (0.02-0.05) ng/mL Total Protein (6.4-8.2) g/dL Albumin (3.4-5.0) g/dL TSH (0.358-3.740) uIU/mL Free T4 (0.76-1.46) ng/dL Total T3 (60-181) ng/dL Urine Color (Yellw/Straw) Urine Clarity (Clear) Urine pH (5.0-8.5) Ur Specific [place] (1.002-1.035) Urine Protein (Neg-Trace) mg/dL Urine Glucose (UA) (Negative) mg/dL Urine Ketones (Negative) mg/dL Urine Occult Blood (Negative) Urine Nitrate (Negative) Urine Bilirubin (Negative) Urine Urobilinogen (Less than 2) mg/dL Ur Leukocyte Esterase (Negative) Urine RBC (0-3) /hpf Triple Phos Crystals (None) /hpf Hyaline Casts (0-3) /lpf Micro UA Comment Ur Microscopic Review Urine Culture Comments Urine Opiates Screen (Neg) Ur Barbiturates Screen (Neg) Phenytoin (10.0-20.0) mcg/mL Ur Amphetamines Screen (Neg) U Benzodiazepines Scrn (Neg) Urine Cocaine Screen (Neg) U Cannabinoids Screen (Neg) Serum Alcohol (0-5) mg/dL 05/15/18 05/15/18 05/15/18 Range/Units 16:59 18:45 19:51 WBC (4.0-11.0) th/mm3 RBC (4.50-5.90) mil/mm3 Hgb (13.0-17.0) gm/dL Hct (39.0-51.0) % MCV (80.0-100.0) fL MCH (27.0-34.0) pg MCHC (32.0-36.0) % RDW (11.6-17.2) % Plt Count (150-450) th/mm3 MPV (7.0-11.0) fL Neut % (Auto) (16.0-70.0) % Lymph % (Auto) (9.0-44.0) % [place] % (Auto) (0.0-8.0) % Eos % (Auto) (0.0-4.0) % Baso % (Auto) (0.0-2.0) % Neut # (Auto) (1.8-7.7) th/mm3 Lymph # (Auto) (1.0-4.8) th/mm3 [place] # (Auto) (0.0-0.9) th/mm3 Eos # (Auto) (0.0-0.4) th/mm3 Baso # (Auto) (0.0-0.2) th/mm3 WBC Differential Differential Comment PT (9.8-11.6) sec INR Ratio APTT (24.3-30.1) sec Sodium (136-145) meq/L Potassium (3.5-5.1) meq/L Chloride (98-107) meq/L Carbon Dioxide (21.0-32.0) meq/L Anion Gap (5-15) meq/L BUN (7-18) mg/dL Creatinine (0.60-1.30) mg/dL Estimated GFR (>89) mL/min POC Glucose 92 86 (68-110) mg/dl Random Glucose (74-106) mg/dL Hemoglobin A1c (4.3-6.0) % Lactic Acid (0.4-2.0) mmol/L Calcium (8.5-10.1) mg/dL Phosphorus (2.5-4.9) mg/dL Magnesium (1.5-2.5) mg/dL Total Bilirubin (0.2-1.0) mg/dL Direct Bilirubin (0.0-0.2) mg/dL Indirect Bilirubin (0.0-0.8) mg/dL AST (15-37) U/L ALT (12-78) U/L Alkaline Phosphatase (45-117) U/L Ammonia (11-32) mcmol/L Total Creatine Kinase 388 H (39-308) U/L CK-MB (CK-2) 2.8 (0.5-3.6) ng/mL CK-MB (CK-2) % 0.7 (0.0-4.0) % Troponin I Less than 0.02 L (0.02-0.05) ng/mL Total Protein (6.4-8.2) g/dL Albumin (3.4-5.0) g/dL TSH (0.358-3.740) uIU/mL Free T4 (0.76-1.46) ng/dL Total T3 (60-181) ng/dL Urine Color (Yellw/Straw) Urine Clarity (Clear) Urine pH (5.0-8.5) Ur Specific [place] (1.002-1.035) Urine Protein (Neg-Trace) mg/dL Urine Glucose (UA) (Negative) mg/dL Urine Ketones (Negative) mg/dL Urine Occult Blood (Negative) Urine Nitrate (Negative) Urine Bilirubin (Negative) Urine Urobilinogen (Less than 2) mg/dL Ur Leukocyte Esterase (Negative) Urine RBC (0-3) /hpf Triple Phos Crystals (None) /hpf Hyaline Casts (0-3) /lpf Micro UA Comment Ur Microscopic Review Urine Culture Comments Urine Opiates Screen (Neg) Ur Barbiturates Screen (Neg) Phenytoin (10.0-20.0) mcg/mL Ur Amphetamines Screen (Neg) U Benzodiazepines Scrn (Neg) Urine Cocaine Screen (Neg) U Cannabinoids Screen (Neg) Serum Alcohol (0-5) mg/dL 05/16/18 05/16/18 05/16/18 Range/Units 08:39 08:51 08:51 WBC 6.1 (4.0-11.0) th/mm3 RBC 3.64 L (4.50-5.90) mil/mm3 Hgb 11.8 L (13.0-17.0) gm/dL Hct 33.7 L (39.0-51.0) % MCV 92.7 D (80.0-100.0) fL MCH 32.4 (27.0-34.0) pg MCHC 35.0 (32.0-36.0) % RDW 15.5 (11.6-17.2) % Plt Count 236 (150-450) th/mm3 MPV 7.7 (7.0-11.0) fL Neut % (Auto) 55.8 (16.0-70.0) % Lymph % (Auto) 30.5 (9.0-44.0) % [place] % (Auto) 11.1 H (0.0-8.0) % Eos % (Auto) 2.0 (0.0-4.0) % Baso % (Auto) 0.6 (0.0-2.0) % Neut # (Auto) 3.4 (1.8-7.7) th/mm3 Lymph # (Auto) 1.9 (1.0-4.8) th/mm3 [place] # (Auto) 0.7 (0.0-0.9) th/mm3 Eos # (Auto) 0.1 (0.0-0.4) th/mm3 Baso # (Auto) 0.0 (0.0-0.2) th/mm3 WBC Differential . Differential Comment Auto diff final PT 10.5 (9.8-11.6) sec INR 1.0 Ratio APTT (24.3-30.1) sec Sodium (136-145) meq/L Potassium (3.5-5.1) meq/L Chloride (98-107) meq/L Carbon Dioxide (21.0-32.0) meq/L Anion Gap (5-15) meq/L BUN (7-18) mg/dL Creatinine (0.60-1.30) mg/dL Estimated GFR (>89) mL/min POC Glucose 135 H (68-110) mg/dl Random Glucose (74-106) mg/dL Hemoglobin A1c (4.3-6.0) % Lactic Acid (0.4-2.0) mmol/L Calcium (8.5-10.1) mg/dL Phosphorus (2.5-4.9) mg/dL Magnesium (1.5-2.5) mg/dL Total Bilirubin (0.2-1.0) mg/dL Direct Bilirubin (0.0-0.2) mg/dL Indirect Bilirubin (0.0-0.8) mg/dL AST (15-37) U/L ALT (12-78) U/L Alkaline Phosphatase (45-117) U/L Ammonia (11-32) mcmol/L Total Creatine Kinase (39-308) U/L CK-MB (CK-2) (0.5-3.6) ng/mL CK-MB (CK-2) % (0.0-4.0) % Troponin I (0.02-0.05) ng/mL Total Protein (6.4-8.2) g/dL Albumin (3.4-5.0) g/dL TSH (0.358-3.740) uIU/mL Free T4 (0.76-1.46) ng/dL Total T3 (60-181) ng/dL Urine Color (Yellw/Straw) Urine Clarity (Clear) Urine pH (5.0-8.5) Ur Specific [place] (1.002-1.035) Urine Protein (Neg-Trace) mg/dL Urine Glucose (UA) (Negative) mg/dL Urine Ketones (Negative) mg/dL Urine Occult Blood (Negative) Urine Nitrate (Negative) Urine Bilirubin (Negative) Urine Urobilinogen (Less than 2) mg/dL Ur Leukocyte Esterase (Negative) Urine RBC (0-3) /hpf Triple Phos Crystals (None) /hpf Hyaline Casts (0-3) /lpf Micro UA Comment Ur Microscopic Review Urine Culture Comments Urine Opiates Screen (Neg) Ur Barbiturates Screen (Neg) Phenytoin (10.0-20.0) mcg/mL Ur Amphetamines Screen (Neg) U Benzodiazepines Scrn (Neg) Urine Cocaine Screen (Neg) U Cannabinoids Screen (Neg) Serum Alcohol (0-5) mg/dL 05/16/18 05/16/18 05/16/18 Range/Units 08:51 08:51 08:51 WBC (4.0-11.0) th/mm3 RBC (4.50-5.90) mil/mm3 Hgb (13.0-17.0) gm/dL Hct (39.0-51.0) % MCV (80.0-100.0) fL MCH (27.0-34.0) pg MCHC (32.0-36.0) % RDW (11.6-17.2) % Plt Count (150-450) th/mm3 MPV (7.0-11.0) fL Neut % (Auto) (16.0-70.0) % Lymph % (Auto) (9.0-44.0) % [place] % (Auto) (0.0-8.0) % Eos % (Auto) (0.0-4.0) % Baso % (Auto) (0.0-2.0) % Neut # (Auto) (1.8-7.7) th/mm3 Lymph # (Auto) (1.0-4.8) th/mm3 [place] # (Auto) (0.0-0.9) th/mm3 Eos # (Auto) (0.0-0.4) th/mm3 Baso # (Auto) (0.0-0.2) th/mm3 WBC Differential Differential Comment PT (9.8-11.6) sec INR Ratio APTT (24.3-30.1) sec Sodium 143 (136-145) meq/L Potassium 3.3 L D (3.5-5.1) meq/L Chloride 112 H (98-107) meq/L Carbon Dioxide 20.8 L D (21.0-32.0) meq/L Anion Gap 10 (5-15) meq/L BUN 9 (7-18) mg/dL Creatinine 1.11 (0.60-1.30) mg/dL Estimated GFR 83 L (>89) mL/min POC Glucose (68-110) mg/dl Random Glucose 83 (74-106) mg/dL Hemoglobin A1c (4.3-6.0) % Lactic Acid (0.4-2.0) mmol/L Calcium 8.7 (8.5-10.1) mg/dL Phosphorus 2.8 (2.5-4.9) mg/dL Magnesium 1.9 (1.5-2.5) mg/dL Total Bilirubin 0.3 (0.2-1.0) mg/dL Direct Bilirubin (0.0-0.2) mg/dL Indirect Bilirubin (0.0-0.8) mg/dL AST 14 L (15-37) U/L ALT 14 (12-78) U/L Alkaline Phosphatase 80 (45-117) U/L Ammonia 36 H (11-32) mcmol/L Total Creatine Kinase (39-308) U/L CK-MB (CK-2) (0.5-3.6) ng/mL CK-MB (CK-2) % (0.0-4.0) % Troponin I (0.02-0.05) ng/mL Total Protein 6.9 D (6.4-8.2) g/dL Albumin 3.1 L D (3.4-5.0) g/dL TSH (0.358-3.740) uIU/mL Free T4 0.80 (0.76-1.46) ng/dL Total T3 (60-181) ng/dL Urine Color (Yellw/Straw) Urine Clarity (Clear) Urine pH (5.0-8.5) Ur Specific [place] (1.002-1.035) Urine Protein (Neg-Trace) mg/dL Urine Glucose (UA) (Negative) mg/dL Urine Ketones (Negative) mg/dL Urine Occult Blood (Negative) Urine Nitrate (Negative) Urine Bilirubin (Negative) Urine Urobilinogen (Less than 2) mg/dL Ur Leukocyte Esterase (Negative) Urine RBC (0-3) /hpf Triple Phos Crystals (None) /hpf Hyaline Casts (0-3) /lpf Micro UA Comment Ur Microscopic Review Urine Culture Comments Urine Opiates Screen (Neg) Ur Barbiturates Screen (Neg) Phenytoin (10.0-20.0) mcg/mL Ur Amphetamines Screen (Neg) U Benzodiazepines Scrn (Neg) Urine Cocaine Screen (Neg) U Cannabinoids Screen (Neg) Serum Alcohol (0-5) mg/dL 05/16/18 05/16/18 05/16/18 Range/Units 12:16 12:38 17:15 WBC (4.0-11.0) th/mm3 RBC (4.50-5.90) mil/mm3 Hgb (13.0-17.0) gm/dL Hct (39.0-51.0) % MCV (80.0-100.0) fL MCH (27.0-34.0) pg MCHC (32.0-36.0) % RDW (11.6-17.2) % Plt Count (150-450) th/mm3 MPV (7.0-11.0) fL Neut % (Auto) (16.0-70.0) % Lymph % (Auto) (9.0-44.0) % [place] % (Auto) (0.0-8.0) % Eos % (Auto) (0.0-4.0) % Baso % (Auto) (0.0-2.0) % Neut # (Auto) (1.8-7.7) th/mm3 Lymph # (Auto) (1.0-4.8) th/mm3 [place] # (Auto) (0.0-0.9) th/mm3 Eos # (Auto) (0.0-0.4) th/mm3 Baso # (Auto) (0.0-0.2) th/mm3 WBC Differential Differential Comment PT (9.8-11.6) sec INR Ratio APTT (24.3-30.1) sec Sodium (136-145) meq/L Potassium (3.5-5.1) meq/L Chloride (98-107) meq/L Carbon Dioxide (21.0-32.0) meq/L Anion Gap (5-15) meq/L BUN (7-18) mg/dL Creatinine (0.60-1.30) mg/dL Estimated GFR (>89) mL/min POC Glucose 87 128 H (68-110) mg/dl Random Glucose (74-106) mg/dL Hemoglobin A1c (4.3-6.0) % Lactic Acid (0.4-2.0) mmol/L Calcium (8.5-10.1) mg/dL Phosphorus (2.5-4.9) mg/dL Magnesium (1.5-2.5) mg/dL Total Bilirubin (0.2-1.0) mg/dL Direct Bilirubin (0.0-0.2) mg/dL Indirect Bilirubin (0.0-0.8) mg/dL AST (15-37) U/L ALT (12-78) U/L Alkaline Phosphatase (45-117) U/L Ammonia (11-32) mcmol/L Total Creatine Kinase (39-308) U/L CK-MB (CK-2) (0.5-3.6) ng/mL CK-MB (CK-2) % (0.0-4.0) % Troponin I (0.02-0.05) ng/mL Total Protein (6.4-8.2) g/dL Albumin (3.4-5.0) g/dL TSH (0.358-3.740) uIU/mL Free T4 (0.76-1.46) ng/dL Total T3 69 (60-181) ng/dL Urine Color (Yellw/Straw) Urine Clarity (Clear) Urine pH (5.0-8.5) Ur Specific [place] (1.002-1.035) Urine Protein (Neg-Trace) mg/dL Urine Glucose (UA) (Negative) mg/dL Urine Ketones (Negative) mg/dL Urine Occult Blood (Negative) Urine Nitrate (Negative) Urine Bilirubin (Negative) Urine Urobilinogen (Less than 2) mg/dL Ur Leukocyte Esterase (Negative) Urine RBC (0-3) /hpf Triple Phos Crystals (None) /hpf Hyaline Casts (0-3) /lpf Micro UA Comment Ur Microscopic Review Urine Culture Comments Urine Opiates Screen (Neg) Ur Barbiturates Screen (Neg) Phenytoin (10.0-20.0) mcg/mL Ur Amphetamines Screen (Neg) U Benzodiazepines Scrn (Neg) Urine Cocaine Screen (Neg) U Cannabinoids Screen (Neg) Serum Alcohol (0-5) mg/dL 05/17/18 05/17/18 Range/Units 08:45 08:45 WBC (4.0-11.0) th/mm3 RBC (4.50-5.90) mil/mm3 Hgb (13.0-17.0) gm/dL Hct (39.0-51.0) % MCV (80.0-100.0) fL MCH (27.0-34.0) pg MCHC (32.0-36.0) % RDW (11.6-17.2) % Plt Count (150-450) th/mm3 MPV (7.0-11.0) fL Neut % (Auto) (16.0-70.0) % Lymph % (Auto) (9.0-44.0) % [place] % (Auto) (0.0-8.0) % Eos % (Auto) (0.0-4.0) % Baso % (Auto) (0.0-2.0) % Neut # (Auto) (1.8-7.7) th/mm3 Lymph # (Auto) (1.0-4.8) th/mm3 [place] # (Auto) (0.0-0.9) th/mm3 Eos # (Auto) (0.0-0.4) th/mm3 Baso # (Auto) (0.0-0.2) th/mm3 WBC Differential Differential Comment PT (9.8-11.6) sec INR Ratio APTT (24.3-30.1) sec Sodium 142 (136-145) meq/L Potassium 3.6 (3.5-5.1) meq/L Chloride 109 H (98-107) meq/L Carbon Dioxide 23.4 (21.0-32.0) meq/L Anion Gap 10 (5-15) meq/L BUN 7 (7-18) mg/dL Creatinine 0.97 (0.60-1.30) mg/dL Estimated GFR Greater than 89 (>89) mL/min POC Glucose (68-110) mg/dl Random Glucose 88 (74-106) mg/dL Hemoglobin A1c (4.3-6.0) % Lactic Acid (0.4-2.0) mmol/L Calcium 8.8 (8.5-10.1) mg/dL Phosphorus 2.9 (2.5-4.9) mg/dL Magnesium 1.7 (1.5-2.5) mg/dL Total Bilirubin 0.2 (0.2-1.0) mg/dL Direct Bilirubin 0.1 (0.0-0.2) mg/dL Indirect Bilirubin 0.1 (0.0-0.8) mg/dL AST 15 (15-37) U/L ALT 16 (12-78) U/L Alkaline Phosphatase 77 (45-117) U/L Ammonia (11-32) mcmol/L Total Creatine Kinase (39-308) U/L CK-MB (CK-2) (0.5-3.6) ng/mL CK-MB (CK-2) % (0.0-4.0) % Troponin I (0.02-0.05) ng/mL Total Protein 7.0 (6.4-8.2) g/dL Albumin 3.0 L (3.4-5.0) g/dL TSH (0.358-3.740) uIU/mL Free T4 (0.76-1.46) ng/dL Total T3 (60-181) ng/dL Urine Color (Yellw/Straw) Urine Clarity (Clear) Urine pH (5.0-8.5) Ur Specific [place] (1.002-1.035) Urine Protein (Neg-Trace) mg/dL Urine Glucose (UA) (Negative) mg/dL Urine Ketones (Negative) mg/dL Urine Occult Blood (Negative) Urine Nitrate (Negative) Urine Bilirubin (Negative) Urine Urobilinogen (Less than 2) mg/dL Ur Leukocyte Esterase (Negative) Urine RBC (0-3) /hpf Triple Phos Crystals (None) /hpf Hyaline Casts (0-3) /lpf Micro UA Comment Ur Microscopic Review Urine Culture Comments Urine Opiates Screen (Neg) Ur Barbiturates Screen (Neg) Phenytoin 14.5 (10.0-20.0) mcg/mL Ur Amphetamines Screen (Neg) U Benzodiazepines Scrn (Neg) Urine Cocaine Screen (Neg) U Cannabinoids Screen (Neg) Serum Alcohol (0-5) mg/dL Imaging Data Radiologist's impression: Chest X-Ray 05/15/18 06:45 CONCLUSION: Increasing parenchymal opacity left upper lobe. Head CT 05/15/18 06:45 CONCLUSION: 1. Stable noncontrast head CT, negative for acute process. . Ankle X-Ray 05/15/18 07:06 CONCLUSION: Soft tissue defect as above without osteomyelitis. 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
[2018-05-15 07:31] LABS: Baso # (Auto) 0.1 th/mm3 (0.0-0.2); Baso % (Auto) 0.6 % (0.0-2.0); Eos # (Auto) 0.2 th/mm3 (0.0-0.4); Eos % (Auto) 1.9 % (0.0-4.0); Hematocrit 38.6 % (39.0-51.0); Hemoglobin 12.5 gm/dL (13.0-17.0); Lymph # (Auto) 3.3 th/mm3 (1.0-4.8); Lymph % (Auto) 27.1 % (9.0-44.0); Mean Corpuscular HGB Conc 32.4 % (32.0-36.0); Mean Corpuscular Hemoglobin 31.6 pg (27.0-34.0); Mean Corpuscular Volume 97.6 fL (80.0-100.0); Mean Platelet Volume 8.3 fL (7.0-11.0); Mono # (Auto) 1.3 th/mm3 (0.0-0.9); Mono % (Auto) 10.4 % (0.0-8.0); Neut # (Auto) 7.4 th/mm3 (1.8-7.7); Platelet Count 304 th/mm3 (150-450); Red Blood Count 3.96 mil/mm3 (4.50-5.90); Red Cell Distribution Width 16.1 % (11.6-17.2); White Blood Count 12.3 th/mm3 (4.0-11.0)
[2018-05-15 07:40] LABS: Activated Partial Thrombo Time 22.4 sec (24.3-30.1); Prothrombin Time 10.5 sec (9.8-11.6)
[2018-05-15 07:54] LABS: Alkaline Phosphatase 100 U/L (45-117); Phenytoin (Dilantin) 3.6 mcg/mL (10.0-20.0); Total Protein 8.6 g/dL (6.4-8.2)
--- NOTE | 2018-05-15 07:55 | XR ---
EXAM DATE: 05/15/2018 6:45 AM EDT AGE/SEX: 57 years / Male INDICATIONS: Fever. CLINICAL DATA: This is the patient's initial encounter. Patient reports that signs and symptoms have been present for 1 day and indicates a pain score of Nonresponsive. MEDICAL/SURGICAL HISTORY: Non-responsive. Non-responsive. COMPARISON: [facility] [place], CHEST SINGLE AP, 02/18/2016. . FINDINGS: Minimal increase in parenchymal opacity left upper lobe. Right lung clear. The heart and pulmonary vascularity are normal. The portion of the bony skeleton visualized is unremarkable. CONCLUSION: Increasing parenchymal opacity left upper lobe. Electronically signed by: Donte Carter MD 05/15/2018 7:54 AM EDT
--- NOTE | 2018-05-15 08:01 | XR ---
EXAM DATE: 05/15/2018 7:06 AM EDT AGE/SEX: 57 years / Male INDICATIONS: Right ankle pain, wound on medial side of leg. CLINICAL DATA: This is the patient's initial encounter. Patient reports that signs and symptoms have been present for 1 day and indicates a pain score of Nonresponsive. MEDICAL/SURGICAL HISTORY: Non-responsive. Non-responsive. COMPARISON: [facility], FOOT COMPLETE RIGHT 3V, 03/13/2018. . FINDINGS: Soft tissue defect medial side of the leg without foreign body or radiographic nephrostomy myelitis. CONCLUSION: Soft tissue defect as above without osteomyelitis. Electronically signed by: Donte Carter MD 05/15/2018 7:59 AM EDT
[2018-05-15] MEDS ORDERED: Vancomycin Inj 1,000 MG in Sodium Chlor 0.9% Inj 250 ML IV.SIG STA (08:02)
[2018-05-15] MEDS ORDERED: Piperacil/Tazo 4.5 GM Premix 4.5 GM/100 ML BAG IV.SIG STA (08:02)
[2018-05-15 08:04] LABS: Alanine Aminotransferase 20 U/L (12-78); Albumin 3.9 g/dL (3.4-5.0); Anion Gap 25 meq/L (5-15); Aspartate Aminotransferase 25 U/L (15-37); Blood Urea Nitrogen 19 mg/dL (7-18); Calcium 8.8 mg/dL (8.5-10.1); Carbon Dioxide 8.2 meq/L (21.0-32.0); Chloride 109 meq/L (98-107); Glomerular Filtration Rate 46 mL/min (>89); Glucose,Random 117 mg/dL (74-106); Potassium 4.2 meq/L (3.5-5.1); Sodium 142 meq/L (136-145)
[2018-05-15] MEDS ORDERED: Sod Chloride 0.9% Inj 400 ML IV.SIG SCH (08:15)
[2018-05-15] MEDS ORDERED: Sod Chloride 0.9% Inj 1,000 ML IV.SIG SCH ×2 (08:15)
--- NOTE | 2018-05-15 08:39 | CT ---
EXAM DATE: 05/15/2018 7:35 AM EDT AGE/SEX: 57 years / Male INDICATIONS: Patient drank all night and had 3 seizures this morning. CLINICAL DATA: This is the patient's initial encounter. Patient reports that signs and symptoms have been present for 1 day and indicates a pain score of Nonresponsive. MEDICAL/SURGICAL HISTORY: Seizures. Deep venous thrombosis. None. RADIATION DOSE: 34.87 CTDI (mGy) COMPARISON: [facility] [place], CT BRAIN W/O CONTRAST, 02/25/2016. . TECHNIQUE: CT of the head without contrast. Using automated exposure control and adjustment of the mA and/or kV according to patient size, radiation dose was kept as low as reasonably achievable to ob tain optimal diagnostic quality images. DICOM format image data is available electronically for revi ew and comparison. FINDINGS: Cerebrum: Old area of encephalomalacia in the right orbital frontal region and right advent region. Minimal inflammation is seen in the undersurface of the left frontal lobe. Ventricular size is appropriate. There are no extra-axial fluid collections appreciated. There is no parenchymal hemorrhage. Posterior fossa is unremarkable. CONCLUSION: 1. Stable noncontrast head CT, negative for acute process. . Electronically signed by: Donte Carter MD 05/15/2018 8:38 AM EDT
[2018-05-15] MEDS ORDERED: Water Sterile for Irr Bot 700 ML, Lactulose Liq 300 ML RECTAL ONE ×2 (08:56)
[2018-05-15] MEDS ORDERED: Bisacodyl 10 MG Supp RECTAL PRN ×2 (08:59→09:00)
[2018-05-15] MEDS ORDERED: Senna/Docusate Sodium 8.6/50 MG Tablet PO SCH (09:00)
[2018-05-15] MEDS ORDERED: Acetaminophen 325 MG Tablet PO PRN (09:00)
[2018-05-15] MEDS ORDERED: LORazepam 1 MG Tablet PO PRN (09:02)
[2018-05-15] MEDS ORDERED: Haloperidol Inj 5 MG/ML Ampul IV.PUSH PRN (09:02)
[2018-05-15] MEDS ORDERED: Phenytoin Inj 1,000 MG in Sodium Chlor 0.9% Inj 100 ML IV.SIG ONE (09:30)
[2018-05-15] MEDS ORDERED: Vancomycin Consult Pharmacy 1 EACH OTHER SCH (09:45)
--- NOTE | 2018-05-15 10:19 | P.HPIM ---
History of Present Illness Service: [facility] Primary Care Physician: UNKNOWN Chief Complaint: seizures History of Present Illness: Patient is a 57-year-old female who was brought in by the emergency services. Patient was postictal originally. Is now starting to wake up. Patient has history of seizure disorder is not very compliant with medications. He has been homeless but has been sleeping in someone's couch. He states he drinks alcohol pretty much daily had a couple seizures at this home. And then paramedics thought he was altered postictal. Then he had another seizure was given Versed. Route to the emergency department was not able to get much history now. Supposed to be on Dilantin which he has not been taking too often. Has history of substance abuse and alcohol abuse. Had been in the hospital for wound to the right lower extremity. With debridement and wound VAC close antibiotics and antifungals. Had extensive cellulitis of the right lower extremity had been discharged on April 15 Inpatient Certification: I certify that the inpatient services were ordered in accordance with Medicare regulations governing the order. This includes certification that hospital inpatient services are reasonable and necessary and in the case of services not specified as inpatient-only under 42 CFR 419.22(n), that they are appropriately provided as inpatient services in accordance to with the 2-midnight benchmark under 43 CFR 412.3(e) Estimated Total Length of Stay (Days): 4 Plans for Post Hospital Care: Not yet determined PMFSH - History History Provided By: Medical Record - Medical History Medical History: Medical History (Last Updated 05/15/18 @ 10:12 by Donte Torre DO) Wound of right lower extremity DVT (deep venous thrombosis) Seizure - Surgical History Surgical History: Surgical History (Last Reviewed 03/22/18 @ 17:49 by Yvonne Rios MD) No history of previous surgery - Family History Family History: Family History (Last Updated 05/15/18 @ 10:12 by Donte Torre DO) Other Family history of diabetes mellitus Family history of hypertension - Tobacco History Second Hand Smoke Exposure: Yes Tobacco Use In Past 30 Days: Yes Smoking Status: Current every day smoker Tobacco Type: Cigarettes - Alcohol History How Often Do You Have a Drink Containing Alcohol: 4 or more times a week - Substance Use History Substance History: No History of Abuse - Travel History History of Recent Travel: No Recent Travel in the [facility] Within the Last 8 Weeks: No Recent Travel Out of the Country Within the Last 8 Weeks: No - Immunization History Tetanus Immunization: Unsure Hx Influenza Vaccine This Season: No Medications and Allergies Active Medications: Active Medications Acetaminophen (Tylenol) 650 mg PO Q4H PRN PRN Reason: Temp > 100.4 Al Hydroxide/Mg Hydroxide (Milk Of Magnesia Liq) 30 ml PO Q12H PRN PRN Reason: Mild Constipation Al Hydroxide/Mg Hydroxide (Milk Of Magnesia Liq) 30 ml PO Q12H PRN PRN Reason: Mild Constipation Bisacodyl (Dulcolax Supp) 10 mg RECTAL DAILY PRN PRN Reason: SEVERE CONSITIPATION Bisacodyl (Dulcolax Supp) 10 mg RECTAL DAILY PRN PRN Reason: SEVERE CONSITIPATION Clonidine HCl (Catapres) 0.1 mg PO Q6H PRN PRN Reason: For SBP >/= 180, DBP >/= 100 Flumazenil (Romazecon Inj) 0.2 mg IV.PUSH Q1M PRN PRN Reason: OVERSEDATION Folic Acid (Folic Acid) 1 mg PO DAILY DAGOBERTO Stop: 05/20/18 09:14 Haloperidol Lactate (Haldol Inj) 1 mg IV.PUSH Q15M PRN PRN Reason: for severe agitation Heparin Sodium (Porcine) (Heparin Inj) 5,000 units SQ Q8H [facility] Sodium Chloride (Ns Inj) 1,000 mls @ 0 mls/hr IV.SIG .Q0M [facility] Last Admin: 05/15/18 08:38 Dose: 1,000 mls/hr Sodium Chloride (Ns Inj) 1,000 mls @ 0 mls/hr IV.SIG .Q0M DAGOBERTO Sodium Chloride (Ns Inj) 400 mls @ 0 mls/hr IV.SIG .Q0M DAGOBERTO Phenytoin Sodium 1,000 mg/ (Sodium Chloride) 120 mls @ 120 mls/hr IV.SIG ONCE ONE Stop: 05/15/18 10:29 Piperacillin/Tazobactam/Dextrose (Zosyn 3.375 Gm Premix) 50 mls @ 100 mls/hr IV.SIG Q8H [facility] Pharmacy Profile Note (Vancomycin Consult Pharmacy) 0 mls @ 0 mls/hr OTHER UNSCH DAGOBERTO Lactulose (Lactulose Liq) 30 ml PO DAILY PRN PRN Reason: SEVERE CONSITIPATION Lactulose (Lactulose Liq) 30 ml PO Q6H DAGOBERTO Lorazepam (Ativan) 1 mg PO Q4H PRN PRN Reason: for CIWA 8-10 Lorazepam (Ativan) 2 mg PO Q2H PRN PRN Reason: for CIWA 11-14 Lorazepam (Ativan Inj) 2 mg IV.PUSH Q2H PRN PRN Reason: for CIWA 11-14 Lorazepam (Ativan Inj) 2 mg IV.PUSH Q1H PRN PRN Reason: for CIWA 15-20 Lorazepam (Ativan Inj) 2 mg IV.PUSH Q15M PRN PRN Reason: for CIWA > 20 Lorazepam (Ativan Inj) 1 mg IV.PUSH Q4H PRN PRN Reason: for CIWA 8-10 Multivitamins/Minerals (Theragran-M) 1 tab PO DAILY [facility] Stop: 05/20/18 09:14 Ondansetron HCl (Zofran Inj) 4 mg IV.PUSH Q6H PRN PRN Reason: NAUSEA OR VOMITING Pantoprazole Sodium (Protonix) 40 mg PO DAILY DAGOBERTO Phenytoin Sodium (Dilantin) 400 mg PO HS [facility] Senna/Docusate Sodium (Pily-Colace) 1 tab PO BID [facility] Sennosides (Senokot) 17.2 mg PO Q12H PRN PRN Reason: Moderate Constipation Thiamine HCl (Vitamin B1) 100 mg PO DAILY [facility] Allergies Allergy/AdvReac Type Severity Reaction Status Date / Time No Known Allergies Allergy Verified 03/13/18 16:17 Exam Vital signs: Vital Signs 05/15/18 06:34 05/15/18 06:39 05/15/18 08:00 Temperature 97.7 F Pulse Rate 95 H 89 92 H Respiratory Rate 20 20 25 H Blood Pressure 171/89 H 168/88 H 130/71 Pulse Oximetry 97 98 97 05/15/18 09:00 Temperature Pulse Rate 71 Respiratory Rate 21 Blood Pressure 142/77 H Pulse Oximetry 97 Intake & Output 05/14/18 05/15/18 05/15/18 18:59 06:59 18:59 Weight 77.111 kg Narrative: GENERAL: Alert and oriented x3 talkative and cooperative slow to respond secondary to being postictal SKIN: Warm and dry. Right medial aspect of the ankle with chronic large wound very slowly healing HEAD: Atraumatic. Normocephalic. EYES: Pupils equal and round. No scleral icterus. No injection or drainage. EOMI ENT: No nasal bleeding or discharge. Mucous membranes pink and moist. Poor dentition NECK: Trachea midline. No JVD. Supple CARDIOVASCULAR: Regular rate and rhythm. S1-S2 no S3 or S4 RESPIRATORY: No accessory muscle use. Clear to auscultation. Breath sounds equal bilaterally. GASTROINTESTINAL: Abdomen soft, non-tender, nondistended. Hepatic and splenic margins not palpable. MUSCULOSKELETAL: Extremities without clubbing, cyanosis, or edema. No obvious deformities. NEUROLOGICAL: Awake and alert. No obvious cranial nerve deficits. Motor grossly within normal limits. Five out of 5 muscle strength in the arms and legs. Normal speech. Right lower extremity with chronic wound on the medial aspect of ankle PSYCHIATRIC: Appropriate mood and affect; insight and judgment ABnormal. Results - Labs CBC & Chem 7: 05/15/18 07:10 05/15/18 07:10 Labs: Short CBC 05/15/18 Range/Units 07:10 WBC 12.3 H (4.0-11.0) th/mm3 Hgb 12.5 L (13.0-17.0) gm/dL Hct 38.6 L (39.0-51.0) % Plt Count 304 (150-450) th/mm3 BMP 05/15/18 07:10 Sodium 142 Potassium 4.2 Chloride 109 H Carbon Dioxide 8.2 L BUN 19 H Creatinine 1.85 H Calcium 8.8 Liver Function 05/15/18 Range/Units 07:10 Total Bilirubin 0.2 (0.2-1.0) mg/dL AST 25 (15-37) U/L ALT 20 (12-78) U/L Alkaline Phosphatase 100 (45-117) U/L Albumin 3.9 (3.4-5.0) g/dL - Imaging Impressions Chest X-Ray 05/15/18 06:45 CONCLUSION: Increasing parenchymal opacity left upper lobe. Head CT 05/15/18 06:45 CONCLUSION: 1. Stable noncontrast head CT, negative for acute process. . Ankle X-Ray 05/15/18 07:06 CONCLUSION: Soft tissue defect as above without osteomyelitis. Caprini VTE Risk Assessment Caprini VTE Risk Assessment: Moderate/High Risk (score >= 2) Caprini Risk Assessment Model: Point Value = 1 Point Value = 2 Point Value = 3 Point Value = 5 Age 41-60 Minor surgery BMI > 25 kg/m2 Swollen legs Varicose veins or History of unexplained or recurrent spontaneous Oral contraceptives or hormone replacement Sepsis (< 1 month) Serious lung disease, including pneumonia (< 1 month) Abnormal pulmonary function Acute myocardial infarction Congestive heart failure (< 1 month) History of inflammatory bowel disease Medical patient at bed rest Age 61-74 Arthroscopic surgery Major open surgery (> 45 min) Laparoscopic surgery (> 45 min) Malignancy Confined to bed (> 72 hours) Immobilizing plaster cast Central venous access Age >= 75 History of VTE Family history of VTE Factor V Leiden Prothrombin [id number] Lupus anticoagulant Anticardiolipin antibodies Elevated serum homocysteine Heparin-induced thrombocytopenia Other congenital or acquired thrombophilia Stroke (< 1 month) Elective arthroplasty Hip, pelvis, or leg fracture Acute spinal cord injury (< 1 month) Prophylaxis Regimen: Total Risk Factor Score Risk Level Prophylaxis Regimen 0-1 Low Early ambulation 2 Moderate Order ONE of the following: *Sequential Compression Device (SCD) *Heparin 5000 units SQ BID 3-4 Higher Order ONE of the following medications: *Heparin 5000 units SQ TID *Enoxaparin/Lovenox 40 mg SQ daily (WT < 150 kg, CrCl > 30 mL/min) *Enoxaparin/Lovenox 30 mg SQ daily (WT < 150 kg, CrCl > 10-29 mL/min) *Enoxaparin/Lovenox 30 mg SQ BID (WT < 150 kg, CrCl > 30 mL/min) AND/OR *Sequential Compression Device (SCD) 5 or more Highest Order ONE of the following medications: *Heparin 5000 units SQ TID (Preferred with Epidurals) *Enoxaparin/Lovenox 40 mg SQ daily (WT < 150 kg, CrCl > 30 mL/min) *Enoxaparin/Lovenox 30 mg SQ daily (WT < 150 kg, CrCl > 10-29 mL/min) *Enoxaparin/Lovenox 30 mg SQ BID (WT < 150 kg, CrCl > 30 mL/min) AND *Sequential Compression Device (SCD) Assessment and Plan - Plan Seizure disorder -Noncompliance with medications -Loaded with Dilantin -Continue with p.o. 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 TSH is elevated will add Synthroid 25 MCG's p.o. day Dilantin level is low will reload Dilantin Continue GI and DVT prophylaxis Code Status: Full code Discussed Condition With: RN and patient and emergency room physician Discharge Planning: Once cleared by all for discharge and improved
[2018-05-15] MEDS: Heparin - SQ 10,000 UNITS/ML Vial SQ SCH ×2 (10:29→17:02)
[2018-05-15 10:43] LABS: Amphetamine Screen,Urine Neg (Neg); Barbiturate Screen,Urine Neg (Neg); Bilirubin,Urine Negative (Negative); Cannabinoid Screen,Urine Pos (Neg); Clarity,Urine Hazy (Clear); Cocaine Screen,Urine Pos (Neg); Color,Urine Straw (Yellw/Straw); Glucose,Urine (UA) Negative (Negative); Hyaline Casts,Urine 3 /lpf (0-3); Leukocyte Esterase,Urine Negative (Negative); Nitrite,Urine Negative (Negative); Specific Gravity,Urine 1.012 (1.002-1.035); Triple Phosphate Crystal,Urine Rare /hpf
[2018-05-15 10:47] LABS: Opiate Screen,Urine Neg (Neg)
[2018-05-15] MEDS: Multivitamin/Minerals Therapeutic Tablet PO SCH (11:19)
[2018-05-15] MEDS: Senna/Docusate Sodium 8.6/50 MG Tablet PO SCH ×2 (11:20→20:48)
[2018-05-15] MEDS: Folic Acid 1 MG Tablet PO SCH (11:20)
[2018-05-15 13:12] LABS: Magnesium 2.1 mg/dL (1.5-2.5); Phosphorus 2.4 mg/dL (2.5-4.9)
[2018-05-15 13:15] LABS: Creatine Kinase 384 U/L (39-308)
[2018-05-15 13:27] LABS: CKMB Percent 0.8 % (0.0-4.0); Creatine Kinase MB 3.2 ng/mL (0.5-3.6)
[2018-05-15 15:20] LABS: Hemoglobin A1c 5.1 % (4.3-6.0)
[2018-05-15] MEDS: Piperacil/Tazo 3.375 GM Premix 50 ML IV.SIG SCH (17:02)
--- NOTE | 2018-05-15 17:57 | P.PNWCN ---
Wound Care Nurse Consult Description: Received wound management consult for wound management of RLE wounds from Doctor Torre Communicated with: Doctor Torre and LAURA Shane [facility] Recommendation: Please leave dressing of hydrogel, puracol plus, maxorb II, ABD pad, rolled gauze, and maribel wrap in place for 1 week. Patient needs to follow up with wound care outpatient Doctor Dane when discharged. Wound/Pressure Injury - Patient Status Premedicated for Pain Prior to Dressing Change: No - Wound Right medial lower leg Wound Assessment: Admission Wound Type: Traumatic Wound Is This a Chronic Wound: Yes Requested from Provider a Wound Care Consult: Yes Length (cm): 7.5 (~7.5cm) Width (cm): 4.5 (~4.5cm) Depth (cm): 0.5 (~0.5cm) Wound Bed Appearance: Red, Yellow Wound Bed Appearance: Wound bed presents with ~80% dry granulation tissue and ~20% dry yellow tissue. Surrounding Tissue Temperature: Cool Drainage Amount: None Drainage Odor: No Odor Dressing Status: Changed Cleansing Solution: Saline Topical: hydrogel Wound Packing Type: Collagen (puracol plus) Primary Dressing: maxorb II Cover Dressing: gauze pads, ABD pad, secured with rolled gauze , tape and MARIBEL Wound Dressing Change Date: 05/15/18 Wound Margin Description: Wound margins are steep and open - Additional Information Patient seen on [facility] for wound management of R lower extremity wound. Patient seen and assessed with the assistance of LAURA Shane [facility] and entry writer. patient's wound is observed open to air to R medial lower leg. Wound was cleansed with normal saline gauze pad. Wound measurements and descriptions are noted above. Spoke with Doctor Vela, who sees patient for outpatient wound care.Doctor wants puracol plus, maxorb II, gauze, ABD pad and lizz for dressing to RLE.Patient is oberved with dry wound bed. Small amount of hydrogel was applied to wound bed before covering wound with puracol plus, maxorb II, gauze pads, ABD pad, secured with rolled gauze and tape. RN to further secure dressing with MARIBEL wrap to hold in place, not to provide compression.
[2018-05-15 19:39] LABS: Creatine Kinase 388 U/L (39-308)
[2018-05-15 19:51] LABS: CKMB Percent 0.7 % (0.0-4.0); Creatine Kinase MB 2.8 ng/mL (0.5-3.6)
[2018-05-15] MEDS: Phenytoin Sodium 100 MG Capsule PO SCH (20:47)
[2018-05-16] MEDS: Piperacil/Tazo 3.375 GM Premix 50 ML IV.SIG SCH ×3 (01:05→17:16)
[2018-05-16] MEDS: Heparin - SQ 10,000 UNITS/ML Vial SQ SCH ×3 (01:05→17:16)
[2018-05-16 09:00] LABS: Baso % (Auto) 0.6 % (0.0-2.0); Eos # (Auto) 0.1 th/mm3 (0.0-0.4); Hematocrit 33.7 % (39.0-51.0); Hemoglobin 11.8 gm/dL (13.0-17.0); Lymph # (Auto) 1.9 th/mm3 (1.0-4.8); Lymph % (Auto) 30.5 % (9.0-44.0); Mean Corpuscular Hemoglobin 32.4 pg (27.0-34.0); Mean Corpuscular Volume 92.7 fL (80.0-100.0); Mean Platelet Volume 7.7 fL (7.0-11.0); Mono # (Auto) 0.7 th/mm3 (0.0-0.9); Mono % (Auto) 11.1 % (0.0-8.0); Neut # (Auto) 3.4 th/mm3 (1.8-7.7); Neut % (Auto) 55.8 % (16.0-70.0); Platelet Count 236 th/mm3 (150-450); Red Blood Count 3.64 mil/mm3 (4.50-5.90); Red Cell Distribution Width 15.5 % (11.6-17.2); White Blood Count 6.1 th/mm3 (4.0-11.0)
[2018-05-16 09:08] LABS: Prothrombin Time 10.5 sec (9.8-11.6)
[2018-05-16 09:30] LABS: Alanine Aminotransferase 14 U/L (12-78); Albumin 3.1 g/dL (3.4-5.0); Alkaline Phosphatase 80 U/L (45-117); Anion Gap 10 meq/L (5-15); Aspartate Aminotransferase 14 U/L (15-37); Blood Urea Nitrogen 9 mg/dL (7-18); Calcium 8.7 mg/dL (8.5-10.1); Carbon Dioxide 20.8 meq/L (21.0-32.0); Chloride 112 meq/L (98-107); Glomerular Filtration Rate 83 mL/min (>89); Glucose,Random 83 mg/dL (74-106); Magnesium 1.9 mg/dL (1.5-2.5); Phosphorus 2.8 mg/dL (2.5-4.9); Potassium 3.3 meq/L (3.5-5.1); Sodium 143 meq/L (136-145); Total Protein 6.9 g/dL (6.4-8.2)
[2018-05-16] MEDS: Senna/Docusate Sodium 8.6/50 MG Tablet PO SCH ×2 (09:37→21:12)
[2018-05-16] MEDS: Multivitamin/Minerals Therapeutic Tablet PO SCH (09:37)
[2018-05-16] MEDS: Folic Acid 1 MG Tablet PO SCH (09:37)
[2018-05-16] MEDS: Vancomycin Inj 1,250 MG in Sodium Chlor 0.9% Inj 250 ML IV.SIG SCH (10:18)
[2018-05-16] MEDS ORDERED: Potassium Chloride 25 MEQ Effervescent Tablet PO ONE (10:28)
--- NOTE | 2018-05-16 10:29 | P.PNIM ---
Subjective Interval history: The patient was sitting up in a chair. He denied any acute complaints. He said he only drinks 1 or 2 beers a day. He says he is currently homeless. He says he has been taking his phenytoin, which has recently been increased. Discussed with nursing. Physical Exam Vital signs: Vital Signs 05/15/18 11:38 05/15/18 12:00 05/15/18 13:00 Temperature 98.1 F Pulse Rate 62 68 58 L Respiratory Rate 25 H 16 Blood Pressure 149/94 H 136/83 Pulse Oximetry 100 05/15/18 14:00 05/15/18 15:00 05/15/18 16:00 Temperature 98.8 F Pulse Rate 60 57 L 60 Respiratory Rate 18 Blood Pressure 130/83 Pulse Oximetry 99 05/15/18 17:00 05/15/18 18:00 05/15/18 19:00 Temperature Pulse Rate 60 72 75 Respiratory Rate Blood Pressure Pulse Oximetry 05/15/18 20:00 05/15/18 21:00 05/15/18 22:00 Temperature 98.7 F Pulse Rate 85 80 82 Respiratory Rate 18 Blood Pressure 120/66 Pulse Oximetry 05/15/18 23:00 05/16/18 00:00 05/16/18 01:00 Temperature 98.6 F Pulse Rate 87 84 78 Respiratory Rate Blood Pressure 117/71 Pulse Oximetry 05/16/18 02:00 05/16/18 03:00 05/16/18 04:00 Temperature 98.5 F Pulse Rate 84 84 65 Respiratory Rate 18 Blood Pressure 135/77 Pulse Oximetry 99 05/16/18 05:00 05/16/18 06:00 05/16/18 08:00 Temperature 99.3 F Pulse Rate 65 67 65 Respiratory Rate 18 Blood Pressure 125/84 Pulse Oximetry 99 Intake & Output 05/15/18 05/16/18 05/16/18 18:59 06:59 18:59 Intake Total 4000 / 4000 290 / 290 50 / 50 Output Total 1100 / 1100 650 / 650 Balance 2900 / 2900 -360 / -360 50 / 50 Weight 66 kg Intake: IV 3520 / 3520 50 / 50 50 / 50 Dilantin Inj 1,000 MG In NS Inj 120 / 120 100 ML @ 120 mls/hr IV.SIG ONCE ONE Rx#:[id number] Zosyn 3.375 GM Premix 50 ML @ 50 / 50 50 / 50 50 / 50 100 mls/hr IV.SIG Q8H DAGOBERTO Rx#: [id number] Zosyn 4.5 GM Premix 4.5 gm In 100 / 100 100 ml @ 200 mls/hr IV.SIG STAT STA Rx#:[id number] NS Inj 400 ML @ Wide Open IV. 3000 / 3000 SIG .Q0M DAGOBERTO Rx#:[id number] Vancomycin Inj 1,000 MG In NS 250 / 250 Inj 250 ML @ 250 mls/hr IV.SIG STAT STA Rx#:[id number] Oral 480 / 480 240 / 240 Output: Urine 1100 / 1100 650 / 650 Other: Date of Last Bowel Movement 05/14/18 05/14/18 Narrative: GENERAL: No distress SKIN: Warm and dry. Right medial aspect of the ankle with chronic large wound very slowly healing, currently bandaged HEAD: Atraumatic. Normocephalic EYES: Pupils equal and round. No scleral icterus. No injection or drainage. EOMI ENT: No nasal bleeding or discharge. Mucous membranes pink and moist. Poor dentition NECK: Trachea midline. No JVD. Supple CARDIOVASCULAR: Regular rate and rhythm. S1-S2 no S3 or S4 RESPIRATORY: No accessory muscle use. Clear to auscultation. Breath sounds equal bilaterally GASTROINTESTINAL: Abdomen soft, non-tender, nondistended. Hepatic and splenic margins not palpable MUSCULOSKELETAL: Extremities without clubbing, cyanosis. Right lower extremity bandaged NEUROLOGICAL: Awake and alert. No obvious cranial nerve deficits. Motor grossly within normal limits. Five out of 5 muscle strength in the arms and legs. Normal speech PSYCHIATRIC: Appropriate mood and affect Results - Labs CBC & Chem 7: 05/16/18 08:51 05/16/18 08:51 Laboratory Results - last 24 hr 05/15/18 05/15/18 05/15/18 07:10 09:45 09:45 WBC RBC Hgb Hct MCV MCH MCHC RDW Plt Count MPV Neut % (Auto) Lymph % (Auto) Alfalfa % (Auto) Eos % (Auto) Baso % (Auto) Neut # (Auto) Lymph # (Auto) Alfalfa # (Auto) Eos # (Auto) Baso # (Auto) WBC Differential Differential Comment PT INR Sodium Potassium Chloride Carbon Dioxide Anion Gap BUN Creatinine Estimated GFR POC Glucose Random Glucose Hemoglobin A1c 5.1 Lactic Acid Calcium Phosphorus Magnesium Total Bilirubin AST ALT Alkaline Phosphatase Ammonia Total Creatine Kinase CK-MB (CK-2) CK-MB (CK-2) % Troponin I Total Protein Albumin Urine Color Straw Urine Clarity Hazy H Urine pH 5.0 Ur Specific Mccarr 1.012 Urine Protein 30 H Urine Glucose (UA) Negative Urine Ketones Negative Urine Occult Blood Moderate H Urine Nitrate Negative Urine Bilirubin Negative Urine Urobilinogen Less than 2 Ur Leukocyte Esterase Negative Urine RBC Less than 1 Triple Phos Crystals Rare H Hyaline Casts 3 Micro UA Comment Culture not ind Ur Microscopic Review Not Reportable Urine Culture Comments Culture not ind Urine Opiates Screen Neg Ur Barbiturates Screen Neg Ur Amphetamines Screen Neg U Benzodiazepines Scrn Pos H Urine Cocaine Screen Pos H U Cannabinoids Screen Pos H 05/15/18 05/15/18 05/15/18 12:41 12:41 12:41 WBC RBC Hgb Hct MCV MCH MCHC RDW Plt Count MPV Neut % (Auto) Lymph % (Auto) Alfalfa % (Auto) Eos % (Auto) Baso % (Auto) Neut # (Auto) Lymph # (Auto) Alfalfa # (Auto) Eos # (Auto) Baso # (Auto) WBC Differential Differential Comment PT INR Sodium Potassium Chloride Carbon Dioxide Anion Gap BUN Creatinine Estimated GFR POC Glucose Random Glucose Hemoglobin A1c Lactic Acid 2.9 H Calcium Phosphorus 2.4 L Cancelled Magnesium 2.1 Cancelled Total Bilirubin AST ALT Alkaline Phosphatase Ammonia Total Creatine Kinase 384 H CK-MB (CK-2) 3.2 CK-MB (CK-2) % 0.8 Troponin I Less than 0.02 L Total Protein Albumin Urine Color Urine Clarity Urine pH Ur Specific Mccarr Urine Protein Urine Glucose (UA) Urine Ketones Urine Occult Blood Urine Nitrate Urine Bilirubin Urine Urobilinogen Ur Leukocyte Esterase Urine RBC Triple Phos Crystals Hyaline Casts Micro UA Comment Ur Microscopic Review Urine Culture Comments Urine Opiates Screen Ur Barbiturates Screen Ur Amphetamines Screen U Benzodiazepines Scrn Urine Cocaine Screen U Cannabinoids Screen 05/15/18 05/15/18 05/15/18 13:41 16:59 18:45 WBC RBC Hgb Hct MCV MCH MCHC RDW Plt Count MPV Neut % (Auto) Lymph % (Auto) Alfalfa % (Auto) Eos % (Auto) Baso % (Auto) Neut # (Auto) Lymph # (Auto) Alfalfa # (Auto) Eos # (Auto) Baso # (Auto) WBC Differential Differential Comment PT INR Sodium Potassium Chloride Carbon Dioxide Anion Gap BUN Creatinine Estimated GFR POC Glucose 90 92 Random Glucose Hemoglobin A1c Lactic Acid Calcium Phosphorus Magnesium Total Bilirubin AST ALT Alkaline Phosphatase Ammonia Total Creatine Kinase 388 H CK-MB (CK-2) 2.8 CK-MB (CK-2) % 0.7 Troponin I Less than 0.02 L Total Protein Albumin Urine Color Urine Clarity Urine pH Ur Specific Mccarr Urine Protein Urine Glucose (UA) Urine Ketones Urine Occult Blood Urine Nitrate Urine Bilirubin Urine Urobilinogen Ur Leukocyte Esterase Urine RBC Triple Phos Crystals Hyaline Casts Micro UA Comment Ur Microscopic Review Urine Culture Comments Urine Opiates Screen Ur Barbiturates Screen Ur Amphetamines Screen U Benzodiazepines Scrn Urine Cocaine Screen U Cannabinoids Screen 05/15/18 05/16/18 05/16/18 19:51 08:39 08:51 WBC 6.1 RBC 3.64 L Hgb 11.8 L Hct 33.7 L MCV 92.7 D MCH 32.4 MCHC 35.0 RDW 15.5 Plt Count 236 MPV 7.7 Neut % (Auto) 55.8 Lymph % (Auto) 30.5 Alfalfa % (Auto) 11.1 H Eos % (Auto) 2.0 Baso % (Auto) 0.6 Neut # (Auto) 3.4 Lymph # (Auto) 1.9 Alfalfa # (Auto) 0.7 Eos # (Auto) 0.1 Baso # (Auto) 0.0 WBC Differential . Differential Comment Auto diff final PT INR Sodium Potassium Chloride Carbon Dioxide Anion Gap BUN Creatinine Estimated GFR POC Glucose 86 135 H Random Glucose Hemoglobin A1c Lactic Acid Calcium Phosphorus Magnesium Total Bilirubin AST ALT Alkaline Phosphatase Ammonia Total Creatine Kinase CK-MB (CK-2) CK-MB (CK-2) % Troponin I Total Protein Albumin Urine Color Urine Clarity Urine pH Ur Specific Mccarr Urine Protein Urine Glucose (UA) Urine Ketones Urine Occult Blood Urine Nitrate Urine Bilirubin Urine Urobilinogen Ur Leukocyte Esterase Urine RBC Triple Phos Crystals Hyaline Casts Micro UA Comment Ur Microscopic Review Urine Culture Comments Urine Opiates Screen Ur Barbiturates Screen Ur Amphetamines Screen U Benzodiazepines Scrn Urine Cocaine Screen U Cannabinoids Screen 05/16/18 05/16/18 05/16/18 08:51 08:51 08:51 WBC RBC Hgb Hct MCV MCH MCHC RDW Plt Count MPV Neut % (Auto) Lymph % (Auto) Alfalfa % (Auto) Eos % (Auto) Baso % (Auto) Neut # (Auto) Lymph # (Auto) Alfalfa # (Auto) Eos # (Auto) Baso # (Auto) WBC Differential Differential Comment PT 10.5 INR 1.0 Sodium 143 Potassium 3.3 L D Chloride 112 H Carbon Dioxide 20.8 L D Anion Gap 10 BUN 9 Creatinine 1.11 Estimated GFR 83 L POC Glucose Random Glucose 83 Hemoglobin A1c Lactic Acid Calcium 8.7 Phosphorus 2.8 Magnesium 1.9 Total Bilirubin 0.3 AST 14 L ALT 14 Alkaline Phosphatase 80 Ammonia 36 H Total Creatine Kinase CK-MB (CK-2) CK-MB (CK-2) % Troponin I Total Protein 6.9 D Albumin 3.1 L D Urine Color Urine Clarity Urine pH Ur Specific Mccarr Urine Protein Urine Glucose (UA) Urine Ketones Urine Occult Blood Urine Nitrate Urine Bilirubin Urine Urobilinogen Ur Leukocyte Esterase Urine RBC Triple Phos Crystals Hyaline Casts Micro UA Comment Ur Microscopic Review Urine Culture Comments Urine Opiates Screen Ur Barbiturates Screen Ur Amphetamines Screen U Benzodiazepines Scrn Urine Cocaine Screen U Cannabinoids Screen Microbiology 05/15/18 10:15 Wound - Leg Gram Stain - Final Assessment and Plan - Plan Seizure disorder ? Noncompliance with medications/ substance use. Tox screen positive for cocaine. Loaded with Dilantin. -Continue with p.o. Dilantin at bedtime. -Seizure precautions. -Ativan as needed. Right lower extremity wound Chronic. -continue on vancomycin and Zosyn. -wound care consult appreciated. Continue wound care as recommended. -follow wound culture. GNRs noted. Alcohol abuse Possible withdrawal seizure. -continue on CIWA protocol -Multivitamin; Thiamine; Folic acid. Elevated ammonia level Improved. -continue on lactulose. TSH is elevated May be s/t acute presentation. -check T3, free T4. DVT prophylaxis: Heparin
[2018-05-16] MEDS: Phenytoin Sodium 100 MG Capsule PO SCH (21:12)
[2018-05-17] MEDS: Heparin - SQ 10,000 UNITS/ML Vial SQ SCH ×3 (00:12→17:37)
[2018-05-17] MEDS: Piperacil/Tazo 3.375 GM Premix 50 ML IV.SIG SCH ×3 (00:12→17:36)
[2018-05-17] MEDS: Vancomycin Inj 1,250 MG in Sodium Chlor 0.9% Inj 250 ML IV.SIG SCH (09:25)
[2018-05-17] MEDS: Multivitamin/Minerals Therapeutic Tablet PO SCH (09:25)
[2018-05-17] MEDS: Folic Acid 1 MG Tablet PO SCH (09:25)
[2018-05-17] MEDS: Senna/Docusate Sodium 8.6/50 MG Tablet PO SCH ×2 (09:25→21:53)
[2018-05-17 11:00] LABS: Alanine Aminotransferase 16 U/L (12-78); Anion Gap 10 meq/L (5-15); Aspartate Aminotransferase 15 U/L (15-37); Blood Urea Nitrogen 7 mg/dL (7-18); Calcium 8.8 mg/dL (8.5-10.1); Carbon Dioxide 23.4 meq/L (21.0-32.0); Chloride 109 meq/L (98-107); Glomerular Filtration Rate Greater Than 89 mL/min (>89); Glucose,Random 88 mg/dL (74-106); Magnesium 1.7 mg/dL (1.5-2.5); Phosphorus 2.9 mg/dL (2.5-4.9); Potassium 3.6 meq/L (3.5-5.1); Sodium 142 meq/L (136-145)
[2018-05-17 11:02] LABS: Alkaline Phosphatase 77 U/L (45-117)
--- NOTE | 2018-05-17 13:20 | P.PN ---
Subjective Interval history: awake and alert, no complains of headaches, no neck pains afebrile sttes history of SZ chronic right lE wound- ff by Dr. Suarez as OP Physical Exam Vital signs: Vital Signs 05/16/18 14:00 05/16/18 15:00 05/16/18 15:34 Temperature 97.8 F Pulse Rate 67 76 76 Respiratory Rate 16 Blood Pressure 105/57 L Pulse Oximetry 99 05/16/18 16:00 05/16/18 17:00 05/16/18 18:00 Temperature Pulse Rate 70 74 78 Respiratory Rate Blood Pressure Pulse Oximetry 05/16/18 20:00 05/17/18 00:00 05/17/18 03:28 Temperature 99.3 F 98.8 F 97.8 F Pulse Rate 73 69 63 Respiratory Rate 18 18 18 Blood Pressure 121/72 113/75 106/71 Pulse Oximetry 98 97 98 05/17/18 04:00 05/17/18 08:00 Temperature 97.4 F L 97.7 F Pulse Rate 67 65 Respiratory Rate 18 20 Blood Pressure 108/74 127/76 Pulse Oximetry 98 98 Intake & Output 05/16/18 05/17/18 05/17/18 18:59 06:59 18:59 Intake Total 1742.5 / 1742.5 510 / 510 552.5 / 552.5 Output Total 300 / 300 650 / 650 Balance 1442.5 / 1442.5 -140 / -140 552.5 / 552.5 Weight 66 kg Intake: IV 362.5 / 362.5 50 / 50 312.5 / 312.5 Zosyn 3.375 GM Premix 50 ML @ 100 / 100 50 / 50 50 / 50 100 mls/hr IV.SIG Q8H DAGOBERTO Rx#: [id number] Vancomycin Inj 1,250 MG In NS 262.5 / 262.5 262.5 / 262.5 Inj 250 ML @ 250 mls/hr IV.SIG Q24H DAGOBERTO Rx#:[id number] Oral 1380 / 1380 460 / 460 240 / 240 Output: Urine 300 / 300 650 / 650 Other: # Voids 3 Date of Last Bowel Movement 05/16/18 05/16/18 05/16/18 Narrative: No distress Atraumatic. Normocephalic Pupils equal and round. No scleral icterus. No injection or drainage. EOMI No nasal bleeding or discharge. Mucous membranes pink and moist. Poor dentition no nuchal rigidity No JVD. Supple Regular rate and rhythm. S1-S2 no S3 or S4 No accessory muscle use. Clear to auscultation. Breath sounds equal bilaterally Abdomen soft, non-tender, nondistended. Hepatic and splenic margins not palpable Extremities without clubbing, cyanosis. Right lower extremity- medial aspect the right lower extremity - with chronic large wound very slowly healing, moderate amount of pus- non foul ++ DP,PT Awake and alert. No obvious cranial nerve deficits. Motor grossly within normal limits. Five out of 5 muscle strength in the arms and legs. Normal speech Results - Labs CBC & Chem 7: 05/16/18 08:51 05/17/18 08:45 Laboratory Results - last 24 hr 05/16/18 05/16/18 05/17/18 12:16 17:15 08:45 Sodium 142 Potassium 3.6 Chloride 109 H Carbon Dioxide 23.4 Anion Gap 10 BUN 7 Creatinine 0.97 Estimated GFR Greater than 89 POC Glucose 128 H Random Glucose 88 Calcium 8.8 Phosphorus 2.9 Magnesium 1.7 Total Bilirubin 0.2 Direct Bilirubin 0.1 Indirect Bilirubin 0.1 AST 15 ALT 16 Alkaline Phosphatase 77 Total Protein 7.0 Albumin 3.0 L Total T3 69 Microbiology 05/15/18 07:00 Blood - Peripheral Aerobic Blood Culture - Preliminary No growth in 2 days 05/15/18 07:00 Blood - Peripheral Anaerobic Blood Culture - Preliminary No growth in 2 days 05/15/18 07:11 Blood - Peripheral Aerobic Blood Culture - Preliminary No growth in 2 days 05/15/18 07:11 Blood - Peripheral Anaerobic Blood Culture - Preliminary No growth in 2 days 05/15/18 10:15 Wound - Leg Gram Stain - Final 05/15/18 10:15 Wound - Leg Wound Culture - Final Pseudomonas aeruginosa Assessment and Plan - Plan 57 years old male Seizure disorder ? Noncompliance with medications/ substance use. Tox screen positive for cocaine. Loaded with Dilantin. -Continue with p.o. Dilantin at bedtime 400 mg hs - check dilantin level now -Seizure precautions. -Ativan as needed. Chronic Right lower extremity wound- now growing Pseudomonas - copious discharge but edges clean, no necrotic tissue -continue on Zosyn. DC Vancomycin -wound care consult appreciated. Continue wound care as recommended. -Last time was DC on po augmentin - ff by Dr Suarez as OP- will d/w her in am - Alcohol abuse Possible withdrawal seizure. -continue on CIWA protocol -Multivitamin; Thiamine; Folic acid. - counselled Elevated ammonia level Improved. -continue on lactulose. TSH is elevated - sublclinical -check T3, free T4.- normal - TSH repeat as OP in 8 weeks DVT prophylaxis: Heparin
[2018-05-17] MEDS: Phenytoin Sodium 100 MG Capsule PO SCH (21:53)
[2018-05-18] MEDS: Heparin - SQ 10,000 UNITS/ML Vial SQ SCH ×3 (01:31→17:12)
[2018-05-18] MEDS: Piperacil/Tazo 3.375 GM Premix 50 ML IV.SIG SCH ×2 (01:31→09:49)
[2018-05-18 08:33] VITALS: RESP 18
[2018-05-18] MEDS ORDERED: Pharmacy Ordered Lab Info OTHER ONE (08:45)
--- NOTE | 2018-05-18 09:14 | P.PN ---
Subjective Interval history: awake and alert no complains of pain afebrile states he does not change dressing - goes to wound clinic once a week Physical Exam Vital signs: Vital Signs 05/17/18 12:00 05/17/18 14:00 05/17/18 16:00 Temperature 98.1 F 97.8 F 98.7 F Pulse Rate 71 65 Respiratory Rate 20 20 19 Blood Pressure 108/60 111/64 109/61 Pulse Oximetry 98 100 98 05/17/18 17:00 05/17/18 18:00 05/17/18 20:00 Temperature 97.8 F 98.3 F Pulse Rate 71 65 65 Respiratory Rate 20 18 Blood Pressure 111/64 108/62 Pulse Oximetry 100 96 05/17/18 20:06 05/18/18 00:00 05/18/18 00:03 Temperature 97 F L Pulse Rate 68 67 69 Respiratory Rate 18 Blood Pressure 119/77 Pulse Oximetry 98 05/18/18 04:00 05/18/18 04:04 05/18/18 06:34 Temperature 98.0 F Pulse Rate 68 77 Respiratory Rate 18 16 Blood Pressure 140/80 Pulse Oximetry 100 05/18/18 08:00 Temperature 98.1 F Pulse Rate 69 Respiratory Rate 18 Blood Pressure 108/64 Pulse Oximetry 95 Intake & Output 05/17/18 05/18/18 05/18/18 18:59 06:59 18:59 Intake Total 1562.5 / 1562.5 50 / 50 Output Total 1001 / 1001 Balance 561.5 / 561.5 50 / 50 Weight 66.7 kg Intake: IV 362.5 / 362.5 50 / 50 Zosyn 3.375 GM Premix 50 ML @ 100 / 100 50 / 50 100 mls/hr IV.SIG Q8H DAGOBERTO Rx#: [id number] Vancomycin Inj 1,250 MG In NS 262.5 / 262.5 Inj 250 ML @ 250 mls/hr IV.SIG Q24H DAGOBERTO Rx#:[id number] Oral 1200 / 1200 Output: Urine 1000 / 1000 Stool Other: Date of Last Bowel Movement 05/17/18 05/17/18 05/17/18 # Bowel Movements 1 Narrative: No distress Pupils equal EOMI No nasal bleeding Poor dentition no nuchal rigidity No JVD. Supple Regular rate and rhythm. S1-S2 no S3 or S4 No accessory muscle use. Clear to auscultation. Breath sounds equal bilaterally Abdomen soft, non-tender, nondistended. Hepatic and splenic margins not palpable Extremities without clubbing, cyanosis. 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 No obvious cranial nerve deficits. Motor grossly within normal limits. Five out of 5 muscle strength in the arms and legs. Normal speech Results - Labs CBC & Chem 7: 05/16/18 08:51 05/17/18 08:45 Laboratory Results - last 24 hr 05/17/18 05/17/18 08:45 08:45 Sodium 142 Potassium 3.6 Chloride 109 H Carbon Dioxide 23.4 Anion Gap 10 BUN 7 Creatinine 0.97 Estimated GFR Greater than 89 Random Glucose 88 Calcium 8.8 Phosphorus 2.9 Magnesium 1.7 Total Bilirubin 0.2 Direct Bilirubin 0.1 Indirect Bilirubin 0.1 AST 15 ALT 16 Alkaline Phosphatase 77 Total Protein 7.0 Albumin 3.0 L Phenytoin 14.5 Microbiology 05/15/18 07:00 Blood - Peripheral Aerobic Blood Culture - Preliminary No growth in 2 days 05/15/18 07:00 Blood - Peripheral Anaerobic Blood Culture - Preliminary No growth in 2 days 05/15/18 07:11 Blood - Peripheral Aerobic Blood Culture - Preliminary No growth in 2 days 05/15/18 07:11 Blood - Peripheral Anaerobic Blood Culture - Preliminary No growth in 2 days 05/15/18 10:15 Wound - Leg Gram Stain - Final 05/15/18 10:15 Wound - Leg Wound Culture - Final Pseudomonas aeruginosa Assessment and Plan - Plan 57 years old male Seizure disorder ? Noncompliance with medications/ substance use. Tox screen positive for cocaine. Loaded with Dilantin. -Continue with p.o. Dilantin at bedtime 400 mg hs -dilantin level therapeutic -Seizure precautions. -Ativan as needed. Chronic Right lower extremity wound- now growing Pseudomonas - copious discharge but edges clean, no necrotic tissue -continue on Zosyn. - Vanco DC 05/17 -wound care consult appreciated. Continue wound care as recommended. -Last time was DC on po augmentin - ff by Dr Vela as OP- consult her this am - possible DC on po quinolones -Ciprofkloxacin 500 mg po bid x 10 days - will ask CM to assist with DC meds Alcohol abuse Possible withdrawal seizure. -continue on CIWA protocol -Multivitamin; Thiamine; Folic acid. - counselled Elevated ammonia level Improved. -continue on lactulose. TSH is elevated - sublclinical -check T3, free T4.- normal - TSH repeat as OP in 8 weeks DVT prophylaxis: Heparin Possible DC - will ask CM assistance - with home supplies and meds
[2018-05-18] MEDS: Senna/Docusate Sodium 8.6/50 MG Tablet PO SCH (09:49)
[2018-05-18] MEDS: Multivitamin/Minerals Therapeutic Tablet PO SCH (09:49)
[2018-05-18] MEDS: Folic Acid 1 MG Tablet PO SCH (09:49)
--- NOTE | 2018-05-18 13:54 | P.PNWCN ---
Wound Care Nurse Consult Description: Received call from Doctor Rgoer for follow up of wound to R medial leg Communicated with: LAURA randall, Doctor Roger, Doctor Vela Recommendation: Please leave dressing of puracol AG, maxorb II, ABD pad, rolled gauze, and maribel wrap in place for 1 week. May change, MARIBEL wrap, rolled gauze and ABD pad PRN if saturated or dislodged. Change entire dressing if entire dressing is dislodged or saturated. Patient needs to follow up with wound care outpatient Doctor Dane when discharged. Wound/Pressure Injury - Patient Status Premedicated for Pain Prior to Dressing Change: No - Wound Right medial lower leg Wound Assessment: Ongoing Wound Type: Traumatic Wound Is This a Chronic Wound: Yes Length (cm): 4.9 (~4.9cm) Width (cm): 3.8 (~3.8cm) Depth (cm): 0.4 (~0.4cm) Wound Bed Appearance: Red, Yellow Wound Bed Appearance: Wound bed presents with ~80% red granulation tissue and ~20% yellow tissue. Surrounding Tissue Temperature: Cool Drainage Description: Serosanguinous Drainage Amount: Minimal Drainage Odor: No Odor Dressing Status: Changed Cleansing Solution: Saline Wound Packing Type: Collagen (puracol AG) Primary Dressing: maxorb II, gauze pads Cover Dressing: ABD pad, rolled gauze, elastic wrap Tape Type: Paper Wound Dressing Change Date: 05/18/18 Wound Margin Description: Wound margins are steep and open - Additional Information Patient was seen today for follow up of R medial lower extremity wound, following request from Doctor Roger, wound culture from 05/15/2018 positive for mixed entero gram positive rods, including pseudomonas, and normal skin spencer.Dressing in place was slightly dislodged. Removed dressing in place to reveal wound to R medial lower leg that has improved since previous assessment. Wound descriptions and measurements are noted above. Wound was cleansed with gauze pad and normal saline and patted dry. Applied puracol AG to wound bed on R medial lower leg and covered with Maxorb II cut to fit wound bed. Covered with dry gauze, and ABD pad, secured dressing with rolled gauze, and elastic wrap.Patient tolerated dressing change and wound assessment well.Recommendations are noted above.
--- NOTE | 2018-05-18 16:01 | P.DS ---
Date of admission: 05/15/18 09:28 Primary care physician: UNKNOWN Anticipated date of discharge: 05/18/18 Brief History from admission: Patient is a 57-year-old female who was brought in by the emergency services. Patient was postictal originally. Is now starting to wake up. Patient has history of seizure disorder is not very compliant with medications. He has been homeless but has been sleeping in someone's couch. He states he drinks alcohol pretty much daily had a couple seizures at this home. And then paramedics thought he was altered postictal. Then he had another seizure was given Versed. Route to the emergency department was not able to get much history now. Supposed to be on Dilantin which he has not been taking too often. Has history of substance abuse and alcohol abuse. Had been in the hospital for wound to the right lower extremity. With debridement and wound VAC close antibiotics and antifungals. Had extensive cellulitis of the right lower extremity had been discharged on April 15 Patient update on day of discharge: afebrile state going home to a friend's house CM assist with DCmeds he goes to wound care center to ff up with Paulie Hemphill DS: Medications - Discharge Medications Prescriptions: ciprofloxacin HCl [Cipro] 500 mg PO Q12H 10 Days #20 tab DS: Summary Hospital Course: 57 years old male Seizure disorder ? Noncompliance with medications/ substance use. Tox screen positive for cocaine. Loaded with Dilantin. -Continue with p.o. Dilantin at bedtime 400 mg hs -dilantin level therapeutic -Seizure precautions. -Ativan as needed. Chronic Right lower extremity wound- now growing Pseudomonas - copious discharge but edges clean, no necrotic tissue -continue on Zosyn. - Vanco DC 05/17 -wound care consult appreciated. Continue wound care as recommended. -Last time was DC on po augmentin - ff by Dr Vela as OP- consult her this am - possible DC on po quinolones -Ciprofkloxacin 500 mg po bid x 10 days - will ask CM to assist with DC meds Alcohol abuse Possible withdrawal seizure. -continue on CIWA protocol -Multivitamin; Thiamine; Folic acid. - counselled Elevated ammonia level Improved. -continue on lactulose. TSH is elevated - sublclinical -check T3, free T4.- normal - TSH repeat as OP in 8 weeks DVT prophylaxis: Heparin Possible DC - will ask CM assistance - with home supplies and meds - Time Spent with Patient Total time spent providing and/or coordinating discharge services: Greater than 30 minutes - Quality: VTE Deep Vein Thrombosis/Pulmonary Embolism Present on Admission: Yes Exam Vital signs: Vital Signs 05/17/18 17:00 05/17/18 18:00 05/17/18 20:00 Temperature 97.8 F 98.3 F Pulse Rate 71 65 65 Respiratory Rate 20 18 Blood Pressure 111/64 108/62 Pulse Oximetry 100 96 05/17/18 20:06 05/18/18 00:00 05/18/18 00:03 Temperature 97 F L Pulse Rate 68 67 69 Respiratory Rate 18 Blood Pressure 119/77 Pulse Oximetry 98 05/18/18 04:00 05/18/18 04:04 05/18/18 06:34 Temperature 98.0 F Pulse Rate 68 77 Respiratory Rate 18 16 Blood Pressure 140/80 Pulse Oximetry 100 05/18/18 08:00 05/18/18 12:00 Temperature 98.1 F 98.1 F Pulse Rate 69 74 Respiratory Rate 18 18 Blood Pressure 108/64 103/61 Pulse Oximetry 95 99 Intake & Output 05/17/18 05/18/18 05/18/18 18:59 06:59 18:59 Intake Total 1562.5 / 1562.5 50 / 50 50 / 50 Output Total 1001 / 1001 Balance 561.5 / 561.5 50 / 50 50 / 50 Weight 66.7 kg Intake: IV 362.5 / 362.5 50 / 50 50 / 50 Zosyn 3.375 GM Premix 50 ML @ 100 / 100 50 / 50 50 / 50 100 mls/hr IV.SIG Q8H DAGOBERTO Rx#: [id number] Vancomycin Inj 1,250 MG In NS 262.5 / 262.5 Inj 250 ML @ 250 mls/hr IV.SIG Q24H DAGOBERTO Rx#:[id number] Oral 1200 / 1200 Output: Urine 1000 / 1000 Stool Other: Date of Last Bowel Movement 05/17/18 05/17/18 05/17/18 # Bowel Movements 1 Results Procedures completed during hospitalization: none Labs on day of discharge: Preliminary micro results at discharge 05/15/18 07:00 Aerobic Blood Culture - Preliminary Blood - Peripheral No growth in 3 days Anaerobic Blood Culture - Preliminary No growth in 3 days 05/15/18 07:11 Aerobic Blood Culture - Preliminary Blood - Peripheral No growth in 3 days Anaerobic Blood Culture - Preliminary No growth in 3 days - Impressions ITS Impressions Chest X-Ray 05/15/18 06:45 CONCLUSION: Increasing parenchymal opacity left upper lobe. Head CT 05/15/18 06:45 CONCLUSION: 1. Stable noncontrast head CT, negative for acute process. . Ankle X-Ray 05/15/18 07:06 CONCLUSION: Soft tissue defect as above without osteomyelitis. Discharge Plan - Discharge Disposition Patient Disposition: 01 Discharge Home - Discharge Condition Condition: Good - Discharge Order Discharge Orders: Discharge Order (Routine); Ordered 05/18/18 Ordered By: Mandy Roger - Discharge Details Anticipated Discharge Date: 05/18/18 - Physicians Team Primary Care Provider: UNKNOWN, Attending Provider: Mandy Roger Other Providers: Gisella Vela MD
[2018-05-18 17:17] VITALS: BP 104/54; PULSE 70; TEMP 98.2; O2SAT 98
[2018-05-18] MEDS ORDERED: Ciprofloxacin 500 MG Tablet PO SCH (18:00)
[2018-05-18] MEDS: Phenytoin Sodium 100 MG Capsule PO SCH (18:40)
== END 2018-05-18 20:00 | disposition home or self-care (01) ==
LOC: NEPC 06:30 → NEDA 09:28 → HCIS 11:50 → N05 05-17 02:32
PROVIDERS: ADMIT Internal Medicine; ATTEND Internal Medicine